=== PATIENT | female | born 1935 | race Caucasian/White ===

== ENCOUNTER → 2017-12-30 | Outpatient (CLI) | payer MEDICARE, MEDICAID ==
--- NOTE | 2017-12-30 13:50 | RADIOLOGY REPORT (SQ) ---
EXAM DESCRIPTION: CHEST PA/LATERAL COMPLETED DATE/TIME: 12/30/2017 1:08 pm REASON FOR STUDY: EMPHYSEMA, UNSPECIFIED COMPARISON: 03/15/2017 EXAM PARAMETERS: NUMBER OF VIEWS: two views TECHNIQUE: Digital Frontal and Lateral radiographic views of the chest acquired. RADIATION DOSE: NA LIMITATIONS: none FINDINGS: LUNGS AND PLEURA: There is a small area of scarring in left upper lobe anteriorly. There are associated calcifications. No pulmonary infiltrates or pleural effusions. The lungs are hyperex panded. MEDIASTINUM AND HILAR STRUCTURES: No masses or contour abnormalities. HEART AND VASCULAR STRUCTURES: Heart size is borderline. There is no pulmonary edema. BONES: No acute findings. HARDWARE: None in the chest. OTHER: No other significant finding. IMPRESSION: Chronic lung changes with no acute cardiopulmonary disease. Borderline cardiomegaly wit hout pulmonary edema. TECHNICAL DOCUMENTATION: JOB ID: [id number] [employer]- All Rights Reserved Reading location - IP/workstation name: [email or web address]
== END ==
LOC: OD 12:36
PROVIDERS: ATTEND Nurse Practitioner Family
DX: J43.9 Emphysema, unspecified (principal)
CPT/HCPCS: 71046

== ENCOUNTER 2018-02-01 20:08 | Emergency (ER) | payer MEDICARE, MEDICAID ==
--- NOTE | 2018-02-01 20:19 | ER Document Report ---
ED Medical Screen (RME) - General Chief Complaint: Shortness Of Breath Stated Complaint: SHORTNESS OF BREATH Time Seen by Provider: 02/01/18 20:16 Notes: 82-year-old female with past medical history of congestive heart failure with chief complaint of 5 days of worsening lower extremity swelling and increasing difficulty breathing and dyspnea on exertion for the past day. No fever. No chest pain. Reports compliance with her diuretic and on digoxin. Also on warfarin. TRAVEL OUTSIDE OF THE [place] IN LAST 30 DAYS: No - Related Data Allergies/Adverse Reactions: Iodine and Iodide Containing Produc Adverse Reaction (Verified 03/15/17 20:30) Past Medical History - Past Medical History Cardiac Medical History: Reports: Hx DVT, Hx Heart Attack, Hx Hypercholesterolemia, Hx Hypertension, Hx Pulmonary Embolism Pulmonary Medical History: Reports: Hx COPD, Hx Pneumonia Endocrine Medical History: Reports: Hx Diabetes Mellitus Type 2 Renal/ Medical History: Denies: Hx Peritoneal Dialysis Malignancy Medical History: Reports: Hx Lung Cancer - Unknown stage or prognosis Psychiatric Medical History: Denies: Hx Depression Past Surgical History: Reports: Hx Cardiac Surgery - Stents, Hx Cholecystectomy , Hx Hysterectomy, Hx Orthopedic Surgery - L foot - Immunizations Hx Diphtheria, Pertussis, Tetanus Vaccination: Yes History of Influenza Vaccine for 02/2017 - 07/2017 Season: Unknown Physical Exam - Respiratory Respiratory status: No respiratory distress Breath sounds: No: Decreased air movement, Wheezing - Cardiovascular Rhythm: Regular. No: Tachycardia Heart sounds: Normal auscultation, S1 appreciated, S2 appreciated - Extremities General lower extremity: Edema - Bilateral lower extremity edema, 2+ pitting Doctor's Discharge - Discharge Referrals: DYLAN BROWER SENIOR EDUCATION SPECIALIST [Primary Care Provider] - Follow up as needed
[2018-02-01 21:14] LABS: ABSOLUTE BASOPHILS # (AUTO) 0.1 10^3/uL (0.0-0.2); ABSOLUTE EOSINOPHILS # (AUTO) 0.1 10^3/uL (0.0-0.6); ABSOLUTE LYMPHOCYTES (AUTO) 2.1 10^3/uL (0.5-4.7); ABSOLUTE MONOCYTES (AUTO) 0.6 10^3/uL (0.1-1.4); ABSOLUTE NEUT (AUTO) 4.6 10^3/uL (1.7-8.2); BASOPHILS % (AUTO) 1.1 % (0-2); EOSINOPHILS % (AUTO) 1.2 % (0-6); HEMATOCRIT 39.5 % (36.0-47.0); HEMOGLOBIN 13.1 g/dL (12.0-15.5); LYMPHOCYTES % (AUTO) 27.8 % (13-45); MEAN CORPUSCULAR HEMOGLOBIN 33.3 pg (27.0-33.4); MEAN CORPUSCULAR HGB CONC 33.2 g/dL (32.0-36.0); MEAN CORPUSCULAR VOLUME 100 fl (80-97); MONOCYTES % (AUTO) 8.2 % (3-13); PLATELET COUNT 186 10^3/uL (150-450); RED BLOOD COUNT 3.93 10^6/uL (3.72-5.28); RED CELL DISTRIBUTION WIDTH 13.7 % (11.5-14.0); SEGMENTED NEUTROPHILS % (AUTO) 61.7 % (42-78); TOTAL CELLS COUNTED % (AUTO) 100 %; WHITE BLOOD COUNT 7.5 10^3/uL (4.0-10.5)
[2018-02-01 21:19] LABS: INTERNATIONAL RATION (INR) 1.07; PROTHROMBIN TIME 14.4 SEC (11.4-15.4)
[2018-02-01 22:01] LABS: ALANINE AMINOTRANSFERASE 20 U/L (9-52); ALBUMIN 3.7 g/dL (3.5-5.0); ALKALINE PHOSPHATASE 78 U/L (38-126); ANION GAP 7 (5-19); ASPARTATE AMINO TRANSFERASE 17 U/L (14-36); BILIRUBIN,DIRECT 0.3 mg/dL (0.0-0.4); BILIRUBIN,TOTAL 0.3 mg/dL (0.2-1.3); BLOOD UREA NITROGEN 19 mg/dL (7-20); CALCIUM 9.5 mg/dL (8.4-10.2); CARBON DIOXIDE 32 mmol/L (22-30); CHLORIDE 104 mmol/L (98-107); DIGOXIN < 0.40 ng/mL (0.8-2.0); GLUCOSE 181 mg/dL (75-110); POTASSIUM 4.4 mmol/L (3.6-5.0); SODIUM 143.3 mmol/L (137-145); TOTAL PROTEIN 6.6 g/dL (6.3-8.2)
[2018-02-01 22:06] LABS: NT PRO BNP 1110 pg/mL (<450)
[2018-02-01 22:13] LABS: TROPONIN I < 0.012 ng/mL
--- NOTE | 2018-02-01 23:50 | RADIOLOGY REPORT (SQ) ---
EXAM DESCRIPTION: XR CHEST 1 VIEW COMPLETED DATE/TME: 02/01/2018 20:16 CLINICAL HISTORY: 82 years, Female, shortness of breath COMPARISON: 12/30/2017 NUMBER OF VIEWS: TECHNIQUE: LIMITATIONS: None. FINDINGS: Heart remains mildly enlarged. There is scattered atelectasis bilaterally. There is consolidation at the right lung base, new since the prior exam. No other interval change. IMPRESSION: Right lung base consolidation. 2010 [employer]- All Rights Reserved
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
[2018-02-02] MEDS ORDERED: CEFTRIAXONE INJ 1000 MG VIAL IV ONE (01:46)
[2018-02-02] MEDS ORDERED: DOXYCYCLINE HYCLATE INJ 100 MG VIAL IV ONE ×2 (01:46→04:30)
[2018-02-02] MEDS ORDERED: FUROSEMIDE INJ/PF 40 MG/4 ML SDV IV ONE (01:47)
[2018-02-02] MEDS: MAGNESIUM SULFATE/D5W 1 GM/100 ML RTUPB IV SCH ×2 (01:54→02:44)
[2018-02-02] MEDS ORDERED: OXYCODONE-ACETAMINOPHEN 5-325 MG TABLET PO ONE (03:56)
[2018-02-02 11:09] VITALS: BP 118/98
--- NOTE | 2018-02-02 15:29 | EKG REPORT ---
SEVERITY:- OTHERWISE NORMAL ECG - SINUS RHYTHM ATRIAL PREMATURE COMPLEX : Confirmed by: May Collins MD 02-Feb-2018 15:29:04
--- NOTE | 2018-02-02 15:29 | EKG REPORT ---
SEVERITY:- NORMAL ECG - SINUS RHYTHM : Confirmed by: May Collins MD 02-Feb-2018 15:29:00
== END 2018-02-02 11:13 | disposition short-term general hospital (02) ==
LOC: ER 20:08
DX: I47.2 Ventricular tachycardia (principal); I11.0 Hypertensive heart disease with heart failure; I50.9 Heart failure, unspecified; J18.1 Lobar pneumonia, unspecified organism; E11.9 Type 2 diabetes mellitus without complications; F17.200 Nicotine dependence, unspecified, uncomplicated
CPT/HCPCS: 93005 ×2; 99285; 96375; 96365; 96366; 96367; 96368; 36415; 80162; 85025; 85610; 80053; 84484; 83880; 71045; 93010 ×2; J3490; J1940; A9270; J3475; J0696

== ENCOUNTER → 2018-02-18 | Outpatient (CLI) | payer MEDICARE, MEDICAID ==
--- NOTE | 2018-02-18 17:49 | RADIOLOGY REPORT (SQ) ---
EXAM DESCRIPTION: HAND RIGHT 3 VIEWS COMPLETED DATE/TIME: 02/18/2018 5:40 pm REASON FOR STUDY: M79.641 PAIN IN RIGHT HAND M79.641 PAIN IN RIGHT HAND COMPARISON: None. EXAM PARAMETERS: NUMBER OF VIEWS: Three views. TECHNIQUE: AP, lateral and oblique radiographic images acquired of the right hand. LIMITATIONS: None. FINDINGS: MINERALIZATION: Normal. BONES: No acute fracture or dislocation. No worrisome bone lesions. JOINTS: No effusions. SOFT TISSUES: No soft tissue swelling. No foreign body. OTHER: No other significant finding. IMPRESSION: NEGATIVE STUDY OF THE RIGHT HAND. NO RADIOGRAPHIC EVIDENCE OF ACUTE INJURY. TECHNICAL DOCUMENTATION: JOB ID: [id number] [employer]- All Rights Reserved Reading location - IP/workstation name: [email or web address]
== END ==
LOC: RAD 17:30
PROVIDERS: ATTEND Physician Assistant
DX: M79.641 Pain in right hand (principal)

== ENCOUNTER → 2018-02-24 | Outpatient (CLI) | payer MEDICARE, MEDICAID ==
[2018-02-24 12:41] LABS: INTERNATIONAL RATION (INR) 1.09
[2018-02-24 12:54] LABS: PROTHROMBIN TIME 14.7 SEC (11.4-15.4)
== END ==
LOC: GHH 12:08
PROVIDERS: ATTEND Family Medicine
DX: Z51.81 Encounter for therapeutic drug level monitoring (principal); Z79.01 Long term (current) use of anticoagulants; Z79.899 Other long term (current) drug therapy
CPT/HCPCS: 85610

== ENCOUNTER 2018-02-26 18:41 | Emergency (ER) | payer MEDICARE, MEDICAID ==
--- NOTE | 2018-02-26 19:14 | ER Document Report ---
ED General - General Chief Complaint: Shortness Of Breath Stated Complaint: SHORTNESS OF BREATH Time Seen by Provider: 02/26/18 19:01 Notes: Is an 82-year-old female to the emergency department chief complaint of shortness of breath. Patient has multiple medical problems. States that she was recently transferred to [facility] for a pacemaker. States that she has been short of breath all day. Presents by EMS. Denies any chest pain at this time. TRAVEL OUTSIDE OF THE [place] IN LAST 30 DAYS: No - Related Data Allergies/Adverse Reactions: Iodine and Iodide Containing Produc Adverse Reaction (Verified 02/01/18 20:19) Past Medical History - General Information source: Patient - Social History Smoking Status: Current Every Day Smoker Cigarette use (# per day): Yes Frequency of alcohol use: None Drug Abuse: None Lives with: Family Family History: CAD, COPD - Past Medical History Cardiac Medical History: Reports: Hx DVT, Hx Heart Attack, Hx Hypercholesterolemia, Hx Hypertension, Hx Pulmonary Embolism Pulmonary Medical History: Reports: Hx COPD, Hx Pneumonia Endocrine Medical History: Reports: Hx Diabetes Mellitus Type 2 Renal/ Medical History: Denies: Hx Peritoneal Dialysis Malignancy Medical History: Reports: Hx Lung Cancer - Unknown stage or prognosis Psychiatric Medical History: Denies: Hx Depression Past Surgical History: Reports: Hx Cardiac Surgery - Stents, Hx Cholecystectomy , Hx Hysterectomy, Hx Orthopedic Surgery - L foot - Immunizations Hx Diphtheria, Pertussis, Tetanus Vaccination: Yes Review of Systems - Review of Systems Notes: Constitutional: denies: Chills, Diaphoresis, Fever, Malaise, Weakness EENT: denies: Eye discharge, Blurred vision, Tearing, Double vision, Nose congestion, Nose discharge, Throat swelling, Mouth pain Cardiovascular: denies: Palpitations, Heart racing, Orthopnea, Dyspnea, Chest pain Respiratory: denies: Cough, Hurts to breathe, Wheezing, Shortness of breath Gastrointestinal: denies: Abdominal pain, Diarrhea, Nausea, Vomiting, Black stools, bright red blood in stool Genitourinary: denies: Burning, Dysuria, Discharge, Frequency, Flank pain, Hematuria Musculoskeletal: denies: Joint pain, Joint swelling, Muscle pain, Muscle stiffness, back pain Hematologic/Lymphatic: denies: Anemia, Easy bleeding, Easy bruising, Blood clots Neurological/Psychological: denies: Confusion, Dementia, Depression, Loss of consciousness Skin: No lesions, no masses, no skin breakdown, no abscesses Physical Exam - Vital signs Vitals: Temp Pulse Resp BP Pulse Ox 98.5 F 50 L 12 92/57 L 99 02/26/18 18:45 02/26/18 18:45 02/26/18 18:45 02/26/18 18:45 02/26/18 18:45 Interpretation: Normal - General General appearance: Appears well, Alert - HEENT Head: Normocephalic, Atraumatic Eyes: Normal Pupils: PERRL - Respiratory Respiratory status: No respiratory distress Chest status: Nontender Breath sounds: Wheezing Chest palpation: Normal - Cardiovascular Rhythm: Regular Heart sounds: Normal auscultation Murmur: No - Abdominal Inspection: Normal Distension: No distension Bowel sounds: Normal Tenderness: Nontender Organomegaly: No organomegaly - Back Back: Normal, Nontender - Extremities General upper extremity: Normal inspection, Nontender, Normal color, Normal ROM , Normal temperature General lower extremity: Normal inspection, Nontender, Normal color, Normal ROM , Normal temperature, Normal weight bearing. No: Ashwini's sign - Neurological Neuro grossly intact: Yes Cognition: Normal Orientation: AAOx4 [place] Coma Scale Eye Opening: Spontaneous [place] Coma Scale Verbal: Oriented [place] Coma Scale Motor: Obeys Commands [place] Coma Scale Total: 15 Speech: Normal Motor strength normal: LUE, RUE, LLE, RLE Sensory: Normal - Psychological Associated symptoms: Normal affect, Normal mood - Skin Skin Temperature: Warm Skin Moisture: Dry Skin Color: Normal Course - Re-evaluation Re-evalutation: 02/26/18 21:19 Patient was a little hypotensive on arrival. Faint wheeze. Breathing treatment ordered. Fluids given. Slightly elevated creatinine at 1.77 as compared to prior. Had recent hospitalization for consultation for possible pacemaker. 02/26/18 21:20 Laboratory 02/26/18 02/26/18 02/26/18 19:00 19:00 19:40 WBC 10.3 RBC 4.05 Hgb 13.4 Hct 39.8 MCV 98 H MCH 33.1 MCHC 33.6 RDW 13.1 Plt Count 168 Seg Neutrophils % 64.0 Lymphocytes % 27.4 Monocytes % 7.4 Eosinophils % 0.7 Basophils % 0.5 Absolute Neutrophils 6.6 Absolute Lymphocytes 2.8 Absolute Monocytes 0.8 Absolute Eosinophils 0.1 Absolute Basophils 0.1 Sodium 141.6 Potassium 4.3 Chloride 99 Carbon Dioxide 35 H Anion Gap 8 BUN 36 H Creatinine 1.77 H Est GFR ( Amer) 33 L Est GFR (Non-Af Amer) 28 L Glucose 110 Calcium 8.6 Total Bilirubin 0.3 Direct Bilirubin 0.2 Neonat Total Bilirubin Not Reportable Neonat Direct Bilirubin Not Reportable Neonat Indirect Bili Not Reportable AST 23 ALT 16 Alkaline Phosphatase 75 Creatine Kinase 21 L CK-MB (CK-2) Troponin I NT-Pro-B Natriuret Pep Total Protein 7.1 Albumin 3.8 02/26/18 19:40 WBC RBC Hgb Hct MCV MCH MCHC RDW Plt Count Seg Neutrophils % Lymphocytes % Monocytes % Eosinophils % Basophils % Absolute Neutrophils Absolute Lymphocytes Absolute Monocytes Absolute Eosinophils Absolute Basophils Sodium Potassium Chloride Carbon Dioxide Anion Gap BUN Creatinine Est GFR ( Amer) Est GFR (Non-Af Amer) Glucose Calcium Total Bilirubin Direct Bilirubin Neonat Total Bilirubin Neonat Direct Bilirubin Neonat Indirect Bili AST ALT Alkaline Phosphatase Creatine Kinase CK-MB (CK-2) 0.65 Troponin I < 0.012 NT-Pro-B Natriuret Pep 910 H Total Protein Albumin 02/26/18 23:35 Patient has been observed here in the ER for 4 hours now. Has had 2 sets of cardiac troponins which were negative. Has some chronic congestive heart failure. Has never had any hypoxia. Patient's blood pressure was slightly low and she received some fluid and her blood pressures come back up. More likely patient has been accidentally overdosing herself on her blood pressure medications for which she has recently been prescribed. Patient continues to smoke and did have some wheezing. Patient more likely has some COPD exacerbation going on. I am going to treat her with albuterol, prednisone and some antibiotics. We will discharge her at this time in stable condition with close outpatient follow-up. - Vital Signs Vital signs: Temp Pulse Resp BP Pulse Ox 98.5 F 50 L 13 112/50 L 100 02/26/18 18:45 02/26/18 18:45 02/26/18 23:01 02/26/18 23:01 02/26/18 23:01 - Laboratory Result Diagrams: 02/26/18 19:00 02/26/18 19:00 Laboratory results interpreted by me: 02/26/18 02/26/18 02/26/18 19:00 19:00 19:40 MCV 98 H PT Carbon Dioxide 35 H BUN 36 H Creatinine 1.77 H Est GFR ( Amer) 33 L Est GFR (Non-Af Amer) 28 L Creatine Kinase 21 L NT-Pro-B Natriuret Pep 02/26/18 02/26/18 19:40 22:10 MCV PT 21.8 H Carbon Dioxide BUN Creatinine Est GFR ( Amer) Est GFR (Non-Af Amer) Creatine Kinase NT-Pro-B Natriuret Pep 910 H - EKG Interpretation by Me EKG shows normal: Sinus rhythm, [place], Intervals, QRS Complexes, ST-T Waves Discharge - Discharge Clinical Impression: COPD exacerbation Condition: Good Disposition: HOME, SELF-CARE Instructions: Chronic Obstructive Lung Disease ([facility]) Additional Instructions: In the event that your breathing gets worse, worsening symptoms or concerns please return immediately for repeat evaluation or follow-up with her regular doctor. We are starting you on some antibiotics and steroids and breathing treatment. We will be very important that you start this medication as soon as possible. Prescriptions: Albuterol Sulfate [Ventolin Hfa] 1 - 2 puff IH Q4 PRN #1 [id number] PRN Reason: Doxycycline Hyclate 100 mg PO BID #14 capsule Prednisone [Deltasone] 60 mg PO DAILY 5 Days #15 tablet Referrals: MISSY ARISA MD [Primary Care Provider] - Follow up as needed SHERRIE CADET PA-C [NO LOCAL MD] - Follow up in 3-5 days
[2018-02-26 19:51] LABS: ABSOLUTE BASOPHILS # (AUTO) 0.1 10^3/uL (0.0-0.2); ABSOLUTE EOSINOPHILS # (AUTO) 0.1 10^3/uL (0.0-0.6); ABSOLUTE LYMPHOCYTES (AUTO) 2.8 10^3/uL (0.5-4.7); ABSOLUTE MONOCYTES (AUTO) 0.8 10^3/uL (0.1-1.4); ABSOLUTE NEUT (AUTO) 6.6 10^3/uL (1.7-8.2); BASOPHILS % (AUTO) 0.5 % (0-2); EOSINOPHILS % (AUTO) 0.7 % (0-6); HEMATOCRIT 39.8 % (36.0-47.0); HEMOGLOBIN 13.4 g/dL (12.0-15.5); LYMPHOCYTES % (AUTO) 27.4 % (13-45); MEAN CORPUSCULAR HEMOGLOBIN 33.1 pg (27.0-33.4); MEAN CORPUSCULAR HGB CONC 33.6 g/dL (32.0-36.0); MEAN CORPUSCULAR VOLUME 98 fl (80-97); MONOCYTES % (AUTO) 7.4 % (3-13); PLATELET COUNT 168 10^3/uL (150-450); RED BLOOD COUNT 4.05 10^6/uL (3.72-5.28); RED CELL DISTRIBUTION WIDTH 13.1 % (11.5-14.0); TOTAL CELLS COUNTED % (AUTO) 100 %; WHITE BLOOD COUNT 10.3 10^3/uL (4.0-10.5)
[2018-02-26 19:56] LABS: ALANINE AMINOTRANSFERASE 16 U/L (9-52); ALBUMIN 3.8 g/dL (3.5-5.0); ALKALINE PHOSPHATASE 75 U/L (38-126); ANION GAP 8 (5-19); ASPARTATE AMINO TRANSFERASE 23 U/L (14-36); BILIRUBIN,DIRECT 0.2 mg/dL (0.0-0.4); BILIRUBIN,TOTAL 0.3 mg/dL (0.2-1.3); BLOOD UREA NITROGEN 36 mg/dL (7-20); CALCIUM 8.6 mg/dL (8.4-10.2); CARBON DIOXIDE 35 mmol/L (22-30); CHLORIDE 99 mmol/L (98-107); GLUCOSE 110 mg/dL (75-110); POTASSIUM 4.3 mmol/L (3.6-5.0); SODIUM 141.6 mmol/L (137-145); TOTAL PROTEIN 7.1 g/dL (6.3-8.2)
[2018-02-26 20:18] LABS: CREATINE KINASE MB 0.65 ng/mL (<4.55); NT PRO BNP 910 pg/mL (<450)
--- NOTE | 2018-02-26 20:20 | RADIOLOGY REPORT (SQ) ---
EXAM DESCRIPTION: CHEST SINGLE VIEW COMPLETED DATE/TIME: 02/26/2018 7:54 pm REASON FOR STUDY: Shortness of Breath COMPARISON: 02/01/2018 TECHNIQUE: Single frontal radiographic view of the chest acquired. NUMBER OF VIEWS: One view. LIMITATIONS: None. FINDINGS: LUNGS AND PLEURA: No pneumothorax. Minimal residual markings at the right costophrenic an gle. No consolidation or pleural effusion. Similar nodularity in the right upper parahilar region. MEDIASTINUM AND HILAR STRUCTURES: Stable. HEART AND VASCULAR STRUCTURES: Stable. BONES: No acute findings. HARDWARE: None in the chest. OTHER: No other significant finding. IMPRESSION: Minimal residual markings at the right costophrenic angle. No consolidation or pleural effusion. Similar nodularity in the right upper parahilar region. TECHNICAL DOCUMENTATION: JOB ID: [id number] 2010 [employer]- All Rights Reserved Reading location - IP/workstation name: [email or web address]
[2018-02-26] MEDS ORDERED: NORMAL SALINE 500 ML IV ONE ×2 (20:31→22:02)
[2018-02-26 20:32] LABS: TROPONIN I < 0.012 ng/mL
[2018-02-26] MEDS ORDERED: ALBUTEROL SULFATE 0.083% NEB 2.5 MG/3 ML AMPUL NEB ONE ×2 (20:32→21:21)
[2018-02-26] MEDS ORDERED: METHYLPREDNISOLONE INJ 125 MG/2 ML SDV IV ONE (21:21)
[2018-02-26 22:33] LABS: PROTHROMBIN TIME 21.8 SEC (11.4-15.4)
--- NOTE | 2018-02-26 22:39 | EKG REPORT ---
SEVERITY:- NORMAL ECG - SINUS RHYTHM : Confirmed by: May Collins MD 26-Feb-2018 22:39:12
[2018-02-26 23:36] LABS: APPEARANCE,URINE SLIGHTLY-CLOUDY; BILIRUBIN,URINE NEGATIVE (NEGATIVE); COLOR,URINE YELLOW; GLUCOSE, URINE NEGATIVE (NEGATIVE); KETONES,URINE NEGATIVE (NEGATIVE); LEUKOCYTE ESTERASE,URINE NEGATIVE (NEGATIVE); NITRITE,URINE NEGATIVE (NEGATIVE); PROTEIN,URINE NEGATIVE (NEGATIVE)
[2018-02-26 23:43] VITALS: BP 101/61
== END 2018-02-27 00:13 | disposition home or self-care (01) ==
LOC: ER 18:41
DX: J44.1 Chronic obstructive pulmonary disease with (acute) exacerbation (principal); I11.0 Hypertensive heart disease with heart failure; I50.9 Heart failure, unspecified; R06.02 Shortness of breath; I95.9 Hypotension, unspecified; F17.210 Nicotine dependence, cigarettes, uncomplicated; E11.9 Type 2 diabetes mellitus without complications; I25.2 Old myocardial infarction; Z87.01 Personal history of pneumonia (recurrent); Z86.711 Personal history of pulmonary embolism; Z86.718 Personal history of other venous thrombosis and embolism; Z85.118 Personal history of other malignant neoplasm of bronchus and lung; Z95.5 Presence of coronary angioplasty implant and graft
CPT/HCPCS: 93005; 94640 ×2; 99285; 96361; 96374; 36415; 82553; 82550; 85025; 85610; 80053; 81001; 84484; 83880; 71045; 93010; J2930; J7040; A9270

== ENCOUNTER 2018-03-14 18:57 | Emergency (ER) | payer MEDICARE, MEDICAID ==
[2018-03-14 20:12] LABS: ABSOLUTE BASOPHILS # (AUTO) 0.1 10^3/uL (0.0-0.2); ABSOLUTE EOSINOPHILS # (AUTO) 0.1 10^3/uL (0.0-0.6); ABSOLUTE LYMPHOCYTES (AUTO) 2.7 10^3/uL (0.5-4.7); ABSOLUTE MONOCYTES (AUTO) 0.8 10^3/uL (0.1-1.4); ABSOLUTE NEUT (AUTO) 7.9 10^3/uL (1.7-8.2); EOSINOPHILS % (AUTO) 0.7 % (0-6); HEMATOCRIT 43.5 % (36.0-47.0); HEMOGLOBIN 14.6 g/dL (12.0-15.5); LYMPHOCYTES % (AUTO) 23.1 % (13-45); MEAN CORPUSCULAR HEMOGLOBIN 32.8 pg (27.0-33.4); MEAN CORPUSCULAR HGB CONC 33.6 g/dL (32.0-36.0); MEAN CORPUSCULAR VOLUME 98 fl (80-97); MONOCYTES % (AUTO) 6.8 % (3-13); PLATELET COUNT 167 10^3/uL (150-450); RED BLOOD COUNT 4.46 10^6/uL (3.72-5.28); RED CELL DISTRIBUTION WIDTH 13.8 % (11.5-14.0); SEGMENTED NEUTROPHILS % (AUTO) 68.4 % (42-78); TOTAL CELLS COUNTED % (AUTO) 100 %; WHITE BLOOD COUNT 11.6 10^3/uL (4.0-10.5)
[2018-03-14 20:16] LABS: INTERNATIONAL RATION (INR) 0.97; PROTHROMBIN TIME 13.4 SEC (11.4-15.4)
[2018-03-14] MEDS ORDERED: ACETAMINOPHEN 325 MG TABLET PO ONE (20:21)
--- NOTE | 2018-03-14 20:22 | ER Document Report ---
ED General - General Chief Complaint: Chest Pain Stated Complaint: CHEST PAIN Time Seen by Provider: 03/14/18 20:12 Notes: Patient is an 82-year-old female with a past medical history of chronic pain on chronic opiates, hypertension, hyperlipidemia, COPD, who presents with complaints of chest pain and diffuse body pain. It is initially somewhat difficult to ascertain exactly what is the patient's main concern is she is complaining of total body pain. She does state that she is most concerned about the increasing swelling in her bilateral lower extremities as well as chest pain. She states the chest pain has been going on all day. Is described as an aching, stabbing pain. She has tried Percocet at home with no improvement of the pain. Nothing worsens the pain. She denies associated nausea, vomiting, diaphoresis or shortness of breath. Notes a history of similar pains in the past with negative workups. She has not seen her primary doctor regarding today's concerns. TRAVEL OUTSIDE OF THE [place] IN LAST 30 DAYS: No - Related Data Allergies/Adverse Reactions: Iodine and Iodide Containing Produc Adverse Reaction (Verified 02/01/18 20:19) Past Medical History - General Information source: Patient - Social History Smoking Status: Current Every Day Smoker Frequency of alcohol use: None Drug Abuse: None Lives with: Family Family History: CAD, COPD - Past Medical History Cardiac Medical History: Reports: Hx Congestive Heart Failure, Hx DVT, Hx Heart Attack, Hx Hypercholesterolemia, Hx Hypertension, Hx Pulmonary Embolism Pulmonary Medical History: Reports: Hx Asthma, Hx COPD, Hx Pneumonia Endocrine Medical History: Reports: Hx Diabetes Mellitus Type 2 Renal/ Medical History: Denies: Hx Peritoneal Dialysis Malignancy Medical History: Reports: Hx Lung Cancer - Unknown stage or prognosis Psychiatric Medical History: Denies: Hx Depression Past Surgical History: Reports: Hx Cardiac Surgery - Stents, Hx Cholecystectomy , Hx Hysterectomy, Hx Orthopedic Surgery - L foot - Immunizations Hx Diphtheria, Pertussis, Tetanus Vaccination: Yes Review of Systems - Review of Systems Notes: Constitutional: Negative for fever. HENT: Negative for sore throat. Eyes: Negative for visual changes. Cardiovascular: Positive for chest pain. Respiratory: Negative for shortness of breath. Gastrointestinal: Negative for abdominal pain, vomiting or diarrhea. Genitourinary: Negative for dysuria. Musculoskeletal: Positive for diffuse body pain Skin: Negative for rash. Neurological: Negative for headaches, weakness or numbness. 10 point ROS negative except as marked above and in HPI. Physical Exam - Vital signs Vitals: Temp Pulse Resp BP Pulse Ox 97.7 F 73 18 85/72 L 93 03/14/18 19:07 03/14/18 19:07 03/14/18 19:07 03/14/18 19:07 03/14/18 19:07 Interpretation: Normal - Initial recorded hypotension is inaccurate Notes: PHYSICAL EXAMINATION: GENERAL: Somewhat restless but in no acute distress HEAD: Atraumatic, normocephalic. EYES: Pupils equal round and reactive to light, extraocular movements intact, sclera anicteric, conjunctiva are normal. ENT: nares patent, oropharynx clear without exudates. Moderately dry mucous membranes. NECK: Normal range of motion, supple without lymphadenopathy LUNGS: Breath sounds clear to auscultation bilaterally and equal. No wheezes rales or rhonchi. HEART: Regular rate and rhythm without murmurs ABDOMEN: Soft, nontender, normoactive bowel sounds. No guarding, no rebound. No masses appreciated. EXTREMITIES: Normal range of motion, 1+ edema in the bilateral lower extremities that is equal and symmetric, no cyanosis. NEUROLOGICAL: No focal neurological deficits. Moves all extremities spontaneously and on command. PSYCH: Anxious, somewhat agitated SKIN: Warm, Dry, normal turgor, no rashes or lesions noted. Course - Re-evaluation Re-evalutation: 03/14/18 20:20 Patient presents with multiple complaints, initially there was concern that she was hypotensive although I have rechecked the blood pressure on 2 separate occasions in both arms on my assessment at the bedside and the blood pressures are within normal limits currently 131 on 84. She is complaining of diffuse body pain, most focal to the chest. She is also complaining of bilateral lower extremity edema that has worsened over the last several days. History is otherwise quite limited as the patient and her family member at the bedside are both very poor historians. They do report that she was recently taken off digoxin. Chest x-ray without any overt volume overload. Will obtain labs, provide analgesia and reassess the patient 03/14/18 21:27 Initial troponin is normal. Labs are broadly unremarkable. Will obtain a delta troponin and plan for discharge home thereafter. 03/14/18 21:49 The patient is complaining of diffuse body pain, demanding narcotic pain medications that she takes at home. This has been administered. The patient is now effectively stating that her chest pain is no different than the rest of her entire body pain and that she wants to go home. She is agreeable to obtaining a repeat delta troponin at this time but will not remain any longer. Will obtain a delta troponin at this time and if this remains unremarkable at discharge per patient's request. She does understand that based on her risk factors and age she is higher risk and would not typically be discharged. 2300 Repeat troponin remains normal. Patient states she no longer has chest pain. Requesting discharge home. At this time will discharge with return precautions and follow-up recommendations. Verbal discharge instructions given a the bedside and opportunity for questions given. Medication warnings reviewed. Patient is in agreement with this plan and has verbalized understanding of return precautions and the need for primary care follow-up in the next 24-72 hours. - Vital Signs Vital signs: Temp Pulse Resp BP Pulse Ox 97.8 F 73 20 110/79 95 03/14/18 23:19 03/14/18 19:07 03/14/18 23:19 03/14/18 23:19 03/14/18 23:19 - Laboratory Result Diagrams: 03/14/18 20:00 03/14/18 20:00 Laboratory results interpreted by me: 03/14/18 03/14/18 20:00 20:00 WBC 11.6 H MCV 98 H Chloride 97 L Carbon Dioxide 36 H Glucose 185 H Creatine Kinase < 20 L - Diagnostic Test Radiology reviewed: Image reviewed, Reports reviewed Radiology results interpreted by me: 03/14/18 20:21 Chest x-ray: No acute infiltrate or pneumothorax - EKG Interpretation by Me Additional EKG results interpreted by me: 03/14/18 20:22 Sinus rhythm. Rate 72. No ST elevations or depressions. QTC is 473. Discharge - Discharge Clinical Impression: Total body pain Chest pain Qualifiers: Chest pain type: unspecified Qualified Code(s): R07.9 - Chest pain, unspecified Condition: Stable Disposition: HOME, SELF-CARE Additional Instructions: You were seen today for chest pain. The exact cause of your pain is unclear. However, based on your cardiac enzyme testing, chest x-ray, and EKG it does not appear that it is from an immediately life-threatening cause at this time. Although your testing here is normal is critical that you follow-up with your primary care physician for continued evaluation of this chest pain and possible stress testing. I recommended you see your physician within the next 24-48 hours to be evaluated for consideration of a stress test. Please return to emergency department immediately if you have worsening of your chest pain, shortness of breath, vomiting, become unable to exert yourself due to pain or difficulty breathing, you pass out, or have any pain that radiates into your arms, jaw, or back. Please also return if you have any additional symptoms that are concerning to you. Referrals: SHERRIE CADET PA-C [Primary Care Provider] - Follow up as needed
[2018-03-14 20:27] LABS: ALANINE AMINOTRANSFERASE 19 U/L (9-52); ALBUMIN 3.8 g/dL (3.5-5.0); ALKALINE PHOSPHATASE 79 U/L (38-126); ANION GAP 10 (5-19); ASPARTATE AMINO TRANSFERASE 16 U/L (14-36); BILIRUBIN,DIRECT 0.2 mg/dL (0.0-0.4); BILIRUBIN,TOTAL 0.8 mg/dL (0.2-1.3); BLOOD UREA NITROGEN 18 mg/dL (7-20); CALCIUM 9.7 mg/dL (8.4-10.2); CARBON DIOXIDE 36 mmol/L (22-30); CHLORIDE 97 mmol/L (98-107); GLUCOSE 185 mg/dL (75-110); POTASSIUM 4.2 mmol/L (3.6-5.0); SODIUM 142.6 mmol/L (137-145); TOTAL PROTEIN 6.8 g/dL (6.3-8.2)
[2018-03-14 20:28] LABS: CREATINE KINASE < 20 U/L (30-135)
[2018-03-14 20:39] LABS: CREATINE KINASE MB 0.43 ng/mL (<4.55); TROPONIN I < 0.012 ng/mL
--- NOTE | 2018-03-14 20:53 | RADIOLOGY REPORT (SQ) ---
EXAM DESCRIPTION: CHEST SINGLE VIEW COMPLETED DATE/TIME: 03/14/2018 8:09 pm REASON FOR STUDY: cp COMPARISON: Chest x-ray 02/01/2018, 02/26/2018. EXAM PARAMETERS: NUMBER OF VIEWS: One view. TECHNIQUE: Single frontal radiographic view of the chest acquired. RADIATION DOSE: NA LIMITATIONS: None. FINDINGS: LUNGS AND PLEURA: No consolidation, pneumothorax or pleural effusion. MEDIASTINUM AND HILAR STRUCTURES: Stable appearance. Surgical clips are noted at the left perihilar region. HEART AND VASCULAR STRUCTURES: The heart is enlarged. No overt vascular congestion. BONES: No acute findings. HARDWARE: None in the chest. IMPRESSION: Cardiomegaly. Otherwise, no acute radiographic finding in the chest. TECHNICAL DOCUMENTATION: JOB ID: [id number] [employer]- All Rights Reserved Reading location - IP/workstation name: [email or web address]
[2018-03-14] MEDS ORDERED: OXYCODONE-ACETAMINOPHEN 5-325 MG TABLET PO ONE (21:27)
--- NOTE | 2018-03-14 22:04 | EKG REPORT ---
SEVERITY:- NORMAL ECG - SINUS RHYTHM : Confirmed by: Gabe Bingham 14-Mar-2018 22:03:54
[2018-03-14 23:46] VITALS: BP 110/79
== END 2018-03-14 23:19 | disposition home or self-care (01) ==
LOC: ER 18:57
DX: G89.29 Other chronic pain (principal); Z79.891 Long term (current) use of opiate analgesic; R07.9 Chest pain, unspecified; R60.0 Localized edema; F41.9 Anxiety disorder, unspecified; I10 Essential (primary) hypertension; I25.2 Old myocardial infarction; E11.9 Type 2 diabetes mellitus without complications; J44.9 Chronic obstructive pulmonary disease, unspecified; F17.200 Nicotine dependence, unspecified, uncomplicated; Z82.49 Family history of ischemic heart disease and other diseases of the circulatory system; Z86.718 Personal history of other venous thrombosis and embolism; Z86.711 Personal history of pulmonary embolism; Z85.118 Personal history of other malignant neoplasm of bronchus and lung; Z95.5 Presence of coronary angioplasty implant and graft
CPT/HCPCS: 93005; 99285; 36415; 82553; 82550; 85025; 85610; 80053; 84484; 83880; 71045; 93010; A9270 ×2

== ENCOUNTER 2018-05-28 13:21 | Inpatient (IN) | payer MEDICARE, MEDICAID ==
[2018-05-28] MEDS ORDERED: IPRATROPIUM/ALBUTEROL 0.5-2.5 MG/3 ML AMPUL NEB ONE ×2 (13:36→13:47)
[2018-05-28] MEDS ORDERED: DILTIAZEM HCL INJ 25 MG/5 ML VIAL ONE (13:42)
[2018-05-28] MEDS ORDERED: DILTIAZEM HCL INJ 25 MG/5 ML VIAL IV ONE ×5 (13:44→19:53)
[2018-05-28 13:59] LABS: ABSOLUTE LYMPHOCYTES (AUTO) 1.5 10^3/uL (0.5-4.7); ABSOLUTE MONOCYTES (AUTO) 0.8 10^3/uL (0.1-1.4); ABSOLUTE NEUT (AUTO) 2.9 10^3/uL (1.7-8.2); BASOPHILS % (AUTO) 0.9 % (0-2); EOSINOPHILS % (AUTO) 0.3 % (0-6); HEMATOCRIT 42.1 % (36.0-47.0); HEMOGLOBIN 13.8 g/dL (12.0-15.5); LYMPHOCYTES % (AUTO) 27.7 % (13-45); MEAN CORPUSCULAR HEMOGLOBIN 32.4 pg (27.0-33.4); MEAN CORPUSCULAR HGB CONC 32.7 g/dL (32.0-36.0); MEAN CORPUSCULAR VOLUME 99 fl (80-97); MONOCYTES % (AUTO) 15.9 % (3-13); PLATELET COUNT 185 10^3/uL (150-450); RED BLOOD COUNT 4.24 10^6/uL (3.72-5.28); RED CELL DISTRIBUTION WIDTH 14.1 % (11.5-14.0); SEGMENTED NEUTROPHILS % (AUTO) 55.2 % (42-78); TOTAL CELLS COUNTED % (AUTO) 100 %; WHITE BLOOD COUNT 5.3 10^3/uL (4.0-10.5)
[2018-05-28 14:02] LABS: VENOUS BLOOD BASE EXCESS 2.9 mmol/L; VENOUS BLOOD PH 7.28 (7.30-7.42)
[2018-05-28 14:07] LABS: VENOUS BLOOD PCO2 70.5 mmHg (35-63)
--- NOTE | 2018-05-28 14:41 | RADIOLOGY REPORT (SQ) ---
EXAM DESCRIPTION: CHEST SINGLE VIEW COMPLETED DATE/TIME: 05/28/2018 2:33 pm REASON FOR STUDY: sob COMPARISON: 03/14/2018 EXAM PARAMETERS: NUMBER OF VIEWS: One view. TECHNIQUE: Single frontal radiographic view of the chest acquired. RADIATION DOSE: NA LIMITATIONS: None. FINDINGS: LUNGS AND PLEURA: No opacities, masses or pneumothorax. No pleural effusion. MEDIASTINUM AND HILAR STRUCTURES: No masses. Contour normal. HEART AND VASCULAR STRUCTURES: Cardiomegaly. No pulmonary edema. BONES: No acute findings. HARDWARE: None in the chest. OTHER: No other significant finding. IMPRESSION: Cardiomegaly without pulmonary edema. TECHNICAL DOCUMENTATION: JOB ID: [id number] [employer]- All Rights Reserved Reading location - IP/workstation name: [email or web address]
[2018-05-28 15:03] LABS: ALANINE AMINOTRANSFERASE 29 U/L (9-52); ALBUMIN 3.8 g/dL (3.5-5.0); ALKALINE PHOSPHATASE 78 U/L (38-126); ASPARTATE AMINO TRANSFERASE 15 U/L (14-36); BILIRUBIN,DIRECT 0.1 mg/dL (0.0-0.4); BILIRUBIN,TOTAL 0.4 mg/dL (0.2-1.3); BLOOD UREA NITROGEN 14 mg/dL (7-20); CALCIUM 8.6 mg/dL (8.4-10.2); CREATINE KINASE 29 U/L (30-135); GLUCOSE 196 mg/dL (75-110); POTASSIUM 4.4 mmol/L (3.6-5.0); TOTAL PROTEIN 6.2 g/dL (6.3-8.2)
[2018-05-28 15:14] LABS: CREATINE KINASE MB 0.76 ng/mL (<4.55)
[2018-05-28 15:15] LABS: TROPONIN I < 0.012 ng/mL
[2018-05-28 15:29] LABS: CARBON DIOXIDE 34 mmol/L (22-30); CHLORIDE 98 mmol/L (98-107); SODIUM 136.8 mmol/L (137-145)
[2018-05-28 15:32] LABS: ANION GAP 5 (5-19)
--- NOTE | 2018-05-28 16:36 | ER Document Report ---
ED Respiratory Problem - General Chief Complaint: Cough Stated Complaint: COUGH,CONGESTION,CHEST TIGHT Time Seen by Provider: 05/28/18 13:44 Mode of Arrival: Ambulatory Information source: Patient Notes: Chief complaint: Shortness of breath History of complain: 82 years old female with a history of COPD CHF was seen at the doctor's office today. Because she was having cough and difficulty in breathing for the last 2-3 days. There are it was found that her pulse oximeter reading was low therefore sent over to the ED ED., On arrival she was in acute moderate respiratory discomfort. She was brought in by the EMS with oxygen. And she was having diffuse wheezing and shortness of breath. Due to this her history was limited. Onset: Last few days Duration: Gradual moderate to severe Severity: Moderate to severe COPD Quality: Shortness of breath Context: COPD Exacerbating factor and relieving factors: Exertion REVIEW OF SYSTEMS: CONSTITUTIONAL : Denies fever, chills, or sweats. Denies recent illness. EENT: Denies eye, ear, throat, or mouth pain or symptoms. Denies nasal or sinus congestion or discharge. Denies throat, tongue, or mouth swelling or difficulty swallowing. CARDIOVASCULAR: Denies chest pain. Denies palpitations or racing or irregular heart beat. Denies ankle edema. RESPIRATORY: As per history of complain GASTROINTESTINAL: Denies abdominal pain or distention. Denies nausea, vomiting, or diarrhea. Denies blood in vomitus, stools, or per rectum. Denies black, tarry stools. Denies constipation. GENITOURINARY: Denies difficulty urinating, painful urination, burning, frequency, blood in urine, or discharge. MUSCULOSKELETAL: Denies back or neck pain or stiffness. Denies joint pain or swelling. SKIN: Denies rash, lesions or sores. HEMATOLOGIC : Denies easy bruising or bleeding. LYMPHATIC: Denies swollen, enlarged glands. NEUROLOGICAL: Denies confusion or altered mental status. Denies passing out or loss of consciousness. Denies dizziness or lightheadedness. Denies headache. Denies weakness or paralysis or loss of use of either side. Denies problems with gait or speech. Denies sensory loss, numbness, or tingling. Denies seizures. PSYCHIATRIC: Denies anxiety or stress. Denies depression, suicidal ideation, or homicidal ideation. ALL OTHER SYSTEMS REVIEWED AND NEGATIVE. Dictation was performed using Dragon voice recognition software PHYSICAL EXAMINATION: GENERAL: Morbid obesity, moderate respiratory discomfort. Acute HEAD: Atraumatic, normocephalic. EYES: Pupils equal round and reactive to light, extraocular movements intact, sclera anicteric, conjunctiva are normal. ENT: Nares patent, oropharynx clear without exudates. Moist mucous membranes. NECK: Normal range of motion, supple without lymphadenopathy LUNGS: Breath sounds .. Bilaterally decreased breath sounds HEART: Regular rate and rhythm without murmurs ABDOMEN: Soft, nontender, nondistended abdomen. No guarding, no rebound. No m asses appreciated. Musculoskeletal: Normal range of motion, no pitting or edema. No cyanosis. NEUROLOGICAL: Cranial nerves grossly intact. Normal speech, normal gait. Normal sensory, motor exams PSYCH: Normal mood, normal affect. SKIN: Warm, Dry, normal turgor, no rashes or lesions noted. TRAVEL OUTSIDE OF THE [place] IN LAST 30 DAYS: No - HPI Notes: Dictated - Related Data Allergies/Adverse Reactions: Iodine and Iodide Containing Produc Adverse Reaction (Verified 02/01/18 20:19) Past Medical History - Social History Smoking Status: Former Smoker Smoking Education Provided: No Frequency of alcohol use: Rare Drug Abuse: None Lives with: Family Family History: Reviewed & Not Pertinent, CAD, COPD - Past Medical History Cardiac Medical History: Reports: Hx Congestive Heart Failure, Hx DVT, Hx Heart Attack, Hx Hypercholesterolemia, Hx Hypertension, Hx Pulmonary Embolism Pulmonary Medical History: Reports: Hx Asthma, Hx COPD, Hx Pneumonia Endocrine Medical History: Reports: Hx Diabetes Mellitus Type 2 Renal/ Medical History: Denies: Hx Peritoneal Dialysis Malignancy Medical History: Reports: Hx Lung Cancer - Unknown stage or prognosis Psychiatric Medical History: Denies: Hx Depression Past Surgical History: Reports: Hx Cardiac Surgery - Stents, Hx Cholecystectomy, Hx Hysterectomy, Hx Orthopedic Surgery - L foot - Immunizations Hx Diphtheria, Pertussis, Tetanus Vaccination: Yes Review of Systems - Review of Systems Notes: 05/28/18 15:11 Dictated Physical Exam - Vital signs Vitals: Temp Pulse Resp BP Pulse Ox 99.0 F 75 16 132/112 H 97 05/28/18 13:27 05/28/18 13:27 05/28/18 13:27 05/28/18 13:27 05/28/18 13:27 - Notes Notes: Dictated Course - Re-evaluation Re-evalutation: 05/28/18 16:59 Treated with BiPAP machine, Cardizem IV - Vital Signs Vital signs: Temp Pulse Resp BP Pulse Ox 99.0 F 75 22 H 147/90 H 100 05/28/18 13:27 05/28/18 13:27 05/28/18 16:42 05/28/18 16:42 05/28/18 16:42 - Laboratory Result Diagrams: 05/28/18 13:24 05/28/18 14:34 Laboratory results interpreted by me: 05/28/18 05/28/18 05/28/18 13:24 13:24 14:34 MCV 99 H RDW 14.1 H Monocytes % 15.9 H PT VBG pH 7.28 L VBG pCO2 70.5 H* Sodium 136.8 L Carbon Dioxide 34 H Glucose 196 H Creatine Kinase 29 L Total Protein 6.2 L 05/28/18 14:34 MCV RDW Monocytes % PT 15.8 H VBG pH VBG pCO2 Sodium Carbon Dioxide Glucose Creatine Kinase Total Protein - Diagnostic Test Radiology reviewed: Reports reviewed - Chest x-ray reported by radiologist as unremarkable - EKG Interpretation by Me Rate: Tachycardia - Atrial fibrillation at the rate of 148 bpm normal axis, no acute ST elevation ST depression T wave inversion noted. Critical Care Note - Critical Care Note Total time excluding time spent on procedures (mins): 60 Comments: Acute respiratory acidosis, acute COPD exacerbation management. Discharge - Discharge Clinical Impression: Acute exacerbation of COPD with asthma, Respiratory acidosis, Hypercarbia Condition: Critical Disposition: ADMITTED INPATIENT Admitting Provider: Hospitalist Unit Admitted: IMCU Referrals: SHERRIE CADET PA-C [Primary Care Provider] - Follow up as needed
[2018-05-28 16:50] LABS: PROTHROMBIN TIME 15.8 SEC (11.4-15.4)
[2018-05-28 17:06] LABS: APPEARANCE,URINE CLOUDY; BILIRUBIN,URINE NEGATIVE (NEGATIVE); COLOR,URINE YELLOW; GLUCOSE, URINE 50 mg/dL (NEGATIVE); KETONES,URINE TRACE mg/dL (NEGATIVE); LEUKOCYTE ESTERASE,URINE NEGATIVE (NEGATIVE); NITRITE,URINE NEGATIVE (NEGATIVE); PROTEIN,URINE 30 mg/dL (NEGATIVE); URINE SPECIFIC GRAVITY 1.015; UROBILINOGEN,URINE NEGATIVE mg/dL (<2.0)
[2018-05-28] MEDS ORDERED: METHYLPREDNISOLONE INJ 125 MG/2 ML SDV IV ONE (17:13)
--- NOTE | 2018-05-28 17:41 | EKG REPORT ---
SEVERITY:- ABNORMAL ECG - ATRIAL FIBRILLATION WITH RAPID V-RATE VENTRICULAR PREMATURE COMPLEX CONSIDER POSTERIOR INFARCT : Confirmed by: Reji Cho MD 28-May-2018 17:40:43
[2018-05-28] MEDS: ALPRAZOLAM 0.5 MG TABLET PO SCH (17:49)
[2018-05-28] MEDS ORDERED: MORPHINE SULFATE 10 MG/ML INJ IV ONE (17:59)
[2018-05-28] MEDS ORDERED: ONDANSETRON HCL INJ/PF 4 MG/2 ML SDV IV ONE (17:59)
[2018-05-28] MEDS: HUM INSULIN NPH/REG INSULIN HM 100 UNIT/1 ML 3 ML SUBCUT SCH (18:42)
--- NOTE | 2018-05-28 18:48 | PDOC H&P ---
History of Present Illness Admission Date/PCP: SHERRIE CADET PA-C History of Present Illness: KIRSTIE GARCIA is a 82 year old female with a history of COPD who still smokes about a pack a day who came down with what her family describes as a cold a couple of days ago and has been having progressive shortness of breath since. No fevers. Cough is been nonproductive. Her family took her to her primary care provider's office and they told her to come to the ER. Apparently she was in atrial fibrillation when she first came in, but has since converted to a sinus rhythm, before bouncing back in atrial fibrillation. Patient does not know if she has atrial fibrillation, but she does take digoxin and Coumadin at home. Apparently she was hypoxic when she first came in and so they put her on BiPAP and now her SPO2 is 100%. Past Medical History Cardiac Medical History: Reports: Congestive Heart Failure, DVT, Myocardial Infarction, Hyperlipidema, Hypertension, Pulmonary Embolism Pulmonary Medical History: Reports: Asthma, Chronic Obstructive Pulmonary Disease (COPD), Pneumonia Endocrine Medical History: Reports: Diabetes Mellitus Type 2 Malignancy Medical History: Reports: Lung Cancer - Unknown stage or prognosis Psychiatric Medical History: Denies: Depression Past Surgical History Past Surgical History: Reports: Cholecystectomy, Hysterectomy, Orthopedic Surgery - L foot Social History Lives with: Family Smoking Status: Former Smoker Frequency of Alcohol Use: None Hx Recreational Drug Use: No Drugs: None Hx Prescription Drug Abuse: No Family History Family History: Reviewed & Not Pertinent, CAD, COPD Parental Family History Reviewed: No - Unknown Children Family History Reviewed: Unknown Sibling(s) Family History Reviewed.: Unknown Medication/Allergy Allergies/Adverse Reactions: Iodine and Iodide Containing Produc Adverse Reaction (Verified 02/01/18 20:19) Review of Systems All systems: reviewed and no additional remarkable complaints except as stated - 10 point review of systems was conducted with the patient and was negative except as noted above Physical Exam Vital Signs: Temp Pulse Resp BP Pulse Ox 99.0 F 75 22 H 109/53 L 99 05/28/18 13:27 05/28/18 13:27 05/28/18 17:01 05/28/18 17:01 05/28/18 17:01 Intake & Output 05/27/18 05/28/18 05/29/18 06:59 06:59 06:59 Weight 94.7 kg General appearance: PRESENT: cooperative, disheveled, hard of hearing, mild distress, morbidly obese Head exam: PRESENT: atraumatic, normocephalic Eye exam: PRESENT: EOMI, PERRLA. ABSENT: conjunctival injection, nystagmus, scleral icterus Ear exam: PRESENT: normal external ear exam Mouth exam: PRESENT: neck supple, other - Had BiPAP mask on Neck exam: PRESENT: full ROM, lymphadenopathy, tenderness. ABSENT: carotid bruit, JVD, meningismus, thyromegaly Respiratory exam: PRESENT: prolonged expiratory phas, rhonchi, symmetrical, wheezes. ABSENT: accessory muscle use, crackles, tachypnea, unlabored Cardiovascular exam: PRESENT: RRR - When I first went to see her she was in a regular rate and rhythm, but he subsequently flipped back into atrial fibrillation, which she seems to have chronically, +S1, +S2 Vascular exam: PRESENT: normal capillary refill GI/Abdominal exam: PRESENT: normal bowel sounds, soft. ABSENT: distended, guarding, rebound, tenderness Extremities exam: PRESENT: other - She has some trace leg edema bilaterally. ABSENT: clubbing, pedal edema Musculoskeletal exam: PRESENT: normal inspection. ABSENT: deformity Neurological exam: PRESENT: alert, awake, oriented to person, oriented to place, oriented to situation, CN II-XII grossly intact. ABSENT: motor sensory deficit Psychiatric exam: PRESENT: anxious - Mostly she was anxious because I would not give her any morphine because of her breathing Skin exam: PRESENT: dry, warm, other - The skin of her face and neck was heavily wrinkled and her thumb and index and middle fingers on her right hand were stained with nicotine Results Laboratory Results: 05/28/18 13:24 05/28/18 14:34 05/28/18 05/28/18 05/28/18 13:24 13:24 13:24 WBC 5.3 RBC 4.24 Hgb 13.8 Hct 42.1 MCV 99 H MCH 32.4 MCHC 32.7 RDW 14.1 H Plt Count 185 Seg Neutrophils % 55.2 Lymphocytes % 27.7 Monocytes % 15.9 H Eosinophils % 0.3 Basophils % 0.9 Absolute Neutrophils 2.9 Absolute Lymphocytes 1.5 Absolute Monocytes 0.8 Absolute Eosinophils 0.0 Absolute Basophils 0.0 VBG pH VBG pCO2 VBG HCO3 VBG Base Excess Sodium Cancelled Potassium Cancelled Chloride Cancelled Carbon Dioxide Cancelled Anion Gap Cancelled BUN Cancelled Creatinine Cancelled Est GFR ( Amer) Cancelled Est GFR (Non-Af Amer) Cancelled Glucose Cancelled Lactic Acid 1.8 Calcium Cancelled Total Bilirubin Cancelled AST Cancelled ALT Cancelled Alkaline Phosphatase Cancelled Total Protein Cancelled Albumin Cancelled Urine Color Urine Appearance Urine pH Ur Specific [place] Urine Protein Urine Glucose (UA) Urine Ketones Urine Blood Urine Nitrite Ur Leukocyte Esterase Urine WBC (Auto) Urine RBC (Auto) 05/28/18 05/28/18 05/28/18 13:24 14:34 16:42 WBC RBC Hgb Hct MCV MCH MCHC RDW Plt Count Seg Neutrophils % Lymphocytes % Monocytes % Eosinophils % Basophils % Absolute Neutrophils Absolute Lymphocytes Absolute Monocytes Absolute Eosinophils Absolute Basophils VBG pH 7.28 L VBG pCO2 70.5 H* VBG HCO3 32.0 VBG Base Excess 2.9 Sodium 136.8 L Potassium 4.4 Chloride 98 Carbon Dioxide 34 H Anion Gap 5 BUN 14 Creatinine 0.71 Est GFR ( Amer) > 60 Est GFR (Non-Af Amer) > 60 Glucose 196 H Lactic Acid Calcium 8.6 Total Bilirubin 0.4 AST 15 ALT 29 Alkaline Phosphatase 78 Total Protein 6.2 L Albumin 3.8 Urine Color YELLOW Urine Appearance CLOUDY Urine pH 6.0 Ur Specific [place] 1.015 Urine Protein 30 H Urine Glucose (UA) 50 H Urine Ketones TRACE H Urine Blood NEGATIVE Urine Nitrite NEGATIVE Ur Leukocyte Esterase NEGATIVE Urine WBC (Auto) 7 Urine RBC (Auto) 2 05/28/18 05/28/18 05/28/18 13:24 13:24 14:34 Creatine Kinase Cancelled 29 L CK-MB (CK-2) Cancelled Troponin I Cancelled NT-Pro-B Natriuret Pep 05/28/18 05/28/18 14:34 14:34 Creatine Kinase CK-MB (CK-2) 0.76 Troponin I < 0.012 NT-Pro-B Natriuret Pep 2440 H Impressions: Chest X-Ray 05/28/18 13:32 IMPRESSION: Cardiomegaly without pulmonary edema. Assessment & Plan - Diagnosis (1) COPD exacerbation Is this a current diagnosis for this admission?: Yes Plan: I am going to treat her with steroids, bronchodilators, and supplemental O2. We will also start her on some doxycycline in the hopes that it will reduce the number of days of her symptoms. They put her on BiPAP initially because her CO2 was elevated, but it was a venous gas, and she is a chronic CO2 retainer. As long as she is able to breathe comfortably without the extra pressure from the BiPAP, I am going to leave her on a nasal cannula and try to keep her oxygen saturations between 88 and 92%. (2) Atrial fibrillation Qualifiers: Atrial fibrillation type: chronic Qualified Code(s): I48.2 - Chronic atrial fibrillation Is this a current diagnosis for this admission?: Yes Plan: Her heart rate went up once while she was down there and it responded to a dose of IV Cardizem. Apparently she takes digoxin and Coumadin at home, but I do not know how compliant she is, because her INR was only 1.2. We're also checking a digoxin level. (3) Diabetes mellitus Qualifiers: Diabetes mellitus type: type 2 Diabetes mellitus supervisor intermediates insulin use: with residential use Diabetes mellitus complication status: without complication Qualified Code(s): E11.9 - Type 2 diabetes mellitus without complications; Z79.4 - longterm (current) use of insulin Is this a current diagnosis for this admission?: Yes Plan: She is on Novolin 70/30 at home. We will start her on this, but I expect she is going to need a sliding scale once the steroids kick in. - Time Time Spent: 50 to 70 Minutes - Inpatient Certification Medical Necessity: Need Close Monitoring Due to Risk of Patient Decompensation, Need For Continuous Telemetry Monitoring, Need for Nebulizer Therapy and Monitoring of Response
[2018-05-28] MEDS ORDERED: DILTIAZEM HCL/D5W 125 MG/125 ML RTUINJ IV PRN ×2 (19:52→19:55)
[2018-05-28] MEDS ORDERED: (PENDING PHARMACY ID) (Warfarin Sodium 5 MG) PO SCH (22:00)
[2018-05-28] MEDS ORDERED: WARFARIN SODIUM 5 MG TABLET PO SCH (22:00)
[2018-05-28] MEDS: DOXYCYCLINE HYCLATE 100 MG TABLET PO SCH (22:55)
[2018-05-28] MEDS: HEPARIN SOD (PORCINE) 5,000 UNIT/ML 1 ML SYRINGE SUBCUT SCH (22:56)
[2018-05-28] MEDS: METHYLPREDNISOLONE INJ 40 MG/1 ML SDV IV SCH (22:56)
[2018-05-29] MEDS: IPRATROPIUM/ALBUTEROL 0.5-2.5 MG/3 ML AMPUL NEB PRN ×3 (05:23→16:46)
[2018-05-29] MEDS: METHYLPREDNISOLONE INJ 40 MG/1 ML SDV IV SCH ×3 (05:23→21:31)
[2018-05-29] MEDS: HEPARIN SOD (PORCINE) 5,000 UNIT/ML 1 ML SYRINGE SUBCUT SCH (05:23)
[2018-05-29 05:24] LABS: HEMATOCRIT 43.4 % (36.0-47.0); HEMOGLOBIN 14.2 g/dL (12.0-15.5); MEAN CORPUSCULAR HGB CONC 32.6 g/dL (32.0-36.0); MEAN CORPUSCULAR VOLUME 101 fl (80-97); PLATELET COUNT 178 10^3/uL (150-450); RED CELL DISTRIBUTION WIDTH 14.2 % (11.5-14.0); WHITE BLOOD COUNT 3.6 10^3/uL (4.0-10.5)
[2018-05-29 05:45] LABS: ANION GAP 8 (5-19); BLOOD UREA NITROGEN 21 mg/dL (7-20); CALCIUM 9.2 mg/dL (8.4-10.2); CARBON DIOXIDE 31 mmol/L (22-30); CHLORIDE 101 mmol/L (98-107); GLUCOSE 245 mg/dL (75-110); POTASSIUM 4.7 mmol/L (3.6-5.0); SODIUM 140.3 mmol/L (137-145)
[2018-05-29] MEDS: ACETAMINOPHEN 325 MG TABLET PO PRN (06:09)
[2018-05-29] MEDS: FUROSEMIDE 20 MG TABLET PO SCH (09:35)
[2018-05-29] MEDS: APIXABAN 5 MG TABLET PO SCH ×2 (09:35→17:59)
[2018-05-29] MEDS: ALPRAZOLAM 0.5 MG TABLET PO SCH ×2 (09:35→17:58)
[2018-05-29] MEDS: LISINOPRIL 10 MG TABLET PO SCH (09:35)
[2018-05-29] MEDS: DOXYCYCLINE HYCLATE 100 MG TABLET PO SCH ×2 (09:35→21:31)
[2018-05-29] MEDS: HUM INSULIN NPH/REG INSULIN HM 100 UNIT/1 ML 3 ML SUBCUT SCH ×2 (09:36→18:00)
[2018-05-29] MEDS ORDERED: DIGOXIN 0.125 MG PO SCH (10:00)
[2018-05-29] MEDS ORDERED: DIGOXIN 0.125 MG TABLET PO SCH (10:00)
[2018-05-29] MEDS: DILTIAZEM HCL 30 MG TABLET PO SCH ×4 (10:26→23:08)
--- NOTE | 2018-05-29 17:02 | PDOC PROGRESS REPORT ---
Subjective Progress Note for:: 05/29/18 Subjective:: No adverse events overnight. She converted to a sinus rhythm. She is been off BiPAP and is been stable on 3-4 L per nasal cannula. She has had a nonproductive cough. Reason For Visit: COPD EXACERBATION, RESPIRATORY ACIDOSIS, Physical Exam Vital Signs: Temp Pulse Resp BP Pulse Ox 98.0 F 86 17 102/53 L 97 05/29/18 14:18 05/29/18 16:46 05/29/18 16:46 05/29/18 14:18 05/29/18 16:46 Intake & Output 05/28/18 05/29/18 05/30/18 06:59 06:59 06:59 Intake Total 63 Output Total 700 700 Balance -700 -637 Weight 94.7 kg General appearance: PRESENT: no acute distress, cooperative, disheveled Respiratory exam: PRESENT: decreased breath sounds, rhonchi, symmetrical, unlabored. ABSENT: accessory muscle use, rales, tachypnea, wheezes Cardiovascular exam: PRESENT: RRR, +S1, +S2 Vascular exam: PRESENT: normal capillary refill GI/Abdominal exam: PRESENT: normal bowel sounds, soft. ABSENT: distended, guard ing, rebound, tenderness Extremities exam: ABSENT: clubbing, pedal edema Musculoskeletal exam: PRESENT: normal inspection. ABSENT: deformity Neurological exam: PRESENT: alert, awake, oriented to person, oriented to place Psychiatric exam: PRESENT: anxious Skin exam: PRESENT: dry, warm Results Laboratory Results: 05/29/18 05:15 05/29/18 05:15 05/28/18 05/29/18 05/29/18 16:42 05:15 05:15 WBC 3.6 L RBC 4.30 Hgb 14.2 Hct 43.4 MCV 101 H MCH 33.0 MCHC 32.6 RDW 14.2 H Plt Count 178 Sodium 140.3 Potassium 4.7 Chloride 101 Carbon Dioxide 31 H Anion Gap 8 BUN 21 H Creatinine 0.64 Est GFR ( Amer) > 60 Est GFR (Non-Af Amer) > 60 Glucose 245 H Calcium 9.2 Urine Color YELLOW Urine Appearance CLOUDY Urine pH 6.0 Ur Specific [place] 1.015 Urine Protein 30 H Urine Glucose (UA) 50 H Urine Ketones TRACE H Urine Blood NEGATIVE Urine Nitrite NEGATIVE Ur Leukocyte Esterase NEGATIVE Urine WBC (Auto) 7 Urine RBC (Auto) 2 05/28/18 05/28/18 05/28/18 13:24 13:24 14:34 Creatine Kinase Cancelled 29 L CK-MB (CK-2) Cancelled Troponin I Cancelled NT-Pro-B Natriuret Pep 05/28/18 05/28/18 14:34 14:34 Creatine Kinase CK-MB (CK-2) 0.76 Troponin I < 0.012 NT-Pro-B Natriuret Pep 2440 H Impressions: Chest X-Ray 05/28/18 13:32 IMPRESSION: Cardiomegaly without pulmonary edema. Assessment & Plan - Diagnosis (1) COPD exacerbation Is this a current diagnosis for this admission?: Yes Plan: Continue steroids and bronchodilators. She is responding well. We will continue the current level of treatment. (2) Atrial fibrillation Qualifiers: Atrial fibrillation type: chronic Qualified Code(s): I48.2 - Chronic atrial fibrillation Is this a current diagnosis for this admission?: Yes Plan: Resolved. She converted to a sinus rhythm. I have switched her Cardizem over to p.o. I have switched her anticoagulation Eliquis. I do not think she was taking her digoxin or her warfarin at home. 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 We will monitor her closely to see if she needs a sliding scale coverage. - Time Time Spent with patient: 25-34 minutes
[2018-05-29] MEDS ORDERED: DEXTROSE 50%-WATER 25 GM/50 ML DISP.SYRIN IV PRN ×2 (17:03)
[2018-05-29] MEDS ORDERED: GLUCAGON,HUMAN RECOMB 1 MG INJ IM PRN (17:03)
[2018-05-29] MEDS ORDERED: DEXTROSE 40% GEL 15 GM TUBE PO PRN ×2 (17:03)
[2018-05-29] MEDS: INSULIN LISPRO 100 UNIT/ML 3 ML VIAL SUBCUT PRN ×2 (17:59→22:23)
[2018-05-29] MEDS: GABAPENTIN 300 MG CAPSULE PO SCH (21:31)
[2018-05-29] MEDS: BENZONATATE 100 MG CAPSULE PO PRN (22:23)
[2018-05-30] MEDS: DILTIAZEM HCL 30 MG TABLET PO SCH ×2 (05:05→12:27)
[2018-05-30] MEDS: METHYLPREDNISOLONE INJ 40 MG/1 ML SDV IV SCH ×3 (05:05→21:30)
[2018-05-30 08:37] LABS: HEMATOCRIT 42.7 % (36.0-47.0); HEMOGLOBIN 13.7 g/dL (12.0-15.5); MEAN CORPUSCULAR HEMOGLOBIN 32.5 pg (27.0-33.4); MEAN CORPUSCULAR HGB CONC 32.2 g/dL (32.0-36.0); MEAN CORPUSCULAR VOLUME 101 fl (80-97); PLATELET COUNT 163 10^3/uL (150-450); RED BLOOD COUNT 4.23 10^6/uL (3.72-5.28); RED CELL DISTRIBUTION WIDTH 14.1 % (11.5-14.0)
[2018-05-30 08:39] LABS: WHITE BLOOD COUNT 9.3 10^3/uL (4.0-10.5)
[2018-05-30 08:49] LABS: ANION GAP 6 (5-19); BLOOD UREA NITROGEN 32 mg/dL (7-20); CALCIUM 9.8 mg/dL (8.4-10.2); CARBON DIOXIDE 33 mmol/L (22-30); CHLORIDE 99 mmol/L (98-107); GLUCOSE 270 mg/dL (75-110); POTASSIUM 5.4 mmol/L (3.6-5.0); SODIUM 137.7 mmol/L (137-145)
[2018-05-30] MEDS: INSULIN LISPRO 100 UNIT/ML 3 ML VIAL SUBCUT PRN ×4 (09:44→22:39)
[2018-05-30] MEDS: APIXABAN 5 MG TABLET PO SCH ×2 (09:44→18:07)
[2018-05-30] MEDS: FUROSEMIDE 20 MG TABLET PO SCH (09:44)
[2018-05-30] MEDS: GABAPENTIN 300 MG CAPSULE PO SCH ×2 (09:44→21:30)
[2018-05-30] MEDS: ALPRAZOLAM 0.5 MG TABLET PO SCH ×2 (09:44→18:07)
[2018-05-30] MEDS: LISINOPRIL 10 MG TABLET PO SCH (09:44)
[2018-05-30] MEDS: DOXYCYCLINE HYCLATE 100 MG TABLET PO SCH ×2 (09:44→21:30)
[2018-05-30] MEDS: HUM INSULIN NPH/REG INSULIN HM 100 UNIT/1 ML 3 ML SUBCUT SCH ×2 (09:45→18:07)
[2018-05-30] MEDS: BENZONATATE 100 MG CAPSULE PO PRN (12:28)
[2018-05-30] MEDS ORDERED: DILTIAZEM HCL INJ 25 MG/5 ML VIAL ONE (12:41)
[2018-05-30] MEDS ORDERED: DILTIAZEM HCL INJ 25 MG/5 ML VIAL IV ONE (13:00)
[2018-05-30] MEDS ORDERED: DIGOXIN INJ 0.5 MG/2 ML AMPULE IV ONE (13:45)
--- NOTE | 2018-05-30 15:29 | PDOC PROGRESS REPORT ---
Subjective Progress Note for:: 05/30/18 Subjective:: Today the patient was upset because we told her that she could not smoke and she could not drink Pepsi because of her diabetes and her lungs. Her blood sugars have been high, partially because of the steroids, but also partly because her family is bringing her Pepsi and other foods that she is not supposed to have. She went back into atrial fibrillation today and we gave her a dose of IV Cardizem and it brought her rate back under control. She is been on 3-4 L nasal cannula, and says she is on that at home, but she denies smoking or while it is on. Reason For Visit: COPD EXACERBATION, RESPIRATORY ACIDOSIS, Physical Exam Vital Signs: Temp Pulse Resp BP Pulse Ox 97.4 F 80 16 121/54 L 100 05/30/18 11:46 05/30/18 11:46 05/30/18 11:46 05/30/18 11:46 05/30/18 11:46 Intake & Output 05/29/18 05/30/18 05/31/18 06:59 06:59 06:59 Intake Total 417 472 Output Total 700 700 Balance -700 -283 472 Weight 94.7 kg 95.6 kg General appearance: PRESENT: no acute distress, cooperative, disheveled Respiratory exam: PRESENT: decreased breath sounds, rhonchi, symmetrical, unlabored. ABSENT: accessory muscle use, rales, tachypnea, wheezes Cardiovascular exam: PRESENT: RRR, +S1, +S2 Vascular exam: PRESENT: normal capillary refill GI/Abdominal exam: PRESENT: normal bowel sounds, soft. ABSENT: distended, gu arding, rebound, tenderness Extremities exam: ABSENT: clubbing, pedal edema Musculoskeletal exam: PRESENT: normal inspection. ABSENT: deformity Neurological exam: PRESENT: alert, awake, oriented to person, oriented to place Psychiatric exam: PRESENT: anxious Skin exam: PRESENT: dry, warm Results Laboratory Results: 05/30/18 07:58 05/30/18 07:58 05/30/18 05/30/18 07:58 07:58 WBC 9.3 D RBC 4.23 Hgb 13.7 Hct 42.7 MCV 101 H MCH 32.5 MCHC 32.2 RDW 14.1 H Plt Count 163 Sodium 137.7 Potassium 5.4 H Chloride 99 Carbon Dioxide 33 H Anion Gap 6 BUN 32 H Creatinine 0.53 Est GFR ( Amer) > 60 Est GFR (Non-Af Amer) > 60 Glucose 270 H Calcium 9.8 05/28/18 05/28/18 05/28/18 13:24 13:24 14:34 Creatine Kinase Cancelled 29 L CK-MB (CK-2) Cancelled Troponin I Cancelled NT-Pro-B Natriuret Pep 05/28/18 05/28/18 14:34 14:34 Creatine Kinase CK-MB (CK-2) 0.76 Troponin I < 0.012 NT-Pro-B Natriuret Pep 2440 H Impressions: Chest X-Ray 05/28/18 13:32 IMPRESSION: Cardiomegaly without pulmonary edema. Assessment & Plan - Diagnosis (1) COPD exacerbation Is this a current diagnosis for this admission?: Yes Plan: Continue steroids and bronchodilators. She is responding well. We will continue the current level of treatment. She still sounded pretty coarse today so I am going to keep on IV steroids for right now (2) Atrial fibrillation Qualifiers: Atrial fibrillation type: chronic Qualified Code(s): I48.2 - Chronic atrial fibrillation Is this a current diagnosis for this admission?: Yes Plan: She is anticoagulated, and I have increased her Cardizem. 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 We will monitor her closely to see if she needs a sliding scale coverage. We have told her that if she keeps drinking Pepsi and eating the food her family brings her that her blood sugars will continue to remain very elevated. She said "smoking my cigarettes and drinking my Pepsi is the only 2 things I got, you young people do not understand what it is like." - Time Time Spent with patient: 15-24 minutes
[2018-05-30] MEDS: IPRATROPIUM/ALBUTEROL 0.5-2.5 MG/3 ML AMPUL NEB PRN (16:11)
[2018-05-30] MEDS: DOCUSATE SODIUM 100 MG CAPSULE PO SCH (18:07)
[2018-05-30] MEDS: DILTIAZEM HCL 60 MG TABLET PO SCH ×2 (18:07→23:21)
[2018-05-30] MEDS: ACETAMINOPHEN 325 MG TABLET PO PRN (18:12)
[2018-05-31 04:53] LABS: HEMATOCRIT 38.7 % (36.0-47.0); HEMOGLOBIN 12.7 g/dL (12.0-15.5); MEAN CORPUSCULAR HEMOGLOBIN 32.7 pg (27.0-33.4); MEAN CORPUSCULAR HGB CONC 32.9 g/dL (32.0-36.0); MEAN CORPUSCULAR VOLUME 99 fl (80-97); PLATELET COUNT 149 10^3/uL (150-450); RED CELL DISTRIBUTION WIDTH 14.2 % (11.5-14.0); WHITE BLOOD COUNT 8.1 10^3/uL (4.0-10.5)
[2018-05-31 05:26] LABS: BLOOD UREA NITROGEN 37 mg/dL (7-20); CALCIUM 9.4 mg/dL (8.4-10.2); GLUCOSE 131 mg/dL (75-110); POTASSIUM 4.9 mmol/L (3.6-5.0)
[2018-05-31] MEDS: DILTIAZEM HCL 60 MG TABLET PO SCH ×3 (05:27→17:13)
[2018-05-31] MEDS: ACETAMINOPHEN 325 MG TABLET PO PRN ×3 (05:27→20:07)
[2018-05-31] MEDS: METHYLPREDNISOLONE INJ 40 MG/1 ML SDV IV SCH ×3 (05:27→21:17)
[2018-05-31 05:32] LABS: CARBON DIOXIDE 36 mmol/L (22-30); CHLORIDE 100 mmol/L (98-107); SODIUM 139.7 mmol/L (137-145)
[2018-05-31 05:42] LABS: ANION GAP 4 (5-19)
[2018-05-31] MEDS: DOCUSATE SODIUM 100 MG CAPSULE PO SCH ×2 (09:32→17:13)
[2018-05-31] MEDS: GABAPENTIN 300 MG CAPSULE PO SCH ×2 (09:32→21:17)
[2018-05-31] MEDS: LISINOPRIL 10 MG TABLET PO SCH (09:32)
[2018-05-31] MEDS: FUROSEMIDE 20 MG TABLET PO SCH (09:32)
[2018-05-31] MEDS: DOXYCYCLINE HYCLATE 100 MG TABLET PO SCH ×2 (09:32→21:17)
[2018-05-31] MEDS: ALPRAZOLAM 0.5 MG TABLET PO SCH ×2 (09:32→17:13)
[2018-05-31] MEDS: APIXABAN 5 MG TABLET PO SCH ×2 (09:32→17:13)
[2018-05-31] MEDS: HUM INSULIN NPH/REG INSULIN HM 100 UNIT/1 ML 3 ML SUBCUT SCH ×2 (09:33→17:13)
[2018-05-31] MEDS ORDERED: METOPROLOL TARTRATE PF/INJ 5 MG/5 ML SDV IV ONE ×2 (09:35→09:45)
[2018-05-31] MEDS: INSULIN LISPRO 100 UNIT/ML 3 ML VIAL SUBCUT PRN ×2 (13:53→17:13)
[2018-05-31] MEDS: HYDROCODONE/ACETAMINOPHEN 5-325 MG TABLET PO PRN (13:54)
--- NOTE | 2018-05-31 17:30 | PDOC PROGRESS REPORT ---
Subjective Progress Note for:: 05/31/18 Subjective:: No adverse events overnight. Once again her chief concern is pain medicine. She is also very upset over the prospect of not being able to smoke and not being able to drink or Pepsi. She is not complaining about her breathing but is not visibly comfortable. She has to stop several times while she is talking to catch her breath. She has been afebrile. Apparently her family is bringing her in Pepsi's and food that she wants to eat instead of what we want her to be on. Reason For Visit: COPD EXACERBATION, RESPIRATORY ACIDOSIS, Physical Exam Vital Signs: Temp Pulse Resp BP Pulse Ox 98.1 F 106 H 20 128/64 H 92 05/31/18 16:00 05/31/18 16:00 05/31/18 16:00 05/31/18 16:00 05/31/18 16:00 Intake & Output 05/30/18 05/31/18 06/01/18 06:59 06:59 06:59 Intake Total 417 1535 918 Output Total 700 Balance -283 1535 918 Weight 95.6 kg 94.4 kg General appearance: PRESENT: no acute distress, cooperative, disheveled Respiratory exam: PRESENT: decreased breath sounds, rhonchi, symmetrical, unlabored at rest, but when she talks she becomes more labored. ABSENT: accessory muscle use, rales, tachypnea, wheezes Cardiovascular exam: PRESENT: RRR, +S1, +S2 Vascular exam: PRESENT: normal capillary refill GI/Abdominal exam: PRESENT: normal bowel sounds, soft. ABSENT: distended, guarding, rebound, tenderness Extremities exam: ABSENT: clubbing, pedal edema Musculoskeletal exam: PRESENT: normal inspection. ABSENT: deformity Neurological exam: PRESENT: alert, awake, oriented to person, oriented to place Psychiatric exam: PRESENT: anxious Skin exam: PRESENT: dry, warm Results Laboratory Results: 05/31/18 04:18 05/31/18 04:18 05/31/18 05/31/18 04:18 04:18 WBC 8.1 RBC 3.90 Hgb 12.7 Hct 38.7 MCV 99 H MCH 32.7 MCHC 32.9 RDW 14.2 H Plt Count 149 L Sodium 139.7 Potassium 4.9 Chloride 100 Carbon Dioxide 36 H Anion Gap 4 L BUN 37 H Creatinine 0.49 L Est GFR ( Amer) > 60 Est GFR (Non-Af Amer) > 60 Glucose 131 H Calcium 9.4 05/28/18 05/28/18 05/28/18 13:24 13:24 14:34 Creatine Kinase Cancelled 29 L CK-MB (CK-2) Cancelled Troponin I Cancelled NT-Pro-B Natriuret Pep 05/28/18 05/28/18 14:34 14:34 Creatine Kinase CK-MB (CK-2) 0.76 Troponin I < 0.012 NT-Pro-B Natriuret Pep 2440 H Impressions: Chest X-Ray 05/28/18 13:32 IMPRESSION: Cardiomegaly without pulmonary edema. Assessment & Plan - Diagnosis (1) COPD exacerbation Is this a current diagnosis for this admission?: Yes Plan: Continue steroids and bronchodilators. She is responding well, but her improvement has plateaued, and she looks more labored whenever she tries to talk even though she does not look too bad at rest. We will continue the current level of treatment. She still sounded pretty coarse again today so I am going to keep on IV steroids for right now (2) Atrial fibrillation Qualifiers: Atrial fibrillation type: chronic Qualified Code(s): I48.2 - Chronic atrial fibrillation Is this a current diagnosis for this admission?: Yes Plan: She is anticoagulated, and I have increased her Cardizem. Her heart rate has remained in a fairly stable range today. She was on digoxin, or I should say she was supposed to be on digoxin at home but was not taking it. She was also supposed to be on Coumadin at home but was not taking that either, so I have switched her over to Eliquis. 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 Because of her dietary indiscretion, I have had to add sliding scale coverage, also to offset some of the effect from the steroids. - Time Time Spent with patient: 25-34 minutes
[2018-05-31] MEDS: BENZONATATE 100 MG CAPSULE PO PRN (20:07)
[2018-05-31] MEDS: IPRATROPIUM/ALBUTEROL 0.5-2.5 MG/3 ML AMPUL NEB PRN (20:28)
[2018-06-01] MEDS: HYDROCODONE/ACETAMINOPHEN 5-325 MG TABLET PO PRN ×2 (00:23→09:55)
[2018-06-01] MEDS: DILTIAZEM HCL 60 MG TABLET PO SCH ×3 (00:23→12:52)
[2018-06-01] MEDS: METHYLPREDNISOLONE INJ 40 MG/1 ML SDV IV SCH (06:21)
[2018-06-01] MEDS: ACETAMINOPHEN 325 MG TABLET PO PRN (06:23)
[2018-06-01] MEDS: BENZONATATE 100 MG CAPSULE PO PRN (06:23)
[2018-06-01] MEDS: ALPRAZOLAM 0.5 MG TABLET PO SCH (09:49)
[2018-06-01] MEDS: FUROSEMIDE 20 MG TABLET PO SCH (09:49)
[2018-06-01] MEDS: LISINOPRIL 10 MG TABLET PO SCH (09:49)
[2018-06-01] MEDS: DOCUSATE SODIUM 100 MG CAPSULE PO SCH (09:49)
[2018-06-01] MEDS: GABAPENTIN 300 MG CAPSULE PO SCH (09:49)
[2018-06-01] MEDS: DOXYCYCLINE HYCLATE 100 MG TABLET PO SCH (09:49)
[2018-06-01] MEDS: APIXABAN 5 MG TABLET PO SCH (09:49)
[2018-06-01] MEDS: HUM INSULIN NPH/REG INSULIN HM 100 UNIT/1 ML 3 ML SUBCUT SCH (09:50)
[2018-06-01 12:50] VITALS: BP 131/51
[2018-06-01] MEDS: INSULIN LISPRO 100 UNIT/ML 3 ML VIAL SUBCUT PRN (12:52)
--- NOTE | 2018-06-02 17:21 | PDOC DISCHARGE SUMMARY ---
General - Admit/Disc Date/PCP Admission Date/Primary Care Provider: 05/28/18 17:45 SHERRIE CADET PA-C Discharge Date: 06/01/18 - Discharge Diagnosis (1) Acute on chronic respiratory failure with hypoxia and hypercapnia Is this a current diagnosis for this admission?: Yes Summary: Secondary to COPD. She is returned to her baseline oxygen requirement of 2 L/min via nasal cannula. Respirations are now even and unlabored while lying supine, she speaks full sentences without pauses, and reports that she has returned to her normal function. (2) Atrial fibrillation Is this a current diagnosis for this admission?: Yes Summary: The patient was prescribed digoxin and Coumadin. She was found to be subtherapeutic on both and so they were discontinued. She was placed on Eliquis with adjustments to her home dose diltiazem. She remains in atrial fibrillation, but now is rate controlled mid 60s-80s. We had a long discussion today about the importance of continuing her medications as prescribed; the patient was able to teach back to me that she is discontinuing her Coumadin and will remain on Eliquis for her "blood thinner." Recommend continuing a cardiac diet, however, the patient is admittedly intending to remain noncompliant in this regard. (3) COPD exacerbation Is this a current diagnosis for this admission?: Yes (4) Diabetes mellitus Is this a current diagnosis for this admission?: Yes Summary: The importance of dietary and medication compliance was stressed. She is instructed to resume her home regiment of insulin 70/30. (5) Tobacco dependence Is this a current diagnosis for this admission?: Yes Summary: Smoking cessation is encouraged; nicotine replacement therapies were offered and declined. - Additional Information Resuscitation Status: Full Code Discharge Diet: Cardiac, Diabetic Discharge Activity: Activity As Tolerated, Balance Activity w/Rest Prescriptions: Apixaban [Eliquis 5 mg Tablet] 5 mg PO BID #60 tablet Benzonatate [Tessalon Perles 100 mg Capsule] 100 mg PO Q8HP PRN #18 capsule PRN Reason: Diltiazem HCl [Diltiazem 24Hr Cd] 240 mg PO DAILY #30 cap.er.24h Doxycycline Hyclate [Vibramycin 100 mg Tablet] 100 mg PO Q12 #20 tablet Ipratropium/Albuterol Sulfate [Duoneb 3 ml Ampul] 3 ml NEB RTQ4HP PRN #120 vial.neb PRN Reason: Nebulizer [Nebulizer Machine] 1 each ASDIR PRN #1 kit PRN Reason: Prednisone [Deltasone 20 mg Tablet] 60 mg PO DAILY #15 tablet Home Medications: Gabapentin [Neurontin 300 mg Capsule] 300 mg PO Q12 05/28/18 Insulin Aspart Protam & Aspart [Novolog Mix 70-30 Vial] 45 unit SQ BID 05/28/18 Metformin HCl [Metformin HCl ER] 500 mg PO DAILY 05/28/18 Oxycodone HCl/Acetaminophen [Percocet 10-325 mg Tablet] 1 each PO Q8HP PRN 05/28/18 Atorvastatin Calcium [Lipitor 40 mg Tablet] 40 mg PO QHS 05/29/18 Docusate Sodium [Colace] 100 mg PO BID 05/29/18 Furosemide [Lasix 20 mg Tablet] 20 mg PO DAILY 05/29/18 Acetaminophen [Tylenol 325 mg Tablet] 650 mg PO Q4HP PRN tablet 06/01/18 Apixaban [Eliquis 5 mg Tablet] 5 mg PO BID #60 tablet 06/01/18 Benzonatate [Tessalon Perles 100 mg Capsule] 100 mg PO Q8HP PRN #18 capsule 06/01/18 Diltiazem HCl [Diltiazem 24Hr Cd] 240 mg PO DAILY #30 cap.er.24h 06/01/18 Doxycycline Hyclate [Vibramycin 100 mg Tablet] 100 mg PO Q12 #20 tablet 06/01/18 Furosemide [Lasix 20 mg Tablet] 20 mg PO DAILY tablet 06/01/18 Hum Insulin NPH/Reg Insulin Hm [Insulin 70-30 (NPH/Reg) 100 unit/mL] 43 unit SUBCUT BID unit 06/01/18 Ipratropium/Albuterol Sulfate [Duoneb 3 ml Ampul] 3 ml NEB RTQ4HP PRN #120 vial.neb 06/01/18 Lisinopril [Prinivil 10 mg Tablet] 10 mg PO DAILY tablet 06/01/18 Nebulizer [Nebulizer Machine] 1 each ASDIR PRN #1 kit 06/01/18 Prednisone [Deltasone 20 mg Tablet] 60 mg PO DAILY #15 tablet 06/01/18 History of Present Illness History of Present Illness: Per H&P by Dr. Maher: KIRSTIE AGRCIA is a 82 year old female with a history of COPD who still smokes about a pack a day who came down with what her family describes as a cold a couple of days ago and has been having progressive shortness of breath since. No fevers. Cough is been nonproductive. Her family took her to her primary care provider's office and they told her to come to the ER. Apparently she was in atrial fibrillation when she first came in, but has since converted to a sinus rhythm, before bouncing back in atrial fibrillation. Patient does not know if she has atrial fibrillation, but she does take digoxin and Coumadin at home. Apparently she was hypoxic when she first came in and so they put her on BiPAP and now her SPO2 is 100%. Hospital Course Hospital Course: The patient was admitted with acute on chronic respiratory failure with hypoxia and hypercapnia secondary to a COPD exacerbation. She was provided standard COPD care set; BiPAP, supplemental oxygen, scheduled and as needed nebulizer treatments, IV Solu-Medrol which was weaned to p.o. prednisone, Mucinex, incentive spirometer and flutter valve. The patient's respiratory status gradually improved and she is returned to her baseline function and oxygen requirement. She is requesting to be discharged home today. While admitted she was noted to have PAF with subtherapeutic INR and digoxin levels. Previous provider discontinued both her digoxin and Coumadin therapy. She was started on Eliquis with dose adjustments made to diltiazem; achieving appropriate rate control in the 60s-70s. The patient was able to teach back to me the changes in her heart medications. The patient is advised on the importance of continuing her medications as prescribed and following up with her primary care provider within 1 week. She is provided prescriptions for Eliquis, Tessalon Perles, diltiazem, doxycycline, duo nebs, and prednisone. She is also provided a prescription for replacement nebulizer machine as she is unable to recall whether or not hers works at present. She is further advised to return to emergency department as needed for any concerning symptoms. She is discharged to home in stable condition into the care of her family members with resumption of her home health nursing and physical therapy services. Physical Exam Vital Signs: Temp Pulse Resp BP Pulse Ox 97.7 F 76 16 128/64 H 95 06/01/18 12:40 06/01/18 13:04 06/01/18 13:04 06/01/18 12:40 06/01/18 13:04 Intake & Output 06/01/18 06/02/18 06/03/18 06:59 06:59 06:59 Intake Total 1391 458 Balance 1391 458 Weight 93.8 kg General appearance: PRESENT: no acute distress, disheveled, hard of hearing - extremely, obese, well-developed, well-nourished Head exam: PRESENT: atraumatic, normocephalic Eye exam: PRESENT: conjunctiva pink, EOMI, PERRLA. ABSENT: scleral icterus Ear exam: PRESENT: normal external ear exam Mouth exam: PRESENT: moist, tongue midline Teeth exam: PRESENT: poor dentation Neck exam: ABSENT: carotid bruit, JVD, lymphadenopathy, thyromegaly Respiratory exam: PRESENT: prolonged expiratory phas, rhonchi, symmetrical, unlabored, other - Supplemental oxygen via nasal cannula. ABSENT: rales, wheezes Cardiovascular exam: PRESENT: irregular rhythm, +S1, +S2. ABSENT: diastolic murmur, rubs, systolic murmur Pulses: PRESENT: normal dorsalis pedis pul Vascular exam: PRESENT: normal capillary refill GI/Abdominal exam: PRESENT: normal bowel sounds, soft. ABSENT: distended, guarding, mass, organolmegaly, rebound, tenderness Rectal exam: PRESENT: deferred Extremities exam: PRESENT: full ROM, pedal edema - Trace. ABSENT: calf tenderness, clubbing Neurological exam: PRESENT: alert, awake, oriented to person, oriented to place, oriented to time, oriented to situation, CN II-XII grossly intact. ABSENT: motor sensory deficit Psychiatric exam: PRESENT: appropriate affect, normal mood. ABSENT: homicidal ideation, suicidal ideation Skin exam: PRESENT: dry, intact, warm, other - Nicotine staining to fingers and teeth. ABSENT: cyanosis, rash Results Laboratory Results: 05/31/18 04:18 05/31/18 04:18 05/28/18 05/28/18 05/28/18 13:24 13:24 14:34 Creatine Kinase Cancelled 29 L CK-MB (CK-2) Cancelled Troponin I Cancelled NT-Pro-B Natriuret Pep 05/28/18 05/28/18 14:34 14:34 Creatine Kinase CK-MB (CK-2) 0.76 Troponin I < 0.012 NT-Pro-B Natriuret Pep 2440 H Impressions: Chest X-Ray 05/28/18 13:32 IMPRESSION: Cardiomegaly without pulmonary edema. Qualifiers - * PATIENT BEING DISCHARGED WITH ANY OF THE FOLLOWING DIAGNOSIS: No Plan Discharge Plan: The patient is discharged to home; resume home health nursing and physical therapy. Follow-up with primary care provider within 1 week. Complete course of antibiotic therapy and steroid taper. STOP smoking. Return to the emergency department as needed for concerning symptoms. Time Spent: Less than 30 Minutes
== END 2018-06-01 14:03 | disposition home health service (06) | DRG 190 ==
LOC: ER 13:21 → EH 17:45 → 3W 05-29 15:05
PROVIDERS: ADMIT Hospitalist; ATTEND Hospitalist
PROC: 5A09457 Assistance with Respiratory Ventilation, 24-96 Consecutive Hours, Continuous Positive Airway Pressure (ICD-10-PCS; principal; 2018-05-28)
PROC: 3E0F73Z Introduction of Anti-inflammatory into Respiratory Tract, Via Natural or Artificial Opening (ICD-10-PCS; 2018-05-29)
DX: J44.1 Chronic obstructive pulmonary disease with (acute) exacerbation (principal); J96.21 Acute and chronic respiratory failure with hypoxia; J96.22 Acute and chronic respiratory failure with hypercapnia; C34.90 Malignant neoplasm of unspecified part of unspecified bronchus or lung; I48.2 Chronic atrial fibrillation; E11.9 Type 2 diabetes mellitus without complications; E78.00 Pure hypercholesterolemia, unspecified; I50.9 Heart failure, unspecified; I11.0 Hypertensive heart disease with heart failure; F17.210 Nicotine dependence, cigarettes, uncomplicated; I25.2 Old myocardial infarction; Z79.899 Other long term (current) drug therapy; Z86.718 Personal history of other venous thrombosis and embolism; Z86.711 Personal history of pulmonary embolism; Z90.49 Acquired absence of other specified parts of digestive tract; Z90.710 Acquired absence of both cervix and uterus; Z88.8 Allergy status to other drugs, medicaments and biological substances; Z79.4 Long term (current) use of insulin; Z95.5 Presence of coronary angioplasty implant and graft
CPT/HCPCS: 36415; 71045; 80048; 80053; 80162; 81001; 82550; 82553; 82803; 82962; 83605; 83880; 84484; 85025; 85027; 85610; 93005; 93010; 94640; 94660; 96374; 96375; 99291; J1644; J1815; J2920; J2930; J3490; J7620

== ENCOUNTER 2019-06-13 13:37 | Inpatient (IN) | payer MEDICARE, MEDICAID ==
[2019-06-13] MEDS ORDERED: ONDANSETRON HCL INJ/PF 4 MG/2 ML SDV IV ONE (14:45)
[2019-06-13] MEDS ORDERED: NORMAL SALINE 250 ML IV ONE ×2 (14:45→18:52)
[2019-06-13] MEDS ORDERED: FAMOTIDINE INJ/PF 20 MG/2 ML SDV IV ONE (14:46)
--- NOTE | 2019-06-13 14:46 | ER Document Report ---
ED GI/ - General Chief Complaint: Vomiting Stated Complaint: VOMITING Time Seen by Provider: 06/13/19 14:35 Primary Care Provider: SHERRIE CADET PA-C [Primary Care Provider] - Follow up as needed TRAVEL OUTSIDE OF THE [place] IN LAST 30 DAYS: No - HPI Notes: 06/13/19 15:17 83-year-old female to the emergency department with complaints of nausea, vomiting, diarrhea, epigastric and chest pain that began last Thursday. Family who is with her states that she has been like this since her child on June 02. Patient states she has not been able to keep down any of her medici inga. She states that she feels like her heart is beating very fast. She has a known history of atrial fib and was last admitted on May 28, 2018 for atrial fib and acute on chronic respiratory failure. She has a known history of COPD and she is on oxygen admit intermittently but not continuously throughout the day. Family denies any fevers or chills. History is difficult to elicit from patient because she is very hard of hearing. Family is minimally engaged. Patient takes Coumadin - Related Data Allergies/Adverse Reactions: Iodine and Iodide Containing Produc Adverse Reaction (Verified 05/29/18 10:13) Past Medical History - General Information source: Patient, Relative - Social History Smoking Status: Current Every Day Smoker Frequency of alcohol use: None Drug Abuse: None Lives with: Family Family History: Reviewed & Not Pertinent, CAD, COPD - Past Medical History Cardiac Medical History: Reports: Hx Congestive Heart Failure, Hx DVT, Hx Heart Attack, Hx Hypercholesterolemia, Hx Hypertension, Hx Pulmonary Embolism Pulmonary Medical History: Reports: Hx Asthma, Hx COPD, Hx Pneumonia Endocrine Medical History: Reports: Hx Diabetes Mellitus Type 2 Renal/ Medical History: Denies: Hx Peritoneal Dialysis Malignancy Medical History: Reports: Hx Lung Cancer - Unknown stage or prognosis Psychiatric Medical History: Denies: Hx Depression Past Surgical History: Reports: Hx Cardiac Surgery - Stents, Hx Cholecystectomy, Hx Hysterectomy, Hx Orthopedic Surgery - L foot - Immunizations Hx Diphtheria, Pertussis, Tetanus Vaccination: Yes Review of Systems - Review of Systems Constitutional: Malaise. denies: Chills EENT: No symptoms reported Cardiovascular: Chest pain, Palpitations, Heart racing. denies: Dyspnea, Syncope, Dizziness, Lightheaded Respiratory: denies: Cough, Short of breath Gastrointestinal: Abdominal pain, Diarrhea, Nausea, Vomiting Genitourinary: No symptoms reported Skin: No symptoms reported. denies: Rash Neurological/Psychological: No symptoms reported -: Yes All other systems reviewed and negative Physical Exam - Vital signs Vitals: Temp Pulse BP Pulse Ox 98.1 F 161 H 140/95 H 96 06/13/19 13:49 06/13/19 13:49 06/13/19 13:49 06/13/19 13:49 Interpretation: Hypertensive, Tachycardic - General General appearance: Alert In distress: Moderate Notes: In moderate distress, she states that she is really uncomfortable in her chest and her upper abdomen that she is very nauseated. - HEENT Head: Normocephalic, Atraumatic Eyes: Normal Pupils: PERRL - Respiratory Respiratory status: No respiratory distress Chest status: Nontender Breath sounds: Wheezing. No: Rales, Rhonchi - Diffuse wheezing throughout Chest palpation: Normal - Cardiovascular Rhythm: Regular Heart sounds: Normal auscultation Murmur: No Notes: No pedal edema - Abdominal Inspection: Obese Distension: No distension Bowel sounds: Normal Tenderness: Tender - Positive tenderness to palpation over the epigastrium and and coming into the midsternal chest wall. There is no crepitus or step-off. She does have right upper quadrant tenderness to palpation as well family reports that she does not have a gallbladder.. No: Guarding, Rebound Organomegaly: No organomegaly - Back Back: Normal, Nontender. No: CVA tenderness - Neurological Neuro grossly intact: Yes Cognition: Normal Orientation: AAOx4 Francia Coma Scale Eye Opening: Spontaneous Francia Coma Scale Verbal: Oriented Pelzer Coma Scale Motor: Obeys Commands Pelzer Coma Scale Total: 15 Speech: Normal Cranial nerves: Normal. No: Facial palsy Cerebellar coordination: Normal. 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 No: Pronator drift Sensory: Normal - Psychological Associated symptoms: Normal affect, Anxious - Skin Skin Temperature: Warm Skin Moisture: Dry Skin Color: Normal Course - Re-evaluation Re-evalutation: 06/13/19 15:22 Approached RN and asked for expedited lab work and EKG. Noted that patient has a heart rate of 161 and suspect if she has been vomiting and not able to hold down her medicines that she is likely in atrial fib. Pending EKG. Went ahead and ordered lab work as well as chest x-ray and CT of the abdomen. Ordered antiemetics. She does have a history of congestive heart failure so I did only a small dose of IV fluids. We will continue to monitor the patient closely. 06/13/19 15:35 Noted EKG with confirmation of atrial fibrillation with RVR. Discussed with Dr. Chris. We will give the patient a dose of 10 mg of Cardizem to start and see how she responds and if needed go for a another 10 mg. I have advised RN of the order. 06/13/19 18:24 Discussed patient further with Dr. Chris. Advised that I have given now 30 mg of diltiazem bolus and the patient is on a 10 mg infusion. Patient ranges now from about 104-115 and heart rate which is much improved than the initial 160. Lab work is reassuring. CT of the abdomen with no acute process and chest x-ray with cardiomegaly but without acute CHF. Patient is a little bit more co mfortable than when I first saw her. Although she continues to have a little bit of back pain and epigastric pain. I have dosed very carefully with morphine for pain control. Dr. Chris agrees with the plan for admission to the hospitalist team. Discussed patient with hospitalist nurse practitioner Shaista Shelley. She is aware of patient's atrial fibrillation with rapid ventricular rate and what I have done to help control it. She is aware that the patient is on an infusion of diltiazem. She is also aware that patient usually takes digoxin. She is aware that the digoxin level is low. She is aware that the patient has had a CT of the abdomen which did not show any acute abnormality. She is aware that the patient lost her child about a week ago and was grieving and not eating and then began to vomit. The patient denies any SI or HI or hallucinations. Shaista accepts the patient onto the hospitalist service and would like for me to place the patient under Dr. Oliveira. She would like for the patient to go to [facility]. Also advised that the patient is a COPD patient typically on 2 L of oxygen at night and then intermittently throughout the day. Advised that the patient does have a slight wheeze but is not complaining of shortness of breath so did not give a breathing treatment so as to make her right worse. Shaista agrees with that plan. She will be down to see the patient shortly. Impression: Atrial fibrillation with rapid ventricular rate, vomiting, COPD. Patient will be admitted to the hospitalist service for further management and control of her atrial fibrillation. Patient and family agree with the plan. - Vital Signs Vital signs: Temp Pulse Resp BP Pulse Ox 98.1 F 161 H 21 H 122/35 L 92 06/13/19 13:49 06/13/19 13:49 06/13/19 17:46 06/13/19 17:46 06/13/19 17:46 - Laboratory Result Diagrams: 06/13/19 16:00 06/13/19 16:00 Laboratory results interpreted by me: 06/13/19 06/13/19 06/13/19 16:00 16:00 16:00 Hgb 15.9 H Hct 47.6 H MCV 100 H [place] % (Auto) 13.6 H APTT Carbon Dioxide 32 H Glucose 144 H NT-Pro-B Natriuret Pep 3140 H Digoxin < 0.40 L 06/13/19 16:00 Hgb Hct MCV [place] % (Auto) APTT 23.0 L Carbon Dioxide Glucose NT-Pro-B Natriuret Pep Digoxin - EKG Interpretation by Me Additional EKG results interpreted by me: 06/13/19 15:37 Rate: 141, rhythm: Atrial fibrillation with RVR, interpretation: No STEMI. No ST changes. Similar to prior on May 28, 2018 when patient was admitted for atrial fib with RVR Critical Care Note - Critical Care Note Total time excluding time spent on procedures (mins): 61 Comments: 61 minutes of critical care time was spent in total on this patient between bedside consultation and education for family as well as management of atrial fibrillation with rapid ventricular rate. Also time was spent consulting with attending ER physician and with the hospitalist team about the patient. Discharge - Discharge Clinical Impression: Atrial fibrillation with RVR, Epigastric abdominal pain Vomiting Qualifiers: Vomiting type: unspecified Vomiting Intractability: non-intractable Nausea presence: with nausea Qualified Code(s): R11.2 - Nausea with vomiting, unspeci fied Condition: Stable Disposition: ADMITTED INPATIENT Admitting Provider: Tee (Hospitalist) Unit Admitted: IMCU Referrals: SHERRIE CADET PA-C [Primary Care Provider] - Follow up as needed
[2019-06-13] MEDS ORDERED: DILTIAZEM HCL INJ 25 MG/5 ML VIAL IV ONE ×3 (15:31→17:52)
[2019-06-13] MEDS ORDERED: DILTIAZEM HCL/D5W 125 MG/125 ML RTUINJ IV PRN (15:36)
[2019-06-13] MEDS ORDERED: MORPHINE SULFATE 10 MG/ML INJ IV ONE ×2 (15:39→17:26)
[2019-06-13 16:27] LABS: ABSOLUTE LYMPHOCYTES (AUTO) 1.7 10^3/uL (0.5-4.7); ABSOLUTE MONOCYTES (AUTO) 0.7 10^3/uL (0.1-1.4); ABSOLUTE NEUT (AUTO) 2.6 10^3/uL (1.7-8.2); BASOPHILS % (AUTO) 0.5 % (0-2); EOSINOPHILS % (AUTO) 0.1 % (0-6); HEMATOCRIT 47.6 % (36.0-47.0); HEMOGLOBIN 15.9 g/dL (12.0-15.5); LYMPHOCYTES % (AUTO) 34.5 % (13-45); MEAN CORPUSCULAR HEMOGLOBIN 33.4 pg (27.0-33.4); MEAN CORPUSCULAR HGB CONC 33.5 g/dL (32.0-36.0); MEAN CORPUSCULAR VOLUME 100 fl (80-97); MONOCYTES % (AUTO) 13.6 % (3-13); PLATELET COUNT 174 10^3/uL (150-450); RED BLOOD COUNT 4.77 10^6/uL (3.72-5.28); RED CELL DISTRIBUTION WIDTH 13.8 % (11.5-14.0); SEGMENTED NEUTROPHILS % (AUTO) 51.3 % (42-78); TOTAL CELLS COUNTED % (AUTO) 100 %
[2019-06-13 16:30] LABS: INTERNATIONAL RATION (INR) 0.95; PROTHROMBIN TIME 12.7 SEC (11.4-15.4)
[2019-06-13 16:50] LABS: ALBUMIN 4.4 g/dL (3.5-5.0); ALKALINE PHOSPHATASE 108 U/L (38-126); ANION GAP 12 (5-19); ASPARTATE AMINO TRANSFERASE 27 U/L (14-36); BILIRUBIN,DIRECT 0.4 mg/dL (0.0-0.4); BILIRUBIN,TOTAL 0.6 mg/dL (0.2-1.3); BLOOD UREA NITROGEN 18 mg/dL (7-20); CALCIUM 9.8 mg/dL (8.4-10.2); CARBON DIOXIDE 32 mmol/L (22-30); CHLORIDE 100 mmol/L (98-107); GLUCOSE 144 mg/dL (75-110); POTASSIUM 4.5 mmol/L (3.6-5.0); TOTAL PROTEIN 7.9 g/dL (6.3-8.2)
[2019-06-13 16:58] LABS: NT PRO BNP 3140 pg/mL (<450); TROPONIN I < 0.012 ng/mL
--- NOTE | 2019-06-13 17:38 | RADIOLOGY REPORT (SQ) ---
EXAM DESCRIPTION: CHEST SINGLE VIEW COMPLETED DATE/TIME: 06/13/2019 5:02 pm REASON FOR STUDY: chest pain, abd pain COMPARISON: AP view of the chest from 05/28/2018 EXAM PARAMETERS: NUMBER OF VIEWS: One view. TECHNIQUE: An AP view of the chest was obtained. RADIATION DOSE: NA LIMITATIONS: None. FINDINGS: LUNGS AND PLEURA: No consolidation, pleural effusion or pneumothorax. MEDIASTINUM AND HILAR STRUCTURES: No mediastinal or hilar contour abnormality. HEART AND VASCULAR STRUCTURES: Stable cardiomegaly. BONES: No acute findings. HARDWARE: None in the chest. OTHER: No other finding. IMPRESSION: Cardiomegaly without a superimposed acute cardiopulmonary process. TECHNICAL DOCUMENTATION: JOB ID: [id number] [employer]- All Rights Reserved Reading location - IP/workstation name: [email or web address]
--- NOTE | 2019-06-13 17:46 | RADIOLOGY REPORT (SQ) ---
EXAM DESCRIPTION: CT ABD/PELVIS NO ORAL OR IV COMPLETED DATE/TIME: 06/13/2019 4:57 pm REASON FOR STUDY: abd pain, NVD COMPARISON: None. TECHNIQUE: CT scan of the abdomen and pelvis performed without intravenous or oral contrast. Images reviewed with lung, soft tissue, and bone windows. Reconstructed coronal and sagittal MPR images revi ewed. All images stored on PACS. All CT scanners at this facility use dose modulation, iterative reconstruction, and/or weight based d osing when appropriate to reduce radiation dose to as low as reasonably achievable (ALARA). [facility]: Dose Right [facility]: CareDose [facility]: Dose Right [facility]: Teradose 4D [facility]: Smart [employer] RADIATION DOSE: CT Rad equipment meets quality standard of care and radiation dose reduction techniq ues were employed. CTDIvol: 12.2 mGy. DLP: 672 mGy-cm. LIMITATIONS: None. FINDINGS: LOWER CHEST: Cardiomegaly and atherosclerotic calcification of the coronary arteries. The re is no pericardial or pleural effusion NON-CONTRASTED LIVER, SPLEEN, ADRENALS: Evaluation is limited due to the absence of intravenous contr ast. There is a focal calcification in the hepatic dome. The morphology of the liver is non cirrhot ic. There is no CT evidence of hepatic steatosis. The spleen is normal in size. The diffuse nodula r enlargement of the adrenal glands is nonspecific and could represent adenomatous hyperplasia. PANCREAS: No acute abnormality. GALLBLADDER: The gallbladder is surgically absent. RIGHT KIDNEY AND URETER: Evaluation is limited due to the absence of intravenous contrast. There is no hydronephrosis, nephrolithiasis, hydroureter or ureterolithiasis. LEFT KIDNEY AND URETER: Evaluation is limited due to the absence of intravenous contrast. There is n o hydronephrosis, nephrolithiasis, hydroureter or ureterolithiasis AORTA AND RETROPERITONEUM: Focal ectasia of the infrarenal abdominal aorta (it measures up to 2.6 cm in transverse diameter). There is no retroperitoneal adenopathy, hemorrhage or mass. BOWEL AND PERITONEAL CAVITY: No bowel obstruction, bowel wall thickening, pericolonic/perienteric inf lammation. No mesenteric adenopathy, free intraperitoneal fluid or mesenteric/ omental inflammation. APPENDIX: Unable to identify the appendix. PELVIS, BLADDER, AND ABDOMINAL WALL:Subcutaneous calcifications in the buttocks. BONES: No acute findings. OTHER: Surgical clips in the left upper quadrant. IMPRESSION: No acute intra-abdominal abnormality. COMMENT: Quality ID # [id number]: Final reports with documentation of one or more dose reduction techniques (e.g., Automated exposure control, adjustment of the mA and/or kV according to patient size, use of iterative reconstruction technique) TECHNICAL DOCUMENTATION: JOB ID: [id number] [employer]- All Rights Reserved Reading location - IP/workstation name: [email or web address]
[2019-06-13 18:01] LABS: DIGOXIN < 0.40 ng/mL (0.8-2.0)
[2019-06-13] MEDS ORDERED: NORMAL SALINE 1000 ML 1,000 ML IV PRN (18:55)
[2019-06-13] MEDS ORDERED: LORAZEPAM INJ 2 MG/1 ML VIAL IV ONE ×2 (18:55→22:30)
[2019-06-13] MEDS ORDERED: LEVALBUTEROL HCL NEB 1.25 MG/3 ML AMPUL NEB PRN (18:55)
[2019-06-13] MEDS ORDERED: MAG HYDROX/AL HYDROX/SIMETH SUSP 30 ML UDCUP PO PRN (19:01)
[2019-06-13] MEDS ORDERED: ONDANSETRON HCL INJ/PF 4 MG/2 ML SDV IV PRN (19:01)
[2019-06-13] MEDS ORDERED: DEXTROSE 40% GEL 15 GM TUBE PO PRN ×2 (19:03)
[2019-06-13] MEDS ORDERED: GLUCAGON,HUMAN RECOMB 1 MG INJ IM PRN (19:03)
[2019-06-13] MEDS ORDERED: DEXTROSE 50%-WATER 25 GM/50 ML DISP.SYRIN IV PRN ×2 (19:03)
--- NOTE | 2019-06-13 19:34 | PDOC H&P ---
History of Present Illness Admission Date/PCP: 06/13/19 18:40 SHERRIE CADET PA-C Patient complains of: nausea and vomiting History of Present Illness: KIRSTIE GARCIA is a 83 year old female with a past medical history of chronic atrial fibrillation, anticoagulated on Eliquis, COPD, DM 2, hypertension, hyperlipidemia, and tobacco dependence who presented to the emergency department today with a complaint of 1 week of nausea and vomiting, inability to tolerate oral medications, and increased confusion from baseline. Of note, the patient's son unexpectedly this week (family member suggested it may have been drug related). Patient does admit to sleeping less than 1 hour nightly over the last week with poor concentration, and poor p.o. intake. She reports that she previously was on p.o. Xanax but this was discontinued when she was admitted into a pain management clinic; she understands that benzodiazepines will be limited this admission but does ask assistance with sleeping and anxiety. Evaluation in the emergency department revealed initial heart rate in the 140s, hypertension, Tachypnea, SPO2 mid 90s on her baseline oxygen requirement of 2 L/min, unremarkable CBC, coags, chemistry, other than a mildly elevated proBNP to 3000 and a subtherapeutic digoxin level. EKG showed atrial fibrillation RVR. Chest x-ray and abdominal CT are benign. She has been provided IV fluid bolus, diltiazem bolus, and started on diltiazem drip. She is referred to the hospitalist service for admission and management of the above-stated complaints and findings. Past Medical History Cardiac Medical History: Reports: Congestive Heart Failure, DVT, Myocardial Infarction, Hyperlipidema, Hypertension, Pulmonary Embolism Pulmonary Medical History: Reports: Asthma, Chronic Obstructive Pulmonary Disease (COPD), Pneumonia EENT Medical History: Reports: None Neurological Medical History: Reports: None Endocrine Medical History: Reports: Diabetes Mellitus Type 2 Malignancy Medical History: Reports: Lung Cancer - Unknown stage or prognosis GI Medical History: Reports: None Musculoskeltal Medical History: Reports: None Skin Medical History: Reports: None Psychiatric Medical History: Denies: Depression Traumatic Medical History: Reports: None Hematology: Reports: None Infectious Medical History: Reports: None Past Surgical History Past Surgical History: Reports: Cholecystectomy, Hysterectomy, Orthopedic Surgery - L foot Social History Information Source: Patient Lives with: Family Smoking Status: Current Every Day Smoker Cigarettes Packs Per Day: 1 Electronic Cigarette use?: No Frequency of Alcohol Use: None Hx Recreational Drug Use: No Drugs: None Hx Prescription Drug Abuse: No - Advance Directive Resuscitation Status: Do Not Resuscitate Family History Family History: Reviewed & Not Pertinent, CAD, COPD Parental Family History Reviewed: Yes Children Family History Reviewed: Yes Sibling(s) Family History Reviewed.: Yes Medication/Allergy Home Medications: Metformin HCl [Metformin HCl ER] 500 mg PO [id number] 05/28/18 Oxycodone HCl/Acetaminophen [Percocet 10-325 mg Tablet] 1 each PO Q6HP PRN 05/28/18 Atorvastatin Calcium [Lipitor 40 mg Tablet] 40 mg PO QHS 05/29/18 Docusate Sodium [Colace] 100 mg PO BIDP PRN 05/29/18 Furosemide [Lasix 20 mg Tablet] 20 mg PO DAILY MDD 40 MG 05/29/18 Apixaban [Eliquis 5 mg Tablet] 5 mg PO BID #60 tablet 06/01/18 Diltiazem HCl [Diltiazem 24Hr Cd] 240 mg PO DAILY #30 cap.er.24h 06/01/18 Gabapentin [Neurontin 400 mg Capsule] 400 mg PO Q8 06/13/19 Insulin Glargine,Hum.rec.anlog [Lantus (Pyxis) Insulin 100 Unit/1 ml 10 ml] unit SUBCUT 06/13/19 Sertraline HCl 25 mg PO DAILY 06/13/19 Allergies/Adverse Reactions: Iodine and Iodide Containing Produc Adverse Reaction (Verified 05/29/18 10:13) Review of Systems Constitutional: PRESENT: fatigue, headache(s). ABSENT: chills, fever(s), weight gain, weight loss Eyes: ABSENT: visual disturbances Ears: ABSENT: hearing changes Cardiovascular: PRESENT: palpitations. ABSENT: chest pain, dyspnea on exertion, edema, orthropnea Respiratory: ABSENT: cough, hemoptysis Gastrointestinal: PRESENT: abdominal pain, nausea, vomiting. ABSENT: constipation, diarrhea, hematemesis, hematochezia Genitourinary: ABSENT: dysuria, hematuria Musculoskeletal: ABSENT: joint swelling Integumentary: ABSENT: rash, wounds Neurological: PRESENT: confusion. ABSENT: abnormal gait, abnormal speech, dizziness, focal weakness, syncope Psychiatric: PRESENT: anxiety, depression. ABSENT: homidical ideation, suicidal ideation Endocrine: ABSENT: cold intolerance, heat intolerance, polydipsia, polyuria Hematologic/Lymphatic: ABSENT: easy bleeding, easy bruising Physical Exam Vital Signs: Temp Pulse Resp BP Pulse Ox 98.1 F 161 H 21 H 122/35 L 92 06/13/19 13:49 06/13/19 13:49 06/13/19 17:46 06/13/19 17:46 06/13/19 17:46 Intake & Output 06/12/19 06/13/19 06/14/19 06:59 06:59 06:59 Intake Total 250 Balance 250 Weight 85.8 kg General appearance: PRESENT: no acute distress, cooperative, disheveled, obese, well-developed, well-nourished, other - Emotionally distraught Head exam: PRESENT: atraumatic, normocephalic Eye exam: PRESENT: conjunctiva pink, EOMI, PERRLA. ABSENT: scleral icterus Ear exam: PRESENT: normal external ear exam Mouth exam: PRESENT: dry mucosa, tongue midline Teeth exam: PRESENT: poor dentation Respiratory exam: PRESENT: prolonged expiratory phas, symmetrical, unlabored, other - Baseline oxygen requirement. ABSENT: rales, rhonchi, wheezes Cardiovascular exam: PRESENT: irregular rhythm, +S1, +S2, tachycardia. ABSENT: diastolic murmur, rubs, systolic murmur Pulses: PRESENT: normal dorsalis pedis pul Vascular exam: PRESENT: normal capillary refill GI/Abdominal exam: PRESENT: normal bowel sounds, soft, tenderness - Epigastric. ABSENT: distended, guarding, mass, organolmegaly, rebound Rectal exam: PRESENT: deferred Extremities exam: PRESENT: full ROM. ABSENT: calf tenderness, clubbing, pedal edema Neurological exam: PRESENT: alert, awake, oriented to person, oriented to place, oriented to time, oriented to situation, CN II-XII grossly intact. ABSENT: motor sensory deficit Psychiatric exam: PRESENT: anxious, appropriate affect, depressed, normal mood - Appropriate given recent of close family member. ABSENT: homicidal ideation, suicidal ideation Skin exam: PRESENT: dry, intact, warm. ABSENT: cyanosis, rash Results Laboratory Results: 06/13/19 16:00 06/13/19 16:00 06/13/19 06/13/19 06/13/19 16:00 16:00 16:00 WBC 5.0 RBC 4.77 Hgb 15.9 H Hct 47.6 H MCV 100 H MCH 33.4 MCHC 33.5 RDW 13.8 Plt Count 174 Seg Neutrophils % 51.3 Sodium 143.6 Potassium 4.5 Chloride 100 Carbon Dioxide 32 H Anion Gap 12 BUN 18 Creatinine 0.66 Est GFR ( Amer) > 60 Glucose 144 H Calcium 9.8 Magnesium 2.0 Total Bilirubin 0.6 AST 27 Alkaline Phosphatase 108 Total Protein 7.9 Albumin 4.4 Lipase 30.0 06/13/19 16:00 Troponin I < 0.012 NT-Pro-B Natriuret Pep 3140 H Impressions: Abdomen/Pelvis CT 06/13/19 14:44 IMPRESSION: No acute intra-abdominal abnormality. Chest X-Ray 06/13/19 14:44 IMPRESSION: Cardiomegaly without a superimposed acute cardiopulmonary process. Assessment and Plan - Diagnosis (1) Atrial fibrillation with RVR Is this a current diagnosis for this admission?: Yes Plan: Patient is admitted to [facility] on continuous cardiac telemetry. Continue IV diltiazem drip. Full dose Lovenox until tolerating p.o. then transition to home dose Eliquis. Will resume home medication regiment once reconciled. Correction of dehydration with IV fluids. Check TSH with a.m. lab work. (2) Grief at loss of child Is this a current diagnosis for this admission?: Yes Plan: Patient's son this week; reports sudden onset of abdominal pain, nausea, vomiting, loss of appetite, difficulty sleeping since then. We will provide IV Ativan 2 mg x 1. Start BuSpar twice daily. Consult mental health services. (3) Epigastric abdominal pain Is this a current diagnosis for this admission?: Yes Plan: Unclear etiology; perhaps related to grief reaction and N/V. Lipase nml CT ABD negative. Continue home dose oxycodone. Antiemetics as needed. (4) Vomiting Qualifiers: Vomiting type: unspecified Vomiting Intractability: non-intractable Nausea presence: with nausea Qualified Code(s): R11.2 - Nausea with vomiting, unspecified Is this a current diagnosis for this admission?: Yes Plan: Unclear etiology; perhaps related to grief reaction. Continue IVF Diet as tolerated Antiemetics as needed. (5) Diabetes mellitus Qualifiers: Diabetes mellitus type: type 2 Diabetes mellitus custodial insulin use: with custodial use Diabetes mellitus complication status: without complication Qualified Code(s): E11.9 - Type 2 diabetes mellitus without complications; Z79.4 - long term care phlebotomist (current) use of insulin Is this a current diagnosis for this admission?: Yes Plan: Consistent carb/Cardiac diet Hold home dose metformin while admitted. Accu-Cheks before meals and at bedtime with Humalog for sliding scale coverage. Hypoglycemia protocol in place. (6) COPD (chronic obstructive pulmonary disease) Qualifiers: Chronic bronchitis type: unspecified Is this a current diagnosis for this admission?: Yes Plan: Stable and without exacerbation at this time. Continue supplemental oxygen as needed to maintain saturations >89% As needed Xopenex. Continue home medications once reconciled. - Time Time Spent with patient: 35 or more minutes Medications reviewed and adjusted accordingly: Yes Anticipated discharge: Home with Homehealth Within: within 72 hours - Inpatient Certification Based on my medical assessment, after consideration of the patient's comorbidities, presenting symptoms, or acuity I expect that the services needed warrant INPATIENT care.: Yes I certify that my determination is in accordance with my understanding of Medicare's requirements for reasonable and necessary INPATIENT services [42 CFR 412.3e].: Yes Medical Necessity: Failure to Improve With Outpatient Therapy, Need Close Monitoring Due to Risk of Patient Decompensation, Need For IV Fluids, Need For Continuous Telemetry Monitoring, Risk of Complication if Not Cared For in H ospital
--- NOTE | 2019-06-13 20:44 | EKG REPORT ---
SEVERITY:- ABNORMAL ECG - ATRIAL FIBRILLATION, V-RATE 109-170 VENTRICULAR PREMATURE COMPLEX : Confirmed by: Gabe Bingham 13-Jun-2019 20:44:03
[2019-06-13] MEDS: INSULIN LISPRO 100 UNIT/ML 3 ML VIAL SUBCUT SCH (22:37)
[2019-06-13] MEDS: FAMOTIDINE INJ/PF 20 MG/2 ML SDV IV SCH (22:48)
[2019-06-13] MEDS: DILTIAZEM HCL/D5W 125 MG/125 ML RTUINJ IV PRN (22:51)
[2019-06-13] MEDS: ENOXAPARIN SODIUM INJ 100 MG/1 ML DISP.SYRIN SUBCUT SCH (22:53)
[2019-06-14] MEDS: BUSPIRONE HCL 10 MG TABLET PO SCH ×2 (02:16→09:54)
[2019-06-14 06:39] LABS: HEMATOCRIT 41.2 % (36.0-47.0); MEAN CORPUSCULAR HEMOGLOBIN 33.2 pg (27.0-33.4); MEAN CORPUSCULAR VOLUME 101 fl (80-97); PLATELET COUNT 144 10^3/uL (150-450); RED CELL DISTRIBUTION WIDTH 13.7 % (11.5-14.0); WHITE BLOOD COUNT 6.6 10^3/uL (4.0-10.5)
[2019-06-14 06:41] LABS: HEMOGLOBIN 13.6 g/dL (12.0-15.5)
[2019-06-14 06:57] LABS: ANION GAP 9 (5-19); BLOOD UREA NITROGEN 19 mg/dL (7-20); CARBON DIOXIDE 31 mmol/L (22-30); CHLORIDE 103 mmol/L (98-107); GLUCOSE 131 mg/dL (75-110); POTASSIUM 4.4 mmol/L (3.6-5.0)
[2019-06-14 09:12] LABS: FREE T3 3.13 pg/mL (2.77-5.27); FREE T4 (FREE THYROXINE) 1.21 ng/dL (0.78-2.19)
[2019-06-14] MEDS: INSULIN LISPRO 100 UNIT/ML 3 ML VIAL SUBCUT SCH ×3 (09:46→16:04)
[2019-06-14] MEDS: ENOXAPARIN SODIUM INJ 100 MG/1 ML DISP.SYRIN SUBCUT SCH (09:53)
[2019-06-14] MEDS: DOCUSATE SODIUM 100 MG CAPSULE PO SCH (09:54)
[2019-06-14] MEDS: FAMOTIDINE INJ/PF 20 MG/2 ML SDV IV SCH (09:54)
[2019-06-14] MEDS: SERTRALINE HCL 50 MG TABLET PO SCH (12:47)
[2019-06-14] MEDS: APIXABAN 5 MG TABLET PO SCH ×2 (12:48→18:33)
[2019-06-14] MEDS: DILTIAZEM HCL 30 MG TABLET PO SCH ×2 (12:48→18:33)
[2019-06-14] MEDS: GABAPENTIN 400 MG CAPSULE PO SCH (14:31)
[2019-06-14] MEDS: OXYCODONE HCL IR 5 MG TABLET PO PRN (14:31)
--- NOTE | 2019-06-14 15:22 | PDOC PROGRESS REPORT ---
Subjective Progress Note for:: 06/14/19 Subjective:: KIRSTIE GARCIA is a 83 year old female with a past medical history of chronic atrial fibrillation, anticoagulated on Eliquis, COPD, DM 2, hypertension, hyperlipidemia, and tobacco dependence who was admitted 06/13/2023 atrial fibrillation with RVR. Patient was seen on morning rounds. She was found resting in bed, comfortably, on supplemental oxygen via nasal cannula. She is home O2 dependent. She was found to be sleeping but woke easily when I set her name. She did answer a couple of questions but then very quickly fell back to sleep. Patient denies chest pain or difficulty breathing; ROS is otherwise. No questions or concerns expressed at this time. Nursing reports decreased urinary output; planning to bladder scan shortly. Otherwise, no questions or concerns. Patient has been drowsy but otherwise stable and without acute distress per their assessment. Reason For Visit: AFIB WITH RVR Physical Exam Vital Signs: Temp Pulse Resp BP Pulse Ox 98.2 F 70 20 130/89 H 97 06/14/19 11:32 06/14/19 12:59 06/14/19 11:32 06/14/19 12:59 06/14/19 11:32 Intake & Output 06/13/19 06/14/19 06/15/19 06:59 06:59 06:59 Intake Total 575 Output Total 0 Balance 575 Weight 85.8 kg 85 kg General appearance: PRESENT: no acute distress, disheveled, obese, well- developed, well-nourished Head exam: PRESENT: atraumatic, normocephalic Eye exam: PRESENT: conjunctiva pink, EOMI, PERRLA. ABSENT: scleral icterus Ear exam: PRESENT: normal external ear exam Mouth exam: PRESENT: moist, tongue midline Neck exam: ABSENT: carotid bruit, JVD, lymphadenopathy, thyromegaly Respiratory exam: PRESENT: clear to auscultation delon, prolonged expiratory phas, symmetrical, unlabored, other - Supplemental oxygen via nasal cannula. ABSENT: rales, rhonchi, wheezes Cardiovascular exam: PRESENT: RRR - NSR, +S1, +S2. ABSENT: diastolic murmur, rubs, systolic murmur Pulses: PRESENT: normal dorsalis pedis pul Vascular exam: PRESENT: normal capillary refill GI/Abdominal exam: PRESENT: normal bowel sounds, soft. ABSENT: distended, guarding, mass, organolmegaly, rebound, tenderness Rectal exam: PRESENT: deferred Extremities exam: PRESENT: full ROM. ABSENT: calf tenderness, clubbing, pedal edema Neurological exam: PRESENT: alert, awake, oriented to person, oriented to place, oriented to time, oriented to situation, CN II-XII grossly intact, other - Sleeping soundly. ABSENT: motor sensory deficit Psychiatric exam: PRESENT: anxious, normal mood - Given recent of family member. ABSENT: homicidal ideation, suicidal ideation Skin exam: PRESENT: dry, intact, warm. ABSENT: cyanosis, rash Results Laboratory Results: 06/14/19 05:52 06/14/19 05:52 06/13/19 06/13/19 06/13/19 16:00 16:00 16:00 WBC 5.0 RBC 4.77 Hgb 15.9 H Hct 47.6 H MCV 100 H MCH 33.4 MCHC 33.5 RDW 13.8 Plt Count 174 Seg Neutrophils % 51.3 Sodium 143.6 Potassium 4.5 Chloride 100 Carbon Dioxide 32 H Anion Gap 12 BUN 18 Creatinine 0.66 Est GFR ( Amer) > 60 Glucose 144 H Calcium 9.8 Magnesium 2.0 Total Bilirubin 0.6 AST 27 Alkaline Phosphatase 108 Total Protein 7.9 Albumin 4.4 Lipase 30.0 TSH Free T4 Free T3 pg/mL 06/14/19 06/14/19 06/14/19 05:52 05:52 05:52 WBC 6.6 RBC 4.10 Hgb 13.6 D Hct 41.2 MCV 101 H MCH 33.2 MCHC 33.0 RDW 13.7 Plt Count 144 L Seg Neutrophils % Sodium 142.7 Potassium 4.4 Chloride 103 Carbon Dioxide 31 H Anion Gap 9 BUN 19 Creatinine 0.58 Est GFR ( Amer) > 60 Glucose 131 H Calcium 9.0 Magnesium Total Bilirubin AST Alkaline Phosphatase Total Protein Albumin Lipase TSH 0.13 L Free T4 Free T3 pg/mL 06/14/19 05:52 WBC RBC Hgb Hct MCV MCH MCHC RDW Plt Count Seg Neutrophils % Sodium Potassium Chloride Carbon Dioxide Anion Gap BUN Creatinine Est GFR ( Amer) Glucose Calcium Magnesium Total Bilirubin AST Alkaline Phosphatase Total Protein Albumin Lipase TSH Free T4 1.21 Free T3 pg/mL 3.13 06/13/19 16:00 Troponin I < 0.012 NT-Pro-B Natriuret Pep 3140 H Impressions: Abdomen/Pelvis CT 06/13/19 14:44 IMPRESSION: No acute intra-abdominal abnormality. Chest X-Ray 06/13/19 14:44 IMPRESSION: Cardiomegaly without a superimposed acute cardiopulmonary process. Assessment and Plan - Diagnosis (1) Atrial fibrillation with RVR Is this a current diagnosis for this admission?: Yes Plan: Patient converted to normal sinus rhythm overnight. Patient is admitted to [facility] on continuous cardiac telemetry. Will transition to p.o. diltiazem today. Resume home dose Eliquis. Correction of dehydration with IV fluids. (2) Grief at loss of child Is this a current diagnosis for this admission?: Yes Plan: Patient's son this week; reports sudden onset of abdominal pain, nausea, vomiting, loss of appetite, difficulty sleeping since then. Received IV Ativan 2 mg x 1 yesterday evening. (Perhaps because of patient's continued drowsiness today) Continue BuSpar twice daily. Consult mental health services. (3) Epigastric abdominal pain Is this a current diagnosis for this admission?: Yes Plan: Improved; now tolerating sips of fluids and oral medications. Unclear etiology; perhaps related to grief reaction and N/V. Lipase nml CT ABD negative. Continue home dose oxycodone. Antiemetics as needed. (4) Vomiting Qualifiers: Vomiting type: unspecified Vomiting Intractability: non-intractable Nausea presence: with nausea Qualified Code(s): R11.2 - Nausea with vomiting, unspecified Is this a current diagnosis for this admission?: Yes Plan: Improved; no further episodes of emesis. Tolerating sips of water and p.o. medications. Unclear etiology; perhaps related to grief reaction. Continue IVF Diet as tolerated Antiemetics as needed. (5) Diabetes mellitus Qualifiers: Diabetes mellitus type: type 2 Diabetes mellitus skilled nursing insulin use: with skilled nursing use Diabetes mellitus complication status: without complication Qualified Code(s): E11.9 - Type 2 diabetes mellitus without complications; Z79.4 - roasterman (current) use of insulin Is this a current diagnosis for this admission?: Yes Plan: A1c 6.9%. Consistent carb/Cardiac diet Hold home dose metformin while admitted. Accu-Cheks before meals and at bedtime with Humalog for sliding scale coverage. Hypoglycemia protocol in place. (6) COPD (chronic obstructive pulmonary disease) Qualifiers: Chronic bronchitis type: unspecified Is this a current diagnosis for this admission?: Yes Plan: Stable and without exacerbation at this time. Continue supplemental oxygen as needed to maintain saturations >89% As needed Xopenex. Continue home medications once reconciled. - Time Time Spent with patient: 25-34 minutes Medications reviewed and adjusted accordingly: Yes Anticipated discharge: Home with Homehealth Within: within 24 hours
--- NOTE | 2019-06-14 20:17 | PSYCHOLOGICAL NOTE ---
Psych Note - Psych Note Date seen by psych provider: 06/14/19 Time seen by psych provider: 15:30 Psych Note: Clinician attempted evaluation. Patient had just received pain medication and was groggy. Patient asked clinician to come back. Patient asked clinician to inform her nurse that she had soiled herself and needed changing. Behavioral health team will went to reevaluate tomorrow.
[2019-06-14] MEDS: DILTIAZEM HCL/D5W 125 MG/125 ML RTUINJ IV PRN (20:25)
[2019-06-15] MEDS: INSULIN LISPRO 100 UNIT/ML 3 ML VIAL SUBCUT SCH ×4 (01:58→17:25)
[2019-06-15] MEDS: BUSPIRONE HCL 10 MG TABLET PO SCH ×3 (01:59→21:18)
[2019-06-15] MEDS: GABAPENTIN 400 MG CAPSULE PO SCH ×4 (01:59→21:18)
[2019-06-15] MEDS: DILTIAZEM HCL 30 MG TABLET PO SCH ×4 (02:00→17:25)
[2019-06-15] MEDS: ATORVASTATIN CALCIUM 40 MG TABLET PO SCH ×2 (03:04→21:18)
[2019-06-15] MEDS: FAMOTIDINE INJ/PF 20 MG/2 ML SDV IV SCH ×3 (03:37→21:19)
[2019-06-15] MEDS: OXYCODONE HCL IR 5 MG TABLET PO PRN ×3 (05:48→20:04)
[2019-06-15] MEDS: DILTIAZEM HCL/D5W 125 MG/125 ML RTUINJ IV PRN ×2 (07:25→21:18)
[2019-06-15] MEDS: SERTRALINE HCL 50 MG TABLET PO SCH (09:56)
[2019-06-15] MEDS: APIXABAN 5 MG TABLET PO SCH ×2 (09:56→17:28)
[2019-06-15] MEDS: DOCUSATE SODIUM 100 MG CAPSULE PO SCH (09:56)
[2019-06-15] MEDS ORDERED: (PENDING PHARMACY ID) (Sertraline Hcl [Sertraline Hcl] 25 MG) PO SCH (10:00)
--- NOTE | 2019-06-15 14:27 | EKG REPORT ---
SEVERITY:- ABNORMAL ECG - ATRIAL FIBRILLATION, V-RATE 100-165 PROBABLE POSTERIOR INFARCT NONSPECIFIC T ABNORMALITIES, LATERAL LEADS : Confirmed by: Gabe Bingham 15-Jun-2019 14:26:14
--- NOTE | 2019-06-15 16:37 | PDOC PROGRESS REPORT ---
Subjective Progress Note for:: 06/15/19 Subjective:: KIRSTIE GARCIA is a 83 year old female with a past medical history of chronic atrial fibrillation, anticoagulated on Eliquis, COPD, DM 2, hypertension, hyperlipidemia, and tobacco dependence who was admitted 06/13/2023 atrial fibrillation with RVR. Patient was seen on morning rounds. She was found resting in bed, comfortably, on supplemental oxygen via nasal cannula. She is home O2 dependent. She was found to be sleeping but woke easily when I said her name. She reports worsening of her chronic back pain and bilateral lower extremity pain. She is concerned about missing her pain management appointment tomorrow; she is encouraged to have her family members call to reschedule that for the end of this weel or early next week. Patient denies fever, headache, chest pain, palpitations, dyspnea, abdominal pain, nausea vomiting or diarrhea. No questions or concerns expressed at this time. Unfortunately, the patient returned to atrial fibrillation with RVR early this morning and is back on a diltiazem drip. Reason For Visit: AFIB WITH RVR Physical Exam Vital Signs: Temp Pulse Resp BP Pulse Ox 98.1 F 109 H 20 115/72 96 06/15/19 15:16 06/15/19 15:16 06/15/19 15:16 06/15/19 15:16 06/15/19 15:16 Intake & Output 06/14/19 06/15/19 06/16/19 06:59 06:59 06:59 Intake Total 575 309 671 Output Total 0 750 125 Balance 575 -441 546 Weight 85.8 kg 86.3 kg General appearance: PRESENT: no acute distress, disheveled, obese, well- developed, well-nourished Head exam: PRESENT: atraumatic, normocephalic Eye exam: PRESENT: conjunctiva pink, EOMI, PERRLA. ABSENT: scleral icterus Ear exam: PRESENT: normal external ear exam Mouth exam: PRESENT: moist, tongue midline Teeth exam: PRESENT: poor dentation Respiratory exam: PRESENT: clear to auscultation delon, symmetrical, unlabored, other - Supplemental oxygen via nasal cannula. ABSENT: rales, rhonchi, wheezes Cardiovascular exam: PRESENT: irregular rhythm, +S1, +S2, tachycardia. ABSENT: diastolic murmur, rubs, systolic murmur Pulses: PRESENT: normal dorsalis pedis pul Vascular exam: PRESENT: normal capillary refill GI/Abdominal exam: PRESENT: normal bowel sounds, soft. ABSENT: distended, gua rding, mass, organolmegaly, rebound, tenderness Rectal exam: PRESENT: deferred Gentrourinary exam: PRESENT: indwelling catheter Extremities exam: PRESENT: full ROM. ABSENT: calf tenderness, clubbing, pedal edema Neurological exam: PRESENT: alert, awake, oriented to person, oriented to place, oriented to time, oriented to situation, CN II-XII grossly intact. ABSENT: motor sensory deficit Psychiatric exam: PRESENT: anxious, appropriate affect, depressed, normal mood. ABSENT: homicidal ideation, suicidal ideation Skin exam: PRESENT: dry, intact, warm. ABSENT: cyanosis, rash Results Laboratory Results: 06/14/19 05:52 06/14/19 05:52 06/13/19 16:00 Troponin I < 0.012 NT-Pro-B Natriuret Pep 3140 H Impressions: Abdomen/Pelvis CT 06/13/19 14:44 IMPRESSION: No acute intra-abdominal abnormality. Chest X-Ray 06/13/19 14:44 IMPRESSION: Cardiomegaly without a superimposed acute cardiopulmonary process. Assessment and Plan - Diagnosis (1) Atrial fibrillation with RVR Is this a current diagnosis for this admission?: Yes Plan: Patient converted to normal sinus rhythm overnight. Patient is admitted to [facility] on continuous cardiac telemetry. Have resumed diltiazem drip; remains intermittently tachycardic with heart rate 110-120 on average. Titrate per protocol. Resume home dose Eliquis. Correction of dehydration with IV fluids. (2) Grief at loss of child Is this a current diagnosis for this admission?: Yes Plan: Patient's son this week; reports sudden onset of abdominal pain, nausea, vomiting, loss of appetite, difficulty sleeping since then. Received IV Ativan 2 mg x 1 yesterday evening. (Perhaps because of patient's continued drowsiness today) Continue BuSpar twice daily. Consult mental health services. (3) Epigastric abdominal pain Is this a current diagnosis for this admission?: Yes Plan: Resolved; now tolerating sips of fluids and oral medications. Unclear etiology; perhaps related to grief reaction and N/V. Lipase nml CT ABD negative. Continue home dose oxycodone. Antiemetics as needed. (4) Vomiting Qualifiers: Vomiting type: unspecified Vomiting Intractability: non-intractable Nausea presence: with nausea Qualified Code(s): R11.2 - Nausea with vomiting, unspecified Is this a current diagnosis for this admission?: Yes Plan: Resolved; no further episodes of emesis. Tolerating regular diet. Unclear etiology; perhaps related to grief reaction. Continue IVF Diet as tolerated Antiemetics as needed. (5) Diabetes mellitus Qualifiers: Diabetes mellitus type: type 2 Diabetes mellitus terminal press operator insulin use: with terminal press operator use Diabetes mellitus complication status: without complication Qualified Code(s): E11.9 - Type 2 diabetes mellitus without complications; Z79.4 - custodial (current) use of insulin Is this a current diagnosis for this admission?: Yes Plan: A1c 6.9%. Consistent carb/Cardiac diet Hold home dose metformin while admitted. Accu-Cheks before meals and at bedtime with Humalog for sliding scale coverage. Hypoglycemia protocol in place. (6) COPD (chronic obstructive pulmonary disease) Qualifiers: Chronic bronchitis type: unspecified Is this a current diagnosis for this admission?: Yes Plan: Stable and without exacerbation at this time. Continue supplemental oxygen as needed to maintain saturations >89% As needed Xopenex. Continue home medications. No indications for antibiotic or steroid therapy at this time. - Time Time Spent with patient: 25-34 minutes Medications reviewed and adjusted accordingly: Yes Anticipated discharge: Home with Homehealth
[2019-06-15] MEDS: ACETAMINOPHEN 325 MG TABLET PO PRN (20:04)
[2019-06-16] MEDS: INSULIN LISPRO 100 UNIT/ML 3 ML VIAL SUBCUT SCH ×4 (01:16→17:11)
[2019-06-16] MEDS: DILTIAZEM HCL 30 MG TABLET PO SCH ×4 (01:17→17:11)
[2019-06-16] MEDS: OXYCODONE HCL IR 5 MG TABLET PO PRN ×3 (04:12→17:10)
[2019-06-16] MEDS: ACETAMINOPHEN 325 MG TABLET PO PRN ×3 (04:12→17:11)
[2019-06-16] MEDS: GABAPENTIN 400 MG CAPSULE PO SCH ×3 (05:02→21:05)
[2019-06-16 06:05] LABS: ANION GAP 5 (5-19); BLOOD UREA NITROGEN 16 mg/dL (7-20); CALCIUM 8.9 mg/dL (8.4-10.2); CARBON DIOXIDE 39 mmol/L (22-30); CHLORIDE 95 mmol/L (98-107); GLUCOSE 173 mg/dL (75-110); POTASSIUM 4.4 mmol/L (3.6-5.0)
[2019-06-16 06:17] LABS: HEMATOCRIT 40.9 % (36.0-47.0); HEMOGLOBIN 13.7 g/dL (12.0-15.5); MEAN CORPUSCULAR HEMOGLOBIN 33.3 pg (27.0-33.4); MEAN CORPUSCULAR HGB CONC 33.4 g/dL (32.0-36.0); MEAN CORPUSCULAR VOLUME 100 fl (80-97); PLATELET COUNT 124 10^3/uL (150-450); RED BLOOD COUNT 4.11 10^6/uL (3.72-5.28); RED CELL DISTRIBUTION WIDTH 13.3 % (11.5-14.0); WHITE BLOOD COUNT 5.6 10^3/uL (4.0-10.5)
[2019-06-16] MEDS: BUSPIRONE HCL 10 MG TABLET PO SCH ×2 (09:00→21:05)
[2019-06-16] MEDS: DOCUSATE SODIUM 100 MG CAPSULE PO SCH (09:00)
[2019-06-16] MEDS: FAMOTIDINE INJ/PF 20 MG/2 ML SDV IV SCH ×2 (09:00→21:05)
[2019-06-16] MEDS: SERTRALINE HCL 50 MG TABLET PO SCH (09:00)
[2019-06-16] MEDS: APIXABAN 5 MG TABLET PO SCH ×2 (09:00→17:11)
--- NOTE | 2019-06-16 09:17 | EKG REPORT ---
SEVERITY:- ABNORMAL ECG - ATRIAL FIBRILLATION, V-RATE 85-115 BORDERLINE T ABNORMALITIES, ANT-LAT LEADS : Confirmed by: Gabe Bingham 16-Jun-2019 09:17:23
[2019-06-16] MEDS ORDERED: OXYCODONE HCL IR 5 MG TABLET PO ONE (10:34)
[2019-06-16] MEDS ORDERED: ALPRAZOLAM 0.25 MG TABLET PO PRN (12:44)
[2019-06-16] MEDS ORDERED: ALPRAZOLAM 0.25 MG TABLET PO ONE (13:30)
[2019-06-16] MEDS ORDERED: FUROSEMIDE 20 MG TABLET PO ONE (13:30)
--- NOTE | 2019-06-16 16:27 | PDOC PROGRESS REPORT ---
Subjective Progress Note for:: 06/16/19 Subjective:: KIRSTIE GARCIA is a 83 year old female with a past medical history of chronic atrial fibrillation, anticoagulated on Eliquis, COPD, DM 2, hypertension, hyperlipidemia, and tobacco dependence who was admitted 06/13/2023 atrial fibrillation with RVR. Patient was seen on morning rounds with her son and [id number] present. She was found resting in bed, comfortably, on supplemental oxygen via nasal cannula. She is home O2 dependent. She reports generalized body aches, chest discomfort, difficulty sleeping, nausea, etc... she then begins hyperventilating and rocking side to side (i.e acute grief/panic). Patient denies fever, headache, palpitations, abdominal pain, vomiting or diarrhea. Plan of care explained to patient's family members who report understanding and are in agreement. Nursing requests to d/c IVF as patient has adequate fluid intake. Reason For Visit: AFIB WITH RVR Physical Exam Vital Signs: Temp Pulse Resp BP Pulse Ox 98.2 F 87 20 119/66 94 06/16/19 14:39 06/16/19 14:39 06/16/19 14:39 06/16/19 14:39 06/16/19 14:39 Intake & Output 06/15/19 06/16/19 06/17/19 06:59 06:59 06:59 Intake Total 309 1255 530 Output Total 750 675 Balance -441 580 530 Weight 86.3 kg 92.2 kg General appearance: PRESENT: no acute distress, disheveled, hard of hearing, mild distress, obese, well-developed, well-nourished Head exam: PRESENT: atraumatic, normocephalic Eye exam: PRESENT: conjunctiva pink, EOMI, PERRLA. ABSENT: scleral icterus Ear exam: PRESENT: normal external ear exam Mouth exam: PRESENT: moist, tongue midline Teeth exam: PRESENT: poor dentation Neck exam: ABSENT: carotid bruit, JVD, lymphadenopathy, thyromegaly Respiratory exam: PRESENT: clear to auscultation delon, prolonged expiratory phas, symmetrical, unlabored, other - supplemental oxygen via NC. ABSENT: rales, rhonchi, wheezes Cardiovascular exam: PRESENT: irregular rhythm, +S1, +S2. ABSENT: diastolic murmur, rubs, systolic murmur Pulses: PRESENT: normal dorsalis pedis pul Vascular exam: PRESENT: normal capillary refill GI/Abdominal exam: PRESENT: normal bowel sounds, soft. ABSENT: distended, guarding, mass, organolmegaly, rebound, tenderness Rectal exam: PRESENT: deferred Gentrourinary exam: PRESENT: indwelling catheter Extremities exam: PRESENT: full ROM. ABSENT: calf tenderness, clubbing, pedal edema Neurological exam: PRESENT: alert, awake, oriented to person, oriented to place, oriented to time, oriented to situation, CN II-XII grossly intact. ABSENT: motor sensory deficit Psychiatric exam: PRESENT: anxious, appropriate affect, depressed, normal mood. ABSENT: homicidal ideation, suicidal ideation Skin exam: PRESENT: dry, intact, warm. ABSENT: cyanosis, rash Results Laboratory Results: 06/16/19 05:27 06/16/19 05:27 06/16/19 06/16/19 05:27 05:27 WBC 5.6 RBC 4.11 Hgb 13.7 Hct 40.9 MCV 100 H MCH 33.3 MCHC 33.4 RDW 13.3 Plt Count 124 L Sodium 139.1 Potassium 4.4 Chloride 95 L Carbon Dioxide 39 H Anion Gap 5 BUN 16 Creatinine 0.56 Est GFR ( Amer) > 60 Glucose 173 H Calcium 8.9 06/13/19 06/16/19 16:00 13:50 Troponin I < 0.012 < 0.012 NT-Pro-B Natriuret Pep 3140 H Impressions: Abdomen/Pelvis CT 06/13/19 14:44 IMPRESSION: No acute intra-abdominal abnormality. Chest X-Ray 06/13/19 14:44 IMPRESSION: Cardiomegaly without a superimposed acute cardiopulmonary process. Assessment and Plan - Diagnosis (1) Atrial fibrillation with RVR Is this a current diagnosis for this admission?: Yes Plan: Now rate controlled on diltiazem gtt. Patient is admitted to [facility] on continuous cardiac telemetry. Will transition to p.o. diltiazem today. Consider p.o. digoxin if afib rvr reoccurs. Resume home dose Eliquis. (2) Grief at loss of child Is this a current diagnosis for this admission?: Yes Plan: Patient's son this week; reports sudden onset of abdominal pain, nausea, vomiting, loss of appetite, difficulty sleeping since then. Received IV Ativan 2 mg x 1 yesterday evening. (Perhaps because of patient's continued drowsiness today) Continue BuSpar twice daily. Xanax 0.25 mg p.o. q8hp Consult mental health services. (3) Epigastric abdominal pain Is this a current diagnosis for this admission?: Yes Plan: Resolved; now tolerating sips of fluids and oral medications. Unclear etiology; perhaps related to grief reaction and N/V. Lipase nml CT ABD negative. Antiemetics as needed. (4) Vomiting Qualifiers: Vomiting type: unspecified Vomiting Intractability: non-intractable Nausea presence: with nausea Qualified Code(s): R11.2 - Nausea with vomiting, unspecified Is this a current diagnosis for this admission?: Yes Plan: Resolved; no further episodes of emesis. Tolerating regular diet. Unclear etiology; perhaps related to grief reaction. Diet as tolerated Antiemetics as needed. (5) Diabetes mellitus Qualifiers: Diabetes mellitus type: type 2 Diabetes mellitus regional transportation manager insulin use: with [facility] use Diabetes mellitus complication status: without complication Qualified Code(s): E11.9 - Type 2 diabetes mellitus without complications; Z79.4 - crusher screen repairer (current) use of insulin Is this a current diagnosis for this admission?: Yes Plan: A1c 6.9%. Consistent carb/Cardiac diet Hold home dose metformin while admitted. Accu-Cheks before meals and at bedtime with Humalog for sliding scale coverage. Hypoglycemia protocol in place. (6) COPD (chronic obstructive pulmonary disease) Qualifiers: Chronic bronchitis type: unspecified Is this a current diagnosis for this admission?: Yes Plan: Stable and without exacerbation at this time. Continue supplemental oxygen as needed to maintain saturations >89% As needed Xopenex. Continue home medications. No indications for antibiotic or steroid therapy at this time. - Time Time Spent with patient: 25-34 minutes Medications reviewed and adjusted accordingly: Yes Anticipated discharge: Home with Homehealth Within: within 24 hours - if remains rate controlled
[2019-06-16] MEDS: ATORVASTATIN CALCIUM 40 MG TABLET PO SCH (21:06)
[2019-06-17] MEDS: INSULIN LISPRO 100 UNIT/ML 3 ML VIAL SUBCUT SCH ×3 (00:03→12:10)
[2019-06-17] MEDS: DILTIAZEM HCL 30 MG TABLET PO SCH ×3 (00:17→12:11)
[2019-06-17] MEDS: GABAPENTIN 400 MG CAPSULE PO SCH (05:31)
[2019-06-17] MEDS ORDERED: FUROSEMIDE 20 MG TABLET PO SCH (10:00)
[2019-06-17] MEDS ORDERED: METOPROLOL TARTRATE 25 MG TABLET PO SCH (10:00)
[2019-06-17] MEDS: SERTRALINE HCL 50 MG TABLET PO SCH (11:06)
[2019-06-17] MEDS: APIXABAN 5 MG TABLET PO SCH (11:06)
[2019-06-17] MEDS: BUSPIRONE HCL 10 MG TABLET PO SCH (11:07)
[2019-06-17] MEDS: ACETAMINOPHEN 325 MG TABLET PO PRN (11:07)
[2019-06-17] MEDS: DOCUSATE SODIUM 100 MG CAPSULE PO SCH (11:07)
[2019-06-17] MEDS: OXYCODONE HCL IR 5 MG TABLET PO PRN (11:09)
[2019-06-17] MEDS: FAMOTIDINE INJ/PF 20 MG/2 ML SDV IV SCH (12:11)
[2019-06-17 13:06] VITALS: BP 106/72
--- NOTE | 2019-06-17 15:46 | PDOC DISCHARGE SUMMARY ---
Impression - Admit/DC Date/PCP Admission Date/Primary Care Provider: 06/13/19 18:40 SHERRIE CADET PA-C Discharge Date: 06/17/19 - Discharge Diagnosis (1) Atrial fibrillation with RVR Is this a current diagnosis for this admission?: Yes (2) Grief at loss of child Is this a current diagnosis for this admission?: Yes (3) Epigastric abdominal pain Is this a current diagnosis for this admission?: Yes (4) Vomiting Is this a current diagnosis for this admission?: Yes (5) Diabetes mellitus Is this a current diagnosis for this admission?: Yes (6) COPD (chronic obstructive pulmonary disease) Is this a current diagnosis for this admission?: Yes - Additional Information Resuscitation Status: Do Not Resuscitate Discharge Diet: Cardiac, Diabetic Discharge Activity: Activity As Tolerated, Balance Activity w/Rest, Slowly Increase Activity Referrals: SHERRIE CADET PA-C [Primary Care Provider] - 06/28/19 10:30 am Prescriptions: Buspirone HCl [Buspar 10 mg Tablet] 10 mg PO Q12 #60 tablet Metoprolol Tartrate [Lopressor 25 mg Tablet] 12.5 mg PO Q12 #60 tablet Home Medications: Metformin HCl [Metformin HCl ER] 500 mg PO [id number] 05/28/18 Oxycodone HCl/Acetaminophen [Percocet 10-325 mg Tablet] 1 each PO Q6HP PRN 05/28/18 Atorvastatin Calcium [Lipitor 40 mg Tablet] 40 mg PO QHS 05/29/18 Docusate Sodium [Colace] 100 mg PO BIDP PRN 05/29/18 Furosemide [Lasix 20 mg Tablet] 20 mg PO DAILY MDD 40 MG 05/29/18 Apixaban [Eliquis 5 mg Tablet] 5 mg PO BID #60 tablet 06/01/18 Diltiazem HCl [Diltiazem 24Hr ER (Cd)] 240 mg PO DAILY #30 cap.er.24h 06/01/18 Gabapentin [Neurontin 400 mg Capsule] 400 mg PO Q8 06/13/19 Insulin Glargine,Hum.rec.anlog [Lantus (Pyxis) Insulin 100 Unit/1 ml 10 ml] 40 unit SUBCUT BID 06/13/19 Sertraline HCl 25 mg PO DAILY 06/13/19 Acetaminophen [Tylenol 325 mg Tablet] 650 mg PO Q4HP PRN tablet 06/17/19 Buspirone HCl [Buspar 10 mg Tablet] 10 mg PO Q12 #60 tablet 06/17/19 Metoprolol Tartrate [Lopressor 25 mg Tablet] 12.5 mg PO Q12 #60 tablet 06/17/19 History of Present Illiness History of Present Illness: KIRSTIE GARCIA is a 83 year old female with a past medical history of chronic atrial fibrillation, anticoagulated on Eliquis, COPD, DM 2, hypert ension, hyperlipidemia, and tobacco dependence who presented to the emergency department today with a complaint of 1 week of nausea and vomiting, inability to tolerate oral medications, and increased confusion from baseline. Of note, the patient's son unexpectedly this week (family member suggested it may have been drug related). Patient does admit to sleeping less than 1 hour nightly over the last week with poor concentration, and poor p.o. intake. She reports that she previously was on p.o. Xanax but this was discontinued when she was admitted into a pain management clinic; she understands that benzodiazepines will be limited this admission but does ask assistance with sleeping and anxiety. Evaluation in the emergency department revealed initial heart rate in the 140s, hypertension, Tachypnea, SPO2 mid 90s on her baseline oxygen requirement of 2 L/min, unremarkable CBC, coags, chemistry, other than a mildly elevated proBNP to 3000 and a subtherapeutic digoxin level. EKG showed atrial fibrillation RVR. Chest x-ray and abdominal CT are benign. She has been provided IV fluid bolus, diltiazem bolus, and started on diltiazem drip. She is referred to the hospitalist service for admission and management of the above-stated complaints and findings. Hospital Course Hospital Course: The patient was admitted to [facility] on continuous cardiac telemetry. She was initially placed on a diltiazem drip and full dose Lovenox for anticoagulation while she was still having active nausea and vomiting. She was supported with IV fluids and antiemetics as needed. Patient did convert to normal sinus rhythm and as her nausea and vomiting abated she was transitioned to p.o. diltiazem. Her home dose Eliquis was resumed. Unfortunately, the evening, the patient converted back into atrial fibrillation with RVR and the diltiazem drip was resumed. She was left on a diltiazem drip for 24-hour. 30-gauge her total 24- hour need and then was transitioned back to oral diltiazem. She did have improved rate control but with frequent episodes of tachycardia to the 120s and therefore low dose of metoprolol was initiated. Her blood pressure remained stable and heart rate became controlled between 70 and 105 depending on level of activity. Patient did have significant grief reaction related to the recent of her youngest son. She was started on BuSpar twice daily and was provided low-dose oral Xanax while admitted. She did meet with mental health services who have cleared her from any IVC concerns. The patient's chronic medical conditions otherwise remained stable. At time of discharge, patient is in stable condition. She remains in atrial fibrillation but rate controlled on oral medications. She is agreeable to home health services. She is discharged into the care of family members with recommendations to see her primary care provider within 1 week and to return to the emergency department as needed for concerning symptoms. Physical Exam Vital Signs: Temp Pulse Resp BP Pulse Ox 97.7 F 106 H 21 H 106/72 98 06/17/19 13:02 06/17/19 13:02 06/17/19 13:02 06/17/19 13:02 06/17/19 13:02 Intake & Output 06/16/19 06/17/19 06/18/19 06:59 06:59 06:59 Intake Total 1255 1119 Output Total 675 750 Balance 580 369 Weight 92.2 kg 92 kg General appearance: PRESENT: no acute distress, cooperative, disheveled, hard of hearing, obese, well-developed, well-nourished Head exam: PRESENT: atraumatic, normocephalic Eye exam: PRESENT: conjunctiva pink, EOMI, PERRLA. ABSENT: scleral icterus Ear exam: PRESENT: normal external ear exam Mouth exam: PRESENT: moist, tongue midline Teeth exam: PRESENT: poor dentation Respiratory exam: PRESENT: clear to auscultation delon, symmetrical, unlabored. ABSENT: rales, rhonchi, wheezes Cardiovascular exam: PRESENT: irregular rhythm, +S1, +S2. ABSENT: diastolic murmur, rubs, systolic murmur Pulses: PRESENT: normal dorsalis pedis pul Vascular exam: PRESENT: normal capillary refill GI/Abdominal exam: PRESENT: normal bowel sounds, soft. ABSENT: distended, guarding, mass, organolmegaly, rebound, tenderness Rectal exam: PRESENT: deferred Extremities exam: PRESENT: full ROM. ABSENT: calf tenderness, clubbing, pedal edema Musculoskeletal exam: PRESENT: ambulatory Neurological exam: PRESENT: alert, awake, oriented to person, oriented to place, oriented to time, oriented to situation, CN II-XII grossly intact. ABSENT: motor sensory deficit Psychiatric exam: PRESENT: appropriate affect, depressed. ABSENT: homicidal ideation, suicidal ideation Skin exam: PRESENT: dry, intact, warm. ABSENT: cyanosis, rash Results Laboratory Results: WBC 5.6 10^3/uL (4.0-10.5) 06/16/19 05:27 RBC 4.11 10^6/uL (3.72-5.28) 06/16/19 05:27 Hgb 13.7 g/dL (12.0-15.5) 06/16/19 05:27 Hct 40.9 % (36.0-47.0) 06/16/19 05:27 MCV 100 fl (80-97) H 06/16/19 05:27 MCH 33.3 pg (27.0-33.4) 06/16/19 05:27 MCHC 33.4 g/dL (32.0-36.0) 06/16/19 05:27 RDW 13.3 % (11.5-14.0) 06/16/19 05:27 Plt Count 124 10^3/uL (150-450) L 06/16/19 05:27 Lymph % (Auto) 34.5 % (13-45) 06/13/19 16:00 Lamb % (Auto) 13.6 % (3-13) H 06/13/19 16:00 Eos % (Auto) 0.1 % (0-6) 06/13/19 16:00 Baso % (Auto) 0.5 % (0-2) 06/13/19 16:00 Absolute Neuts (auto) 2.6 10^3/uL (1.7-8.2) 06/13/19 16:00 Absolute Lymphs (auto) 1.7 10^3/uL (0.5-4.7) 06/13/19 16:00 Absolute Monos (auto) 0.7 10^3/uL (0.1-1.4) 06/13/19 16:00 Absolute Eos (auto) 0.0 10^3/uL (0.0-0.6) 06/13/19 16:00 Absolute Basos (auto) 0.0 10^3/uL (0.0-0.2) 06/13/19 16:00 Seg Neutrophils % 51.3 % (42-78) 06/13/19 16:00 PT 12.7 SEC (11.4-15.4) 06/13/19 16:00 INR 0.95 06/13/19 16:00 APTT 23.0 SEC (23.5-35.8) L 06/13/19 16:00 Sodium 139.1 mmol/L (137-145) 06/16/19 05:27 Potassium 4.4 mmol/L (3.6-5.0) 06/16/19 05:27 Chloride 95 mmol/L (98-107) L 06/16/19 05:27 Carbon Dioxide 39 mmol/L (22-30) H 06/16/19 05:27 Anion Gap 5 (5-19) 06/16/19 05:27 BUN 16 mg/dL (7-20) 06/16/19 05:27 Creatinine 0.56 mg/dL (0.52-1.25) 06/16/19 05:27 Est GFR ( Amer) > 60 (>60) 06/16/19 05:27 Est GFR (MDRD) Non-Af > 60 (>60) 06/16/19 05:27 Glucose 173 mg/dL (75-110) H 06/16/19 05:27 POC Glucose 203 mg/dL (70-110) H 06/17/19 11:21 Hemoglobin A1c % 6.9 % (4.7-6.0) H 06/14/19 05:52 Calcium 8.9 mg/dL (8.4-10.2) 06/16/19 05:27 Magnesium 2.0 mg/dL (1.6-2.3) 06/13/19 16:00 Total Bilirubin 0.6 mg/dL (0.2-1.3) 06/13/19 16:00 Direct Bilirubin 0.4 mg/dL (0.0-0.4) 06/13/19 16:00 Neonat Total Bilirubin Not Reportable 06/13/19 16:00 Neonat Direct Bilirubin Not Reportable 06/13/19 16:00 Neonat Indirect Bili Not Reportable 06/13/19 16:00 AST 27 U/L (14-36) 06/13/19 16:00 ALT 21 U/L (<35) 06/13/19 16:00 Alkaline Phosphatase 108 U/L (38-126) 06/13/19 16:00 Troponin I < 0.012 ng/mL 06/16/19 13:50 NT-Pro-B Natriuret Pep 3140 pg/mL (<450) H 06/13/19 16:00 Total Protein 7.9 g/dL (6.3-8.2) 06/13/19 16:00 Albumin 4.4 g/dL (3.5-5.0) 06/13/19 16:00 Lipase 30.0 U/L (23-300) 06/13/19 16:00 TSH 0.13 uIU/mL (0.47-4.68) L 06/14/19 05:52 Free T4 1.21 ng/dL (0.78-2.19) 06/14/19 05:52 Free T3 pg/mL 3.13 pg/mL (2.77-5.27) 06/14/19 05:52 Digoxin < 0.40 ng/mL (0.8-2.0) L 06/13/19 16:00 06/13/19 06/16/19 16:00 13:50 Troponin I < 0.012 < 0.012 NT-Pro-B Natriuret Pep 3140 H Impressions: Abdomen/Pelvis CT 06/13/19 14:44 IMPRESSION: No acute intra-abdominal abnormality. Chest X-Ray 06/13/19 14:44 IMPRESSION: Cardiomegaly without a superimposed acute cardiopulmonary process. Plan Plan of Treatment: The patient is discharged home in the care of family members with home health services. She is advised to follow-up with her primary care provider within 1 week. She is instructed to take her medications as prescribed. She is encouraged to discontinue smoking. She is advised to return to the emergency department as needed for concerning symptoms. Time Spent: Greater than 30 Minutes Stroke Is this a Stroke Patient?: No Acute Heart Failure - Is this a Heart Failure Patient?: No
== END 2019-06-17 13:55 | disposition home or self-care (01) | DRG 310 ==
LOC: ER 13:37 → EH 18:40 → 3S 06-14 00:32
PROVIDERS: ADMIT Internal Medicine; ATTEND Internal Medicine
DX: I48.20 Chronic atrial fibrillation, unspecified (principal); F43.20 Adjustment disorder, unspecified; E11.9 Type 2 diabetes mellitus without complications; J44.9 Chronic obstructive pulmonary disease, unspecified; E78.5 Hyperlipidemia, unspecified; E66.9 Obesity, unspecified; I11.0 Hypertensive heart disease with heart failure; F17.210 Nicotine dependence, cigarettes, uncomplicated; Z66 Do not resuscitate; E78.00 Pure hypercholesterolemia, unspecified; I25.2 Old myocardial infarction; Z63.4 Disappearance and death of family member; Z79.899 Other long term (current) drug therapy; Z79.01 Long term (current) use of anticoagulants; Z79.4 Long term (current) use of insulin; Z79.1 Long term (current) use of non-steroidal anti-inflammatories (NSAID); Z86.718 Personal history of other venous thrombosis and embolism; Z86.711 Personal history of pulmonary embolism; Z85.118 Personal history of other malignant neoplasm of bronchus and lung; Z88.8 Allergy status to other drugs, medicaments and biological substances; Z95.5 Presence of coronary angioplasty implant and graft
CPT/HCPCS: 36415; 71045; 74176; 80048; 80053; 80162; 82962; 83036; 83690; 83735; 83880; 84439; 84443; 84481; 84484; 85025; 85027; 85610; 85730; 93005; 93010; 96361; 96365; 96366; 96375; 96376; 99291; J1650; J1815; J2060; J2270; J2405; J3490; J7030; J7050; S0028

== ENCOUNTER 2019-07-20 21:18 | Inpatient (IN) | payer MEDICARE, MEDICAID ==
--- NOTE | 2019-07-20 23:20 | RADIOLOGY REPORT (SQ) ---
EXAM DESCRIPTION: XR CHEST 1 VIEW COMPLETED DATE/TME: 07/20/2019 00:00 CLINICAL HISTORY: 83 years, Female, shortness of breath: Hx COPD COMPARISON: 06/13/2019 chest NUMBER OF VIEWS: 1 TECHNIQUE: Portable chest LIMITATIONS: None FINDINGS: Stable cardiomegaly. Surgical clips in the left perihilar region as before. No pneumothorax. Atheromatous change thoracic aorta IMPRESSION: No acute cardiopulmonary process copyright 2010 [employer]- All Rights Reserved
[2019-07-21] MEDS ORDERED: MORPHINE SULFATE 10 MG/ML INJ IV ONE ×2 (00:28→06:34)
[2019-07-21] MEDS ORDERED: ONDANSETRON HCL INJ/PF 4 MG/2 ML SDV IV ONE ×2 (00:28→05:43)
--- NOTE | 2019-07-21 00:30 | ER Document Report ---
ED General - General Chief Complaint: Shortness Of Breath Stated Complaint: SHORTNESS OF BREATH Time Seen by Provider: 07/21/19 00:16 Primary Care Provider: SHERRIE CADET PA-C [Primary Care Provider] - Follow up as needed Notes: Patient is an 83-year-old female that comes to the emergency department for complaints of shortness of breath, sharp pains in her mid lower back, and nausea with multiple episodes of dry heaving throughout the day. She reports some generalized vague abdominal pain. She denies fever, cough, leg swelling. Patient comes from home by EMS. She states that she wears 2 L nasal cannula at all t imes, has a history of CHF, COPD, A. fib on Eliquis, Cardizem, metoprolol. She also has a history of type 2 diabetes, hyperlipidemia, hypertension, hysterectomy. She is unsure about her abdominal surgeries. Patient was also very hard of hearing and getting a clear history is difficult. TRAVEL OUTSIDE OF THE [place] IN LAST 30 DAYS: No - Related Data Allergies/Adverse Reactions: Iodine and Iodide Containing Produc Adverse Reaction (Verified 07/20/19 21:33) Past Medical History - General Information source: Patient - Social History Smoking Status: Former Smoker Chew tobacco use (# tins/day): No Frequency of alcohol use: Occasional Drug Abuse: None Lives with: Family Family History: Reviewed & Not Pertinent, CAD, COPD Patient has suicidal ideation: No Patient has homicidal ideation: No - Past Medical History Cardiac Medical History: Reports: Hx Congestive Heart Failure, Hx DVT, Hx Heart Attack, Hx Hypercholesterolemia, Hx Hypertension, Hx Pulmonary Embolism Pulmonary Medical History: Reports: Hx Asthma, Hx COPD, Hx Pneumonia Endocrine Medical History: Reports: Hx Diabetes Mellitus Type 2 Renal/ Medical History: Denies: Hx Peritoneal Dialysis Malignancy Medical History: Reports: Hx Lung Cancer - Unknown stage or prognosis Psychiatric Medical History: Denies: Hx Depression Past Surgical History: Reports: Hx Cardiac Surgery - Stents, Hx Cholecystectomy, Hx Hysterectomy, Hx Orthopedic Surgery - L foot - Immunizations Hx Diphtheria, Pertussis, Tetanus Vaccination: Yes Review of Systems - Review of Systems Constitutional: No symptoms reported EENT: No symptoms reported Cardiovascular: See HPI Respiratory: See HPI Gastrointestinal: See HPI Genitourinary: No symptoms reported Female Genitourinary: No symptoms reported Musculoskeletal: No symptoms reported Skin: No symptoms reported Hematologic/Lymphatic: No symptoms reported Neurological/Psychological: No symptoms reported Physical Exam - Vital signs Vitals: Pulse Ox 94 07/20/19 21:25 - Notes Notes: GENERAL: Alert, interacts well. No acute distress. HEAD: Normocephalic, atraumatic. EYES: Pupils equal, round, and reactive to light. Extraocular movements intact. ENT: Oral mucosa moist, tongue midline. Oropharynx unremarkable. Airway patent. LUNGS: Clear to auscultation bilaterally, no wheezes, rales, or rhonchi. No respiratory distress. HEART: Regular rate and rhythm. No murmur ABDOMEN: Generalized lower abdominal tenderness, patient complains with general lower abdominal palpation. No guarding or rigidity. Upper abdomen is benign. EXTREMITIES: Moves all 4 extremities spontaneously. No edema, normal radial and dorsalis pedis pulses bilaterally. No cyanosis. BACK: no cervical, thoracic, lumbar midline tenderness. No saddle anesthesia, normal distal neurovascular exam. Moves all extremities in full range of motion. NEUROLOGICAL: Alert and oriented x3. Normal speech. Cranial nerves II through XII grossly intact except very hard of hearing PSYCH: Normal affect, normal mood. Occasionally irritable SKIN: Warm, dry, normal turgor. No rashes or lesions noted. Course - Re-evaluation Re-evalutation: Patient does not appear to be in distress. No noted back pain on exam but she complains of flank pain. She also had lower abdominal tenderness. She denies current shortness of breath, has no rales on exam, she is not tachypneic or hypoxic. She is on her regular 2 L nasal cannula. Chest x-ray is unremarkable. CBC unremarkable, BNP is elevated but significantly lower compared to prior, troponin is not elevated. Patient with improvement of symptoms, went to sleep after medications. CT of the abdomen pelvis unremarkable. Urine is still pending. Patient reportedly had a dry heaving episode. On reevaluation patient is also now tachycardic with atrial fibrillation and rapid ventricular response, however I noticed that patient had not taken her 12.5 mg of metoprolol titrate at night, she was provided with a dose of this and 500 cc bolus. Patient did keep the pill down. Her heart rate has improved but she is still mildly tachycardic. UTI is being treated with Rocephin, culture has been placed. Patient is extremely hard of hearing and is difficult to tell if she is altered, she responds to most questions appropriately and appears confused on others but I suspect this is because of her hearing. She did not have a headache. I did call and speak with son who states that she is basically at her baseline mentally. However because of her dry heaving, urinary tract infection, weakness, son is hoping we can admit to the hospital. I did discuss with Dr. Corcoran. 07/21/19 05:[address] Otoole, hospitalist, he requests patient be given additional nausea medication, she can be p.o. challenged, given additional fluids, and then her vital signs recheck. If she has good vital signs, tolerates p.o., he recommends discharge with IV antibiotics, otherwise she can be admitted to the hospital. 07/21/19 Patient was remedicated, given additional IV fluids, after this her heart rate did normalize to atrial fibrillation without rapid ventricular response. However we attempted to p.o. challenge her again and she vomited again. As result (intractable vomiting, urinary tract infection) will discuss with hospitalist. Discussed with Dr. Corcoran. Discussed with Julito Frye PA-C, patient accepted to the medical floor. - Vital Signs Vital signs: Temp Pulse Resp BP Pulse Ox 98.6 F 68 14 139/63 H 97 07/21/19 06:47 07/21/19 06:47 07/21/19 07:01 07/21/19 07:01 07/21/19 07:01 - Laboratory Result Diagrams: 07/20/19 21:29 07/20/19 21:29 Laboratory results interpreted by me: 07/20/19 07/20/19 07/20/19 21:29 21:29 21:29 MCV 99 H MCH 33.8 H Sodium 135.7 L Chloride 97 L Carbon Dioxide 36 H Anion Gap 3 L BUN 27 H Glucose 197 H NT-Pro-B Natriuret Pep 1780 H Urine Protein Urine Blood Urine Nitrite Ur Leukocyte Esterase 07/21/19 05:00 MCV MCH Sodium Chloride Carbon Dioxide Anion Gap BUN Glucose NT-Pro-B Natriuret Pep Urine Protein 30 H Urine Blood SMALL H Urine Nitrite POSITIVE H Ur Leukocyte Esterase LARGE H Discharge - Discharge Clinical Impression: Vomiting Qualifiers: Vomiting type: unspecified Vomiting Intractability: unspecified Nausea presence: with nausea Qualified Code(s): R11.2 - Nausea with vomiting, unspecified Abdominal pain Qualifiers: Abdominal location: generalized Qualified Code(s): R10.84 - Generalized abdominal pain Urinary tract infection Qualifiers: Urinary tract infection type: site unspecified Hematuria presence: without hematuria Qualified Code(s): N39.0 - Urinary tract infection, site not specified Condition: Stable Disposition: ADMITTED INPATIENT Admitting Provider: Alexi (Hospitalist) - Julito Frye PA-C Unit Admitted: Medical Floor Referrals: SHERRIE CADET PA-C [Primary Care Provider] - Follow up as needed
[2019-07-21 00:51] LABS: ALKALINE PHOSPHATASE 94 U/L (38-126); ASPARTATE AMINO TRANSFERASE 19 U/L (14-36); BILIRUBIN,DIRECT 0.1 mg/dL (0.0-0.4); BILIRUBIN,TOTAL 0.4 mg/dL (0.2-1.3); BLOOD UREA NITROGEN 27 mg/dL (7-20); CALCIUM 9.2 mg/dL (8.4-10.2); CHLORIDE 97 mmol/L (98-107); GLUCOSE 197 mg/dL (75-110); POTASSIUM 4.5 mmol/L (3.6-5.0); TOTAL PROTEIN 7.2 g/dL (6.3-8.2)
[2019-07-21 00:56] LABS: CARBON DIOXIDE 36 mmol/L (22-30)
[2019-07-21 00:58] LABS: ABSOLUTE BASOPHILS # (AUTO) 0.1 10^3/uL (0.0-0.2); ABSOLUTE LYMPHOCYTES (AUTO) 1.9 10^3/uL (0.5-4.7); ABSOLUTE MONOCYTES (AUTO) 0.7 10^3/uL (0.1-1.4); ABSOLUTE NEUT (AUTO) 6.3 10^3/uL (1.7-8.2); ANION GAP 3 (5-19); BASOPHILS % (AUTO) 0.9 % (0-2); EOSINOPHILS % (AUTO) 0.5 % (0-6); HEMATOCRIT 40.7 % (36.0-47.0); HEMOGLOBIN 13.8 g/dL (12.0-15.5); LYMPHOCYTES % (AUTO) 21.2 % (13-45); MEAN CORPUSCULAR HEMOGLOBIN 33.8 pg (27.0-33.4); MEAN CORPUSCULAR VOLUME 99 fl (80-97); MONOCYTES % (AUTO) 7.4 % (3-13); PLATELET COUNT 172 10^3/uL (150-450); RED CELL DISTRIBUTION WIDTH 13.5 % (11.5-14.0); TOTAL CELLS COUNTED % (AUTO) 100 %; WHITE BLOOD COUNT 8.9 10^3/uL (4.0-10.5)
[2019-07-21 01:03] LABS: NT PRO BNP 1780 pg/mL (<450)
[2019-07-21 01:06] LABS: TROPONIN I < 0.012 ng/mL
[2019-07-21] MEDS ORDERED: METOPROLOL TARTRATE 25 MG TABLET PO ONE (03:33)
--- NOTE | 2019-07-21 04:17 | RADIOLOGY REPORT (SQ) ---
CT ABDOMEN AND PELVIS WITHOUT INTRAVENOUS CONTRAST: 07/21/2019 3:12 AM DRAIN LAYER HISTORY: 83-year old with acute mid back and flank pain. COMPARISON: CT of abdomen and pelvis from 08/12/2019 TECHNIQUE: Axial contiguous images were obtained from the lung bases to the proximal femurs without oral or intravenous contrast administered. Sagittal and coronal reconstructions were also obtained and reviewed. This exam was performed according to our departmental dose-optimization program, which includes automated exposure control, adjustment of the mA and/or KV according to the patient's size and/or use of iterative reconstruction technique. FINDINGS: The lung bases appear clear without evidence of a focal consolidative airspace opacity or effusions. There is some linear scarring or atelectasis seen at the right lung base. The cardiac silhouette is enlarged. Coronary artery calcifications are seen. There is a surgical clips seen near the distal esophagus. Evaluation of the solid organs is limited by the lack of intravenous contrast. The liver has a slightly nodular contour, which may represent evidence of hepatic cirrhosis. The gallbladder surgically absent. The spleen, pancreas, and adrenals are normal in size and contour. There are punctate calcifications noted at the spleen. The kidneys demonstrate no evidence of hydronephrosis. No renal or ureteral calculi are seen. There is a prominent right extrarenal pelvis. Bladder is minimally distended, but grossly appears unremarkable. The uterus appears to be surgically absent. The patient The stomach is not well distended. The small bowel loops appear unremarkable. No pericolonic inflammatory stranding is seen. There are multiple diverticula seen within the sigmoid and descending colon, without evidence to suggest diverticulitis. There is no evidence of pneumoperitoneum or free fluid. The aorta and IVC appear normal in size. Moderate atherosclerotic calcification is seen at the aorta and into the iliac arteries. There is some minimal focal ectasia of the infrarenal abdominal aorta which is not significantly enlarged. No significantly enlarged lymph nodes are seen in the abdomen or pelvis. Review of the bone show no evidence of any suspicious lytic or blastic lesions. Multilevel degenerative changes are seen within the lumbar spine. IMPRESSION: No acute process is seen within the abdomen or pelvis.
[2019-07-21] MEDS ORDERED: NORMAL SALINE 500 ML IV ONE ×2 (04:51→05:43)
[2019-07-21 05:14] LABS: APPEARANCE,URINE CLOUDY; BILIRUBIN,URINE NEGATIVE (NEGATIVE); COLOR,URINE YELLOW; GLUCOSE, URINE NEGATIVE (NEGATIVE); KETONES,URINE NEGATIVE (NEGATIVE); LEUKOCYTE ESTERASE,URINE LARGE (NEGATIVE); NITRITE,URINE POSITIVE (NEGATIVE); PROTEIN,URINE 30 mg/dL (NEGATIVE); URINE SPECIFIC GRAVITY 1.017; UROBILINOGEN,URINE NEGATIVE mg/dL (<2.0)
[2019-07-21] MEDS ORDERED: CEFTRIAXONE 1 GM/D5W RTU 1 GM/50 ML RTUPB IV ONE (05:21)
--- NOTE | 2019-07-21 07:22 | EKG REPORT ---
SEVERITY:- BORDERLINE ECG - SINUS RHYTHM ATRIAL PREMATURE COMPLEX EAARLY TRAANSITION, CONSIDER OLD TRUE POST GA : Confirmed by: Reji Cho MD 21-Jul-2019 07:22:25
[2019-07-21] MEDS ORDERED: ACETAMINOPHEN 325 MG TABLET PO PRN (10:26)
[2019-07-21] MEDS ORDERED: IPRATROPIUM/ALBUTEROL 0.5-2.5 MG/3 ML AMPUL NEB PRN (10:26)
--- NOTE | 2019-07-21 10:50 | PDOC H&P ---
History of Present Illness Admission Date/PCP: 07/21/19 07:52 SHERRIE CADET PA-C History of Present Illness: KIRSTIE GARCIA is a 83 year old female comes in through the emergency room with reportedly shortness of breath lower abdominal pain nausea and vomiting. She was in the emergency room for many hours and last night in the manufacturing sales representative hours continue to vomit and after receiving IV fluids and antiemetics. They were unable to discharge her home due to the vomiting so she is being admitted now for further IV fluids and treatment of an apparent UTI. Patient's UA showed market sites and culture is pending. She is currently on gentle IV hydration, IV Rocephin, IV Solu-Medrol. Since Zofran appeared to be not effective I have ordered Phenergan very low-dose IV. Patient is a poor historian Past Medical History Cardiac Medical History: Reports: Congestive Heart Failure, DVT, Myocardial Infarction, Hyperlipidema, Hypertension, Pulmonary Embolism Pulmonary Medical History: Reports: Asthma, Chronic Obstructive Pulmonary Disease (COPD), Pneumonia Endocrine Medical History: Reports: Diabetes Mellitus Type 2 Malignancy Medical History: Reports: Lung Cancer - Unknown stage or prognosis Psychiatric Medical History: Denies: Depression Past Surgical History Past Surgical History: Reports: Cholecystectomy, Hysterectomy, Orthopedic Surgery - L foot Social History Lives with: Family Smoking Status: Former Smoker Electronic Cigarette use?: No Frequency of Alcohol Use: None Hx Recreational Drug Use: No Drugs: None Hx Prescription Drug Abuse: No - Advance Directive Resuscitation Status: Full Code Family History Family History: Reviewed & Not Pertinent, CAD, COPD Parental Family History Reviewed: No Children Family History Reviewed: No Sibling(s) Family History Reviewed.: No Medication/Allergy Home Medications: Metformin HCl [Metformin HCl ER] 500 mg PO WBRKFST 05/28/18 Oxycodone HCl/Acetaminophen [Percocet 10-325 mg Tablet] 1 each PO Q6HP PRN 05/28/18 Atorvastatin Calcium [Lipitor 40 mg Tablet] 40 mg PO DAILY 05/29/18 Furosemide [Lasix 20 mg Tablet] 20 mg PO DAILY MDD 40 MG 05/29/18 Apixaban [Eliquis 5 mg Tablet] 5 mg PO BID #60 tablet 06/01/18 Diltiazem HCl [Diltiazem 24Hr ER (Cd)] 240 mg PO DAILY #30 cap.er.24h 06/01/18 Gabapentin [Neurontin 400 mg Capsule] 400 mg PO Q8 06/13/19 Sertraline HCl 50 mg PO DAILY 06/13/19 Acetaminophen [Tylenol 325 mg Tablet] 650 mg PO Q4HP PRN tablet 06/17/19 Buspirone HCl [Buspar 10 mg Tablet] 10 mg PO Q12 #60 tablet 06/17/19 Famotidine [Pepcid] 20 mg PO BID 07/21/19 Metoprolol Tartrate [Lopressor 25 mg Tablet] 25 mg PO Q12 07/21/19 Allergies/Adverse Reactions: Iodine and Iodide Containing Produc Adverse Reaction (Verified 07/20/19 21:33) Review of Systems ROS unobtainable: Due to mental status Constitutional: ABSENT: chills, fever(s), headache(s), weight gain, weight loss Physical Exam Vital Signs: Temp Pulse Resp BP Pulse Ox 97.9 F 70 16 138/52 H 99 07/21/19 08:59 07/21/19 08:59 07/21/19 08:59 07/21/19 08:59 07/21/19 08:59 Intake & Output 07/20/19 07/21/19 07/22/19 06:59 06:59 06:59 Intake Total 1050 Balance 1050 Weight 82.554 kg 75.1 kg General appearance: PRESENT: mild distress, other - Patient is a poor historian and states that she hurts all over. Home medications include Percocet Patient is also hard of hearing Respiratory exam: PRESENT: decreased breath sounds Cardiovascular exam: PRESENT: RRR. ABSENT: diastolic murmur, rubs, systolic murmur Neurological exam: PRESENT: altered Psychiatric exam: PRESENT: flat affect - Patient is difficult to understand stand her speech Results Laboratory Results: 07/20/19 21:29 07/20/19 21:29 07/20/19 07/20/19 07/21/19 21:29 21:29 05:00 WBC 8.9 RBC 4.10 Hgb 13.8 Hct 40.7 MCV 99 H MCH 33.8 H MCHC 34.0 RDW 13.5 Plt Count 172 Seg Neutrophils % 70.0 Sodium 135.7 L Potassium 4.5 Chloride 97 L Carbon Dioxide 36 H Anion Gap 3 L BUN 27 H Creatinine 0.55 Est GFR ( Amer) > 60 Glucose 197 H Calcium 9.2 Total Bilirubin 0.4 AST 19 Alkaline Phosphatase 94 Total Protein 7.2 Albumin 4.0 Lipase 44.4 Urine Color YELLOW Urine Appearance CLOUDY Urine pH 5.0 Ur Specific [place] 1.017 Urine Protein 30 H Urine Glucose (UA) NEGATIVE Urine Ketones NEGATIVE Urine Blood SMALL H Urine Nitrite POSITIVE H Ur Leukocyte Esterase LARGE H Urine WBC (Auto) >182 Urine RBC (Auto) 6 07/20/19 21:29 Troponin I < 0.012 NT-Pro-B Natriuret Pep 1780 H Impressions: Chest X-Ray 07/20/19 00:00 IMPRESSION: No acute cardiopulmonary process copyright 2011 [employer] [facility] [employer] [facility]- All Rights Reserved Abdomen/Pelvis CT 07/21/19 03:34 IMPRESSION: No acute process is seen within the abdomen or pelvis. Assessment and Plan - Diagnosis (1) Abdominal pain Qualifiers: Abdominal location: generalized Qualified Code(s): R10.84 - Generalized abdominal pain Is this a current diagnosis for this admission?: Yes (2) Urinary tract infection Qualifiers: Urinary tract infection type: site unspecified Hematuria presence: without hematuria Qualified Code(s): N39.0 - Urinary tract infection, site not specified Is this a current diagnosis for this admission?: Yes (3) Vomiting Qualifiers: Vomiting type: unspecified Vomiting Intractability: unspecified Nausea presence: with nausea Qualified Code(s): R11.2 - Nausea with vomiting, unspecified Is this a current diagnosis for this admission?: Yes (4) Acute exacerbation of COPD with asthma Is this a current diagnosis for this admission?: Yes (5) Atrial fibrillation with RVR Is this a current diagnosis for this admission?: Yes (6) Diabetes mellitus Qualifiers: Is this a current diagnosis for this admission?: Yes - Plan Summary Summary: 07/21/2019 According to the ER physician's note he spoke with the son who stated that the patient was at her baseline mentally. I will try to ascertain through the patient and family what her CODE STATUS is? Patient will be treated with IV fluids, IV Rocephin, I will resume her medications. We will include her Eliquis as well as her beta-blockers. Patient appears to be also on metformin I will hold this until the vomiting has ceased and cover her with a sliding scale of insulin. Also will introduce her Lasix as she becomes less nauseated Evidently patient had an episode of A. fib with RVR in the emergency room Primary complaint that appears to have brought her into the hospital is a UTI, vomiting. - Time Time Spent with patient: 35 or more minutes
[2019-07-21] MEDS ORDERED: DEXTROSE 50%-WATER 25 GM/50 ML DISP.SYRIN IV PRN ×2 (10:51)
[2019-07-21] MEDS ORDERED: DEXTROSE 40% GEL 15 GM TUBE PO PRN ×2 (10:51)
[2019-07-21] MEDS ORDERED: GLUCAGON,HUMAN RECOMB 1 MG INJ IM PRN (10:51)
[2019-07-21] MEDS: DILTIAZEM HCL 240 MG CAPSULE.CR PO SCH (12:05)
[2019-07-21] MEDS: INSULIN LISPRO 100 UNIT/ML 3 ML VIAL SUBCUT SCH ×3 (12:05→22:14)
[2019-07-21] MEDS: SERTRALINE HCL 50 MG TABLET PO SCH (12:06)
[2019-07-21] MEDS: OXYCODONE-ACETAMINOPHEN 5-325 MG TABLET PO PRN (12:06)
[2019-07-21] MEDS: METOPROLOL TARTRATE 25 MG TABLET PO SCH ×2 (12:06→22:21)
[2019-07-21] MEDS: PROMETHAZINE HCL INJ 25 MG/1 ML VIAL IV PRN (12:07)
[2019-07-21] MEDS: NORMAL SALINE 1000 ML 1,000 ML IV PRN (15:07)
[2019-07-21] MEDS: GABAPENTIN 400 MG CAPSULE PO SCH ×2 (15:08→22:21)
[2019-07-21] MEDS: APIXABAN 5 MG TABLET PO SCH (17:19)
[2019-07-21] MEDS: CEFTRIAXONE 1 GM/D5W RTU 1 GM/50 ML RTUPB IV SCH (22:20)
[2019-07-21] MEDS: BUSPIRONE HCL 10 MG TABLET PO SCH (22:21)
[2019-07-21] MEDS: METHYLPREDNISOLONE INJ 40 MG/1 ML SDV IV SCH (22:21)
[2019-07-21] MEDS: ATORVASTATIN CALCIUM 40 MG TABLET PO SCH (22:22)
[2019-07-22] MEDS: OXYCODONE-ACETAMINOPHEN 5-325 MG TABLET PO PRN ×4 (03:11→22:09)
[2019-07-22 05:50] LABS: ABSOLUTE LYMPHOCYTES (AUTO) 0.6 10^3/uL (0.5-4.7); ABSOLUTE MONOCYTES (AUTO) 0.1 10^3/uL (0.1-1.4); ABSOLUTE NEUT (AUTO) 4.4 10^3/uL (1.7-8.2); BASOPHILS % (AUTO) 0.2 % (0-2); HEMATOCRIT 40.7 % (36.0-47.0); HEMOGLOBIN 13.8 g/dL (12.0-15.5); LYMPHOCYTES % (AUTO) 10.9 % (13-45); MEAN CORPUSCULAR HEMOGLOBIN 33.6 pg (27.0-33.4); MEAN CORPUSCULAR VOLUME 99 fl (80-97); MONOCYTES % (AUTO) 1.4 % (3-13); PLATELET COUNT 149 10^3/uL (150-450); RED BLOOD COUNT 4.11 10^6/uL (3.72-5.28); RED CELL DISTRIBUTION WIDTH 13.3 % (11.5-14.0); SEGMENTED NEUTROPHILS % (AUTO) 87.5 % (42-78); TOTAL CELLS COUNTED % (AUTO) 100 %; WHITE BLOOD COUNT 5.1 10^3/uL (4.0-10.5)
[2019-07-22] MEDS ORDERED: PANTOPRAZOLE SODIUM 20 MG TABLET.DR PO SCH (06:00)
[2019-07-22] MEDS: GABAPENTIN 400 MG CAPSULE PO SCH ×3 (06:04→22:09)
[2019-07-22 06:12] LABS: ANION GAP 9 (5-19); BLOOD UREA NITROGEN 27 mg/dL (7-20); CALCIUM 9.1 mg/dL (8.4-10.2); CARBON DIOXIDE 32 mmol/L (22-30); CHLORIDE 99 mmol/L (98-107); GLUCOSE 200 mg/dL (75-110); POTASSIUM 4.8 mmol/L (3.6-5.0)
[2019-07-22] MEDS ORDERED: FUROSEMIDE 20 MG TABLET PO ONE (08:04)
[2019-07-22] MEDS: INSULIN LISPRO 100 UNIT/ML 3 ML VIAL SUBCUT SCH ×4 (09:25→22:10)
[2019-07-22] MEDS: DILTIAZEM HCL 240 MG CAPSULE.CR PO SCH (09:26)
[2019-07-22] MEDS: METOPROLOL TARTRATE 25 MG TABLET PO SCH ×2 (09:26→22:09)
[2019-07-22] MEDS: APIXABAN 5 MG TABLET PO SCH ×2 (09:26→17:02)
[2019-07-22] MEDS: SERTRALINE HCL 50 MG TABLET PO SCH (09:26)
[2019-07-22] MEDS: DOCUSATE SODIUM 100 MG CAPSULE PO SCH (09:27)
[2019-07-22] MEDS: FUROSEMIDE 20 MG TABLET PO SCH (09:27)
[2019-07-22] MEDS: METHYLPREDNISOLONE INJ 40 MG/1 ML SDV IV SCH ×2 (09:27→22:10)
[2019-07-22] MEDS: CEFTRIAXONE 1 GM/D5W RTU 1 GM/50 ML RTUPB IV SCH ×2 (09:27→22:10)
[2019-07-22] MEDS: BUSPIRONE HCL 10 MG TABLET PO SCH ×2 (09:27→22:10)
[2019-07-22] MEDS ORDERED: SERTRALINE HCL 50 MG PO SCH (10:00)
[2019-07-22] MEDS ORDERED: DILTIAZEM HCL 240 MG PO SCH (10:00)
[2019-07-22] MEDS: NORMAL SALINE 1000 ML 1,000 ML IV PRN (10:35)
--- NOTE | 2019-07-22 11:50 | PDOC PROGRESS REPORT ---
Subjective Progress Note for:: 07/22/19 Reason For Visit: UTI,SHORTNES OF BREATH,VOMITING,OXYGEN DEPENDENCY 07/22/2019 Urinary tract infection, shortness of breath, vomiting Physical Exam Vital Signs: Temp Pulse Resp BP Pulse Ox 97.8 F 88 16 165/73 H 99 07/22/19 07:19 07/22/19 08:00 07/22/19 08:00 07/22/19 07:19 07/22/19 08:00 Intake & Output 07/21/19 07/22/19 07/23/19 06:59 06:59 06:59 Intake Total 1819 100 6487 Output Total 600 Balance 1050 -490 1050 Weight 82.554 kg 76.2 kg General appearance: PRESENT: no acute distress, other - Patient is very hard of hearing and her hearing aid is not working Complaining of generalized pain, and shortness of breath Respiratory exam: PRESENT: decreased breath sounds Cardiovascular exam: PRESENT: RRR. ABSENT: diastolic murmur, rubs, systolic murmur Neurological exam: PRESENT: alert, awake, oriented to person, oriented to place, oriented to time, oriented to situation, CN II-XII grossly intact. ABSENT: motor sensory deficit Psychiatric exam: PRESENT: appropriate affect, normal mood. ABSENT: homicidal ideation, suicidal ideation Results Laboratory Results: 07/22/19 05:30 07/22/19 05:30 07/22/19 07/22/19 05:30 05:30 WBC 5.1 RBC 4.11 Hgb 13.8 Hct 40.7 MCV 99 H MCH 33.6 H MCHC 34.0 RDW 13.3 Plt Count 149 L Seg Neutrophils % 87.5 H Sodium 140.3 Potassium 4.8 Chloride 99 Carbon Dioxide 32 H Anion Gap 9 BUN 27 H Creatinine 0.43 L Est GFR ( Amer) > 60 Glucose 200 H Calcium 9.1 Magnesium 1.9 07/20/19 07/22/19 21:29 05:30 Troponin I < 0.012 NT-Pro-B Natriuret Pep 1780 H 1210 H Impressions: Chest X-Ray 07/20/19 00:00 IMPRESSION: No acute cardiopulmonary process copyright 2011 [employer]- All Rights Reserved Abdomen/Pelvis CT 07/21/19 03:34 IMPRESSION: No acute process is seen within the abdomen or pelvis. Assessment and Plan - Diagnosis (1) Abdominal pain Qualifiers: Abdominal location: generalized Qualified Code(s): R10.84 - Generalized abdominal pain Is this a current diagnosis for this admission?: Yes (2) Urinary tract infection Qualifiers: Urinary tract infection type: site unspecified Hematuria presence: without hematuria Qualified Code(s): N39.0 - Urinary tract infection, site not specified Is this a current diagnosis for this admission?: Yes (3) Vomiting Qualifiers: Vomiting type: unspecified Vomiting Intractability: unspecified Nausea presence: with nausea Qualified Code(s): R11.2 - Nausea with vomiting, unspecified Is this a current diagnosis for this admission?: Yes (4) Acute exacerbation of COPD with asthma Is this a current diagnosis for this admission?: Yes (5) Atrial fibrillation with RVR Is this a current diagnosis for this admission?: Yes (6) Diabetes mellitus Qualifiers: Is this a current diagnosis for this admission?: Yes - Plan Summary Summary: 07/21/2019 According to the ER physician's note he spoke with the son who stated that the patient was at her baseline mentally. I will try to ascertain through the patient and family what her CODE STATUS is? Patient will be treated with IV fluids, IV Rocephin, I will resume her medica tions. We will include her Eliquis as well as her beta-blockers. Patient appears to be also on metformin I will hold this until the vomiting has ceased and cover her with a sliding scale of insulin. Also will introduce her Lasix as she becomes less nauseated Evidently patient had an episode of A. fib with RVR in the emergency room Primary complaint that appears to have brought her into the hospital is a UTI, vomiting. 07/22/2019 Patient is extremely hard of hearing, I do not think her hearing aid is working Temperature 97.8 Pulse is anywhere from 51-88. Pressure 165/73. Baseline appears to be about 150/60 Oxygen saturation is approximately 99% on 2 L nasal cannula. Does use home oxygen White blood cell count this morning is still normal 5.1, hemoglobin is stable 13.8 BUN and creatinine have improved and are stable Urine cultures growing out gram-negative rods Patient had a CT of the abdomen and pelvis in the emergency room, showed no acute process in the abdomen or pelvis. I asked the nurse to call me today if family comes into the room so that we can discuss a plan for discharge. Lives at home with her son and [id number]. Patient may in fact be at her baseline.. Will be able to be discharged home on p.o. antibiotics Prior to admission patient was taking Percocet at home as needed every 6 hours, patient has the same ordered here in the hospital Will have nursing observe her diet today. Significant medications include Rocephin every 12 hours and Solu-Medrol 40 mg every 12 hours Patient currently on Protonix 20 mg daily will increase this to twice daily - Time Time Spent with patient: 25-34 minutes
[2019-07-22] MEDS: PANTOPRAZOLE SODIUM 20 MG TABLET.DR PO SCH (17:02)
[2019-07-22] MEDS: ATORVASTATIN CALCIUM 40 MG TABLET PO SCH (22:10)
[2019-07-22] MEDS: PROMETHAZINE HCL INJ 25 MG/1 ML VIAL IV PRN (23:27)
[2019-07-23] MEDS: GABAPENTIN 400 MG CAPSULE PO SCH ×2 (05:14→13:36)
[2019-07-23] MEDS: PANTOPRAZOLE SODIUM 20 MG TABLET.DR PO SCH (05:14)
[2019-07-23] MEDS: NORMAL SALINE 1000 ML 1,000 ML IV PRN (05:15)
[2019-07-23] MEDS: OXYCODONE-ACETAMINOPHEN 5-325 MG TABLET PO PRN ×2 (05:31→13:36)
[2019-07-23] MEDS: INSULIN LISPRO 100 UNIT/ML 3 ML VIAL SUBCUT SCH ×2 (08:31→12:28)
[2019-07-23] MEDS: PROMETHAZINE HCL INJ 25 MG/1 ML VIAL IV PRN (08:44)
[2019-07-23] MEDS: FUROSEMIDE 20 MG TABLET PO SCH (09:03)
[2019-07-23] MEDS: APIXABAN 5 MG TABLET PO SCH (09:03)
[2019-07-23] MEDS: SERTRALINE HCL 50 MG TABLET PO SCH (09:04)
[2019-07-23] MEDS: BUSPIRONE HCL 10 MG TABLET PO SCH (09:04)
[2019-07-23] MEDS: METOPROLOL TARTRATE 25 MG TABLET PO SCH (09:04)
[2019-07-23] MEDS: DILTIAZEM HCL 240 MG CAPSULE.CR PO SCH (09:04)
[2019-07-23] MEDS: DOCUSATE SODIUM 100 MG CAPSULE PO SCH (09:04)
[2019-07-23] MEDS: CEFTRIAXONE 1 GM/D5W RTU 1 GM/50 ML RTUPB IV SCH (09:05)
[2019-07-23] MEDS: METHYLPREDNISOLONE INJ 40 MG/1 ML SDV IV SCH (09:05)
--- NOTE | 2019-07-23 13:55 | PDOC DISCHARGE SUMMARY ---
Impression - Admit/DC Date/PCP Admission Date/Primary Care Provider: 07/21/19 07:52 SHERRIE CADET PA-C Discharge Date: 07/23/19 - Discharge Diagnosis (1) Abdominal pain Is this a current diagnosis for this admission?: Yes (2) Urinary tract infection Is this a current diagnosis for this admission?: Yes (3) Vomiting Is this a current diagnosis for this admission?: Yes (4) Acute exacerbation of COPD with asthma Is this a current diagnosis for this admission?: Yes (5) Atrial fibrillation with RVR Is this a current diagnosis for this admission?: Yes (6) Diabetes mellitus Is this a current diagnosis for this admission?: Yes - Assessment Summary: 07/21/2019 According to the ER physician's note he spoke with the son who stated that the patient was at her baseline mentally. I will try to ascertain through the patient and family what her CODE STATUS is? Patient will be treated with IV fluids, IV Rocephin, I will resume her medications. We will include her Eliquis as well as her beta-blockers. Patient appears to be also on metformin I will hold this until the vomiting has ceased and cover her with a sliding scale of insulin. Also will introduce her Lasix as she becomes less nauseated Evidently patient had an episode of A. fib with RVR in the emergency room Primary complaint that appears to have brought her into the hospital is a UTI, vomiting. 07/22/2019 Patient is extremely hard of hearing, I do not think her hearing aid is working Temperature 97.8 Pulse is anywhere from 51-88. Pressure 165/73. Baseline appears to be about 150/60 Oxygen saturation is approximately 99% on 2 L nasal cannula. Does use home oxygen White blood cell count this morning is still normal 5.1, hemoglobin is stable 13.8 BUN and creatinine have improved and are stable Urine cultures growing out gram-negative rods Patient had a CT of the abdomen and pelvis in the emergency room, showed no acute process in the abdomen or pelvis. I asked the nurse to call me today if family comes into the room so that we can discuss a plan for discharge. Lives at home with her son and [id number]. Patient may in fact be at her baseline.. Will be able to be discharged home on p.o. antibiotics Prior to admission patient was taking Percocet at home as needed every 6 hours, patient has the same ordered here in the hospital Will have nursing observe her diet today. 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 Because of the continued vomiting she w as admitted to the floor Patient had IV fluids as well as IV Rocephin and did quite well within 24 to 36 hours of admission Patient's urine culture came back E. coli sensitive to pretty much all drugs Patient's vomiting and decreased mental status on admission was probably due to her UTI At the time of discharge she is now awake alert and back to her baseline. Family is comfortable taking her home - Additional Information Resuscitation Status: Full Code Discharge Diet: Diabetic Discharge Activity: Balance Activity w/Rest Referrals: HOME,HEALTH [Other] SHERRIE CADET PA-C [Primary Care Provider] - 08/02/19 1:00 pm Prescriptions: Cephalexin Monohydrate [Keflex 250 mg Capsule] 250 mg PO Q8 7 Days #21 capsule Home Medications: Metformin HCl [Metformin HCl ER] 500 mg PO WBRKFST 05/28/18 Oxycodone HCl/Acetaminophen [Percocet 10-325 mg Tablet] 1 each PO Q6HP PRN 05/28/18 Atorvastatin Calcium [Lipitor 40 mg Tablet] 40 mg PO DAILY 05/29/18 Furosemide [Lasix 20 mg Tablet] 20 mg PO DAILY MDD 40 MG 05/29/18 Apixaban [Eliquis 5 mg Tablet] 5 mg PO BID #60 tablet 06/01/18 Diltiazem HCl [Diltiazem 24Hr ER (Cd)] 240 mg PO DAILY #30 cap.er.24h 06/01/18 Gabapentin [Neurontin 400 mg Capsule] 400 mg PO Q8 06/13/19 Sertraline HCl 50 mg PO DAILY 06/13/19 Acetaminophen [Tylenol 325 mg Tablet] 650 mg PO Q4HP PRN tablet 06/17/19 Buspirone HCl [Buspar 10 mg Tablet] 10 mg PO Q12 #60 tablet 06/17/19 Famotidine [Pepcid] 20 mg PO BID 07/21/19 Metoprolol Tartrate [Lopressor 25 mg Tablet] 25 mg PO Q12 07/21/19 Acetaminophen [Tylenol 325 mg Tablet] 650 mg PO Q4HP PRN tablet 07/23/19 Cephalexin Monohydrate [Keflex 250 mg Capsule] 250 mg PO Q8 7 Days #21 capsule 07/23/19 Docusate Sodium [Colace 100 mg Capsule] 100 mg PO DAILY capsule 07/23/19 Furosemide [Lasix 20 mg Tablet] 20 mg PO DAILY tablet 07/23/19 Methylprednisolone [Medrol Dosepack (4 mg/Tab) 21 Tab/Dosepak] 4 mg PO ASDIR PRN #21 tab.ds.pk 07/23/19 Oxycodone HCl/Acetaminophen [Percocet 5-325 mg Tablet] 1 tab PO Q6HP PRN tablet 07/23/19 History of Present Illiness History of Present Illness: KIRSTIE GARCIA is a 83 year old female comes in through the emergency room with reportedly shortness of breath lower abdominal pain nausea and vomiting. She was in the emergency room for many hours and last night in the physical therapy aide hours continue to vomit and after receiving IV fluids and antiemetics. They were unable to discharge her home due to the vomiting so she is being admitted now for further IV fluids and treatment of an apparent UTI. Patient's UA showed market sites and culture is pending. She is currently on gentle IV hydration, IV Rocephin, IV Solu-Medrol. Since Zofran appeared to be not effective I have ordered Phenergan very low-dose IV. Patient is a poor historian Physical Exam Vital Signs: Temp Pulse Resp BP Pulse Ox 97.6 F 49 L 18 139/55 H 100 07/23/19 07:31 07/23/19 07:31 07/23/19 07:31 07/23/19 07:31 07/23/19 07:31 Intake & Output 07/22/19 07/23/19 07/24/19 06:59 06:59 07:59 Intake Total 110 2932 Output Total 600 Balance -490 2932 Weight 76.2 kg 77 kg Results Laboratory Results: WBC 5.1 10^3/uL (4.0-10.5) 07/22/19 05:30 RBC 4.11 10^6/uL (3.72-5.28) 07/22/19 05:30 Hgb 13.8 g/dL (12.0-15.5) 07/22/19 05:30 Hct 40.7 % (36.0-47.0) 07/22/19 05:30 MCV 99 fl (80-97) H 07/22/19 05:30 MCH 33.6 pg (27.0-33.4) H 07/22/19 05:30 MCHC 34.0 g/dL (32.0-36.0) 07/22/19 05:30 RDW 13.3 % (11.5-14.0) 07/22/19 05:30 Plt Count 149 10^3/uL (150-450) L 07/22/19 05:30 Lymph % (Auto) 10.9 % (13-45) L 07/22/19 05:30 [place] % (Auto) 1.4 % (3-13) L 07/22/19 05:30 Eos % (Auto) 0.0 % (0-6) 07/22/19 05:30 Baso % (Auto) 0.2 % (0-2) 07/22/19 05:30 Absolute Neuts (auto) 4.4 10^3/uL (1.7-8.2) 07/22/19 05:30 Absolute Lymphs (auto) 0.6 10^3/uL (0.5-4.7) 07/22/19 05:30 Absolute Monos (auto) 0.1 10^3/uL (0.1-1.4) 07/22/19 05:30 Absolute Eos (auto) 0.0 10^3/uL (0.0-0.6) 07/22/19 05:30 Absolute Basos (auto) 0.0 10^3/uL (0.0-0.2) 07/22/19 05:30 Seg Neutrophils % 87.5 % (42-78) H 07/22/19 05:30 Sodium 140.3 mmol/L (137-145) 07/22/19 05:30 Potassium 4.8 mmol/L (3.6-5.0) 07/22/19 05:30 Chloride 99 mmol/L (98-107) 07/22/19 05:30 Carbon Dioxide 32 mmol/L (22-30) H 07/22/19 05:30 Anion Gap 9 (5-19) 07/22/19 05:30 BUN 27 mg/dL (7-20) H 07/22/19 05:30 Creatinine 0.43 mg/dL (0.52-1.25) L 07/22/19 05:30 Est GFR ( Amer) > 60 (>60) 07/22/19 05:30 Est GFR (MDRD) Non-Af > 60 (>60) 07/22/19 05:30 Glucose 200 mg/dL (75-110) H 07/22/19 05:30 POC Glucose 294 mg/dL (70-110) H 07/23/19 11:59 Calcium 9.1 mg/dL (8.4-10.2) 07/22/19 05:30 Magnesium 1.9 mg/dL (1.6-2.3) 07/22/19 05:30 Total Bilirubin 0.4 mg/dL (0.2-1.3) 07/20/19 21:29 Direct Bilirubin 0.1 mg/dL (0.0-0.4) 07/20/19 21:29 Neonat Total Bilirubin Not Reportable 07/20/19 21:29 Neonat Direct Bilirubin Not Reportable 07/20/19 21:29 Neonat Indirect Bili Not Reportable 07/20/19 21:29 AST 19 U/L (14-36) 07/20/19 21:29 ALT 13 U/L (<35) 07/20/19 21:29 Alkaline Phosphatase 94 U/L (38-126) 07/20/19 21:29 Troponin I < 0.012 ng/mL 07/20/19 21:29 NT-Pro-B Natriuret Pep 1210 pg/mL (<450) H 07/22/19 05:30 Total Protein 7.2 g/dL (6.3-8.2) 07/20/19 21:29 Albumin 4.0 g/dL (3.5-5.0) 07/20/19 21:29 Lipase 44.4 U/L (23-300) 07/20/19 21:29 Urine Color YELLOW 07/21/19 05:00 Urine Appearance CLOUDY 07/21/19 05:00 Urine pH 5.0 (5.0-9.0) 07/21/19 05:00 Ur Specific [place] 1.017 07/21/19 05:00 Urine Protein 30 mg/dL (NEGATIVE) H 07/21/19 05:00 Urine Glucose (UA) NEGATIVE mg/dL (NEGATIVE) 07/21/19 05:00 Urine Ketones NEGATIVE mg/dL (NEGATIVE) 07/21/19 05:00 Urine Blood SMALL (NEGATIVE) H 07/21/19 05:00 Urine Nitrite POSITIVE (NEGATIVE) H 07/21/19 05:00 Urine Bilirubin NEGATIVE (NEGATIVE) 07/21/19 05:00 Urine Urobilinogen NEGATIVE mg/dL (<2.0) 07/21/19 05:00 Ur Leukocyte Esterase LARGE (NEGATIVE) H 07/21/19 05:00 Urine WBC (Auto) >182 /HPF 07/21/19 05:00 Urine RBC (Auto) 6 /HPF 07/21/19 05:00 Urine Bacteria (Auto) 2+ /HPF 07/21/19 05:00 Urine WBC Clumps MANY /HPF 07/21/19 05:00 Squamous Epi Cells Auto <1 /HPF 07/21/19 05:00 Urine Mucus (Auto) RARE /LPF 07/21/19 05:00 Urine Ascorbic Acid NEGATIVE (NEGATIVE) 07/21/19 05:00 07/20/19 07/22/19 21:29 05:30 Troponin I < 0.012 NT-Pro-B Natriuret Pep 1780 H 1210 H Impressions: Chest X-Ray 07/20/19 00:00 IMPRESSION: No acute cardiopulmonary process copyright 2011 [employer]- All Rights Reserved Abdomen/Pelvis CT 07/21/19 03:34 IMPRESSION: No acute process is seen within the abdomen or pelvis. Stroke Is this a Stroke Patient?: No Acute Heart Failure - Is this a Heart Failure Patient?: No
[2019-07-23 14:16] VITALS: BP 138/52
== END 2019-07-23 15:24 | disposition home health service (06) | DRG 690 ==
LOC: ER 21:18 → EH 07-21 07:52 → 4S 07-21 08:59
PROVIDERS: ADMIT Hospitalist; ATTEND Hospitalist
DX: N39.0 Urinary tract infection, site not specified (principal); J44.1 Chronic obstructive pulmonary disease with (acute) exacerbation; I50.9 Heart failure, unspecified; B96.20 Unspecified Escherichia coli [E. coli] as the cause of diseases classified elsewhere; I11.0 Hypertensive heart disease with heart failure; E11.9 Type 2 diabetes mellitus without complications; E78.5 Hyperlipidemia, unspecified; H91.90 Unspecified hearing loss, unspecified ear; R11.2 Nausea with vomiting, unspecified; I48.91 Unspecified atrial fibrillation; Z86.718 Personal history of other venous thrombosis and embolism; Z90.49 Acquired absence of other specified parts of digestive tract; Z90.710 Acquired absence of both cervix and uterus; Z79.84 Long term (current) use of oral hypoglycemic drugs; Z87.891 Personal history of nicotine dependence; I25.2 Old myocardial infarction; Z88.8 Allergy status to other drugs, medicaments and biological substances; Z79.01 Long term (current) use of anticoagulants; Z99.81 Dependence on supplemental oxygen; Z79.899 Other long term (current) drug therapy; Z85.118 Personal history of other malignant neoplasm of bronchus and lung
CPT/HCPCS: 36415; 71045; 74176; 80048; 80053; 81001; 82962; 83690; 83735; 83880; 84484; 85025; 87086; 87088; 87186; 93005; 93010; 96365; 96375; 96376; 99285; J0696; J1815; J2270; J2405; J2550; J2920; J3490; J7030; J7040

== ENCOUNTER 2019-08-19 09:35 | Emergency (ER) | payer MEDICARE, MEDICAID ==
[2019-08-19] MEDS ORDERED: ONDANSETRON HCL INJ/PF 4 MG/2 ML SDV IV ONE (09:46)
--- NOTE | 2019-08-19 09:49 | ER Document Report ---
ED Medical Screen (RME) - General Chief Complaint: Abdominal Pain Stated Complaint: NAUSEA,VOMITING Time Seen by Provider: 08/19/19 09:38 Primary Care Provider: SHERRIE CADET PA-C [Primary Care Provider] - Follow up as needed Mode of Arrival: Wheelchair Information source: Patient, Relative - daughter in law ABERNATHY Notes: 83-year-old female presents with history of hard of hearing, COPD CAD, CHF, Stents, stroke and some dementia with complaints of abdominal pain nausea vomiting diarrhea for the past 3 days. [id number]-[id number] reports patient has gained 20 pounds in the past 3 weeks. Qsqojgya-hs-rrn reports that she has been having bloody stools. No known COVID exposure no recent trips. Denies fever. Jstklbtl-[id number] reports patient is very hard of hearing with some dementia. Patient looks extremely uncomfortable. Complains of generalized abdominal pain with palpation. Patient is usually on 2 L home O2. Svcbddvp-lt-lla reports her oxygen level went low and she placed her up to 3 L at home. Sshenjnu-nj-afo also reports her heart rate was in the 140s. I have greeted and performed a rapid initial assessment of this patient. A comprehensive ED assessment and evaluation of the patient, analysis of test results and completion of the medical decision making process will be conducted by additional ED providers. TRAVEL OUTSIDE OF THE [place] IN LAST 30 DAYS: No - Related Data Allergies/Adverse Reactions: Iodine and Iodide Containing Produc Adverse Reaction (Verified 08/19/19 09:37) Past Medical History - Past Medical History Cardiac Medical History: Reports: Hx Congestive Heart Failure, Hx DVT, Hx Heart Attack, Hx Hypercholesterolemia, Hx Hypertension, Hx Pulmonary Embolism Pulmonary Medical History: Reports: Hx Asthma, Hx COPD, Hx Pneumonia Endocrine Medical History: Reports: Hx Diabetes Mellitus Type 2 Renal/ Medical History: Denies: Hx Peritoneal Dialysis Malignancy Medical History: Reports: Hx Lung Cancer - Unknown stage or prognosis Psychiatric Medical History: Denies: Hx Depression Past Surgical History: Reports: Hx Cardiac Surgery - Stents, Hx Cholecystectomy, Hx Hysterectomy, Hx Orthopedic Surgery - L foot - Immunizations Hx Diphtheria, Pertussis, Tetanus Vaccination: Yes Physical Exam - Vital signs Vitals: Temp Pulse Resp BP Pulse Ox 97.9 F 127 H 20 118/89 H 93 08/19/19 09:42 08/19/19 09:42 08/19/19 09:42 08/19/19 09:42 08/19/19 09:42 Course - Vital Signs Vital signs: Temp Pulse Resp BP Pulse Ox 97.9 F 127 H 20 118/89 H 93 08/19/19 09:42 08/19/19 09:42 08/19/19 09:42 08/19/19 09:42 08/19/19 09:42 Doctor's Discharge - Discharge Referrals: SHERRIE CADET PA-C [Primary Care Provider] - Follow up as needed
[2019-08-19 10:32] LABS: INTERNATIONAL RATION (INR) 1.02; PROTHROMBIN TIME 13.4 SEC (11.4-15.4)
[2019-08-19 10:33] LABS: ABSOLUTE BASOPHILS # (AUTO) 0.1 10^3/uL (0.0-0.2); ABSOLUTE LYMPHOCYTES (AUTO) 1.9 10^3/uL (0.5-4.7); ABSOLUTE MONOCYTES (AUTO) 0.7 10^3/uL (0.1-1.4); ABSOLUTE NEUT (AUTO) 3.8 10^3/uL (1.7-8.2); BASOPHILS % (AUTO) 0.8 % (0-2); EOSINOPHILS % (AUTO) 0.7 % (0-6); HEMATOCRIT 44.6 % (36.0-47.0); LYMPHOCYTES % (AUTO) 29.4 % (13-45); MEAN CORPUSCULAR HEMOGLOBIN 33.3 pg (27.0-33.4); MEAN CORPUSCULAR HGB CONC 33.7 g/dL (32.0-36.0); MEAN CORPUSCULAR VOLUME 99 fl (80-97); MONOCYTES % (AUTO) 10.2 % (3-13); PLATELET COUNT 223 10^3/uL (150-450); RED BLOOD COUNT 4.51 10^6/uL (3.72-5.28); SEGMENTED NEUTROPHILS % (AUTO) 58.9 % (42-78); TOTAL CELLS COUNTED % (AUTO) 100 %; WHITE BLOOD COUNT 6.5 10^3/uL (4.0-10.5)
[2019-08-19 10:46] LABS: ALKALINE PHOSPHATASE 83 U/L (38-126); ANION GAP 5 (5-19); ASPARTATE AMINO TRANSFERASE 21 U/L (14-36); BILIRUBIN,TOTAL 0.6 mg/dL (0.2-1.3); BLOOD UREA NITROGEN 19 mg/dL (7-20); CALCIUM 9.9 mg/dL (8.4-10.2); CARBON DIOXIDE 36 mmol/L (22-30); CHLORIDE 97 mmol/L (98-107); CREATINE KINASE 21 U/L (30-135); GLUCOSE 171 mg/dL (75-110); POTASSIUM 5.8 mmol/L (3.6-5.0)
--- NOTE | 2019-08-19 10:55 | RADIOLOGY REPORT (SQ) ---
EXAM DESCRIPTION: CHEST SINGLE VIEW IMAGES COMPLETED DATE/TIME: 08/19/2019 10:38 am REASON FOR STUDY: sob COMPARISON: 07/20/2019 EXAM PARAMETERS: NUMBER OF VIEWS: One view. TECHNIQUE: Single frontal radiographic view of the chest acquired. RADIATION DOSE: NA LIMITATIONS: Patient rotation FINDINGS: LUNGS AND PLEURA: Mild ill-defined right basilar opacities with small right effusion. Adriana luation limited secondary to patient rotation. Unremarkable left hemithorax. No pneumothorax. MEDIASTINUM AND HILAR STRUCTURES: No discrete masses. Limited evaluation. HEART AND VASCULAR STRUCTURES: Enlarged cardiac silhouette, stable. Vascular calcifications. BONES: No acute findings. HARDWARE: Surgical clips overlie upper abdomen. OTHER: No other significant finding. IMPRESSION: Ill-defined right basilar opacities with small right effusion. Evaluation limited secon nadya to patient rotation. Stable enlarged cardiac silhouette. TECHNICAL DOCUMENTATION: JOB ID: [id number] 2010 [employer]- All Rights Reserved Reading location - IP/workstation name: [email or web address]
[2019-08-19 10:56] LABS: APPEARANCE,URINE SLIGHTLY-CLOUDY; BILIRUBIN,URINE NEGATIVE (NEGATIVE); COLOR,URINE DARK YELLOW; GLUCOSE, URINE NEGATIVE (NEGATIVE); KETONES,URINE NEGATIVE (NEGATIVE); LEUKOCYTE ESTERASE,URINE NEGATIVE (NEGATIVE); NITRITE,URINE NEGATIVE (NEGATIVE); PROTEIN,URINE 30 mg/dL (NEGATIVE); URINE SPECIFIC GRAVITY 1.026
[2019-08-19 10:58] LABS: CREATINE KINASE MB 1.11 ng/mL (<4.55); NT PRO BNP 4530 pg/mL (<450)
[2019-08-19 10:59] LABS: TROPONIN I < 0.012 ng/mL
[2019-08-19] MEDS ORDERED: FUROSEMIDE INJ/PF 40 MG/4 ML SDV IV ONE (12:21)
[2019-08-19] MEDS ORDERED: NITROGLYCERIN 2% OINTMENT 1 GM PACKET TP ONE (12:21)
[2019-08-19] MEDS ORDERED: ACETAMINOPHEN 325 MG TABLET PO ONE (12:25)
[2019-08-19] MEDS ORDERED: DILTIAZEM HCL INJ 25 MG/5 ML VIAL IV ONE (12:27)
[2019-08-19] MEDS ORDERED: MORPHINE SULFATE 10 MG/ML INJ IV ONE (12:28)
--- NOTE | 2019-08-19 13:02 | RADIOLOGY REPORT (SQ) ---
EXAM DESCRIPTION: CHEST SINGLE VIEW IMAGES COMPLETED DATE/TIME: 08/19/2019 12:45 pm REASON FOR STUDY: copd/nausea/ COMPARISON: Same day radiograph EXAM PARAMETERS: NUMBER OF VIEWS: One view. TECHNIQUE: Single frontal radiographic view of the chest acquired. RADIATION DOSE: NA LIMITATIONS: None. FINDINGS: LUNGS AND PLEURA: Persistent ill-defined right basilar opacities with likely trace effusio n. Unremarkable left hemithorax. No pneumothorax. MEDIASTINUM AND HILAR STRUCTURES: Stable. HEART AND VASCULAR STRUCTURES: Enlarged cardiac silhouette, stable. Vascular calcifications. BONES: No acute findings. HARDWARE: None in the chest. OTHER: No other significant finding. IMPRESSION: Persistent ill-defined right basilar opacities possibly atelectasis/scarring or pneumoni a. TECHNICAL DOCUMENTATION: JOB ID: [id number] 2010 [employer]- All Rights Reserved Reading location - IP/workstation name: [email or web address]
[2019-08-19] MEDS ORDERED: DILTIAZEM HCL 240 MG CAPSULE.CR PO ONE (13:03)
[2019-08-19] MEDS ORDERED: METOPROLOL TARTRATE 25 MG TABLET PO ONE (13:03)
[2019-08-19 14:31] LABS: ACETAMINOPHEN < 10 ug/mL (10-30); POTASSIUM 4.4 mmol/L (3.6-5.0)
--- NOTE | 2019-08-19 16:51 | EKG REPORT ---
SEVERITY:- ABNORMAL ECG - ATRIAL FIBRILLATION ABNRM R PROG, CONSIDER ASMI OR LEAD PLACEMENT BORDERLINE PROLONGED QT INTERVAL : Confirmed by: Gabe Bingham 19-Aug-2019 16:50:40
[2019-08-19 17:17] VITALS: BP 140/84
--- NOTE | 2019-08-19 20:25 | ER Document Report ---
Entered by YANDEL TOLEDO SCRIBE 08/19/19 1107 Acting as scribe for:SABINO GARNER MD ED General - General Chief Complaint: Abdominal Pain Stated Complaint: NAUSEA,VOMITING Time Seen by Provider: 08/19/19 09:38 Primary Care Provider: SHERRIE CADET PA-C [Primary Care Provider] - Follow up as needed Mode of Arrival: Wheelchair Information source: Patient Notes: This 83-year-old female presents to the emergency department complaining of abdominal pain that began 2 days ago. Patient stated that she "just feels sick". Patient reports vomiting, cough, leg pain and back pain. Patient denies fever, headache, chest pain, blood in stool and dysuria. Patient has had no sick contact. Patient is on 3L of oxygen at home and is hard of hearing. TRAVEL OUTSIDE OF THE [place] IN LAST 30 DAYS: No - Related Data Allergies/Adverse Reactions: Iodine and Iodide Containing Produc Adverse Reaction (Verified 08/19/19 09:37) Past Medical History - General Information source: Patient, Relative - daughter in law MICHELA - Social History Smoking Status: Current Every Day Smoker Cigarette use (# per day): Yes Chew tobacco use (# tins/day): No Lives with: Family Family History: Reviewed & Not Pertinent, CAD, COPD Patient has suicidal ideation: No Patient has homicidal ideation: No - Past Medical History Cardiac Medical History: Reports: Hx Congestive Heart Failure, Hx DVT, Hx Heart Attack, Hx Hypercholesterolemia, Hx Hypertension, Hx Pulmonary Embolism Pulmonary Medical History: Reports: Hx Asthma, Hx COPD, Hx Pneumonia Endocrine Medical History: Reports: Hx Diabetes Mellitus Type 2 Malignancy Medical History: Reports: Hx Lung Cancer - Unknown stage or prognosis Past Surgical History: Reports: Hx Cardiac Surgery - Stents, Hx Cholecystectomy, Hx Hysterectomy, Hx Orthopedic Surgery - L foot - Immunizations Hx Diphtheria, Pertussis, Tetanus Vaccination: Yes Review of Systems - Review of Systems Constitutional: See HPI. denies: Fever EENT: No symptoms reported Cardiovascular: See HPI. denies: Chest pain Respiratory: See HPI, Cough Gastrointestinal: See HPI, Abdominal pain, Vomiting. denies: Blood in vomit, Rectal bleeding Genitourinary: No symptoms reported Female Genitourinary: No symptoms reported Musculoskeletal: See HPI, Back pain, Other - Leg Pain Skin: No symptoms reported Hematologic/Lymphatic: No symptoms reported Neurological/Psychological: No symptoms reported -: Yes All other systems reviewed and negative Physical Exam - Vital signs Vitals: Temp Pulse Resp BP Pulse Ox 97.9 F 127 H 20 118/89 H 93 08/19/19 09:42 08/19/19 09:42 08/19/19 09:42 08/19/19 09:42 08/19/19 09:42 - Notes Notes: Physical Exam: General: Alert, appears well. HEENT: Normocephalic. Atraumatic. PERRL. Extraocular movements intact. Oropharynx clear. Neck: Supple. Non-tender. Respiratory: Mild respiratory distress. Diminished breath sounds in the basis w ith trace expiratory wheeze.. Cardiovascular: Tachycardic. Heart rate 110. No murmur. Abdominal: Normal Inspection. Non-tender. No distension. Normal Bowel Sounds. Back: No gross abnormalities. Extremities: Moves all four extremities. Upper extremities: Normal inspection. Normal ROM. Lower extremities: Normal inspection. No edema. Normal ROM. Neurological: Normal cognition. AAOx4. Normal speech. Psychological: Normal affect. Normal Mood. Skin: Warm. Dry. Normal color. Course - Re-evaluation Re-evalutation: 08/19/19 20:20 Patient did not disclose any hypoxia while in the department on her chronic 3 L nasal O2. Patient's nausea resolved with IV Zofran. Patient reportedly had taken her morning medications and however had vomited out of her metoprolol. Diltiazem her Lasix and her Lipitor. Patient has chronic pain which is was her complaint the entire time while in the department. Patient did not report any chest pain or angina. 08/19/19 20:23 Patient's heart rate reached return to a atrial fibrillation state without rapid ventricular response after medications. - Vital Signs Vital signs: Temp Pulse Resp BP Pulse Ox 97.8 F 127 H 13 140/84 H 99 08/19/19 10:00 08/19/19 09:42 08/19/19 17:00 08/19/19 17:00 08/19/19 17:00 - Laboratory Result Diagrams: 08/19/19 10:15 08/19/19 14:04 Laboratory results interpreted by me: 08/19/19 08/19/19 08/19/19 10:15 10:15 10:15 MCV 99 H Potassium 5.8 H Chloride 97 L Carbon Dioxide 36 H Glucose 171 H Creatine Kinase 21 L NT-Pro-B Natriuret Pep 4530 H Urine Protein Urine Urobilinogen Acetaminophen 08/19/19 08/19/19 10:44 14:04 MCV Potassium Chloride Carbon Dioxide Glucose Creatine Kinase NT-Pro-B Natriuret Pep Urine Protein 30 H Urine Urobilinogen 4.0 H Acetaminophen < 10 L 08/19/19 20:21 Laboratory values disclose an elevated BNP consistent with CHF. Patient's potassium was repeated due to perhaps hemolysis on blood draw. Repeat potassium came back with a value of 4.2. Patient's troponin remained flat at 0.71568 separate samples. - Diagnostic Test Radiology reviewed: Image reviewed, Reports reviewed Radiology results interpreted by me: 08/19/19 20:22 Chest x-ray initial shows a view that was rotated and difficult to completely in terpret. However patient was have cardiomegaly that was noted on exam. Second chest x-ray with a better view without rotation shows cardiomegaly some congestive markings and a chronic atelectasis or scarring or pneumonic process in the right base mid lung. This has been noted on prior chest x-rays as well seems to be a chronic condition. - EKG Interpretation by Me Additional EKG results interpreted by me: 08/19/19 20:24 Twelve-lead EKG disclose atrial fibrillation with a heart rate of 119. Time of this EKG was 957. Discharge - Discharge Clinical Impression: CHF (congestive heart failure), Chronic atrial fibrillation with rapid ventricular response, COPD (chronic obstructive pulmonary disease), Chronic pain disorder, Tobacco dependence Condition: Stable Disposition: HOME, SELF-CARE Additional Instructions: Nausea or Vomiting, Nonspecific Vomiting (or nausea without vomiting) can be caused by many different problems. Of course, it can mean that something's wrong with the stomach, such as "stomach flu," ulcers, or inflammation. But it can also be a symptom of a problem that has nothing to do with the stomach or intestines. Vomiting is common with severe headaches, earaches, and tonsillitis. We see it with pneumonia or heart attacks. Drugs can cause nausea. Many abdominal problems cause vomiting; for example, gallstones, kidney stones, pancreatitis, and intestinal obstruction (blocked bowels). In most cases, curing the vomiting depends on fixing the problem that caused it. For temporary relief, we may use an anti-nausea medicine. For home use, we can prescribe suppositories, chewable pills, pills that dissolve in the mouth, or liquid anti-nausea drugs. If the vomiting seems to be caused by a problem in the stomach, acid-suppressing drugs may be prescribed as well. It's important to avoid dehydration. Sip clear liquids. Take increasing amounts of fluid over the first 24 hours. Then start small amounts of bland foods (such as dry toast, applesauce, mashed potato). Avoid aspirin, tobacco, and alcohol. Gradually resume your usual diet. If the vomiting worsens, if the problem that's making you vomit worsens, or if there's evidence of bleeding in the stomach (such as black, tarry stool, bloody or black vomit, or lightheadedness), you should return immediately. Call your doctor if you aren't improved in 24 to 36 hours. Atrial Fibrillation Atrial fibrillation is an abnormal heart rhythm, caused by irregular electrical circuits in the upper heart chamber. It can be caused by heart valve disease, hardening of the arteries, or metabolic problems such as thyroid disease, or may occur without a clear cause. Atrial fibrillation may occur only occasionally, or may be chronic. Atrial fibrillation often results in a very fast heart rate, with palpi tations, lightheadedness, and shortness of breath. Treatment is to slow the abnormally fast rate, and to convert the rhythm back to normal, if possible. Many patients stay in atrial fibrillation for years without symptoms or complications. Your doctor will decide whether you can be converted back to a normal heart rhythm. Contact the doctor or emergency medical system at once if you develop chest pain, shortness of breath, or severe lightheadedness, or if you develop any disturbance of consciousness, problems with speech, or localized weakness.Congestive Heart Failure You have been diagnosed as having congestive heart failure (CHF). CHF occurs when the heart is unable to pump blood efficiently, leading to fluid buildup in the veins and lungs. Typical symptoms are swelling of the legs, shortness of breath on minor exertion, and fatigue. CHF is treated with salt restriction, medicine to eliminate excess water and salt from the body, and medication to help the heart contract more efficiently. Eliminate added salt and salty foods in your diet. Decrease your activity until excess fluid has been eliminated. It will also be helpful to raise the head of your bed so you can sleep more easily. Keep a daily record of your weight. This will help your physician monitor your progress. Once extra water has been eliminated, light aerobic exercise daily -- such as walking -- will be helpful (unless your physician has told you to restrict activity for other reasons). Be sure to follow up with the physician as instructed. Contact the doctor at once if you worsen in any way. Zofran has been written as needed for nausea so patient can maintain p.o. intake as well as take her medications without vomiting. Patient has chronic CHF and sats are 95% better on 3 L nasal O2 patient is not having any any coronary artery disease problems at this moment. No other new prescriptions are written other than Zofran as needed for nausea. Prescriptions: Ondansetron [Zofran Odt 4 mg Tablet] 1 - 2 tab PO Q4H PRN #15 tab.rapdis PRN Reason: For Nausea/Vomiting Referrals: SHERRIE CADET PA-C [Primary Care Provider] - Follow up as needed I personally performed the services described in the documentation, reviewed and edited the documentation which was dictated to the scribe in my presence, and it accurately records my words and actions.
== END 2019-08-19 17:33 | disposition home or self-care (01) ==
LOC: ER 09:35
DX: I11.0 Hypertensive heart disease with heart failure (principal); I50.9 Heart failure, unspecified; R10.9 Unspecified abdominal pain; I48.20 Chronic atrial fibrillation, unspecified; R11.2 Nausea with vomiting, unspecified; F17.210 Nicotine dependence, cigarettes, uncomplicated; J44.9 Chronic obstructive pulmonary disease, unspecified; E78.00 Pure hypercholesterolemia, unspecified; E11.9 Type 2 diabetes mellitus without complications; Z86.718 Personal history of other venous thrombosis and embolism; Z86.711 Personal history of pulmonary embolism; I25.2 Old myocardial infarction
CPT/HCPCS: 93005; 99284; 96374; 96375; 36415; 82553; 82550; 84132; 80307; 85025; 85610; 80053; 81001; 84484; 83880; 71045; 93010; A9270; J1940; J2270; J2405; 82270

== ENCOUNTER 2019-08-28 16:10 | Emergency (ER) | payer MEDICARE, MEDICAID ==
[2019-08-28 16:52] LABS: ABSOLUTE BASOPHILS # (AUTO) 0.1 10^3/uL (0.0-0.2); ABSOLUTE EOSINOPHILS # (AUTO) 0.1 10^3/uL (0.0-0.6); ABSOLUTE LYMPHOCYTES (AUTO) 1.6 10^3/uL (0.5-4.7); ABSOLUTE MONOCYTES (AUTO) 0.9 10^3/uL (0.1-1.4); BASOPHILS % (AUTO) 0.7 % (0-2); EOSINOPHILS % (AUTO) 0.6 % (0-6); HEMATOCRIT 44.1 % (36.0-47.0); HEMOGLOBIN 14.6 g/dL (12.0-15.5); MEAN CORPUSCULAR HEMOGLOBIN 33.4 pg (27.0-33.4); MEAN CORPUSCULAR HGB CONC 33.2 g/dL (32.0-36.0); MEAN CORPUSCULAR VOLUME 101 fl (80-97); MONOCYTES % (AUTO) 10.2 % (3-13); PLATELET COUNT 182 10^3/uL (150-450); RED BLOOD COUNT 4.38 10^6/uL (3.72-5.28); RED CELL DISTRIBUTION WIDTH 14.2 % (11.5-14.0); SEGMENTED NEUTROPHILS % (AUTO) 69.5 % (42-78); TOTAL CELLS COUNTED % (AUTO) 100 %; WHITE BLOOD COUNT 8.6 10^3/uL (4.0-10.5)
[2019-08-28 17:04] LABS: ALBUMIN 4.1 g/dL (3.5-5.0); ALKALINE PHOSPHATASE 78 U/L (38-126); ASPARTATE AMINO TRANSFERASE 25 U/L (14-36); BILIRUBIN,TOTAL 0.4 mg/dL (0.2-1.3); BLOOD UREA NITROGEN 21 mg/dL (7-20); CALCIUM 9.1 mg/dL (8.4-10.2); CARBON DIOXIDE 38 mmol/L (22-30); CHLORIDE 96 mmol/L (98-107); GLUCOSE 189 mg/dL (75-110); POTASSIUM 4.1 mmol/L (3.6-5.0); TOTAL PROTEIN 7.4 g/dL (6.3-8.2)
[2019-08-28 17:11] LABS: ANION GAP 4 (5-19)
[2019-08-28] MEDS ORDERED: FUROSEMIDE INJ/PF 20 MG/2 ML SDV IV ONE (17:35)
[2019-08-28 17:52] LABS: NT PRO BNP 3740 pg/mL (<450)
[2019-08-28 17:53] LABS: TROPONIN I < 0.012 ng/mL
--- NOTE | 2019-08-28 18:08 | RADIOLOGY REPORT (SQ) ---
EXAM DESCRIPTION: CHEST SINGLE VIEW IMAGES COMPLETED DATE/TIME: 08/28/2019 5:58 pm REASON FOR STUDY: dyspnea COMPARISON: 08/19/2019 NUMBER OF VIEWS: One view. TECHNIQUE: Single frontal radiographic view of the chest acquired. LIMITATIONS: None. FINDINGS: LUNGS AND PLEURA: No opacities, masses or pneumothorax. No pleural effusion. MEDIASTINUM AND HILAR STRUCTURES: No masses or contour abnormality. HEART AND VASCULATURE: Cardiac enlargement. Vascular congestion. BONES: No acute findings. HARDWARE: None in the chest. OTHER: No other significant finding. IMPRESSION: CARDIAC ENLARGEMENT. VASCULAR CONGESTION. TECHNICAL DOCUMENTATION: JOB ID: [id number] 2010 [employer]- All Rights Reserved Reading location - IP/workstation name: [email or web address]
[2019-08-28] MEDS ORDERED: OXYCODONE-ACETAMINOPHEN 5-325 MG TABLET PO ONE (18:19)
[2019-08-28 19:43] LABS: APPEARANCE,URINE CLEAR; BILIRUBIN,URINE NEGATIVE (NEGATIVE); COLOR,URINE STRAW; GLUCOSE, URINE NEGATIVE (NEGATIVE); KETONES,URINE NEGATIVE (NEGATIVE); PROTEIN,URINE NEGATIVE (NEGATIVE); URINE SPECIFIC GRAVITY 1.006; UROBILINOGEN,URINE NEGATIVE mg/dL (<2.0)
--- NOTE | 2019-08-28 20:02 | ER Document Report ---
ED General - General Chief Complaint: Swelling of Lower Extremity Stated Complaint: FEET SWELLING Time Seen by Provider: 08/28/19 17:13 Primary Care Provider: SHERRIE CADET PA-C [Primary Care Provider] - Follow up as needed TRAVEL OUTSIDE OF THE [place] IN LAST 30 DAYS: No - HPI Notes: Chief complaint: Swelling of feet Elderly lady with longstanding history of congestive heart failure was seen here in the emergency department about a week ago and had her Lasix dosage increased to 40 mg twice a day. Despite this her feet continue to swell and family had her transported here by EMS tonight. She is not complaining of any chest pain. She says she is dyspneic when she gets up and walks but no other new specific complaints and I am able to ascertain. She is very deaf and it is difficult to elicit much history from her. Family members had also advised staff that they were concerned she might have a urinary tract infection although she is apparently not had any fever chills or vomiting. - Related Data Allergies/Adverse Reactions: Iodine and Iodide Containing Produc Adverse Reaction (Verified 08/19/19 09:37) Past Medical History - General Information source: Patient, Relative, [facility] Records - Social History Smoking Status: Unknown if Ever Smoked Family History: Reviewed & Not Pertinent, CAD, COPD Patient has suicidal ideation: No Patient has homicidal ideation: No - Past Medical History Cardiac Medical History: Reports: Hx Congestive Heart Failure, Hx DVT, Hx Heart Attack, Hx Hypercholesterolemia, Hx Hypertension, Hx Pulmonary Embolism Pulmonary Medical History: Reports: Hx Asthma, Hx COPD, Hx Pneumonia Endocrine Medical History: Reports: Hx Diabetes Mellitus Type 2 Renal/ Medical History: Denies: Hx Peritoneal Dialysis Malignancy Medical History: Reports: Hx Lung Cancer - Unknown stage or prognosis Psychiatric Medical History: Denies: Hx Depression Past Surgical History: Reports: Hx Cardiac Surgery - Stents, Hx Cholecystectomy, Hx Hysterectomy, Hx Orthopedic Surgery - L foot - Immunizations Hx Diphtheria, Pertussis, Tetanus Vaccination: Yes Review of Systems - Review of Systems Notes: Constitutional: Negative for fever. HENT: Negative for sore throat. Eyes: Negative for visual changes. Cardiovascular: As per HPI. Respiratory: As per HPI. Gastrointestinal: Negative for abdominal pain, vomiting or diarrhea. Genitourinary: Negative for dysuria. Musculoskeletal: Negative for back pain. Skin: Negative for rash. Neurological: Negative for headaches, weakness or numbness. 10 point ROS negative except as marked above and in HPI. Physical Exam - Vital signs Vitals: Temp 97.9 F 08/28/19 16:27 - Notes Notes: GENERAL: Frail elderly female with severe hearing impairment appearing in no acute distress. SKIN: Good turgor no rashes. HEAD: Normocephalic atraumatic. EYES: PERRLA. EOMI. Conjunctivae and sclerae clear. EARS: CANALS AND TMS CLEAR. NOSE: CLEAR. MOUTH: Moist mucosa. Good dentition. No stridor or edema. No drooling. NECK: Supple. No masses or thyromegaly. No adenopathy. Carotids 2+ without bruits. No JVD. BACK: Symmetrical without tenderness. CHEST: Respirations unlabored. Few bibasilar rales. HEART: Regular rhythm. No murmur gallop or rub. ABDOMEN: Soft, obese nontender without masses, organomegaly or rebound. Bowel sounds normally active. No bruits. GENITALIA: Deferred. EXTREMITIES: 2+ bilateral pretibial edema. No calf tenderness. Cap refill less than 1.5 seconds. Dorsalis pedis and posterior tibial pulses 3+ and symmetrical. NEUROLOGICAL: GCS 15. Alert and oriented x3. Fluent speech. Severe bilateral hearing impairment cranial nerves otherwise intact. Sensorimotor and cerebellar normal. Normal tone. PSYCHIATRIC: Appropriate affect. Course - Re-evaluation Re-evalutation: 08/28/19 20:17 Urinalysis is unremarkable. Creatinine is normal. Patient's BNP is elevated but has actually come down since her last visit here about 10 days ago. 08/28/19 20:19 chest x-ray shows cardiomegaly and mild vascular congestion. I have given this lady some IV Lasix with good diuresis here. I think we could consider adding some Zaroxolyn on outpatient basis. In view of her age and overall fragile condition we should probably try to avoid hospitalizing her during the COVID-19 outbreak. - Vital Signs Vital signs: Temp Pulse Resp BP Pulse Ox 97.9 F 92 16 119/75 99 08/28/19 16:27 08/28/19 18:00 08/28/19 19:00 08/28/19 18:00 08/28/19 19:00 - Laboratory Result Diagrams: 08/28/19 16:20 08/28/19 16:20 Laboratory results interpreted by me: 08/28/19 08/28/19 08/28/19 16:20 16:20 16:20 MCV 101 H RDW 14.2 H Chloride 96 L Carbon Dioxide 38 H Anion Gap 4 L BUN 21 H Glucose 189 H NT-Pro-B Natriuret Pep 3740 H Discharge - Discharge Clinical Impression: Congestive heart failure Qualifiers: Heart failure type: unspecified Heart failure chronicity: unspecified Qualified Code(s): I50.9 - Heart failure, unspecified COPD (chronic obstructive pulmonary disease) Qualifiers: COPD type: unspecified COPD Qualified Code(s): J44.9 - Chronic obstructive pulmonary disease, unspecified Condition: Stable Disposition: HOME, SELF-CARE Additional Instructions: Continue current medications. 1 new prescription for Zaroxolyn has been written for you today. Follow-up with your primary care doctor this week. Return here as needed for new or worsening symptoms. Prescriptions: Metolazone [Zaroxolyn 2.5 Mg Tablet] 2.5 mg PO QAM 7 Days #7 tablet Referrals: SHERRIE CADET PA-C [Primary Care Provider] - Follow up as needed
--- NOTE | 2019-08-28 22:30 | EKG REPORT ---
SEVERITY:- ABNORMAL ECG - ATRIAL FIBRILLATION, V-RATE 90-138 VENTRICULAR PREMATURE COMPLEX BORDERLINE PROLONGED QT INTERVAL : Confirmed by: May Collins MD 28-Aug-2019 22:29:39
[2019-08-29] MEDS ORDERED: OXYCODONE-ACETAMINOPHEN 5-325 MG TABLET PO ONE (00:31)
[2019-08-29] MEDS ORDERED: IPRATROPIUM/ALBUTEROL 0.5-2.5 MG/3 ML AMPUL NEB ONE ×2 (09:17→13:07)
[2019-08-29] MEDS ORDERED: DILTIAZEM HCL INJ 25 MG/5 ML VIAL IV ONE (09:17)
--- NOTE | 2019-08-29 09:20 | ER Document Report ---
Doctor's Note Notes: 08/29/19 09:18 This 84-year-old female patient with chronic A. fib and COPD was reported off to me that she is waiting for social and political studies professor to come in this morning and arrange for her to have oxygen at home. The nurse does notify me the patient appears to be having trouble breathing. I went into see the patient and she is laying on her left side with her head hanging over the rail grunting, moaning, pulse ox is 100% on nasal cannula, but she does have diffuse wheezes. Her heart rate is in the 1 35-1 45 range and appears to be atrial fibrillation. When the nurse told me about this, I was going through the patient's medicine list to see what she was supposed to take this morning that she had not received yet since it appears she will be in this department for some time. I ordered 10 mg Cardizem IV, and a DuoNeb treatment for right now. 08/29/19 13:04 After the breathing treatment and the Cardizem was given, the patient's heart rate reduced to the upper 90s. She was given her regular morning medications, metoprolol tartrate 12.5 mg, BuSpar 10 mg, metformin 250 mg (we do not have the 500 mg extended release tab lets), diltiazem CD 240 mg, atorvastatin 40 mg, gabapentin 400 mg, Pepcid 20 mg, and Eliquis 5 mg. 08/29/19 13:07 At this time the patient is still waiting for the social and political studies professor to come see her and make arrangements for her home oxygen concentrator.
[2019-08-29] MEDS ORDERED: METOPROLOL TARTRATE 25 MG TABLET PO ONE (09:43)
[2019-08-29] MEDS ORDERED: METFORMIN HCL 500 MG TABLET PO ONE (09:43)
[2019-08-29] MEDS ORDERED: BUSPIRONE HCL 10 MG TABLET PO ONE (09:44)
[2019-08-29] MEDS ORDERED: ATORVASTATIN CALCIUM 40 MG TABLET PO ONE (09:45)
[2019-08-29] MEDS ORDERED: DILTIAZEM HCL 240 MG CAPSULE.CR PO ONE (09:45)
[2019-08-29] MEDS ORDERED: APIXABAN 5 MG TABLET PO ONE (09:48)
[2019-08-29] MEDS ORDERED: GABAPENTIN 400 MG CAPSULE PO ONE (09:49)
[2019-08-29 16:39] VITALS: BP 102/61
== END 2019-08-29 16:40 | disposition home or self-care (01) ==
LOC: ER 16:10
DX: I11.0 Hypertensive heart disease with heart failure (principal); I50.9 Heart failure, unspecified; E11.9 Type 2 diabetes mellitus without complications; J44.9 Chronic obstructive pulmonary disease, unspecified; H91.93 Unspecified hearing loss, bilateral; Z79.899 Other long term (current) drug therapy; Z95.5 Presence of coronary angioplasty implant and graft
CPT/HCPCS: 93005; 94640; 99285; 96374; 96375; 36415; 85025; 80053; 81001; 84484; 83880; 71045; 93010; A9270 ×10; J1940; J3490; J7620

== ENCOUNTER 2019-10-14 21:06 | Inpatient (IN) | payer MEDICARE, MEDICAID ==
[2019-10-14] MEDS ORDERED: EPINEPHRINE INJ/PF 1 MG/1 ML AMPULE ONE (21:09)
[2019-10-14 22:15] LABS: ABSOLUTE MONOCYTES (AUTO) 0.6 10^3/uL (0.1-1.4); ABSOLUTE NEUT (AUTO) 4.8 10^3/uL (1.7-8.2); BASOPHILS % (AUTO) 0.6 % (0-2); EOSINOPHILS % (AUTO) 0.5 % (0-6); HEMATOCRIT 42.4 % (36.0-47.0); LYMPHOCYTES % (AUTO) 26.9 % (13-45); MEAN CORPUSCULAR HEMOGLOBIN 32.8 pg (27.0-33.4); MEAN CORPUSCULAR VOLUME 100 fl (80-97); MONOCYTES % (AUTO) 8.6 % (3-13); PLATELET COUNT 157 10^3/uL (150-450); RED BLOOD COUNT 4.26 10^6/uL (3.72-5.28); RED CELL DISTRIBUTION WIDTH 14.1 % (11.5-14.0); SEGMENTED NEUTROPHILS % (AUTO) 63.4 % (42-78); TOTAL CELLS COUNTED % (AUTO) 100 %; WHITE BLOOD COUNT 7.5 10^3/uL (4.0-10.5)
[2019-10-14 22:21] LABS: ALKALINE PHOSPHATASE 85 U/L (38-126); ANION GAP 7 (5-19); ASPARTATE AMINO TRANSFERASE 34 U/L (14-36); BILIRUBIN,DIRECT 0.1 mg/dL (0.0-0.4); BILIRUBIN,TOTAL 0.4 mg/dL (0.2-1.3); BLOOD UREA NITROGEN 41 mg/dL (7-20); CARBON DIOXIDE 37 mmol/L (22-30); CHLORIDE 93 mmol/L (98-107); GLUCOSE 194 mg/dL (75-110); POTASSIUM 4.6 mmol/L (3.6-5.0); TOTAL PROTEIN 6.9 g/dL (6.3-8.2)
[2019-10-14] MEDS ORDERED: DILTIAZEM HCL INJ 25 MG/5 ML VIAL IV ONE (22:31)
[2019-10-14 22:38] LABS: ALCOHOL < 10 mg/dL (NONE DETECTED)
--- NOTE | 2019-10-14 22:38 | ER Document Report ---
Entered by ANITHA MENDOSA SCRIBE 10/14/19 1752 Acting as scribe for:KAYLEEN GONSALES IV, MD ED General - General Chief Complaint: Unresponsive Stated Complaint: UNRESPONSIVE Time Seen by Provider: 10/14/19 22:04 Mode of Arrival: Medic Information source: Emergency Med Personnel Notes: This 84 year old female patient with a history of A fib and COPD brought in by EMS presents to the ED today with complaints of unresponsiveness that occurred just prior to arrival. ED nurse reports that the patient was found unresponsive by her son, it is unknown how long the patient was down. According to ED nurse, the patient's son reports that the patient takes Percocet for chronic back pain. EMS reports that they administered x3 mg Narcan during transport. ED nurse states that the patient was alert, but disoriented upon ED arrival. TRAVEL OUTSIDE OF THE [place] IN LAST 30 DAYS: No - Related Data Allergies/Adverse Reactions: Iodine and Iodide Containing Produc Adverse Reaction (Verified 08/19/19 09:37) Past Medical History - General Information source: [facility] Records - Social History Smoking Status: Unknown if Ever Smoked Cigarette use (# per day): No Chew tobacco use (# tins/day): No Smoking Education Provided: No Family History: Reviewed & Not Pertinent, CAD, COPD Patient has suicidal ideation: No Patient has homicidal ideation: No - Past Medical History Cardiac Medical History: Reports: Hx Congestive Heart Failure, Hx DVT, Hx Heart Attack, Hx Hypercholesterolemia, Hx Hypertension, Hx Pulmonary Embolism Pulmonary Medical History: Reports: Hx Asthma, Hx COPD, Hx Pneumonia Endocrine Medical History: Reports: Hx Diabetes Mellitus Type 2 Malignancy Medical History: Reports: Hx Lung Cancer - Unknown stage or prognosis Past Surgical History: Reports: Hx Cardiac Surgery - Stents, Hx Cholecystectomy, Hx Hysterectomy, Hx Orthopedic Surgery - L foot - Immunizations Hx Diphtheria, Pertussis, Tetanus Vaccination: Yes Review of Systems - Review of Systems -: Yes ROS unobtainable due to patient's medical condition Physical Exam - Vital signs Vitals: Temp Resp BP Pulse Ox 98.2 F 26 H 165/102 H 100 10/14/19 21:09 10/14/19 21:09 10/14/19 21:09 10/14/19 21:09 - General General appearance: Alert, Other - Unable to speak with more than 1-2 words. Responsive to light touch - HEENT Head: Normocephalic, Atraumatic Eyes: Normal Pupils: PERRL - Respiratory Respiratory status: No respiratory distress Chest status: Nontender Breath sounds: Normal Chest palpation: Normal - Cardiovascular Rhythm: Irregularly irregular, Tachycardia Heart sounds: Normal auscultation Murmur: No Friction rub: No Gallop: None auscultated - Abdominal Inspection: Normal Distension: No distension Bowel sounds: Normal Tenderness: Nontender - Abdomen soft Organomegaly: No organomegaly - Back Back: Normal, Nontender - Extremities General upper extremity: Normal inspection General lower extremity: Edema - +1 pitting edema to lower extremities bilaterally - Neurological Neuro grossly intact: Yes - Psychological Associated symptoms: Confused - Skin Skin Temperature: Warm Skin Moisture: Dry Skin Color: Normal Course - Vital Signs Vital signs: Temp Pulse Resp BP Pulse Ox 98.2 F 23 H 95/75 L 69 L 10/14/19 21:40 10/15/19 04:31 10/15/19 04:31 10/15/19 03:45 - Laboratory Result Diagrams: 10/14/19 21:15 10/14/19 21:15 Laboratory results interpreted by me: 10/14/19 10/14/19 21:15 21:15 MCV 100 H RDW 14.1 H Sodium 136.7 L Chloride 93 L Carbon Dioxide 37 H BUN 41 H Glucose 194 H - Diagnostic Test Radiology reviewed: Reports reviewed - EKG Interpretation by Me Additional EKG results interpreted by me: 10/15/19 03:40 EKG obtained on 10/14/2019 at 2206 hrs. was interpreted by this MD. Findings: Atrial fibrillation with RVR, right 147 no P waves are visualized in conjunction with QRS complexes, QRS complexes appear narrow, ST segments are nonspecific. Impression: A. fib with RVR and nonspecific ST segments. - Consults DR. ANTOINE GERARDO Time consulted: 03:41 - DR. GERARDO ACCEPTED PT FOR ADMISSION Reason for consultation: 10/15/19 03:41 A FIB WITH RVR, OPIATE OVERDOSE Consulted provider: will see as inpatient Critical Care Note - Critical Care Note Total time excluding time spent on procedures (mins): 120 Comments: IV DILTIAZEM FOR CONTROL OF A FIB WITH RVR Discharge - Discharge Clinical Impression: Atrial fibrillation with RVR Opioid overdose Qualifiers: Encounter type: initial encounter Injury intent: undetermined intent Qualified Code(s): T40.2X4A - Poisoning by other opioids, undetermined, initial encounter Condition: Good Disposition: ADMITTED INPATIENT Admitting Provider: Marylu (Hospitalist) Unit Admitted: IMCU I personally performed the services described in the documentation, reviewed and edited the documentation which was dictated to the scribe in my presence, and it accurately records my words and actions.
--- NOTE | 2019-10-14 23:23 | RADIOLOGY REPORT (SQ) ---
EXAM DESCRIPTION: CT HEAD WITHOUT IV CONTRAST COMPLETED DATE/TME: 10/14/2019 22:28 CLINICAL HISTORY: 84 years, Female, ams COMPARISON: 03/15/2017 CT TECHNIQUE: 189 Images stored on PACS. All CT scanners at this facility use dose modulation, iterative reconstruction, and/or weight based dosing when appropriate to reduce radiation dose to as low as reasonably achievable (ALARA). [facility]: Dose Right [facility]: CareDose [facility]: Dose Right [facility]: Teradose 4D [facility]: [employer] LIMITATIONS: None. FINDINGS: The globes are intact. The paranasal sinuses and mastoid air cells are well aerated. No displaced or depressed skull fracture. No intra or extra-axial hemorrhage. CT is limited for evaluation of acute infarct. No CT evidence for large or territorial acute infarct. Age-appropriate atrophy with minor small vessel ischemic change. No mass or midline shift IMPRESSION: No acute intracranial abnormality TECHNICAL DOCUMENTATION: Quality ID # 436: Final reports with documentation of one or more dose reduction techniques (e.g., Automated exposure control, adjustment of the mA and/or kV according to patient size, use of iterative reconstruction technique) copyright 2011 [employer]- All Rights Reserved
--- NOTE | 2019-10-14 23:25 | RADIOLOGY REPORT (SQ) ---
CLINICAL HISTORY: ams COMPARISON: August 19, 2019. TECHNIQUE: XR CHEST 1 VIEW 10/14/2019 10:32 PM CDT FINDINGS: The heart is moderately enlarged. Lungs are clear without consolidation, atelectasis, mass or edema. There is no pleural effusion. There is no pneumothorax. There are no acute osseous findings. IMPRESSION: Clear lungs.
[2019-10-14 23:40] LABS: APPEARANCE,URINE CLEAR; BILIRUBIN,URINE NEGATIVE (NEGATIVE); COLOR,URINE YELLOW; GLUCOSE, URINE NEGATIVE (NEGATIVE); KETONES,URINE NEGATIVE (NEGATIVE); LEUKOCYTE ESTERASE,URINE NEGATIVE (NEGATIVE); NITRITE,URINE NEGATIVE (NEGATIVE); PROTEIN,URINE NEGATIVE (NEGATIVE); URINE SPECIFIC GRAVITY 1.008; UROBILINOGEN,URINE NEGATIVE mg/dL (<2.0)
[2019-10-14 23:53] LABS: URINE AMPHETAMINES SCREEN NEGATIVE; URINE BARBITURATES SCREEN NEGATIVE; URINE BENZODIAZEPINES SCREEN NEGATIVE; URINE COCAINE SCREEN NEGATIVE; URINE MARIJUANA (THC) SCREEN NEGATIVE; URINE METHADONE SCREEN NEGATIVE; URINE PHENCYCLIDINE SCREEN NEGATIVE
[2019-10-15] MEDS ORDERED: DILTIAZEM HCL/D5W 125 MG/125 ML RTUINJ IV PRN ×2 (00:51→04:38)
[2019-10-15] MEDS ORDERED: NORMAL SALINE 500 ML IV ONE (00:52)
[2019-10-15] MEDS ORDERED: METOPROLOL TARTRATE PF/INJ 5 MG/5 ML SDV IV ONE (03:30)
[2019-10-15] MEDS ORDERED: NORMAL SALINE 1000 ML 1,000 ML IV ONE (03:30)
[2019-10-15] MEDS ORDERED: MAG HYDROX/AL HYDROX/SIMETH SUSP 30 ML UDCUP PO PRN (04:29)
[2019-10-15] MEDS ORDERED: MAGNESIUM HYDROXIDE SUSP 30 ML UDCUP PO PRN (04:29)
[2019-10-15] MEDS ORDERED: ONDANSETRON HCL INJ/PF 4 MG/2 ML SDV IV PRN (04:29)
[2019-10-15] MEDS ORDERED: ACETAMINOPHEN 325 MG TABLET PO PRN (04:35)
[2019-10-15] MEDS ORDERED: NICOTINE 21 MG/24 HR PATCH.TD24 TD PRN (04:35)
[2019-10-15] MEDS ORDERED: GUAIFENESIN SYRP 200 MG/10 ML UDC PO PRN (04:35)
[2019-10-15] MEDS ORDERED: DEXTROSE 50%-WATER 25 GM/50 ML DISP.SYRIN IV PRN ×2 (04:38)
[2019-10-15] MEDS ORDERED: GLUCAGON,HUMAN RECOMB 1 MG INJ IM PRN (04:38)
[2019-10-15] MEDS ORDERED: DEXTROSE 40% GEL 15 GM TUBE PO PRN ×2 (04:38)
--- NOTE | 2019-10-15 05:18 | PDOC H&P ---
History of Present Illness Admission Date/PCP: 10/15/19 03:52 SHERRIE CADET PA-C Patient complains of: Altered mental status History of Present Illness: KIRSTIE GARCIA is a 84 year old female who presented to the emergency room via EMS from her home with acute altered mental status. Patient's son reports that he found his mother somnolent at home and he would not respond to verbal or physical stimuli. He called EMS and upon their arrival they found the patient unresponsive and administered 3 mg of Narcan intranasally resulting in immediate alertness which gradually faded back to somnolence over the course of the next 30 to 60 minutes. The patient was arousable in the emergency room but continued to be very confused and unable to answer questions appropriately or contribute h istorical data to her care. Patient is noted to be treated by pain management with Percocet for chronic back pain. In the emergency room the patient's evaluation was essentially unremarkable with the exception of the finding of atrial fibrillation with rapid ventricular response. This was treated with IV diltiazem followed by diltiazem infusion and her rate was fairly well controlled at the time she was admitted to [facility] for further evaluation and treatment. Past Medical History Past Medical History: Due to patient's acute delirium information presented is the best available information from the most reliable available source. Cardiac Medical History: Reports: Atrial Fibrillation, Congestive Heart Failure, Coronary Artery Disease, DVT, Myocardial Infarction, Hyperlipidema, Hypertension, Pulmonary Embolism Pulmonary Medical History: Reports: Asthma, Chronic Obstructive Pulmonary Disease (COPD), Pneumonia EENT Medical History: Denies: Cataracts, Ears - Hearing aids Neurological Medical History: Denies: Hemorrhagic CVA, Ischemic CVA, Seizures Endocrine Medical History: Reports: Diabetes Mellitus Type 2 Denies: Diabetes Mellitus Type 1, Hyperthyroidism, Hypothyroidism Renal/ Medical History: Denies: Chronic Kidney Disease, Nephrolithiasis Malignancy Medical History: Reports: Lung Cancer - Unknown stage or prognosis GI Medical History: Denies: Cirrhosis, Hepatitis Musculoskeltal Medical History: Denies: Arthritis, Fibromyalgia Skin Medical History: Denies: Eczema, Psoriasis Psychiatric Medical History: Reports: Substance Abuse, Tobacco Dependency Denies: Alcohol Dependency, Depression Traumatic Medical History: Reports: None Hematology: Denies: Anemia, Bleeding Tendencies Infectious Medical History: Reports: None Past Surgical History Past Surgical History: Due to patient's acute delirium information presented is the best available information from the most reliable available source. Past Surgical History: Reports: Cholecystectomy, Hysterectomy, Orthopedic Surgery - L foot Social History Information Source: [facility] Records Lives with: Family Smoking Status: Current Every Day Smoker Electronic Cigarette use?: No Frequency of Alcohol Use: None Hx Recreational Drug Use: No Drugs: None Hx Prescription Drug Abuse: Yes - Suspected as etiology of somnolent/obtunded state for this and previously Past Social History Note: Due to patient's acute delirium information presented is the best available information from the most reliable available source. - Advance Directive Resuscitation Status: Full Code Surrogate healthcare decision maker:: Omid Kelly Family History Family History: CAD, COPD Family History: Due to patient's acute delirium information presented is the best available information from the most reliable available source. Parental Family History Reviewed: Yes Children Family History Reviewed: No Sibling(s) Family History Reviewed.: Yes Medication/Allergy Home Medications: Metformin HCl [Metformin HCl ER] 500 mg PO [id number] 05/28/18 Oxycodone HCl/Acetaminophen [Percocet 10-325 mg Tablet] 1 each PO Q6HP PRN 05/28/18 Atorvastatin Calcium [Lipitor 40 mg Tablet] 40 mg PO DAILY 05/29/18 Furosemide [Lasix 20 mg Tablet] 20 mg PO DAILY MDD 40 MG 05/29/18 Apixaban [Eliquis 5 mg Tablet] 5 mg PO BID #60 tablet 06/01/18 Diltiazem HCl [Diltiazem 24Hr ER (Cd)] 240 mg PO DAILY #30 cap.er.24h 06/01/18 Gabapentin [Neurontin 400 mg Capsule] 400 mg PO Q8 06/13/19 Sertraline HCl 50 mg PO DAILY 06/13/19 Acetaminophen [Tylenol 325 mg Tablet] 650 mg PO Q4HP PRN tablet 06/17/19 Buspirone HCl [Buspar 10 mg Tablet] 10 mg PO Q12 #60 tablet 06/17/19 Famotidine [Pepcid] 20 mg PO BID 07/21/19 Metoprolol Tartrate [Lopressor 25 mg Tablet] 25 mg PO Q12 07/21/19 Acetaminophen [Tylenol 325 mg Tablet] 650 mg PO Q4HP PRN tablet 07/23/19 Cephalexin Monohydrate [Keflex 250 mg Capsule] 250 mg PO Q8 7 Days #21 capsule 07/23/19 Docusate Sodium [Colace 100 mg Capsule] 100 mg PO DAILY capsule 07/23/19 Furosemide [Lasix 20 mg Tablet] 20 mg PO DAILY tablet 07/23/19 Methylprednisolone [Medrol Dosepack (4 mg/Tab) 21 Tab/Dosepak] 4 mg PO ASDIR PRN #21 tab.ds.pk 07/23/19 Oxycodone HCl/Acetaminophen [Percocet 5-325 mg Tablet] 1 tab PO Q6HP PRN tablet 07/23/19 Ondansetron [Zofran Odt 4 mg Tablet] 1 - 2 tab PO Q4H PRN #15 tab.rapdis 08/19/19 Metolazone [Zaroxolyn 2.5 Mg Tablet] 2.5 mg PO QAM 7 Days #7 tablet 08/28/19 Allergies/Adverse Reactions: Iodine and Iodide Containing Produc Adverse Reaction (Verified 08/19/19 09:37) Review of Systems ROS unobtainable: Due to mental status - Acutely obtunded/somnolent Physical Exam Vital Signs: Temp Pulse Resp BP Pulse Ox 98.2 F 18 154/110 H 75 L 10/14/19 21:40 10/15/19 01:01 10/15/19 01:01 10/14/19 23:02 Intake & Output 10/13/19 10/14/19 10/15/19 23:59 23:59 23:59 Intake Total 18 Balance 18 Weight 93.6 kg General appearance: PRESENT: no acute distress, other - Obtunded/somnolent Head exam: PRESENT: atraumatic, normocephalic Eye exam: PRESENT: conjunctiva pink. ABSENT: scleral icterus Ear exam: PRESENT: normal external ear exam. ABSENT: bleeding, drainage Mouth exam: PRESENT: dry mucosa, neck supple Neck exam: ABSENT: thyromegaly, tracheal deviation Respiratory exam: PRESENT: clear to auscultation delon, symmetrical, unlabored Cardiovascular exam: PRESENT: irregular rhythm - Irregularly irregular rate and rhythm, tachycardia. ABSENT: clicks, gallop, rubs Pulses: PRESENT: normal radial pulses, normal dorsalis pedis pul Vascular exam: PRESENT: normal capillary refill. ABSENT: pallor GI/Abdominal exam: PRESENT: normal bowel sounds, soft Rectal exam: PRESENT: deferred Extremities exam: ABSENT: joint swelling, pedal edema Musculoskeletal exam: ABSENT: deformity, dislocation Neurological exam: PRESENT: altered - Obtunded/somnolent Psychiatric exam: PRESENT: other - Obtunded/somnolent Skin exam: PRESENT: dry, intact, warm. ABSENT: jaundice, rash, urticaria Results Laboratory Results: 10/14/19 21:15 10/14/19 21:15 10/14/19 10/14/19 10/14/19 21:15 21:15 23:22 WBC 7.5 RBC 4.26 Hgb 14.0 Hct 42.4 MCV 100 H MCH 32.8 MCHC 33.0 RDW 14.1 H Plt Count 157 Seg Neutrophils % 63.4 Sodium 136.7 L Potassium 4.6 Chloride 93 L Carbon Dioxide 37 H Anion Gap 7 BUN 41 H Creatinine 0.69 Est GFR ( Amer) > 60 Glucose 194 H Calcium 9.0 Magnesium 1.9 Total Bilirubin 0.4 AST 34 Alkaline Phosphatase 85 Total Protein 6.9 Albumin 4.0 Urine Color YELLOW Urine Appearance CLEAR Urine pH 5.0 Ur Specific [place] 1.008 Urine Protein NEGATIVE Urine Glucose (UA) NEGATIVE Urine Ketones NEGATIVE Urine Blood NEGATIVE Urine Nitrite NEGATIVE Ur Leukocyte Esterase NEGATIVE Urine WBC (Auto) 0 10/14/19 22:45 Troponin I < 0.012 Impressions: Head CT 10/14/19 22:28 IMPRESSION: No acute intracranial abnormality TECHNICAL DOCUMENTATION: Quality ID # 436: Final reports with documentation of one or more dose reduction techniques (e.g., Automated exposure control, adjustment of the mA and/or kV according to patient size, use of iterative reconstruction technique) copyright 2011 [employer]- All Rights Reserved Chest X-Ray 10/14/19 22:32 IMPRESSION: Clear lungs. Assessment and Plan - Diagnosis (1) Opioid intoxication delirium, acute, hypoactive Is this a current diagnosis for this admission?: Yes (2) Atrial fibrillation with RVR Is this a current diagnosis for this admission?: Yes (3) Diabetes mellitus type 2 in nonobese Is this a current diagnosis for this admission?: Yes (4) Hypertension Qualifiers: Hypertension type: essential hypertension Qualified Code(s): I10 - Essential (primary) hypertension Is this a current diagnosis for this admission?: Yes (5) Hyperlipidemia Qualifiers: Hyperlipidemia type: unspecified Qualified Code(s): E78.5 - Hyperlipidemia, unspecified Is this a current diagnosis for this admission?: Yes (6) COPD (chronic obstructive pulmonary disease) Qualifiers: COPD type: unspecified COPD Qualified Code(s): J44.9 - Chronic obstructive pulmonary disease, unspecified Is this a current diagnosis for this admission?: Yes (7) Tobacco dependence Is this a current diagnosis for this admission?: Yes - Plan Summary Summary: Patient will be admitted to [facility] where she received routine supportive and symptomatic cares. She has been treated with a diltiazem infusion for control of her rapid ventricular response. She will receive IV fluids using lactated Ringer's solution continuous infusion at 167 mL/h x 12 hours. Neurochecks have been performed every 4 hours. The patient will be on telemetry monitoring in [facility]. CBCs, metabolic profiles, magnesium levels and additional laboratory and/ or radiographic evaluations will be obtained as appropriate. Serial cardiac enzymes will be performed. Serial lactic acid levels will be performed. Before meals and at bedtime Accu-Cheks will be performed with sliding scale insulin for hyperglycemia and a hypoglycemic protocol in place. - Time Time Spent with patient: Less than 15 minutes Medications reviewed and adjusted accordingly: Yes Anticipated discharge: SNF - Inpatient Certification Based on my medical assessment, after consideration of the patient's comorbidities, presenting symptoms, or acuity I expect that the services needed warrant INPATIENT care.: Yes I certify that my determination is in accordance with my understanding of Medicare's requirements for reasonable and necessary INPATIENT services [42 CFR 412.3e].: Yes Medical Necessity: Need Close Monitoring Due to Risk of Patient Decompensation, Need For Continuous Telemetry Monitoring, Need for Neurological Checks, Risk of Complication if Not Cared For in Hospital
[2019-10-15] MEDS: RINGERS SOLUTION,LACTATED 1,000 ML IV PRN ×2 (06:30→12:01)
[2019-10-15] MEDS: BUDESONIDE NEB 0.5 MG/2 ML AMPUL NEB SCH ×2 (08:14→20:16)
[2019-10-15] MEDS: IPRATROPIUM BROMIDE 0.02% NEB 0.5 MG/2.5 ML AMPUL NEB SCH ×3 (08:15→23:48)
[2019-10-15] MEDS: LEVALBUTEROL HCL NEB 1.25 MG/3 ML AMPUL NEB SCH ×3 (08:15→23:48)
--- NOTE | 2019-10-15 08:59 | PDOC PROGRESS REPORT ---
Subjective Progress Note for:: 10/15/19 Subjective:: The patient is somewhat anxious. She is still tachycardic. She is getting a nebulizer treatment at this time. She is very hard of hearing but she is asking for pain medication. She did require Narcan last night. Reason For Visit: AFIB WITH RVR,OPIOID INTOXICATION WITH DELIRIUM Physical Exam Vital Signs: Temp Pulse Resp BP Pulse Ox 98.0 F 118 H 21 H 95/57 L 100 10/15/19 07:21 10/15/19 08:00 10/15/19 05:23 10/15/19 08:00 10/15/19 07:21 Intake & Output 10/14/19 10/15/19 10/16/19 06:59 06:59 06:59 Intake Total 1018 500 Balance 1018 500 Weight 91.3 kg General appearance: PRESENT: mild distress Head exam: PRESENT: atraumatic, normocephalic Ear exam: PRESENT: normal external ear exam. ABSENT: bleeding, drainage Mouth exam: PRESENT: other - Nebulizer mask in place Respiratory exam: PRESENT: prolonged expiratory phas, rales. ABSENT: rhonchi, tachypnea, wheezes Cardiovascular exam: PRESENT: irregular rhythm, tachycardia GI/Abdominal exam: PRESENT: normal bowel sounds, soft. ABSENT: distended, guarding, tenderness Rectal exam: PRESENT: deferred Gentrourinary exam: ABSENT: indwelling catheter Extremities exam: ABSENT: pedal edema Musculoskeletal exam: PRESENT: normal inspection Neurological exam: PRESENT: alert, awake, oriented to person, oriented to place, oriented to time, oriented to situation Psychiatric exam: PRESENT: anxious, flat affect. ABSENT: agitated Results Laboratory Results: 10/14/19 21:15 10/14/19 21:15 10/14/19 10/14/19 10/14/19 21:15 21:15 23:22 WBC 7.5 RBC 4.26 Hgb 14.0 Hct 42.4 MCV 100 H MCH 32.8 MCHC 33.0 RDW 14.1 H Plt Count 157 Seg Neutrophils % 63.4 Sodium 136.7 L Potassium 4.6 Chloride 93 L Carbon Dioxide 37 H Anion Gap 7 BUN 41 H Creatinine 0.69 Est GFR ( Amer) > 60 Glucose 194 H Lactic Acid Calcium 9.0 Magnesium 1.9 Total Bilirubin 0.4 AST 34 Alkaline Phosphatase 85 Total Protein 6.9 Albumin 4.0 Urine Color YELLOW Urine Appearance CLEAR Urine pH 5.0 Ur Specific [place] 1.008 Urine Protein NEGATIVE Urine Glucose (UA) NEGATIVE Urine Ketones NEGATIVE Urine Blood NEGATIVE Urine Nitrite NEGATIVE Ur Leukocyte Esterase NEGATIVE Urine WBC (Auto) 0 10/15/19 07:17 WBC RBC Hgb Hct MCV MCH MCHC RDW Plt Count Seg Neutrophils % Sodium Potassium Chloride Carbon Dioxide Anion Gap BUN Creatinine Est GFR ( Amer) Glucose Lactic Acid 1.8 Calcium Magnesium Total Bilirubin AST Alkaline Phosphatase Total Protein Albumin Urine Color Urine Appearance Urine pH Ur Specific [place] Urine Protein Urine Glucose (UA) Urine Ketones Urine Blood Urine Nitrite Ur Leukocyte Esterase Urine WBC (Auto) 10/14/19 22:45 Troponin I < 0.012 Impressions: Head CT 10/14/19 22:28 IMPRESSION: No acute intracranial abnormality TECHNICAL DOCUMENTATION: Quality ID # 436: Final reports with documentation of one or more dose reduction techniques (e.g., Automated exposure control, adjustment of the mA and/or kV according to patient size, use of iterative reconstruction technique) copyright 2011 [employer]- All Rights Reserved Chest X-Ray 10/14/19 22:32 IMPRESSION: Clear lungs. Assessment and Plan - Diagnosis (1) Opioid intoxication delirium, acute, hypoactive Is this a current diagnosis for this admission?: Yes Plan: 10/04/1929 The patient required Narcan last night. She is requesting pain medication today. As discussed with the nurse we will utilize less medication but still provide some to avoid withdrawal. It is likely that when she is more comfortable her heart rate will also improve. (2) Atrial fibrillation with RVR Is this a current diagnosis for this admission?: Yes Plan: 10/15/2019 Convert to oral diltiazem once her pulse is stable (3) Acute on chronic respiratory failure with hypoxia and hypercapnia Is this a current diagnosis for this admission?: Yes Plan: 10/15/2019 Likely induced from the narcotics. Continue to monitor. (4) COPD (chronic obstructive pulmonary disease) Qualifiers: COPD type: unspecified COPD Qualified Code(s): J44.9 - Chronic obstructive pulmonary disease, unspecified Is this a current diagnosis for this admission?: Yes Plan: 10/15/2019 Supplement oxygen to keep oxygen saturation between 90 and 94%. Nebulizer treatments. (5) Diabetes mellitus type 2 in nonobese Is this a current diagnosis for this admission?: Yes Plan: 10/15/2019 Metformin the same. Continue Accu-Cheks and sliding scale. Will eventually need to resume Lantus. (6) Hypertension Qualifiers: Hypertension type: essential hypertension Qualified Code(s): I10 - Essential (primary) hypertension Is this a current diagnosis for this admission?: Yes Plan: 10/15/2019 Blood pressure has been on the low side. As the heart rate stabilizes this will improve that we will be able to resume his other medications. (7) Hyperlipidemia Qualifiers: Hyperlipidemia type: unspecified Qualified Code(s): E78.5 - Hyperlipidemia, unspecified Is this a current diagnosis for this admission?: Yes Plan: 10/15/2019 Continue statin therapy (8) Tobacco dependence Is this a current diagnosis for this admission?: Yes Plan: 10/15/2019 Nicotine patch - Plan Summary Summary: Patient will be admitted to [facility] where she received routine supportive and symptomatic cares. She has been treated with a diltiazem infusion for control of her rapid ventricular response. She will receive IV fluids using lactated Ringer's solution continuous infusion at 167 mL/h x 12 hours. Neurochecks have been performed every 4 hours. The patient will be on telemetry monitoring in [facility]. CBCs, metabolic profiles, magnesium levels and additional laboratory and/or radiographic evaluations will be obtained as appropriate. Serial cardiac enzymes will be performed. Serial lactic acid levels will be performed. Before meals and at bedtime Accu-Cheks will be performed with sliding scale insulin for hyperglycemia and a hypoglycemic protocol in place. - Time Time Spent with patient: 15-24 minutes Medications reviewed and adjusted accordingly: Yes Anticipated discharge: Home with Homehealth
--- NOTE | 2019-10-15 10:44 | EKG REPORT ---
SEVERITY:- ABNORMAL ECG - ATRIAL FIBRILLATION WITH RAPID V-RATE (147) VENTRICULAR PREMATURE COMPLEX : Confirmed by: Reji Cho MD 15-Oct-2019 10:42:28
[2019-10-15] MEDS: DOCUSATE SODIUM 100 MG CAPSULE PO SCH ×2 (11:37→17:54)
[2019-10-15] MEDS: BUSPIRONE HCL 10 MG TABLET PO SCH ×2 (11:37→22:04)
[2019-10-15] MEDS: APIXABAN 2.5 MG TABLET PO SCH ×2 (11:37→17:54)
[2019-10-15] MEDS: OXYCODONE-ACETAMINOPHEN 5-325 MG TABLET PO PRN ×2 (11:46→17:54)
[2019-10-15] MEDS: FAMOTIDINE INJ/PF 20 MG/2 ML SDV IV SCH ×2 (11:46→22:04)
[2019-10-15] MEDS: GABAPENTIN 400 MG CAPSULE PO SCH ×2 (15:01→22:04)
[2019-10-15] MEDS: DILTIAZEM HCL 60 MG TABLET PO SCH ×2 (16:30→18:32)
[2019-10-15] MEDS: LEVALBUTEROL HCL NEB 0.63 MG/3 ML AMPUL NEB PRN (20:19)
[2019-10-15] MEDS ORDERED: METOPROLOL TARTRATE 25 MG TABLET PO SCH (22:00)
[2019-10-15] MEDS: ATORVASTATIN CALCIUM 40 MG TABLET PO SCH (22:03)
[2019-10-15] MEDS: INSULIN REG, HUMAN 100 UNIT/ML 3 ML VIAL (PYX) SUBCUT PRN (22:10)
[2019-10-16] MEDS: DILTIAZEM HCL 60 MG TABLET PO SCH ×2 (00:28→06:37)
[2019-10-16] MEDS: OXYCODONE-ACETAMINOPHEN 5-325 MG TABLET PO PRN ×4 (03:08→22:35)
[2019-10-16 06:13] LABS: HEMATOCRIT 41.2 % (36.0-47.0); HEMOGLOBIN 13.4 g/dL (12.0-15.5); MEAN CORPUSCULAR HEMOGLOBIN 32.3 pg (27.0-33.4); MEAN CORPUSCULAR HGB CONC 32.4 g/dL (32.0-36.0); MEAN CORPUSCULAR VOLUME 100 fl (80-97); PLATELET COUNT 152 10^3/uL (150-450); RED BLOOD COUNT 4.13 10^6/uL (3.72-5.28); RED CELL DISTRIBUTION WIDTH 14.2 % (11.5-14.0); WHITE BLOOD COUNT 8.3 10^3/uL (4.0-10.5)
[2019-10-16 06:32] LABS: ANION GAP 6 (5-19); BLOOD UREA NITROGEN 29 mg/dL (7-20); CALCIUM 8.4 mg/dL (8.4-10.2); CARBON DIOXIDE 31 mmol/L (22-30); CHLORIDE 100 mmol/L (98-107); GLUCOSE 107 mg/dL (75-110); POTASSIUM 4.8 mmol/L (3.6-5.0)
[2019-10-16] MEDS: GABAPENTIN 400 MG CAPSULE PO SCH ×3 (06:37→21:40)
[2019-10-16] MEDS: BUDESONIDE NEB 0.5 MG/2 ML AMPUL NEB SCH ×2 (07:58→20:12)
[2019-10-16] MEDS: LEVALBUTEROL HCL NEB 1.25 MG/3 ML AMPUL NEB SCH ×2 (07:59→16:07)
[2019-10-16] MEDS: IPRATROPIUM BROMIDE 0.02% NEB 0.5 MG/2.5 ML AMPUL NEB SCH ×2 (07:59→16:07)
[2019-10-16] MEDS: METFORMIN HCL 500 MG TABLET PO SCH ×2 (08:40→17:22)
--- NOTE | 2019-10-16 09:41 | PDOC PROGRESS REPORT ---
Subjective Progress Note for:: 10/16/19 Subjective:: The patient's main complaints today are that she wants more pain medicine and she wants regular Pepsi cola soda. This is despite the need for Narcan at admission and the fact that she has diabetes. Reason For Visit: AFIB WITH RVR,OPIOID INTOXICATION WITH DELIRIUM Physical Exam Vital Signs: Temp Pulse Resp BP Pulse Ox 97.6 F 107 H 19 98/58 L 95 10/16/19 07:00 10/16/19 07:59 10/16/19 07:59 10/16/19 07:00 10/16/19 07:59 Intake & Output 10/15/19 10/16/19 10/17/19 06:59 06:59 06:59 Intake Total 1018 3956 Output Total 800 Balance 1018 3156 Weight 91.3 kg 95.8 kg General appearance: PRESENT: cooperative, mild distress - Mild to moderate discomfort, obese, well-developed, other - Extremely hard of hearing Head exam: PRESENT: atraumatic, normocephalic Eye exam: PRESENT: conjunctiva pink. ABSENT: scleral icterus Ear exam: PRESENT: normal external ear exam. ABSENT: bleeding, drainage Respiratory exam: PRESENT: clear to auscultation delon, prolonged expiratory phas, symmetrical, unlabored. ABSENT: rales, rhonchi, tachypnea, wheezes Cardiovascular exam: PRESENT: irregular rhythm, tachycardia GI/Abdominal exam: PRESENT: normal bowel sounds, soft. ABSENT: distended, guarding, tenderness Extremities exam: PRESENT: pedal edema Neurological exam: PRESENT: alert, awake, oriented to person, oriented to place, oriented to situation. ABSENT: CN II-XII grossly intact - Marked hearing loss Psychiatric exam: PRESENT: anxious - Regarding pain medicine and Pepsi. ABSENT: agitated Results Laboratory Results: 10/16/19 05:46 10/16/19 05:46 10/15/19 10/15/19 10/16/19 11:22 16:16 05:46 WBC 8.3 RBC 4.13 Hgb 13.4 Hct 41.2 MCV 100 H MCH 32.3 MCHC 32.4 RDW 14.2 H Plt Count 152 Sodium Potassium Chloride Carbon Dioxide Anion Gap BUN Creatinine Est GFR ( Amer) Glucose Lactic Acid 1.4 1.1 Calcium Magnesium TSH 10/16/19 10/16/19 05:46 05:46 WBC RBC Hgb Hct MCV MCH MCHC RDW Plt Count Sodium 136.7 L Potassium 4.8 Chloride 100 Carbon Dioxide 31 H Anion Gap 6 BUN 29 H Creatinine 0.57 Est GFR ( Amer) > 60 Glucose 107 Lactic Acid Calcium 8.4 Magnesium 1.9 TSH 0.65 10/14/19 22:45 Troponin I < 0.012 Impressions: Head CT 10/14/19 22:28 IMPRESSION: No acute intracranial abnormality TECHNICAL DOCUMENTATION: Quality ID # 436: Final reports with documentation of one or more dose reduction techniques (e.g., Automated exposure control, adjustment of the mA and/or kV according to patient size, use of iterative reconstruction technique) copyright 2011 [employer]- All Rights Reserved Chest X-Ray 10/14/19 22:32 IMPRESSION: Clear lungs. Assessment and Plan - Diagnosis (1) Opioid intoxication delirium, acute, hypoactive Is this a current diagnosis for this admission?: Yes Plan: 10/15/2019 The patient required Narcan last night. She is requesting pain medication today. As discussed with the nurse we will utilize less medication but still provide some to avoid withdrawal. It is likely that when she is more comfortable her heart rate will also improve. 10/16/2019 The patient is having significant pain. 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 On 2 separate occasions in the room she expressed that she still wants her pain medications increased. I did have a long discussion with her son then and in fact he appreciates the fact that this could create increased breathing problems but he does not want to see his mother suffer either and so we will make a small increase in her pain medication while monitoring her respiratory status. (2) Atrial fibrillation with RVR Is this a current diagnosis for this admission?: Yes Plan: 10/15/2019 Convert to oral diltiazem once her pulse is stable 10/16/2019 Currently on oral diltiazem and metoprolol. Still with some tachycardia. I will add digoxin. (3) Acute on chronic respiratory failure with hypoxia and hypercapnia Is this a current diagnosis for this admission?: Yes Plan: 10/15/2019 Likely induced from the narcotics. Continue to monitor. 10/16/2019 Patient appears back at her baseline. We will continue her current regimen and oxygen supplementation. She is at her baseline 3 L/min oxygen supplement. In addition, she is kyphotic and this certainly could add a restrictive component to her respiratory failure. (4) COPD (chronic obstructive pulmonary disease) Qualifiers: COPD type: unspecified COPD Qualified Code(s): J44.9 - Chronic obstructive pulmonary disease, unspecified Is this a current diagnosis for this admission?: Yes Plan: 10/15/2019 Supplement oxygen to keep oxygen saturation between 90 and 94%. Nebulizer treatments. 10/16/2019 The patient's medication list does not show any inhaler or nebulizer treatments at home. I will reach out to her son again to double check. 1 to make sure that when she discharges it is on the appropriate therapy. (5) Diabetes mellitus type 2 in nonobese Is this a current diagnosis for this admission?: Yes Plan: 10/15/2019 Metformin the same. Continue Accu-Cheks and sliding scale. Will eventually need to resume Lantus. 10/16/2019 I spoke to the patient's son Omid. Normally she gets Lantus 45 units twice a day and they let her drink all of the regular soda that she wants. I doubt she follows a type of diabetic diet. We again went over the risks versus benefits just like we did with her breathing. I will let her have one soda with meals. The nurse is aware. We will likely add back some Lantus. Without unnecessary sugars she would not require those high doses of Lantus. (6) Hypertension Qualifiers: Hypertension type: essential hypertension Qualified Code(s): I10 - Essential (primary) hypertension Is this a current diagnosis for this admission?: Yes Plan: 10/15/2019 Blood pressure has been on the low side. As the heart rate stabilizes this will improve that we will be able to resume his other medications. 10/16/2019 Because the blood pressures have been somewhat limiting with regard to her antiarrhythmic medications. I have added low-dose midodrine. As the blood pressure increases I will be able to utilize more calcium channel roxie. Vivi use of her COPD I would like to try to minimize or eliminate all beta-blockers. (7) Hyperlipidemia Qualifiers: Hyperlipidemia type: unspecified Qualified Code(s): E78.5 - Hyperlipidemia, unspecified Is this a current diagnosis for this admission?: Yes Plan: 10/15/2019 Continue statin therapy (8) Tobacco dependence Is this a current diagnosis for this admission?: Yes Plan: 10/15/2019 Nicotine patch - Plan Summary Summary: Patient will be admitted to [facility] where she received routine supportive and symptomatic cares. She has been treated with a diltiazem infusion for control of her rapid ventricular response. She will receive IV fluids using lactated Ringer's solution continuous infusion at 167 mL/h x 12 hours. Neurochecks have been performed every 4 hours. The patient will be on telemetry monitoring in [facility]. CBCs, metabolic profiles, magnesium levels and additional laboratory and/or radiographic evaluations will be obtained as appropriate. Serial cardiac enzymes will be performed. Serial lactic acid levels will be performed. Before meals and at bedtime Accu-Cheks will be performed with sliding scale insulin for hyperglycemia and a hypoglycemic protocol in place. 10/16/2019 I was able to reach out and telephone the patient's son then. He was very helpful in providing information. The patient is under the impression that her hearing aid was lost in the emergency department but her son assured me that it is at home. He states that she put superglue on it and it is no longer working and they will need to get a new hearing aid. In addition he did inform me that they do allow her regular soda all day long. It is likely she is not on a diabetic diet. She gets Lantus 45 units twice a day and his tends to give her the short acting insulin but he is afraid of it and so he does not. We spent quite a bit of time reviewing the risks versus benefit of increasing her pain medications. I also brought up the fact that if we make her comfortable we risk respiratory failure. I reviewed the fact that if she were ever intubated it would be highly unlikely that she would get off the ventilator. He is in agreement with increasing her pain medications slowly and despite the increased risk I told him I would order regular soda with meals. - Time Time Spent with patient: 35 or more minutes - Approximately 50 minutes was spent during this encounter. More than half of it was reviewing care with the patient's son. This is on the telephone because of COVID visiting restrictions. In addition because of the patient's significant hearing loss all communication must be written on a white board. This added a significant amount of time to the encounter. Medications reviewed and adjusted accordingly: Yes Anticipated discharge: Home with Homehealth
[2019-10-16] MEDS ORDERED: FUROSEMIDE 20 MG TABLET PO SCH (10:00)
[2019-10-16] MEDS: DOCUSATE SODIUM 100 MG CAPSULE PO SCH ×2 (10:38→17:22)
[2019-10-16] MEDS: SERTRALINE HCL 50 MG TABLET PO SCH (10:38)
[2019-10-16] MEDS: METOPROLOL SUCCINATE 25 MG TAB.SR.24H PO SCH ×2 (10:40→21:40)
[2019-10-16] MEDS: DILTIAZEM HCL 120 MG CAP.SR.24H PO SCH ×2 (10:40→21:40)
[2019-10-16] MEDS: FAMOTIDINE INJ/PF 20 MG/2 ML SDV IV SCH ×2 (10:40→21:40)
[2019-10-16] MEDS: MIDODRINE HCL 5 MG TABLET PO SCH ×3 (10:40→17:22)
[2019-10-16] MEDS: APIXABAN 2.5 MG TABLET PO SCH ×2 (10:41→17:22)
[2019-10-16] MEDS: BUSPIRONE HCL 10 MG TABLET PO SCH ×2 (10:41→21:40)
[2019-10-16] MEDS: FUROSEMIDE 20 MG TABLET PO SCH ×2 (14:44→21:40)
[2019-10-16] MEDS ORDERED: DIGOXIN INJ 0.5 MG/2 ML AMPULE IV ONE (16:15)
[2019-10-16] MEDS ORDERED: INSULIN GLARGINE,HUM.REC.ANLOG 1,000 UNIT/10 ML VIAL (PYX) SUBCUT PRN (16:56)
[2019-10-16] MEDS: LEVALBUTEROL HCL NEB 0.63 MG/3 ML AMPUL NEB PRN (20:12)
[2019-10-16] MEDS: ATORVASTATIN CALCIUM 40 MG TABLET PO SCH (21:40)
[2019-10-16] MEDS: INSULIN GLARGINE,HUM.REC.ANLOG 1,000 UNIT/10 ML VIAL SUBCUT SCH (22:33)
[2019-10-16] MEDS: INSULIN REG, HUMAN 100 UNIT/ML 3 ML VIAL (PYX) SUBCUT PRN (22:34)
[2019-10-17] MEDS: LEVALBUTEROL HCL NEB 1.25 MG/3 ML AMPUL NEB SCH ×3 (00:23→16:37)
[2019-10-17] MEDS: IPRATROPIUM BROMIDE 0.02% NEB 0.5 MG/2.5 ML AMPUL NEB SCH ×3 (00:23→16:37)
[2019-10-17] MEDS: OXYCODONE-ACETAMINOPHEN 5-325 MG TABLET PO PRN ×3 (02:50→21:08)
[2019-10-17] MEDS: FUROSEMIDE 20 MG TABLET PO SCH ×3 (06:58→21:08)
[2019-10-17] MEDS: GABAPENTIN 400 MG CAPSULE PO SCH ×3 (06:58→21:08)
[2019-10-17 07:31] LABS: HEMATOCRIT 38.4 % (36.0-47.0); HEMOGLOBIN 12.6 g/dL (12.0-15.5); MEAN CORPUSCULAR HEMOGLOBIN 32.8 pg (27.0-33.4); MEAN CORPUSCULAR HGB CONC 32.8 g/dL (32.0-36.0); MEAN CORPUSCULAR VOLUME 100 fl (80-97); PLATELET COUNT 139 10^3/uL (150-450); RED BLOOD COUNT 3.84 10^6/uL (3.72-5.28); WHITE BLOOD COUNT 7.3 10^3/uL (4.0-10.5)
[2019-10-17] MEDS: BUDESONIDE NEB 0.5 MG/2 ML AMPUL NEB SCH ×2 (07:54→20:08)
[2019-10-17] MEDS: METFORMIN HCL 500 MG TABLET PO SCH ×2 (09:33→16:51)
[2019-10-17] MEDS: BUSPIRONE HCL 10 MG TABLET PO SCH ×2 (09:34→21:08)
[2019-10-17] MEDS: MIDODRINE HCL 5 MG TABLET PO SCH ×3 (09:34→17:00)
[2019-10-17] MEDS: DIGOXIN 0.125 MG TABLET PO SCH (09:34)
[2019-10-17] MEDS: DOCUSATE SODIUM 100 MG CAPSULE PO SCH ×2 (09:34→17:00)
[2019-10-17] MEDS: APIXABAN 2.5 MG TABLET PO SCH ×2 (09:34→17:00)
[2019-10-17] MEDS: METOPROLOL SUCCINATE 25 MG TAB.SR.24H PO SCH ×2 (09:34→21:09)
[2019-10-17] MEDS: FAMOTIDINE INJ/PF 20 MG/2 ML SDV IV SCH (09:34)
[2019-10-17] MEDS: SERTRALINE HCL 50 MG TABLET PO SCH (09:35)
[2019-10-17] MEDS: DILTIAZEM HCL 120 MG CAP.SR.24H PO SCH ×2 (09:35→21:08)
[2019-10-17] MEDS: INSULIN GLARGINE,HUM.REC.ANLOG 1,000 UNIT/10 ML VIAL SUBCUT SCH ×2 (09:54→21:36)
--- NOTE | 2019-10-17 09:56 | PDOC PROGRESS REPORT ---
Subjective Progress Note for:: 10/17/19 Subjective:: He is still having pain but her blood pressure is limiting the amount of medication. I did add digoxin and midodrine. I believe that with better rate control and in combination with midodrine her pressure will go up. She is still requesting more pain medication. Reason For Visit: AFIB WITH RVR,OPIOID INTOXICATION WITH DELIRIUM Physical Exam Vital Signs: Temp Pulse Resp BP Pulse Ox 97.8 F 112 H 16 89/73 L 99 10/17/19 08:21 10/17/19 08:21 10/17/19 08:21 10/17/19 08:21 10/17/19 08:21 Intake & Output 10/16/19 10/17/19 10/18/19 06:59 06:59 06:59 Intake Total 3956 2651 Output Total 800 500 Balance 3156 2151 Weight 95.8 kg 96.3 kg General appearance: PRESENT: cooperative - Through writing messages on the white board since she has severe hearing loss, mild distress, well-developed Head exam: PRESENT: atraumatic, normocephalic Eye exam: PRESENT: conjunctiva pink. ABSENT: scleral icterus Ear exam: PRESENT: normal external ear exam. ABSENT: bleeding, drainage Mouth exam: PRESENT: moist Neck exam: ABSENT: carotid bruit, JVD, lymphadenopathy Respiratory exam: PRESENT: clear to auscultation delon, symmetrical, unlabored. ABSENT: accessory muscle use, tachypnea, wheezes Cardiovascular exam: PRESENT: irregular rhythm. ABSENT: bradycardia, diastolic murmur, systolic murmur GI/Abdominal exam: PRESENT: normal bowel sounds, soft. ABSENT: distended, guarding, tenderness Rectal exam: PRESENT: deferred Gentrourinary exam: ABSENT: indwelling catheter Extremities exam: PRESENT: pedal edema Neurological exam: PRESENT: alert, awake, oriented to person, oriented to place, oriented to situation, CN II-XII grossly intact - Severe hearing loss Psychiatric exam: PRESENT: anxious. ABSENT: agitated Focused psych exam: ABSENT: delusional, paranoid, restlessness Skin exam: PRESENT: dry, normal color, warm, other - Rhinophyma. ABSENT: rash Results Laboratory Results: 10/17/19 06:50 10/16/19 05:46 10/17/19 10/17/19 06:50 06:50 WBC 7.3 RBC 3.84 Hgb 12.6 Hct 38.4 MCV 100 H MCH 32.8 MCHC 32.8 RDW 14.0 Plt Count 139 L Magnesium 1.7 10/14/19 22:45 Troponin I < 0.012 Impressions: Head CT 10/14/19 22:28 IMPRESSION: No acute intracranial abnormality TECHNICAL DOCUMENTATION: Quality ID # 436: Final reports with documentation of one or more dose reduction techniques (e.g., Automated exposure control, adjustment of the mA and/or kV according to patient size, use of iterative reconstruction technique) copyright 2011 [employer]- All Rights Reserved Chest X-Ray 10/14/19 22:32 IMPRESSION: Clear lungs. Assessment and Plan - Diagnosis (1) Opioid intoxication delirium, acute, hypoactive Is this a current diagnosis for this admission?: Yes Plan: 10/15/2019 The patient required Narcan last night. She is requesting pain medication today. As discussed with the nurse we will utilize less medication but still provide some to avoid withdrawal. It is likely that when she is more comfortable her heart rate will also improve. 10/16/2019 The patient is having significant pain. 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 On 2 separate occasions in the room she expressed that she still wants her pain medications increased. I did have a long discussion with her son then and in fact he appreciates the fact that this could create increased breathing problems but he does not want to see his mother suffer either and so we will make a small increase in her pain medication while monitoring her respiratory status. 10/17/2019 Patient is no longer delirious. Gradually increasing pain medications as vital signs will allow. (2) Atrial fibrillation with RVR Is this a current diagnosis for this admission?: Yes Plan: 10/15/2019 Convert to oral diltiazem once her pulse is stable 10/16/2019 Currently on oral diltiazem and metoprolol. Still with some tachycardia. I will add digoxin. 10/17/2019 Heart rate improving with digoxin. Blood pressure seems to be responding as well. (3) Acute on chronic respiratory failure with hypoxia and hypercapnia Is this a current diagnosis for this admission?: Yes Plan: 10/15/2019 Likely induced from the narcotics. Continue to monitor. 10/16/2019 Patient appears back at her baseline. We will continue her current regimen and oxygen supplementation. She is at her baseline 3 L/min oxygen supplement. In addition, she is kyphotic and this certainly could add a restrictive component to her respiratory failure. 10/17/2019 She normally wears 3 L nasal cannula at home. She is actually down to 2.5. We will continue her current regimen. She may need an inhaler or nebulizer at home continue current treatment (4) COPD (chronic obstructive pulmonary disease) Qualifiers: COPD type: unspecified COPD Qualified Code(s): J44.9 - Chronic obstructive pulmonary disease, unspecified Is this a current diagnosis for this admission?: Yes Plan: 10/15/2019 Supplement oxygen to keep oxygen saturation between 90 and 94%. Nebulizer treatments. 10/16/2019 The patient's medication list does not show any inhaler or nebulizer treatments at home. I will reach out to her son again to double check. 1 to make sure that when she discharges it is on the appropriate therapy. 10/17/2019 I believe she will benefit from a metered-dose inhaler with the chamber to administer medications at home. She would likely benefit from having a nebulizer as well. (5) Diabetes mellitus type 2 in nonobese Is this a current diagnosis for this admission?: Yes Plan: 10/15/2019 Metformin the same. Continue Accu-Cheks and sliding scale. Will eventually need to resume Lantus. 10/16/2019 I spoke to the patient's son Omid. Normally she gets Lantus 45 units twice a day and they let her drink all of the regular soda that she wants. I doubt she follows a type of diabetic diet. We again went over the risks versus benefits just like we did with her breathing. I will let her have one soda with meals. The nurse is aware. We will likely add back some Lantus. Without unnecessary sugars she would not require those high doses of Lantus. 10/17/2019 It is no surprise that the patient probably needs any Lantus compared to the 45 units twice daily that she gets at home. Evidently she is able to drink nondiet Pepsi Cola all day long. I doubt she follows any type of diabetic diet either. She will need to return to higher doses of Lantus if she continues with her dietary noncompliance at home. (6) Hypertension Qualifiers: Hypertension type: essential hypertension Qualified Code(s): I10 - Essential (primary) hypertension Is this a current diagnosis for this admission?: Yes Plan: 10/15/2019 Blood pressure has been on the low side. As the heart rate stabilizes this will improve that we will be able to resume his other medications. 10/16/2019 Because the blood pressures have been somewhat limiting with regard to her antiarrhythmic medications. I have added low-dose midodrine. As the blood pressure increases I will be able to utilize more calcium channel roxie. Because of her COPD I would like to try to minimize or eliminate all beta- blockers. 10/17/2019 Blood pressures are still on the low side. I will increase the midodrine. We will continue to monitor closely. Her pulse rate is still above the desired range. I will continue to make medication adjustments. (7) Hyperlipidemia Qualifiers: Hyperlipidemia type: unspecified Qualified Code(s): E78.5 - Hyperlipidemia, unspecified Is this a current diagnosis for this admission?: Yes Plan: 10/15/2019 Continue statin therapy (8) Tobacco dependence Is this a current diagnosis for this admission?: Yes Plan: 10/15/2019 Nicotine patch - Plan Summary Summary: Patient will be admitted to [facility] where she received routine supportive and symptomatic cares. She has been treated with a diltiazem infusion for control of her rapid ventricular response. She will receive IV fluids using lactated Ringer's solution continuous infusion at 167 mL/h x 12 hours. Neurochecks have been performed every 4 hours. The patient will be on telemetry monitoring in [facility]. CBCs, metabolic profiles, magnesium levels and additional laboratory and/or radiographic evaluations will be obtained as appropriate. Serial cardiac enzymes will be performed. Serial lactic acid levels will be performed. Before meals and at bedtime Accu-Cheks will be performed with sliding scale insulin for hyperglycemia and a hypoglycemic protocol in place. 10/16/2019 I was able to reach out and telephone the patient's son then. He was very helpful in providing information. The patient is under the impression that her hearing aid was lost in the emergency department but her son assured me that it is at home. He states that she put superglue on it and it is no longer working and they will need to get a new hearing aid. In addition he did inform me that they do allow her regular soda all day long. It is likely she is not on a alfredo betic diet. She gets Lantus 45 units twice a day and his tends to give her the short acting insulin but he is afraid of it and so he does not. We spent quite a bit of time reviewing the risks versus benefit of increasing her pain medications. I also brought up the fact that if we make her comfortable we risk respiratory failure. I reviewed the fact that if she were ever intubated it would be highly unlikely that she would get off the ventilator. He is in agreement with increasing her pain medications slowly and despite the increased risk I told him I would order regular soda with meals. - Time Time Spent with patient: 15-24 minutes - Since everything must be written on the white board the encounter take much longer. Medications reviewed and adjusted accordingly: Yes Anticipated discharge: Home Within: within 48 hours
[2019-10-17] MEDS ORDERED: ONDANSETRON HCL INJ/PF 4 MG/2 ML SDV IV PRN (15:00)
[2019-10-17] MEDS: INSULIN REG, HUMAN 100 UNIT/ML 3 ML VIAL (PYX) SUBCUT PRN (16:49)
[2019-10-17] MEDS: ATORVASTATIN CALCIUM 40 MG TABLET PO SCH (21:08)
[2019-10-17] MEDS: FAMOTIDINE 20 MG TABLET PO SCH (21:09)
[2019-10-18] MEDS: INSULIN REG, HUMAN 100 UNIT/ML 3 ML VIAL (PYX) SUBCUT PRN ×2 (00:33→12:02)
[2019-10-18] MEDS: LEVALBUTEROL HCL NEB 1.25 MG/3 ML AMPUL NEB SCH ×2 (00:52→08:37)
[2019-10-18] MEDS: IPRATROPIUM BROMIDE 0.02% NEB 0.5 MG/2.5 ML AMPUL NEB SCH ×2 (00:52→08:37)
[2019-10-18] MEDS: OXYCODONE-ACETAMINOPHEN 5-325 MG TABLET PO PRN ×2 (01:09→10:07)
[2019-10-18 05:56] LABS: HEMATOCRIT 38.8 % (36.0-47.0); HEMOGLOBIN 12.6 g/dL (12.0-15.5); MEAN CORPUSCULAR HEMOGLOBIN 32.9 pg (27.0-33.4); MEAN CORPUSCULAR HGB CONC 32.6 g/dL (32.0-36.0); MEAN CORPUSCULAR VOLUME 101 fl (80-97); PLATELET COUNT 143 10^3/uL (150-450); RED BLOOD COUNT 3.84 10^6/uL (3.72-5.28); RED CELL DISTRIBUTION WIDTH 14.1 % (11.5-14.0); WHITE BLOOD COUNT 7.3 10^3/uL (4.0-10.5)
[2019-10-18] MEDS: FUROSEMIDE 20 MG TABLET PO SCH (06:04)
[2019-10-18] MEDS: GABAPENTIN 400 MG CAPSULE PO SCH (06:08)
[2019-10-18] MEDS: METFORMIN HCL 500 MG TABLET PO SCH (08:08)
[2019-10-18] MEDS: BUDESONIDE NEB 0.5 MG/2 ML AMPUL NEB SCH (08:37)
[2019-10-18] MEDS: BUSPIRONE HCL 10 MG TABLET PO SCH (09:51)
[2019-10-18] MEDS: DOCUSATE SODIUM 100 MG CAPSULE PO SCH (09:51)
[2019-10-18] MEDS: APIXABAN 2.5 MG TABLET PO SCH (09:51)
[2019-10-18] MEDS: SERTRALINE HCL 50 MG TABLET PO SCH (09:51)
[2019-10-18] MEDS: MIDODRINE HCL 5 MG TABLET PO SCH (09:51)
[2019-10-18] MEDS: FAMOTIDINE 20 MG TABLET PO SCH (09:51)
[2019-10-18] MEDS: METOPROLOL SUCCINATE 25 MG TAB.SR.24H PO SCH (09:51)
[2019-10-18] MEDS: DILTIAZEM HCL 120 MG CAP.SR.24H PO SCH (09:51)
[2019-10-18] MEDS: DIGOXIN 0.125 MG TABLET PO SCH (09:51)
[2019-10-18] MEDS: INSULIN GLARGINE,HUM.REC.ANLOG 1,000 UNIT/10 ML VIAL SUBCUT SCH (09:52)
--- NOTE | 2019-10-18 09:54 | PDOC DISCHARGE SUMMARY ---
Impression - Admit/DC Date/PCP Admission Date/Primary Care Provider: 10/15/19 03:52 SHERRIE CADET PA-C Discharge Date: 10/18/19 - Discharge Diagnosis (1) Opioid intoxication delirium, acute, hypoactive Is this a current diagnosis for this admission?: Yes (2) Atrial fibrillation with RVR Is this a current diagnosis for this admission?: Yes (3) Acute on chronic respiratory failure with hypoxia and hypercapnia Is this a current diagnosis for this admission?: Yes (4) COPD (chronic obstructive pulmonary disease) Is this a current diagnosis for this admission?: Yes (5) Diabetes mellitus type 2 in nonobese Is this a current diagnosis for this admission?: Yes (6) Hypertension Is this a current diagnosis for this admission?: Yes (7) Hyperlipidemia Is this a current diagnosis for this admission?: Yes (8) Tobacco dependence Is this a current diagnosis for this admission?: Yes - Assessment Summary: Patient will be admitted to [facility] [place] where she received routine supportive and symptomatic cares. She has been treated with a diltiazem infusion for control of her rapid ventricular response. She will receive IV fluids using lactated Ringer's solution continuous infusion at 167 mL/h x 12 hours. Neurochecks have been performed every 4 hours. The patient will be on telemetry monitoring in [facility] [place]. CBCs, metabolic profiles, magnesium levels and additional laboratory and/or radiographic evaluations will be obtained as appropriate. Serial cardiac enzymes will be performed. Serial lactic acid levels will be performed. Before meals and at bedtime Accu-Cheks will be performed with sliding scale insulin for hyperglycemia and a hypoglycemic protocol in place. 10/16/2019 I was able to reach out and telephone the patient's son then. He was very helpful in providing information. The patient is under the impression that her hearing aid was lost in the emergency department but her son assured me that it is at home. He states that she put superglue on it and it is no longer working and they will need to get a new hearing aid. In addition he did inform me that they do allow her regular soda all day long. It is likely she is not on a diabetic diet. She gets Lantus 45 units twice a day and his tends to give her the short acting insulin but he is afraid of it and so he does not. We spent quite a bit of time reviewing the risks versus benefit of increasing her pain medications. I also brought up the fact that if we make her comfortable we risk respiratory failure. I reviewed the fact that if she were ever intubated it would be highly unlikely that she would get off the ventilator. He is in agreement with increasing her pain medications slowly and despite the increased risk I told him I would order regular soda with meals. - Additional Information Resuscitation Status: Full Code Discharge Diet: Cardiac, Diabetic Discharge Activity: Activity As Tolerated, Balance Activity w/Rest Referrals: SHERRIE CADET PA-C [Primary Care Provider] - 10/25/19 1:45 pm Prescriptions: Digoxin [Lanoxin 0.125 mg Tablet] 0.125 mg PO DAILY #14 tablet Midodrine HCl [Proamatine 5 mg Tablet] 5 mg PO TID #42 tablet Budesonide/Formoterol Fumarate [Symbicort Hfa 80-4.5 Mcg Inhaler 6.9 gm] 2 puff IH BID #1 inhaler Home Medications: Metformin HCl [Metformin HCl ER] 500 mg PO QAM 05/28/18 Oxycodone HCl/Acetaminophen [Percocet 10-325 mg Tablet] 1 each PO QIDP PRN 05/28/18 Atorvastatin Calcium [Lipitor 40 mg Tablet] 40 mg PO DAILY 05/29/18 Furosemide [Lasix 20 mg Tablet] 40 mg PO DAILY MDD 40 MG 05/29/18 Apixaban [Eliquis 5 mg Tablet] 5 mg PO BID #60 tablet 06/01/18 Diltiazem HCl [Diltiazem 24Hr ER (Cd)] 240 mg PO DAILY #30 cap.er.24h 06/01/18 Gabapentin [Neurontin 400 mg Capsule] 400 mg PO Q8 06/13/19 Sertraline HCl 50 mg PO DAILY 06/13/19 Buspirone HCl [Buspar 10 mg Tablet] 10 mg PO Q12 #60 tablet 06/17/19 Famotidine [Pepcid] 20 mg PO BID 07/21/19 Metoprolol Tartrate [Lopressor 25 mg Tablet] 25 mg PO Q12 07/21/19 Insulin Aspart [Novolog Flexpen] 5 units SUBCUT TID 10/15/19 Insulin Glargine,Hum.rec.anlog [Lantus (Pyxis) Insulin 100 Unit/1 ml 10 ml] 46 units SUBCUT BID 10/15/19 Apixaban [Eliquis 2.5 mg Tablet] 2.5 mg PO BID tablet 10/18/19 Budesonide/Formoterol Fumarate [Symbicort Hfa 80-4.5 Mcg Inhaler 6.9 gm] 2 puff IH BID #1 inhaler 10/18/19 Buspirone HCl [Buspar 10 mg Tablet] 10 mg PO Q12 tablet 10/18/19 Digoxin [Lanoxin 0.125 mg Tablet] 0.125 mg PO DAILY #14 tablet 10/18/19 Famotidine [Pepcid 20 mg Tablet] 20 mg PO Q12 tablet 10/18/19 Gabapentin [Neurontin 400 mg Capsule] 400 mg PO Q8 capsule 10/18/19 Metoprolol Succinate [Toprol Xl 25 mg Tab.sr] 25 mg PO Q12 tab.sr.24h 10/18/19 Midodrine HCl [Proamatine 5 mg Tablet] 5 mg PO TID #42 tablet 10/18/19 Nicotine [Nicoderm 21 mg/24 Hr Transderm Patch] 1 each TD DAILYP PRN patch.td24 10/18/19 History of Present Illiness History of Present Illness: KIRSTIE GARCIA is a 84 year old female who presented to the emergency room via EMS from her home with acute altered mental status. Patient's son reports that he found his mother somnolent at home and he would not respond to verbal or physical stimuli. He called EMS and upon their arrival they found the patient unresponsive and administered 3 mg of Narcan intranasally resulting in immediate alertness which gradually faded back to somnolence over the course of the next 30 to 60 minutes. The patient was arousable in the emergency room but continued to be very confused and unable to answer questions appropriately or contribute historical data to her care. Patient is noted to be treated by pain management with Percocet for chronic back pain. In the emergency room the patient's evaluation was essentially unremarkable with the exception of the finding of atrial fibrillation with rapid ventricular response. This was treated with IV diltiazem followed by diltiazem infusion and her rate was fairly well controlled at the time she was admitted to [facility] [place] for further evaluation and treatment. Hospital Course Hospital Course: (1) Opioid intoxication delirium, acute, hypoactive Is this a current diagnosis for this admission?: Yes Plan: 10/15/2019 The patient required Narcan last night. She is requesting pain medication today. As discussed with the nurse we will utilize less medication but still provide some to avoid withdrawal. It is likely that when she is more comfortable her heart rate will also improve. 10/16/2019 The patient is having significant pain. 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 On 2 separate occasions in the room she expressed that she still wants her pain medications increased. I did have a long discussion with her son then and in fact he appreciates the fact that this could create increased breathing problems but he does not want to see his mother suffer either and so we will make a small increase in her pain medication while monitoring her respiratory status. 10/17/2019 Patient is no longer delirious. Gradually increasing pain medications as vital signs will allow. (2) Atrial fibrillation with RVR Is this a current diagnosis for this admission?: Yes Plan: 10/15/2019 Convert to oral diltiazem once her pulse is stable 10/16/2019 Currently on oral diltiazem and metoprolol. Still with some tachycardia. I will add digoxin. 10/17/2019 Heart rate improving with digoxin. Blood pressure seems to be responding as well. (3) Acute on chronic respiratory failure with hypoxia and hypercapnia Is this a current diagnosis for this admission?: Yes Plan: 10/15/2019 Likely induced from the narcotics. Continue to monitor. 10/16/2019 Patient appears back at her baseline. We will continue her current regimen and oxygen supplementation. She is at her baseline 3 L/min oxygen supplement. In addition, she is kyphotic and this certainly could add a restrictive component to her respiratory failure. 10/17/2019 She normally wears 3 L nasal cannula at home. She is actually down to 2.5. We will continue her current regimen. She may need an inhaler or nebulizer at home continue current treatment (4) COPD (chronic obstructive pulmonary disease) Qualifiers: COPD type: unspecified COPD Qualified Code(s): J44.9 - Chronic obstructive pulmonary disease, unspecified Is this a current diagnosis for this admission?: Yes Plan: 10/15/2019 Supplement oxygen to keep oxygen saturation between 90 and 94%. Nebulizer treatments. 10/16/2019 The patient's medication list does not show any inhaler or nebulizer treatments at home. I will reach out to her son again to double check. 1 to make sure that when she discharges it is on the appropriate therapy. 10/17/2019 I believe she will benefit from a metered-dose inhaler with the chamber to administer medications at home. She would likely benefit from having a nebulizer as well. (5) Diabetes mellitus type 2 in nonobese Is this a current diagnosis for this admission?: Yes Plan: 10/15/2019 Metformin the same. Continue Accu-Cheks and sliding scale. Will eventually need to resume Lantus. 10/16/2019 I spoke to the patient's son Omid. Normally she gets Lantus 45 units twice a day and they let her drink all of the regular soda that she wants. I doubt she follows a type of diabetic diet. We again went over the risks versus benefits just like we did with her breathing. I will let her have one soda with meals. The nurse is aware. We will likely add back some Lantus. Without unnecessary sugars she would not require those high doses of Lantus. 10/17/2019 It is no surprise that the patient probably needs any Lantus compared to the 45 units twice daily that she gets at home. Evidently she is able to drink nondiet Pepsi Cola all day long. I doubt she follows any type of diabetic diet either. She will need to return to higher doses of Lantus if she continues with her dietary noncompliance at home. (6) Hypertension Qualifiers: Hypertension type: essential hypertension Qualified Code(s): I10 - Essential (primary) hypertension Is this a current diagnosis for this admission?: Yes Plan: 10/15/2019 Blood pressure has been on the low side. As the heart rate stabilizes this will improve that we will be able to resume his other medications. 10/16/2019 Because the blood pressures have been somewhat limiting with regard to her antiarrhythmic medications. I have added low-dose midodrine. As the blood pressure increases I will be able to utilize more calcium channel roxie. Because of her COPD I would like to try to minimize or eliminate all beta- blockers. 10/17/2019 Blood pressures are still on the low side. I will increase the midodrine. We will continue to monitor closely. Her pulse rate is still above the desired range. I will continue to make medication adjustments. (7) Hyperlipidemia Qualifiers: Hyperlipidemia type: unspecified Qualified Code(s): E78.5 - Hyperlipidemia, unspecified Is this a current diagnosis for this admission?: Yes Plan: 10/15/2019 Continue statin therapy (8) Tobacco dependence Is this a current diagnosis for this admission?: Yes Plan: 10/15/2019 Nicotine patch Physical Exam Vital Signs: Temp Pulse Resp BP Pulse Ox 97.5 F 89 18 120/79 94 10/18/19 07:15 10/18/19 08:40 10/18/19 08:40 10/18/19 07:15 10/18/19 08:40 Intake & Output 10/17/19 10/18/19 10/19/19 06:59 06:59 06:59 Intake Total 2651 562 Output Total 500 1000 Balance 2151 -438 Weight 96.3 kg 98.2 kg General appearance: PRESENT: no acute distress, cooperative Head exam: PRESENT: atraumatic, normocephalic Respiratory exam: PRESENT: clear to auscultation delon, symmetrical, unlabored. ABSENT: tachypnea, wheezes Cardiovascular exam: PRESENT: irregular rhythm GI/Abdominal exam: PRESENT: normal bowel sounds, soft. ABSENT: distended, guarding, tenderness Extremities exam: PRESENT: pedal edema Neurological exam: PRESENT: alert, awake, oriented to person, oriented to place, oriented to situation, CN II-XII grossly intact - Severe hearing loss. ABSENT: altered Psychiatric exam: PRESENT: appropriate affect. ABSENT: agitated, anxious Results Laboratory Results: WBC 7.3 10^3/uL (4.0-10.5) 10/18/19 05:29 RBC 3.84 10^6/uL (3.72-5.28) 10/18/19 05:29 Hgb 12.6 g/dL (12.0-15.5) 10/18/19 05:29 Hct 38.8 % (36.0-47.0) 10/18/19 05:29 MCV 101 fl (80-97) H 10/18/19 05:29 MCH 32.9 pg (27.0-33.4) 10/18/19 05:29 MCHC 32.6 g/dL (32.0-36.0) 10/18/19 05:29 RDW 14.1 % (11.5-14.0) H 10/18/19 05:29 Plt Count 143 10^3/uL (150-450) L 10/18/19 05:29 Lymph % (Auto) 26.9 % (13-45) 10/14/19 21:15 Roberts % (Auto) 8.6 % (3-13) 10/14/19 21:15 Eos % (Auto) 0.5 % (0-6) 10/14/19 21:15 Baso % (Auto) 0.6 % (0-2) 10/14/19 21:15 Absolute Neuts (auto) 4.8 10^3/uL (1.7-8.2) 10/14/19 21:15 Absolute Lymphs (auto) 2.0 10^3/uL (0.5-4.7) 10/14/19 21:15 Absolute Monos (auto) 0.6 10^3/uL (0.1-1.4) 10/14/19 21:15 Absolute Eos (auto) 0.0 10^3/uL (0.0-0.6) 10/14/19 21:15 Absolute Basos (auto) 0.0 10^3/uL (0.0-0.2) 10/14/19 21:15 Seg Neutrophils % 63.4 % (42-78) 10/14/19 21:15 Sodium 136.7 mmol/L (137-145) L 10/16/19 05:46 Potassium 4.8 mmol/L (3.6-5.0) 10/16/19 05:46 Chloride 100 mmol/L (98-107) 10/16/19 05:46 Carbon Dioxide 31 mmol/L (22-30) H 10/16/19 05:46 Anion Gap 6 (5-19) 10/16/19 05:46 BUN 29 mg/dL (7-20) H 10/16/19 05:46 Creatinine 0.57 mg/dL (0.52-1.25) 10/16/19 05:46 Est GFR ( Amer) > 60 (>60) 10/16/19 05:46 Est GFR (MDRD) Non-Af > 60 (>60) 10/16/19 05:46 Glucose 107 mg/dL (75-110) 10/16/19 05:46 POC Glucose 146 mg/dL (70-110) H 10/18/19 07:18 Lactic Acid 1.1 mmol/L (0.7-2.1) 10/15/19 16:16 Calcium 8.4 mg/dL (8.4-10.2) 10/16/19 05:46 Magnesium 1.7 mg/dL (1.6-2.3) 10/18/19 05:29 Total Bilirubin 0.4 mg/dL (0.2-1.3) 10/14/19 21:15 Direct Bilirubin 0.1 mg/dL (0.0-0.4) 10/14/19 21:15 Neonat Total Bilirubin Not Reportable 10/14/19 21:15 Neonat Direct Bilirubin Not Reportable 10/14/19 21:15 Neonat Indirect Bili Not Reportable 10/14/19 21:15 AST 34 U/L (14-36) 10/14/19 21:15 ALT 21 U/L (<35) 10/14/19 21:15 Alkaline Phosphatase 85 U/L (38-126) 10/14/19 21:15 Troponin I < 0.012 ng/mL 10/14/19 22:45 Total Protein 6.9 g/dL (6.3-8.2) 10/14/19 21:15 Albumin 4.0 g/dL (3.5-5.0) 10/14/19 21:15 TSH 0.65 uIU/mL (0.47-4.68) 10/16/19 05:46 Urine Color YELLOW 10/14/19 23:22 Urine Appearance CLEAR 10/14/19 23:22 Urine pH 5.0 (5.0-9.0) 10/14/19 23:22 Ur Specific Gilliam 1.008 10/14/19 23:22 Urine Protein NEGATIVE mg/dL (NEGATIVE) 10/14/19 23:22 Urine Glucose (UA) NEGATIVE mg/dL (NEGATIVE) 10/14/19 23:22 Urine Ketones NEGATIVE mg/dL (NEGATIVE) 10/14/19 23:22 Urine Blood NEGATIVE (NEGATIVE) 10/14/19 23:22 Urine Nitrite NEGATIVE (NEGATIVE) 10/14/19 23:22 Urine Bilirubin NEGATIVE (NEGATIVE) 10/14/19 23:22 Urine Urobilinogen NEGATIVE mg/dL (<2.0) 10/14/19 23:22 Ur Leukocyte Esterase NEGATIVE (NEGATIVE) 10/14/19 23:22 Urine WBC (Auto) 0 /HPF 10/14/19 23:22 U Hyaline Cast (Auto) 12 /LPF 10/14/19 23:22 Squamous Epi Cells Auto <1 /HPF 10/14/19 23:22 Urine Mucus (Auto) RARE /LPF 10/14/19 23:22 Urine Ascorbic Acid NEGATIVE (NEGATIVE) 10/14/19 23:22 Urine Opiates Screen UNCONFIRMED POSITIVE 10/14/19 23:22 Urine Methadone Screen NEGATIVE 10/14/19 23:22 Ur Barbiturates Screen NEGATIVE 10/14/19 23:22 Ur Phencyclidine Scrn NEGATIVE 10/14/19 23:22 Ur Amphetamines Screen NEGATIVE 10/14/19 23:22 U Benzodiazepines Scrn NEGATIVE 10/14/19 23:22 Urine Cocaine Screen NEGATIVE 10/14/19 23:22 U Marijuana (THC) Screen NEGATIVE 10/14/19 23:22 Serum Alcohol < 10 mg/dL (NONE DETECTED) 10/14/19 21:15 10/14/19 22:45 Troponin I < 0.012 Impressions: Head CT 10/14/19 22:28 IMPRESSION: No acute intracranial abnormality TECHNICAL DOCUMENTATION: Quality ID # [id number]: Final reports with documentation of one or more dose reduction techniques (e.g., Automated exposure control, adjustment of the mA and/or kV according to patient size, use of iterative reconstruction technique) copyright 2011 [employer] All Rights Reserved Chest X-Ray 10/14/19 22:32 IMPRESSION: Clear lungs. Plan Health Concerns: Smoker with COPD and dependence on opiates for chronic pain. She is also diabetic but drinks regular Pepsi all day long. Plan of Treatment: Continue new cardiac regimen of medications. Unfortunately the patient does not realize the potential negative effects of her pain medication on her breathing. In addition she clearly does not follow any compliance to diabetes at home. St ent of strict diet did give her 45 units of Lantus twice a day. Here in the hospital she was on less than 10 units twice a day with dietary restrictions in place. Goals: The patient's primary goals are pain relief and eating whatever she wants regardless of her diabetes Time Spent: Greater than 30 Minutes Stroke Is this a Stroke Patient?: No Acute Heart Failure - Is this a Heart Failure Patient?: No
[2019-10-18 12:48] VITALS: BP 129/74
== END 2019-10-18 13:10 | disposition home health service (06) | DRG 917 ==
LOC: ER 21:06 → EH 10-15 03:52 → 3W 10-15 05:12
PROVIDERS: ADMIT Emergency Medicine; ATTEND Hospitalist
DX: T40.2X1A Poisoning by other opioids, accidental (unintentional), initial encounter (principal); J96.22 Acute and chronic respiratory failure with hypercapnia; J96.21 Acute and chronic respiratory failure with hypoxia; C34.90 Malignant neoplasm of unspecified part of unspecified bronchus or lung; F11.921 Opioid use, unspecified with intoxication delirium; I48.91 Unspecified atrial fibrillation; J44.9 Chronic obstructive pulmonary disease, unspecified; E11.65 Type 2 diabetes mellitus with hyperglycemia; I50.9 Heart failure, unspecified; I11.0 Hypertensive heart disease with heart failure; E78.00 Pure hypercholesterolemia, unspecified; F17.210 Nicotine dependence, cigarettes, uncomplicated; I25.2 Old myocardial infarction; Y92.018 Other place in single-family (private) house as the place of occurrence of the external cause; Z86.718 Personal history of other venous thrombosis and embolism; Z79.84 Long term (current) use of oral hypoglycemic drugs; Z79.899 Other long term (current) drug therapy
CPT/HCPCS: 36415; 70450; 71045; 80048; 80053; 80307; 81001; 82962; 83605; 83735; 84443; 84484; 85025; 85027; 93005; 93010; 94640; 96365; 96366; 96376; 99291; 99292; J1160; J1815; J3490; J7030; J7040; J7120; J7614; S0028

== ENCOUNTER 2019-10-19 00:39 | Inpatient (IN) | payer MEDICARE, MEDICAID ==
--- NOTE | 2019-10-19 01:33 | ER Document Report ---
ED General - General Chief Complaint: Breathing Difficulty Stated Complaint: OTHER Time Seen by Provider: 10/19/19 01:11 Notes: Patient is an 84-year-old female that comes to the emergency department by EMS from home for chief complaint of difficulty breathing. Reportedly on arrival patient was in the upper 70s on oxygen saturation on her 3 L nasal cannula at home, patient was given DuoNeb, Solu-Medrol 125 mg, and placed on nonrebreather temporarily by EMS reportedly. Patient was then transitioned back to 3 L nasal cannula and has had normal oxygen saturation since that time. Patient has a history of COPD, continues to smoke, and is on 3 L nasal cannula at all times. Reportedly patient frequently takes his off and may not have been wearing it just prior to arrival although this is not certain. No fever reported, no vomiting reported. Reportedly patient did have high blood sugar and family gave insulin at home, on recheck here blood glucose in the 100s. Patient was also recently discharged to home from this hospital on 10/18/2019 (yesterday). Past medical history also includes atrial fibrillation, chronic respiratory failure, type 2 diabetes, hypertension, and chronic pain management with Percocet for chronic back pain. Patient is also very hard of hearing and taking a history is very difficult. EMS did report that patient is at baseline per family. Patient reportedly full code. TRAVEL OUTSIDE OF THE [place] IN LAST 30 DAYS: No - Related Data Allergies/Adverse Reactions: Iodine and Iodide Containing Produc Adverse Reaction (Verified 08/19/19 09:37) Home Medications: oxycodone, Diltiazem, Apixaba, Atorvastatin, Lasix,Metformin, Buspirone, Gabapentin, sertraline, Metoprolol, Digoxin,Insulin, Midodrine, pepcid Past Medical History - General Information source: Patient - Social History Smoking Status: Former Smoker Chew tobacco use (# tins/day): No Frequency of alcohol use: None Drug Abuse: None Lives with: Family Family History: Reviewed & Not Pertinent, CAD, COPD Patient has homicidal ideation: No - Past Medical History Cardiac Medical History: Reports: Hx Atrial Fibrillation, Hx Congestive Heart Failure, Hx Coronary Artery Disease, Hx DVT, Hx Heart Attack, Hx Hypercholesterolemia, Hx Hypertension, Hx Pulmonary Embolism Pulmonary Medical History: Reports: Hx Asthma, Hx COPD, Hx Pneumonia Neurological Medical History: Denies: Hx Seizures Endocrine Medical History: Reports: Hx Diabetes Mellitus Type 2. Denies: Hx Diabetes Mellitus Type 1, Hx Hyperthyroidism, Hx Hypothyroidism Renal/ Medical History: Denies: Hx Peritoneal Dialysis Malignancy Medical History: Reports: Hx Lung Cancer - Unknown stage or prognosis GI Medical History: Denies: Hx Cirrhosis, Hx Hepatitis Musculoskeletal Medical History: Denies Hx Arthritis, Denies Hx Fibromyalgia Skin Medical History: Denies Hx Eczema, Denies Hx Psoriasis Psychiatric Medical History: Denies: Hx Depression Infectious Medical History: Denies: Hx Hepatitis Past Surgical History: Reports: Hx Cardiac Surgery - Stents, Hx Cholecystectomy, Hx Hysterectomy, Hx Orthopedic Surgery - L foot - Immunizations Hx Diphtheria, Pertussis, Tetanus Vaccination: Yes Review of Systems - Review of Systems Constitutional: See HPI EENT: No symptoms reported Cardiovascular: No symptoms reported Respiratory: No symptoms reported Gastrointestinal: No symptoms reported Genitourinary: No symptoms reported Female Genitourinary: No symptoms reported Musculoskeletal: No symptoms reported Skin: No symptoms reported Hematologic/Lymphatic: No symptoms reported Neurological/Psychological: No symptoms reported Physical Exam - Vital signs Vitals: Temp Resp Pulse Ox 97.7 F 14 93 10/19/19 00:40 10/19/19 00:40 10/19/19 00:40 - Notes Notes: GENERAL: Alert, cooperative HEAD: Normocephalic, atraumatic. EYES: Pupils equal, round, and reactive to light. Extraocular movements intact. ENT: Oral mucosa moist, tongue midline. Oropharynx unremarkable. Airway patent. NECK: Full range of motion. Supple. Trachea midline. No lymphadenopathy. LUNGS: Rales heard bilaterally in the lower lung [place]. No wheezing. Patient is in mild respiratory distress with mild tachypnea and occasional grunting. HEART: Regular rate and rhythm. No murmur ABDOMEN: Soft, non-tender. Non-distended. EXTREMITIES: Moves all 4 extremities spontaneously. Mild 1+ pitting edema bilaterally. Distal pulses sensation intact, no cyanosis. BACK: no cervical, thoracic, lumbar midline tenderness. No saddle anesthesia, normal distal neurovascular exam. Moves all extremities in full range of motion. NEUROLOGICAL: Alert to person and place but difficulty getting clear event history. Normal speech. Very hard of hearing. Cranial nerves II through XII grossly intact. Strength 5/5 in all extremities. SKIN: Warm, dry, normal turgor. No rashes or lesions noted. Course - Re-evaluation Re-evalutation: Patient is alert and conversational although extremely hard of hearing and diff iculty getting history from. She does have mild tachypnea and borderline labored breathing. She is denying shortness of breath. She is able speak in full sentences. She has no obvious wheezing but does appear to have rales in both lower lung crawford on auscultation. 10/19/19 Patient has started to drown trend with her oxygen saturation despite being on 3 L nasal cannula. Patient will be placed on BiPAP. CBC does not show leukocytosis, chemistry nonspecific with potassium of 5.2, no noted EKG changes from this. Troponin is nonelevated. BNP is 3000 but this is lower than prior. Blood gas is concerning with pH of 7.2 and hypercarbia with CO2 of 98.2. This is worse than prior. Chest x-ray with new area in the right lower lobe that appears to be pneumonia, no bilateral changes noted suggesting CHF exacerbation. There is also an effusion. On reevaluation after initiating BiPAP patient is much improved, respiratory distress has resolved, patient is comfortable, hypoxia has resolved. Patient has been started on antibiotics for hospital-acquired pneumonia. Patient will require admission. Discussed with Dr. Wilson, hospitalist, patient admitted to [facility] for admission. - Vital Signs Vital signs: Temp Pulse Resp BP Pulse Ox 97.7 F 10 L 144/98 H 94 10/19/19 00:48 10/19/19 02:16 10/19/19 02:16 10/19/19 02:16 - Laboratory Result Diagrams: 10/19/19 01:20 10/19/19 01:20 Laboratory results interpreted by me: 10/19/19 10/19/19 10/19/19 01:20 01:20 01:20 MCV 100 H Lymph % (Auto) 10.5 L Seg Neutrophils % 80.5 H VBG pH VBG pCO2 VBG HCO3 Sodium 134.7 L Potassium 5.2 H Chloride 95 L Carbon Dioxide 35 H BUN 30 H Glucose 194 H NT-Pro-B Natriuret Pep 3000 H 10/19/19 01:20 MCV Lymph % (Auto) Seg Neutrophils % VBG pH 7.20 L VBG pCO2 92.8 H* VBG HCO3 35.1 H Sodium Potassium Chloride Carbon Dioxide BUN Glucose NT-Pro-B Natriuret Pep - EKG Interpretation by Me Additional EKG results interpreted by me: EKG shows atrial fibrillation at a rate of 97, QTc 483, no T wave inversions or ST segment changes in consecutive leads. Critical Care Note - Critical Care Note Total time excluding time spent on procedures (mins): 35 - Acute on chronic respiratory failure, pneumonia, respiratory distress, hypoxia Comments: Please allow 35 minutes of critical care time for evaluation and management of patient with acute on chronic respiratory failure. Patient with hypoxia and hypercarbia requiring BiPAP treatment, hospital-acquired pneumonia requiring antibiotics. Time spent reviewing previous records, time spent performing multiple re-evaluations. Time spent in consulting and admitting to the hospital. Discharge - Discharge Clinical Impression: Respiratory distress Acute on chronic respiratory failure Qualifiers: Respiratory failure complication: hypoxia and hypercapnia Qualified Code(s): J96.21 - Acute and chronic respiratory failure with hypoxia Pneumonia Qualifiers: Pneumonia type: due to unspecified organism Laterality: right Lung location: lower lobe of lung Qualified Code(s): J18.9 - Pneumonia, unspecified organism Condition: Stable Disposition: ADMITTED INPATIENT Admitting Provider: Steve (Hospitalist) Unit Admitted: [facility]
[2019-10-19 01:35] LABS: ABSOLUTE BASOPHILS # (AUTO) 0.1 10^3/uL (0.0-0.2); ABSOLUTE MONOCYTES (AUTO) 0.8 10^3/uL (0.1-1.4); ABSOLUTE NEUT (AUTO) 7.7 10^3/uL (1.7-8.2); BASOPHILS % (AUTO) 0.5 % (0-2); EOSINOPHILS % (AUTO) 0.1 % (0-6); HEMATOCRIT 40.8 % (36.0-47.0); HEMOGLOBIN 13.5 g/dL (12.0-15.5); LYMPHOCYTES % (AUTO) 10.5 % (13-45); MEAN CORPUSCULAR HGB CONC 33.1 g/dL (32.0-36.0); MEAN CORPUSCULAR VOLUME 100 fl (80-97); MONOCYTES % (AUTO) 8.4 % (3-13); PLATELET COUNT 162 10^3/uL (150-450); RED BLOOD COUNT 4.09 10^6/uL (3.72-5.28); RED CELL DISTRIBUTION WIDTH 13.6 % (11.5-14.0); SEGMENTED NEUTROPHILS % (AUTO) 80.5 % (42-78); TOTAL CELLS COUNTED % (AUTO) 100 %; VENOUS BLOOD BASE EXCESS 3.2 mmol/L; VENOUS BLOOD HCO3 35.1 mmol/L (20-32); VENOUS BLOOD PH 7.2 (7.30-7.42); WHITE BLOOD COUNT 9.6 10^3/uL (4.0-10.5)
[2019-10-19 01:37] LABS: VENOUS BLOOD PCO2 92.8 mmHg (35-63)
[2019-10-19 01:51] LABS: ALKALINE PHOSPHATASE 69 U/L (38-126); ASPARTATE AMINO TRANSFERASE 24 U/L (14-36); BILIRUBIN,DIRECT 0.1 mg/dL (0.0-0.4); BILIRUBIN,TOTAL 0.5 mg/dL (0.2-1.3); BLOOD UREA NITROGEN 30 mg/dL (7-20); CARBON DIOXIDE 35 mmol/L (22-30); GLUCOSE 194 mg/dL (75-110); POTASSIUM 5.2 mmol/L (3.6-5.0); TOTAL PROTEIN 7.2 g/dL (6.3-8.2)
[2019-10-19 01:56] LABS: ANION GAP 5 (5-19); CHLORIDE 95 mmol/L (98-107)
[2019-10-19 02:01] LABS: NT PRO BNP 3000 pg/mL (<450)
[2019-10-19 02:04] LABS: TROPONIN I < 0.012 ng/mL
--- NOTE | 2019-10-19 02:49 | RADIOLOGY REPORT (SQ) ---
EXAM DESCRIPTION: XR CHEST 1 VIEW COMPLETED DATE/TME: 10/19/2019 01:23 CLINICAL HISTORY: 84 years, Female, shortness of breath COMPARISON: X-ray chest 10/14/2019 NUMBER OF VIEWS: TECHNIQUE: LIMITATIONS: None. FINDINGS: There is consolidation/atelectasis of the right lower lobe. There is a small right pleural effusion. The above are new findings, as compared with the prior chest x-ray. There is cardiomegaly. Pulmonary vascularity appears normal. IMPRESSION: Right lower lobe consolidation/atelectasis, suspicious for pneumonia. Small right pleural effusion. Cardiomegaly. copyright 2010 [employer]- All Rights Reserved
[2019-10-19] MEDS ORDERED: VANCOMYCIN HCL INJ 1000 MG VIAL IV ONE (02:57)
[2019-10-19] MEDS ORDERED: CEFEPIME 2 GM/D5W RTU 2 GM/50 ML RTUPB IV ONE (02:58)
[2019-10-19] MEDS ORDERED: MAG HYDROX/AL HYDROX/SIMETH SUSP 30 ML UDCUP PO PRN (03:58)
[2019-10-19] MEDS ORDERED: DEXTROSE 50%-WATER 25 GM/50 ML DISP.SYRIN IV PRN ×2 (03:58)
[2019-10-19] MEDS ORDERED: DEXTROSE 40% GEL 15 GM TUBE PO PRN ×2 (03:58)
[2019-10-19] MEDS ORDERED: GLUCAGON,HUMAN RECOMB 1 MG INJ IM PRN (03:58)
[2019-10-19] MEDS: LACTULOSE SYRUP 20 GM/30 ML UDCUP PO ONE ×2 (04:48→06:17)
[2019-10-19] MEDS: FUROSEMIDE INJ/PF 40 MG/4 ML SDV IV SCH ×3 (04:48→21:17)
[2019-10-19 05:46] LABS: APPEARANCE,URINE CLEAR; BILIRUBIN,URINE NEGATIVE (NEGATIVE); COLOR,URINE YELLOW; GLUCOSE, URINE 50 mg/dL (NEGATIVE); KETONES,URINE NEGATIVE (NEGATIVE); LEUKOCYTE ESTERASE,URINE NEGATIVE (NEGATIVE); NITRITE,URINE NEGATIVE (NEGATIVE); PROTEIN,URINE 30 mg/dL (NEGATIVE); URINE SPECIFIC GRAVITY 1.021; UROBILINOGEN,URINE NEGATIVE mg/dL (<2.0)
[2019-10-19] MEDS: DILTIAZEM HCL 60 MG TABLET PO SCH ×2 (05:47→11:43)
[2019-10-19 06:09] LABS: ARTERIAL BLOOD BASE EXCESS 6.2 mmol/L; ARTERIAL BLOOD H2CO3 3.16 mmol/L (1.05-1.35); ARTERIAL BLOOD HCO3 38.6 mmol/L (20-24); ARTERIAL BLOOD PO2 74.7 mmHg (80-100); ARTERIAL BLOOD TOTAL CO2 41.8 mmol/L (21-25)
[2019-10-19 06:11] LABS: ARTERIAL BLOOD FIO2 45%; ARTERIAL BLOOD PH 7.18 (7.35-7.45)
[2019-10-19] MEDS ORDERED: NALOXONE HCL INJ/PF 0.4 MG/1 ML SDV IV ONE (06:17)
[2019-10-19] MEDS ORDERED: IPRATROPIUM/ALBUTEROL 0.5-2.5 MG/3 ML AMPUL NEB ONE (06:32)
[2019-10-19 09:10] LABS: ARTERIAL BLOOD BASE EXCESS 7.8 mmol/L; ARTERIAL BLOOD H2CO3 2.68 mmol/L (1.05-1.35); ARTERIAL BLOOD HCO3 38.4 mmol/L (20-24); ARTERIAL BLOOD O2 SATURATION 28.7 % (94-98); ARTERIAL BLOOD PH 7.25 (7.35-7.45); ARTERIAL BLOOD TOTAL CO2 41.1 mmol/L (21-25)
[2019-10-19 09:11] LABS: ARTERIAL BLOOD FIO2 45%
[2019-10-19 09:13] LABS: ARTERIAL BLOOD PCO2 88.9 mmHg (35-45); ARTERIAL BLOOD PO2 22.4 mmHg (80-100)
[2019-10-19] MEDS: INSULIN LISPRO 100 UNIT/ML 3 ML VIAL SUBCUT SCH ×3 (09:16→17:51)
[2019-10-19] MEDS ORDERED: DIGOXIN 0.125 MG TABLET PO SCH (10:00)
[2019-10-19] MEDS: INSULIN GLARGINE,HUM.REC.ANLOG 1,000 UNIT/10 ML VIAL SUBCUT SCH ×2 (11:42→21:34)
[2019-10-19] MEDS: NITROGLYCERIN 5 MG (0.2 MG/HR) PATCH.TD24 TD SCH (11:42)
[2019-10-19] MEDS ORDERED: MORPHINE SULFATE 10 MG/ML INJ ONE (11:56)
[2019-10-19] MEDS: DOCUSATE SODIUM 100 MG CAPSULE PO SCH (12:11)
[2019-10-19] MEDS: ASPIRIN 81 MG TABLET, ENT COATED PO SCH (12:11)
[2019-10-19] MEDS ORDERED: VANCOMYCIN HCL 0 MG in DEXTROSE 5%-WATER 250 ML IV NR (13:00)
[2019-10-19] MEDS ORDERED: CEFTRIAXONE 1 GM/D5W RTU 50 ML IV SCH (13:00)
[2019-10-19] MEDS ORDERED: MORPHINE SULFATE 10 MG/ML INJ IV ONE (13:00)
--- NOTE | 2019-10-19 13:34 | PDOC H&P ---
History of Present Illness Admission Date/PCP: 10/19/19 04:08 SHERRIE CADET PA-C Patient complains of: Metabolic encephalopathy from hypercapnia chronic narcotic therapy History of Present Illness: KIRSTIE GARCIA is a 84 year old female discharged yesterday in stable condition return to morning. She was having difficulty breathing with low oxygen saturation was poorly responsive. EMS was called. She was found to have a PCO2 of 100. When she went home she took her normal dose of pain medication however she took 1600 mg of Neurontin at once. This was likely the sedating agent that caused the respiratory depression which led to the markedly elevated PCO2. In addition chest x-ray suggested pneumonia. Initially the patient appropriate for the intensive care unit. BiPAP therapy in the emergency department as well as nebulizer treatments the patient improved enough to be admitted to [facility] Past Medical History Cardiac Medical History: Reports: Atrial Fibrillation, Congestive Heart Failure, Coronary Artery Disease, DVT, Myocardial Infarction, Hyperlipidema, Hypertension, Pulmonary Embolism Pulmonary Medical History: Reports: Asthma, Chronic Obstructive Pulmonary Disease (COPD), Pneumonia Neurological Medical History: Denies: Seizures Endocrine Medical History: Reports: Diabetes Mellitus Type 2 Denies: Diabetes Mellitus Type 1, Hyperthyroidism, Hypothyroidism Malignancy Medical History: Reports: Lung Cancer - Unknown stage or prognosis GI Medical History: Denies: Cirrhosis, Hepatitis Musculoskeltal Medical History: Denies: Arthritis, Fibromyalgia Skin Medical History: Denies: Eczema, Psoriasis Psychiatric Medical History: Denies: Depression Hematology: Denies: Anemia, Bleeding Tendencies Past Surgical History Past Surgical History: Reports: Cholecystectomy, Hysterectomy, Orthopedic Surgery - L foot Social History Lives with: Family Smoking Status: Former Smoker Electronic Cigarette use?: No Frequency of Alcohol Use: None Hx Recreational Drug Use: No Drugs: None Hx Prescription Drug Abuse: Yes - Advance Directive Resuscitation Status: Full Code Family History Family History: Reviewed & Not Pertinent, CAD, COPD Parental Family History Reviewed: Yes Children Family History Reviewed: Yes Sibling(s) Family History Reviewed.: Yes Medication/Allergy Home Medications: Metformin HCl [Metformin HCl ER] 500 mg PO QAM 05/28/18 Oxycodone HCl/Acetaminophen [Percocet 10-325 mg Tablet] 1 each PO QIDP PRN 05/28/18 Atorvastatin Calcium [Lipitor 40 mg Tablet] 40 mg PO DAILY 05/29/18 Furosemide [Lasix 20 mg Tablet] 40 mg PO DAILY MDD 40 MG 05/29/18 Apixaban [Eliquis 5 mg Tablet] 5 mg PO BID #60 tablet 06/01/18 Diltiazem HCl [Diltiazem 24Hr ER (Cd)] 240 mg PO DAILY #30 cap.er.24h 06/01/18 Sertraline HCl 50 mg PO DAILY 06/13/19 Insulin Aspart [Novolog Flexpen] 5 units SUBCUT TID 10/15/19 Insulin Glargine,Hum.rec.anlog [Lantus (Pyxis) Insulin 100 Unit/1 ml 10 ml] 46 units SUBCUT BID 10/15/19 Budesonide/Formoterol Fumarate [Symbicort Hfa 80-4.5 Mcg Inhaler 6.9 gm] 2 puff IH BID #1 inhaler 10/18/19 Digoxin [Lanoxin 0.125 mg Tablet] 0.125 mg PO DAILY #14 tablet 10/18/19 Famotidine [Pepcid 20 mg Tablet] 20 mg PO Q12 tablet 10/18/19 Gabapentin [Neurontin 400 mg Capsule] 400 mg PO Q8 capsule 10/18/19 Midodrine HCl [Proamatine 5 mg Tablet] 5 mg PO TID #42 tablet 10/18/19 Allergies/Adverse Reactions: Iodine and Iodide Containing Produc Adverse Reaction (Verified 08/19/19 09:37) Review of Systems ROS unobtainable: Due to mental status - At the time of this encounter the patient's PCO2 was still markedly elevated. She was fighting the nurses when they are trying to put a nonrebreather mask on the patient. They said that the patient absolutely would not wear the BiPAP mask and began to get violent at that point. Physical Exam Vital Signs: Temp Pulse Resp BP Pulse Ox 97.9 F 98 16 117/81 92 10/19/19 10:35 10/19/19 10:35 10/19/19 12:27 10/19/19 10:35 10/19/19 12:27 Intake & Output 10/18/19 10/19/19 10/20/19 06:59 06:59 06:59 Intake Total 50 0 Balance 50 0 Weight 98.2 kg General appearance: PRESENT: severe distress, other - The exam was somewhat limited due to the patient's severe distress and agitation.. ABSENT: cooperative Head exam: PRESENT: atraumatic, normocephalic Respiratory exam: PRESENT: decreased breath sounds - At bases, symmetrical, tachypnea, other - Because the patient was fighting with the nurses it was extremely difficult to examine her. She was quite tachypneic and breath sounds are shallow.. ABSENT: rales, rhonchi, wheezes Cardiovascular exam: PRESENT: irregular rhythm, +S1, +S2, tachycardia GI/Abdominal exam: PRESENT: hypoactive bowel sounds, soft. ABSENT: distended, guarding, tenderness Rectal exam: PRESENT: deferred Gentrourinary exam: ABSENT: indwelling catheter Extremities exam: PRESENT: pedal edema Neurological exam: PRESENT: alert, awake, oriented to person, oriented to place, oriented to situation, motor sensory deficit - Severe hearing loss. ABSENT: CN II-XII grossly intact - Severe hearing loss Psychiatric exam: PRESENT: agitated, unusual affect - Patient was enraged when the nurses tried to apply BiPAP/oxygen Focused psych exam: PRESENT: paranoid - She kept telling everyone "stop trying to kill me " Skin exam: PRESENT: other - The patient had a greyish complexion from hypoxia Results Laboratory Results: 10/19/19 01:20 10/19/19 01:20 10/19/19 10/19/19 10/19/19 01:02 01:20 01:20 WBC 9.6 RBC 4.09 Hgb 13.5 Hct 40.8 MCV 100 H MCH 33.0 MCHC 33.1 RDW 13.6 Plt Count 162 Seg Neutrophils % 80.5 H Carbonic Acid HCO3/H2CO3 Ratio ABG pH ABG pCO2 ABG pO2 ABG HCO3 ABG O2 Saturation ABG Base Excess VBG pH VBG pCO2 VBG HCO3 VBG Base Excess FiO2 Sodium 134.7 L Potassium 5.2 H Chloride 95 L Carbon Dioxide 35 H Anion Gap 5 BUN 30 H Creatinine 0.55 Est GFR ( Amer) > 60 Glucose 194 H Calcium 9.0 Total Bilirubin 0.5 AST 24 Alkaline Phosphatase 69 Total Protein 7.2 Albumin 4.0 TSH 0.62 Urine Color Urine Appearance Urine pH Ur Specific [place] Urine Protein Urine Glucose (UA) Urine Ketones Urine Blood Urine Nitrite Ur Leukocyte Esterase Urine WBC (Auto) Urine RBC (Auto) 10/19/19 10/19/19 10/19/19 01:20 04:57 04:57 WBC RBC Hgb Hct MCV MCH MCHC RDW Plt Count Seg Neutrophils % Carbonic Acid 3.16 H HCO3/H2CO3 Ratio 12:1 ABG pH 7.18 L* ABG pCO2 105.0 H* ABG pO2 74.7 L ABG HCO3 38.6 H ABG O2 Saturation 90.0 L ABG Base Excess 6.2 VBG pH 7.20 L VBG pCO2 92.8 H* VBG HCO3 35.1 H VBG Base Excess 3.2 FiO2 45% Sodium Potassium Chloride Carbon Dioxide Anion Gap BUN Creatinine Est GFR ( Amer) Glucose Calcium Total Bilirubin AST Alkaline Phosphatase Total Protein Albumin TSH Urine Color YELLOW Urine Appearance CLEAR Urine pH 5.0 Ur Specific [place] 1.021 Urine Protein 30 H Urine Glucose (UA) 50 H Urine Ketones NEGATIVE Urine Blood NEGATIVE Urine Nitrite NEGATIVE Ur Leukocyte Esterase NEGATIVE Urine WBC (Auto) 3 Urine RBC (Auto) 1 10/19/19 08:49 WBC RBC Hgb Hct MCV MCH MCHC RDW Plt Count Seg Neutrophils % Carbonic Acid 2.68 H HCO3/H2CO3 Ratio 14:1 ABG pH 7.25 L ABG pCO2 88.9 H* ABG pO2 22.4 L* ABG HCO3 38.4 H ABG O2 Saturation 28.7 L ABG Base Excess 7.8 VBG pH VBG pCO2 VBG HCO3 VBG Base Excess FiO2 45% Sodium Potassium Chloride Carbon Dioxide Anion Gap BUN Creatinine Est GFR ( Amer) Glucose Calcium Total Bilirubin AST Alkaline Phosphatase Total Protein Albumin TSH Urine Color Urine Appearance Urine pH Ur Specific [place] Urine Protein Urine Glucose (UA) Urine Ketones Urine Blood Urine Nitrite Ur Leukocyte Esterase Urine WBC (Auto) Urine RBC (Auto) 10/19/19 10/19/19 10/19/19 01:20 06:37 10:23 Troponin I < 0.012 < 0.012 < 0.012 NT-Pro-B Natriuret Pep 3000 H Impressions: Chest X-Ray 10/19/19 01:23 IMPRESSION: Right lower lobe consolidation/atelectasis, suspicious for pneumonia. Small right pleural effusion. Cardiomegaly. copyright 2010 [employer]- All Rights Reserved Assessment and Plan - Diagnosis (1) Acute on chronic respiratory failure with hypoxia and hypercapnia Is this a current diagnosis for this admission?: Yes Plan: 10/19/2019 I believe the 1600 mg Neurontin dose because the respiratory suppression. That on top of her pain pill allowed her carbon dioxide to build up to a PCO2 of 100. I believe she still has elevated PCO2 based on her behavior of agitation and paranoia. We will need to provide some sedation to allow the use of BiPAP. We will initiate every 4 hour nebulizer treatments as well as intravenous steroids. (2) Pneumonia Qualifiers: Pneumonia type: due to unspecified organism Laterality: right Lung location: lower lobe of lung Qualified Code(s): J18.9 - Pneumonia, unspecified organism Is this a current diagnosis for this admission?: Yes Plan: 10/19/2019 Because the patient was just hospitalized. Will use aggressive antibiotic therapy that would cover any hospital-acquired infection. (3) Metabolic encephalopathy Is this a current diagnosis for this admission?: Yes Plan: 10/19/2019 Acute encephalopathy secondary to her hypercapnia. This should improve as her PCO2 decreases. In addition there will be some medications to help for agitation. (4) Opioid dependence Qualifiers: Substance use status: with other opioid-induced disorder Qualified Code(s): F11.288 - Opioid dependence with other opioid-induced disorder; F11.28 - Opioid dependence with other opioid-induced disorder Is this a current diagnosis for this admission?: Yes Plan: 10/19/2019 Her opioid dependence definitely contributes to her hypercapnia. Because she is so agitated and she needs to be on BiPAP we will use intravenous analgesia at this time. (5) COPD exacerbation Is this a current diagnosis for this admission?: Yes Plan: 10/19/2019 Secondary to medication and. Antibiotics, nebulizers, BiPAP, oxygen and steroids. (6) Atrial fibrillation with RVR Is this a current diagnosis for this admission?: Yes Plan: 10/19/2019 Continue cardiac medications as they proved to be very effective during her recent admission. Continue anticoagulation. (7) Hypoglycemia Is this a current diagnosis for this admission?: Yes Plan: 10/19/2019 Will need to likely adjust her Lantus dosing. She is horribly noncompliant at home drinking Pepsi Cola all day long. The hypoglycemia could have been from her home dose of Lantus (46 units) without her usual hyperglycemia. Hypoglycemic episode was treated and now I expect her glucose checks to be on the high side as they are typically (8) Diabetes mellitus type 2 in nonobese Is this a current diagnosis for this admission?: Yes Plan: 10/19/2019 Sliding scale. Diabetic diet. We will likely need to decrease her Lantus. (9) Tobacco dependence Is this a current diagnosis for this admission?: Yes Plan: 10/19/2019 Lifelong use of handrolled cigarettes. I do not expect her to change at this point. (10) Hyperlipidemia Qualifiers: Hyperlipidemia type: unspecified Qualified Code(s): E78.5 - Hyperlipidemia, unspecified Is this a current diagnosis for this admission?: Yes Plan: 10/19/2019 Continue statin therapy (11) Hypertension Qualifiers: Hypertension type: essential hypertension Qualified Code(s): I10 - Essential (primary) hypertension Is this a current diagnosis for this admission?: Yes Plan: 10/19/2019 Continue current regimen - Time Time Spent with patient: 35 or more minutes Medications reviewed and adjusted accordingly: Yes - Inpatient Certification Based on my medical assessment, after consideration of the patient's comorbidities, presenting symptoms, or acuity I expect that the services needed warrant INPATIENT care.: Yes I certify that my determination is in accordance with my understanding of Medicare's requirements for reasonable and necessary INPATIENT services [42 CFR 412.3e].: Yes Medical Necessity: Need Close Monitoring Due to Risk of Patient Decompensation, Need For Continuous Telemetry Monitoring, Need for Pain Control, Need for IV Antibiotics Post Hospital Care: D/C Local [employer] Truck [employer] Documentation
[2019-10-19] MEDS ORDERED: AZITHROMYCIN 500 MG in DEXTROSE 5%-WATER 250 ML IV SCH (14:00)
[2019-10-19] MEDS ORDERED: HEPARIN SOD (PORCINE) 5,000 UNIT/ML 1 ML VIAL SUBCUT SCH (14:00)
[2019-10-19] MEDS ORDERED: HALOPERIDOL LACTATE INJ 5 MG/1 ML VIAL IV PRN (14:04)
[2019-10-19] MEDS: LEVALBUTEROL HCL NEB 1.25 MG/3 ML AMPUL NEB PRN (14:12)
[2019-10-19] MEDS: GABAPENTIN 400 MG CAPSULE PO SCH ×2 (14:49→21:15)
[2019-10-19] MEDS: MIDODRINE HCL 5 MG TABLET PO SCH ×2 (14:50→18:10)
[2019-10-19] MEDS: IPRATROPIUM/ALBUTEROL 0.5-2.5 MG/3 ML AMPUL NEB SCH ×2 (16:53→20:23)
[2019-10-19] MEDS: CEFEPIME 1 GM/D5W RTU 1 GM/50 ML RTUPB IV SCH (18:10)
[2019-10-19] MEDS: APIXABAN 5 MG TABLET PO SCH (18:10)
[2019-10-19] MEDS: MORPHINE SULFATE 10 MG/ML INJ IV PRN (18:17)
--- NOTE | 2019-10-19 20:03 | ADVANCED CARE ---
- Diagnosis (1) Acute on chronic respiratory failure with hypoxia and hypercapnia Diagnosis Current: Yes (2) Pneumonia Diagnosis Current: Yes (3) Metabolic encephalopathy Diagnosis Current: Yes (4) Opioid dependence Diagnosis Current: Yes (5) COPD exacerbation Diagnosis Current: Yes (6) Atrial fibrillation with RVR Diagnosis Current: Yes (7) Hypoglycemia Diagnosis Current: Yes (8) Diabetes mellitus type 2 in nonobese Diagnosis Current: Yes (9) Tobacco dependence Diagnosis Current: Yes (10) Hyperlipidemia Diagnosis Current: Yes (11) Hypertension Diagnosis Current: Yes Attendance: Multiple discussions were had with the patient by way of whiteboard messages, her son Pedro and over the phone with her daughter Ron Resuscitation Status: Full Code Discussion: The patient's daughter exhibits significant medical insight. She knows that her mother if intubated. It would be fairly unlikely that she would ever come off the ventilator. Unfortunately the patient's on does not appear to be convinced of the same prognosis. As listed and wrote messages on the white board for the patient to appreciate showed them to the patient's son at the bedside. I have talked to her daughter, who is in [place], for some time on the phone at the nurses station. I then went into the room and the patient's daughter was on speaker phone to ensure consistency from what I said to the patient and her brother to let they then took from the conversation. Does not appear that they are ready to move towards DO NOT RESUSCITATE. I will revisit this topic again tomorrow. Stressed many times that with her end-stage COPD and kyphosis as well as heavy cigarette use throughout her life, her lung tissue is not going to heal. For the time being she will remain full code. We will continue antibiotics and the aggressive regimen as outlined in the progress note. I will revisit this topic with family again tomorrow. This will be especially pertinent if the patient is not able to get off of BiPAP. Care Planning Goals: To provide insight and education to understand why DO NOT RESUSCITATE would be a more appropriate CODE STATUS Document(s) Completed: None Time Spent: 60 minutes
[2019-10-19] MEDS: FAMOTIDINE 20 MG TABLET PO SCH (21:15)
[2019-10-19] MEDS: METHYLPREDNISOLONE INJ 125 MG/2 ML SDV IV SCH (21:17)
[2019-10-19] MEDS: VANCOMYCIN HCL 1,000 MG in DEXTROSE 5%-WATER 250 ML IV SCH (21:22)
[2019-10-19] MEDS ORDERED: METHYLPREDNISOLONE INJ 40 MG/1 ML SDV IV SCH (22:00)
--- NOTE | 2019-10-19 23:34 | EKG REPORT ---
SEVERITY:- ABNORMAL ECG - ATRIAL FIBRILLATION : Confirmed by: Gabe Bingham 19-Oct-2019 23:33:55
[2019-10-20] MEDS: IPRATROPIUM/ALBUTEROL 0.5-2.5 MG/3 ML AMPUL NEB SCH ×6 (00:28→20:10)
[2019-10-20 02:16] LABS: APPEARANCE,URINE CLEAR; BILIRUBIN,URINE NEGATIVE (NEGATIVE); COLOR,URINE STRAW; GLUCOSE, URINE NEGATIVE (NEGATIVE); KETONES,URINE NEGATIVE (NEGATIVE); PROTEIN,URINE NEGATIVE (NEGATIVE); URINE SPECIFIC GRAVITY 1.006; UROBILINOGEN,URINE NEGATIVE mg/dL (<2.0)
[2019-10-20] MEDS: GABAPENTIN 400 MG CAPSULE PO SCH ×3 (05:41→22:34)
[2019-10-20] MEDS: CEFEPIME 1 GM/D5W RTU 1 GM/50 ML RTUPB IV SCH ×2 (05:43→17:23)
[2019-10-20 06:04] LABS: ABSOLUTE LYMPHOCYTES (AUTO) 0.4 10^3/uL (0.5-4.7); ABSOLUTE MONOCYTES (AUTO) 0.1 10^3/uL (0.1-1.4); ABSOLUTE NEUT (AUTO) 3.7 10^3/uL (1.7-8.2); BASOPHILS % (AUTO) 0.4 % (0-2); EOSINOPHILS % (AUTO) 0.2 % (0-6); HEMOGLOBIN 13.3 g/dL (12.0-15.5); LYMPHOCYTES % (AUTO) 10.3 % (13-45); MEAN CORPUSCULAR HEMOGLOBIN 32.4 pg (27.0-33.4); MEAN CORPUSCULAR HGB CONC 33.2 g/dL (32.0-36.0); MEAN CORPUSCULAR VOLUME 98 fl (80-97); MONOCYTES % (AUTO) 1.3 % (3-13); PLATELET COUNT 125 10^3/uL (150-450); RED CELL DISTRIBUTION WIDTH 13.8 % (11.5-14.0); SEGMENTED NEUTROPHILS % (AUTO) 87.8 % (42-78); TOTAL CELLS COUNTED % (AUTO) 100 %; WHITE BLOOD COUNT 4.2 10^3/uL (4.0-10.5)
[2019-10-20 06:05] LABS: ANION GAP 8 (5-19); BLOOD UREA NITROGEN 25 mg/dL (7-20); CALCIUM 8.9 mg/dL (8.4-10.2); CARBON DIOXIDE 36 mmol/L (22-30); CHLORIDE 90 mmol/L (98-107); GLUCOSE 318 mg/dL (75-110); PHOSPHORUS 3.1 mg/dL (2.5-4.5); POTASSIUM 4.4 mmol/L (3.6-5.0)
[2019-10-20 06:47] LABS: ARTERIAL BLOOD BASE EXCESS 11.5 mmol/L; ARTERIAL BLOOD H2CO3 1.85 mmol/L (1.05-1.35); ARTERIAL BLOOD HCO3 38.6 mmol/L (20-24); ARTERIAL BLOOD O2 SATURATION 86.2 % (94-98); ARTERIAL BLOOD PCO2 61.3 mmHg (35-45); ARTERIAL BLOOD PH 7.42 (7.35-7.45); ARTERIAL BLOOD PO2 51.8 mmHg (80-100); ARTERIAL BLOOD TOTAL CO2 40.5 mmol/L (21-25)
[2019-10-20 06:49] LABS: ARTERIAL BLOOD FIO2 35%
[2019-10-20] MEDS: INSULIN LISPRO 100 UNIT/ML 3 ML VIAL SUBCUT SCH ×3 (08:39→17:23)
[2019-10-20] MEDS ORDERED: DIGOXIN 0.125 MG TABLET PO SCH (10:00)
[2019-10-20] MEDS ORDERED: DILTIAZEM HCL 240 MG PO SCH (10:00)
[2019-10-20] MEDS ORDERED: DILTIAZEM HCL 240 MG CAPSULE.CR PO SCH ×2 (10:00→11:24)
[2019-10-20] MEDS ORDERED: SERTRALINE HCL 50 MG PO SCH (10:00)
[2019-10-20] MEDS: MORPHINE SULFATE 10 MG/ML INJ IV PRN (10:33)
[2019-10-20] MEDS: FUROSEMIDE INJ/PF 40 MG/4 ML SDV IV SCH (10:33)
[2019-10-20] MEDS: METHYLPREDNISOLONE INJ 125 MG/2 ML SDV IV SCH ×2 (10:33→22:35)
[2019-10-20] MEDS: SERTRALINE HCL 50 MG TABLET PO SCH (10:34)
[2019-10-20] MEDS: INSULIN GLARGINE,HUM.REC.ANLOG 1,000 UNIT/10 ML VIAL SUBCUT SCH ×2 (10:34→22:35)
[2019-10-20] MEDS: ATORVASTATIN CALCIUM 40 MG TABLET PO SCH (10:34)
[2019-10-20] MEDS: NITROGLYCERIN 5 MG (0.2 MG/HR) PATCH.TD24 TD SCH (10:34)
[2019-10-20] MEDS: ASPIRIN 81 MG TABLET, ENT COATED PO SCH (10:35)
[2019-10-20] MEDS: MIDODRINE HCL 5 MG TABLET PO SCH ×3 (10:35→17:22)
[2019-10-20] MEDS: APIXABAN 5 MG TABLET PO SCH ×2 (10:35→17:22)
[2019-10-20] MEDS: DOCUSATE SODIUM 100 MG CAPSULE PO SCH (10:35)
[2019-10-20] MEDS: VANCOMYCIN HCL 1,000 MG in DEXTROSE 5%-WATER 250 ML IV SCH ×2 (10:35→22:38)
[2019-10-20] MEDS: FAMOTIDINE 20 MG TABLET PO SCH ×2 (10:35→22:35)
--- NOTE | 2019-10-20 11:27 | PDOC PROGRESS REPORT ---
Subjective Progress Note for:: 10/20/19 Subjective:: Breathing is better today. She is on nasal cannula at this time. She appears comfortable. She is slightly tremulous and I believe this is the steroid Reason For Visit: PNEUMONIA,ACUTE HYPOXIC,HYPERCAPNIC, RESPIRATORY Physical Exam Vital Signs: Temp Pulse Resp BP Pulse Ox 100.0 F 101 H 20 123/58 L 95 10/20/19 10:43 10/20/19 10:43 10/20/19 10:43 10/20/19 10:43 10/20/19 10:43 Intake & Output 10/19/19 10/20/19 10/21/19 06:59 06:59 06:59 Intake Total 50 540 1020 Output Total 1750 150 Balance 50 -1210 870 Weight 98.2 kg 96.3 kg General appearance: PRESENT: cooperative, mild distress, well-developed Head exam: PRESENT: atraumatic, normocephalic Eye exam: PRESENT: conjunctiva pink. ABSENT: scleral icterus Ear exam: PRESENT: normal external ear exam. ABSENT: bleeding, drainage Respiratory exam: PRESENT: prolonged expiratory phas, symmetrical, wheezes - Faint expiratory wheeze. ABSENT: rales, rhonchi, tachypnea Cardiovascular exam: PRESENT: irregular rhythm GI/Abdominal exam: PRESENT: normal bowel sounds, soft. ABSENT: distended, guarding, tenderness Rectal exam: PRESENT: deferred Gentrourinary exam: PRESENT: indwelling catheter Extremities exam: PRESENT: pedal edema Neurological exam: PRESENT: alert, awake, oriented to person, oriented to place, oriented to situation. ABSENT: CN II-XII grossly intact - Severe hearing loss Psychiatric exam: PRESENT: anxious. ABSENT: agitated Results Laboratory Results: 10/20/19 05:27 10/20/19 05:27 10/20/19 10/20/19 10/20/19 01:50 05:27 05:27 WBC 4.2 RBC 4.10 Hgb 13.3 Hct 40.0 MCV 98 H MCH 32.4 MCHC 33.2 RDW 13.8 Plt Count 125 L Seg Neutrophils % 87.8 H Carbonic Acid HCO3/H2CO3 Ratio ABG pH ABG pCO2 ABG pO2 ABG HCO3 ABG O2 Saturation ABG Base Excess FiO2 Sodium 134.2 L Potassium 4.4 Chloride 90 L Carbon Dioxide 36 H Anion Gap 8 BUN 25 H Creatinine 0.55 Est GFR ( Amer) > 60 Glucose 318 H Calcium 8.9 Phosphorus 3.1 Magnesium 1.4 L Urine Color STRAW Urine Appearance CLEAR Urine pH 5.0 Ur Specific Speed 1.006 Urine Protein NEGATIVE Urine Glucose (UA) NEGATIVE Urine Ketones NEGATIVE Urine Blood NEGATIVE 10/20/19 06:35 WBC RBC Hgb Hct MCV MCH MCHC RDW Plt Count Seg Neutrophils % Carbonic Acid 1.85 H HCO3/H2CO3 Ratio 20:1 ABG pH 7.42 ABG pCO2 61.3 H ABG pO2 51.8 L ABG HCO3 38.6 H ABG O2 Saturation 86.2 L ABG Base Excess 11.5 FiO2 35% Sodium Potassium Chloride Carbon Dioxide Anion Gap BUN Creatinine Est GFR ( Amer) Glucose Calcium Phosphorus Magnesium Urine Color Urine Appearance Urine pH Ur Specific Speed Urine Protein Urine Glucose (UA) Urine Ketones Urine Blood 10/19/19 10/19/19 10/19/19 01:20 06:37 10:23 Troponin I < 0.012 < 0.012 < 0.012 NT-Pro-B Natriuret Pep 3000 H 10/19/19 16:06 Troponin I < 0.012 NT-Pro-B Natriuret Pep Impressions: Chest X-Ray 10/19/19 01:23 IMPRESSION: Right lower lobe consolidation/atelectasis, suspicious for pneumonia. Small right pleural effusion. Cardiomegaly. copyright 2011 [email or web address]- All Rights Reserved Assessment and Plan - Diagnosis (1) Acute on chronic respiratory failure with hypoxia and hypercapnia Is this a current diagnosis for this admission?: Yes Plan: 10/19/2019 I believe the 1600 mg Neurontin dose because the respiratory suppression. That on top of her pain pill allowed her carbon dioxide to build up to a PCO2 of 100. I believe she still has elevated PCO2 based on her behavior of agitation and paranoia. We will need to provide some sedation to allow the use of BiPAP. We will initiate every 4 hour nebulizer treatments as well as intravenous steroids. 10/20/2019 The patient is down to nasal cannula. It is neurology to see the patient and offer any treatment suggestions. (2) Pneumonia Qualifiers: Pneumonia type: due to unspecified organism Laterality: right Lung location: lower lobe of lung Qualified Code(s): J18.9 - Pneumonia, unspecified organism Is this a current diagnosis for this admission?: Yes Plan: 10/19/2019 Because the patient was just hospitalized. Will use aggressive antibiotic ther apy that would cover any hospital-acquired infection. 10/20/2019 Continue vancomycin and cefepime (3) Metabolic encephalopathy Is this a current diagnosis for this admission?: Yes Plan: 10/19/2019 Acute encephalopathy secondary to her hypercapnia. This should improve as her PCO2 decreases. In addition there will be some medications to help for agitation. 10/20/2019 PCO2 is back down to 60. This is probably close to the patient's baseline. She appears to be back at her baseline mentation. (4) Opioid dependence Qualifiers: Substance use status: with other opioid-induced disorder Qualified Code(s): F11.288 - Opioid dependence with other opioid-induced disorder; F11.28 - Opioid dependence with other opioid-induced disorder Is this a current diagnosis for this admission?: Yes Plan: 10/19/2019 Her opioid dependence definitely contributes to her hypercapnia. Because she is so agitated and she needs to be on BiPAP we will use intravenous analgesia at this time. 10/20/2019 The patient probably work-up pain management clinic to make some changes in her medication regimen. She took 1600 mg of gabapentin which she went home the other day. That prompted immediate return to the hospital. I will switch her back to oral dosing but use the 5 mg Percocet tablets. (5) COPD exacerbation Is this a current diagnosis for this admission?: Yes Plan: 10/19/2019 Secondary to medication and. Antibiotics, nebulizers, BiPAP, oxygen and steroid s. 10/20/2019 Continue scheduled nebulizers. I will decrease the IV Solu-Medrol to 40 mg every 8 hours. Possibly by tomorrow we could change the scheduled nebulizers to every 6 hours. (6) Atrial fibrillation with RVR Is this a current diagnosis for this admission?: Yes Plan: 10/19/2019 Continue cardiac medications as they proved to be very effective during her recent admission. Continue anticoagulation. 10/20/2019 Because of blood pressure concerns I split the diltiazem to 60 mg every 6 hours. She will continue with the digoxin. Metoprolol IV is available if needed. The nebulizer treatments and steroids are probably aggravating her heart rate. (7) Hypertension Qualifiers: Hypertension type: essential hypertension Qualified Code(s): I10 - Essential (primary) hypertension Is this a current diagnosis for this admission?: Yes Plan: 10/19/2019 Continue current regimen 10/20/2019 Alterations in medications as noted above. I have made changes in the regimen to try and stagger medications to avoid abrupt drops in blood pressure. (8) Hypoglycemia Is this a current diagnosis for this admission?: Yes Plan: 10/19/2019 Will need to likely adjust her Lantus dosing. She is horribly noncompliant at home drinking Pepsi Cola all day long. The hypoglycemia could have been from her home dose of Lantus (46 units) without her usual hyperglycemia. Hypoglycemic episode was treated and now I expect her glucose checks to be on the high side as they are typically 10/20/2019 The patient's insulin needs in hospital were greatly reduced from home. We may need to change her current regimen. This will be based on her Accu-Cheks. I have allowed one small can of regular Pepsi with meals. This is still a lot less than she consumes at home since she drinks Pepsi all day long. (9) Diabetes mellitus type 2 in nonobese Is this a current diagnosis for this admission?: Yes Plan: 10/19/2019 Sliding scale. Diabetic diet. We will likely need to decrease her Lantus. 10/20/2019 Continue long-acting insulin as well as sliding scale. Adjust based on Accu- Cheks (10) Tobacco dependence Is this a current diagnosis for this admission?: Yes Plan: 10/19/2019 Lifelong use of handrolled cigarettes. I do not expect her to change at this point. (11) Hyperlipidemia Qualifiers: Hyperlipidemia type: unspecified Qualified Code(s): E78.5 - Hyperlipidemia, unspecified Is this a current diagnosis for this admission?: Yes Plan: 10/19/2019 Continue statin therapy - Time Time Spent with patient: 15-24 minutes Medications reviewed and adjusted accordingly: Yes Anticipated discharge: Home with Homehealth
[2019-10-20] MEDS: DILTIAZEM HCL 60 MG TABLET PO SCH ×3 (13:21→23:20)
--- NOTE | 2019-10-20 13:51 | PDOC CONSULTATION ---
Consultation Consult Date: 10/20/19 Attending physician:: LEANDRO ZAMUDIO Provider Consulted: JOE PUGH Consult reason:: resp failure History of Present Illness Admission Date/PCP: 10/19/19 04:08 SHERRIE CADET PA-C History of Present Illness: KIRSTIE GARCIA is a 84 year old female very hard of hearing last admission was 72 hours prior to this admission chronic respiratory failure is O2 dependent and extremely hypercapnic on this admission her PCO2 was greater than 100 as it has been for the last several admissions. The patient also takes chronic me pain medication for several ailments. She smokes in the past but none recently pets no recent travel Past Medical History Cardiac Medical History: Reports: Atrial Fibrillation, Congestive Heart Failure, Coronary Artery Disease, DVT, Myocardial Infarction, Hyperlipidema, Hypertension, Pulmonary Embolism Pulmonary Medical History: Reports: Asthma, Chronic Obstructive Pulmonary Disease (COPD), Pneumonia Neurological Medical History: Denies: Seizures Endocrine Medical History: Reports: Diabetes Mellitus Type 2 Denies: Diabetes Mellitus Type 1, Hyperthyroidism, Hypothyroidism Malignancy Medical History: Reports: Lung Cancer - Unknown stage or prognosis GI Medical History: Denies: Cirrhosis, Hepatitis Musculoskeltal Medical History: Denies: Arthritis, Fibromyalgia Skin Medical History: Denies: Eczema, Psoriasis Psychiatric Medical History: Denies: Depression Hematology: Denies: Anemia, Bleeding Tendencies Past Surgical History Past Surgical History: Reports: Cholecystectomy, Hysterectomy, Orthopedic Surgery - L foot Social History Information Source[facility] Lives with: Family Smoking Status: Former Smoker Passive smoke exposure as: Both Frequency of Alcohol Use: None Hx Recreational Drug Use: No Drugs: None Hx Prescription Drug Abuse: Yes Do you have pets?: No Have you had any respiratory illnesses as a child?: No Have you been exposed to any sick contacts recently?: No Have you had any recent respiratory illnesses?: Yes Have you travelled outside of [place] in the past 12 months?: No - Advance Directive Resuscitation Status: Full Code Family History Parental Family History Reviewed: No Children Family History Reviewed: No Sibling(s) Family History Reviewed.: No Medication/Allergy Home Medications: Metformin HCl [Metformin HCl ER] 500 mg PO QAM 05/28/18 Oxycodone HCl/Acetaminophen [Percocet 10-325 mg Tablet] 1 each PO QIDP PRN 05/28/18 Atorvastatin Calcium [Lipitor 40 mg Tablet] 40 mg PO DAILY 05/29/18 Furosemide [Lasix 20 mg Tablet] 40 mg PO DAILY MDD 40 MG 05/29/18 Apixaban [Eliquis 5 mg Tablet] 5 mg PO BID #60 tablet 06/01/18 Diltiazem HCl [Diltiazem 24Hr ER (Cd)] 240 mg PO DAILY #30 cap.er.24h 06/01/18 Sertraline HCl 50 mg PO DAILY 06/13/19 Insulin Aspart [Novolog Flexpen] 5 units SUBCUT TID 10/15/19 Insulin Glargine,Hum.rec.anlog [Lantus (Pyxis) Insulin 100 Unit/1 ml 10 ml] 46 units SUBCUT BID 10/15/19 Budesonide/Formoterol Fumarate [Symbicort Hfa 80-4.5 Mcg Inhaler 6.9 gm] 2 puff IH BID #1 inhaler 10/18/19 Digoxin [Lanoxin 0.125 mg Tablet] 0.125 mg PO DAILY #14 tablet 10/18/19 Famotidine [Pepcid 20 mg Tablet] 20 mg PO Q12 tablet 10/18/19 Gabapentin [Neurontin 400 mg Capsule] 400 mg PO Q8 capsule 10/18/19 Midodrine HCl [Proamatine 5 mg Tablet] 5 mg PO TID #42 tablet 10/18/19 Allergies/Adverse Reactions: Iodine and Iodide Containing Produc Adverse Reaction (Verified 08/19/19 09:37) Review of Systems All systems: reviewed and no additional remarkable complaints except as stated Physical Exam Vital Signs: Temp Pulse Resp BP Pulse Ox 100.0 F 101 H 20 123/58 L 95 10/20/19 10:43 10/20/19 10:43 10/20/19 10:43 10/20/19 10:43 10/20/19 10:43 Intake & Output 10/19/19 10/20/19 10/21/19 06:59 06:59 06:59 Intake Total 50 540 1020 Output Total 1750 150 Balance 50 -1210 870 Weight 98.2 kg 96.3 kg General appearance: PRESENT: no acute distress, cooperative, disheveled, hard of hearing, morbidly obese, well-developed, well-nourished Head exam: PRESENT: atraumatic, normocephalic Eye exam: PRESENT: conjunctiva pale, EOMI. ABSENT: nystagmus, periorbital sw elling, scleral icterus Mouth exam: PRESENT: dry mucosa, neck supple, tongue midline Teeth exam: PRESENT: edentulous Neck exam: ABSENT: carotid bruit, full ROM, JVD, lymphadenopathy, meningismus, tenderness, thyromegaly, tracheal deviation, tracheostomy, other Respiratory exam: PRESENT: decreased breath sounds, prolonged expiratory phas, rhonchi, symmetrical, unlabored, wheezes. ABSENT: rales, retraction, stridor, tachypnea Cardiovascular exam: PRESENT: irregular rhythm Pulses: PRESENT: normal radial pulses GI/Abdominal exam: PRESENT: soft. ABSENT: guarding, mass, rebound, tenderness Extremities exam: PRESENT: +1 edema. ABSENT: calf tenderness, clubbing, tenderness Musculoskeletal exam: ABSENT: deformity, dislocation Neurological exam: PRESENT: alert Psychiatric exam: PRESENT: flat affect Skin exam: PRESENT: dry, warm Results Laboratory Results: 10/20/19 05:27 10/20/19 05:27 10/20/19 10/20/19 10/20/19 01:50 05:27 05:27 WBC 4.2 RBC 4.10 Hgb 13.3 Hct 40.0 MCV 98 H MCH 32.4 MCHC 33.2 RDW 13.8 Plt Count 125 L Seg Neutrophils % 87.8 H Carbonic Acid HCO3/H2CO3 Ratio ABG pH ABG pCO2 ABG pO2 ABG HCO3 ABG O2 Saturation ABG Base Excess FiO2 Sodium 134.2 L Potassium 4.4 Chloride 90 L Carbon Dioxide 36 H Anion Gap 8 BUN 25 H Creatinine 0.55 Est GFR ( Amer) > 60 Glucose 318 H Calcium 8.9 Phosphorus 3.1 Magnesium 1.4 L Urine Color STRAW Urine Appearance CLEAR Urine pH 5.0 Ur Specific [place] 1.006 Urine Protein NEGATIVE Urine Glucose (UA) NEGATIVE Urine Ketones NEGATIVE Urine Blood NEGATIVE 10/20/19 06:35 WBC RBC Hgb Hct MCV MCH MCHC RDW Plt Count Seg Neutrophils % Carbonic Acid 1.85 H HCO3/H2CO3 Ratio 20:1 ABG pH 7.42 ABG pCO2 61.3 H ABG pO2 51.8 L ABG HCO3 38.6 H ABG O2 Saturation 86.2 L ABG Base Excess 11.5 FiO2 35% Sodium Potassium Chloride Carbon Dioxide Anion Gap BUN Creatinine Est GFR ( Amer) Glucose Calcium Phosphorus Magnesium Urine Color Urine Appearance Urine pH Ur Specific [place] Urine Protein Urine Glucose (UA) Urine Ketones Urine Blood 10/19/19 10/19/19 10/19/19 01:20 06:37 10:23 Troponin I < 0.012 < 0.012 < 0.012 NT-Pro-B Natriuret Pep 3000 H 10/19/19 16:06 Troponin I < 0.012 NT-Pro-B Natriuret Pep Impressions: Chest X-Ray 10/19/19 01:23 IMPRESSION: Right lower lobe consolidation/atelectasis, suspicious for pneumonia. Small right pleural effusion. Cardiomegaly. copyright 2010 [employer]- All Rights Reserved Assessment & Plan - Diagnosis (1) Acute on chronic respiratory failure with hypoxia and hypercapnia Is this a current diagnosis for this admission?: Yes Plan: History of cigarette use as well as obesity hypoventilation and probable LAMONT exacerbated by her narcotic use (2) Atrial fibrillation Qualifiers: Atrial fibrillation type: chronic Is this a current diagnosis for this admission?: Yes Plan: Stable at this time (3) COPD (chronic obstructive pulmonary disease) Qualifiers: COPD type: unspecified COPD Qualified Code(s): J44.9 - Chronic obstructive pulmonary disease, unspecified Is this a current diagnosis for this admission?: Yes Plan: Generic Name Dose Route Start Last Admin Trade Name Freq PRN Reason Stop Dose Admin Albuterol/Ipratropium 3 ml 10/19/19 16:00 10/20/19 12:32 Duoneb 3 Ml Ampul NEB 11/18/19 15:59 3 ml RTQ4 BRADLEY Methylprednisolone Sodium Succinate 40 mg 10/20/19 22:00 Solu-Medrol Inj/Pf 125 Mg/2 Ml Sdv IV 11/19/19 21:59 Q12 BRADLEY Levalbuterol HCl 1.25 mg 10/19/19 12:39 10/19/19 14:12 Xopenex Neb 1.25 Mg/3 Ml Ampul NEB 11/18/19 12:38 1.25 mg RTQ2HP PRN SHORTNESS OF BREATH Continue supplemental oxygen to just use as patient recently retains carbon dioxide The above patient has failed BiPAP with a patent airway. This patient would benefit from noninvasive mechanical ventilation via the trilogy AVAPS/AE and faster responding AVAPS rates. The trilogy is able to provide a target tidal volume and also adjusting the EPAP pressures to maintain a patent airway as well as an oral backup rate this machine will help improve PaCO2 levels. The severity of the patient's condition will lead to future hospitalizations and readmissions as well as life-threatening situations without the use of this device day and night. Trilogy home vent needed for hypercapnic respiratory failure. [facility] or [facility] to follow for trilogy set up. (4) Opioid dependence Qualifiers: Substance use status: with other opioid-induced disorder Qualified Code(s): F11.288 - Opioid dependence with other opioid-induced disorder; F11.28 - Opioid dependence with other opioid-induced disorder Is this a current diagnosis for this admission?: Yes Plan: Fortunately this further compounds her respiratory problems - Time Time Spent with patient: 55 min
[2019-10-20] MEDS: OXYCODONE-ACETAMINOPHEN 5-325 MG TABLET PO PRN (17:22)
[2019-10-20] MEDS: MAGNESIUM OXIDE 400 MG TABLET PO SCH (17:23)
[2019-10-21] MEDS: IPRATROPIUM/ALBUTEROL 0.5-2.5 MG/3 ML AMPUL NEB SCH ×4 (00:37→12:30)
[2019-10-21] MEDS: DILTIAZEM HCL 60 MG TABLET PO SCH ×4 (05:23→23:22)
[2019-10-21] MEDS: GABAPENTIN 400 MG CAPSULE PO SCH ×3 (05:23→21:47)
[2019-10-21] MEDS: CEFEPIME 1 GM/D5W RTU 1 GM/50 ML RTUPB IV SCH ×2 (05:23→17:40)
[2019-10-21 06:02] LABS: BLOOD UREA NITROGEN 33 mg/dL (7-20); CALCIUM 9.3 mg/dL (8.4-10.2); GLUCOSE 327 mg/dL (75-110); POTASSIUM 4.3 mmol/L (3.6-5.0)
[2019-10-21 06:07] LABS: CARBON DIOXIDE 39 mmol/L (22-30); CHLORIDE 91 mmol/L (98-107)
[2019-10-21 06:12] LABS: ANION GAP 5 (5-19)
[2019-10-21] MEDS: OXYCODONE-ACETAMINOPHEN 5-325 MG TABLET PO PRN ×3 (07:16→21:50)
[2019-10-21] MEDS: MAGNESIUM HYDROXIDE SUSP 30 ML UDCUP PO PRN ×2 (08:21→22:07)
[2019-10-21] MEDS: INSULIN LISPRO 100 UNIT/ML 3 ML VIAL SUBCUT SCH ×3 (08:21→17:39)
[2019-10-21] MEDS: MAGNESIUM OXIDE 400 MG TABLET PO SCH ×3 (08:21→17:39)
[2019-10-21] MEDS ORDERED: PHARMACY COMMUNICATION ORDER MC SCH (09:30)
[2019-10-21] MEDS: INSULIN GLARGINE,HUM.REC.ANLOG 1,000 UNIT/10 ML VIAL SUBCUT SCH ×2 (10:08→21:47)
[2019-10-21] MEDS: APIXABAN 5 MG TABLET PO SCH ×2 (10:09→17:40)
[2019-10-21] MEDS: MIDODRINE HCL 5 MG TABLET PO SCH ×3 (10:09→17:40)
[2019-10-21] MEDS: DOCUSATE SODIUM 100 MG CAPSULE PO SCH (10:09)
[2019-10-21] MEDS: FUROSEMIDE 40 MG TABLET PO SCH (10:09)
[2019-10-21] MEDS: FAMOTIDINE 20 MG TABLET PO SCH ×2 (10:09→21:47)
[2019-10-21] MEDS: SERTRALINE HCL 50 MG TABLET PO SCH (10:09)
[2019-10-21] MEDS: ATORVASTATIN CALCIUM 40 MG TABLET PO SCH (10:09)
[2019-10-21] MEDS: METHYLPREDNISOLONE INJ 125 MG/2 ML SDV IV SCH ×2 (10:09→21:47)
[2019-10-21] MEDS: ASPIRIN 81 MG TABLET, ENT COATED PO SCH (10:09)
[2019-10-21] MEDS: DIGOXIN 0.125 MG TABLET PO SCH (10:10)
[2019-10-21] MEDS: VANCOMYCIN HCL 1,000 MG in DEXTROSE 5%-WATER 250 ML IV SCH ×2 (10:10→21:58)
[2019-10-21] MEDS: NITROGLYCERIN 5 MG (0.2 MG/HR) PATCH.TD24 TD SCH (10:22)
[2019-10-21 10:44] LABS: VANCOMYCIN,TROUGH 12.4 ug/mL (5.0-20.0)
[2019-10-21] MEDS: METOPROLOL TARTRATE PF/INJ 5 MG/5 ML SDV IV PRN (12:12)
--- NOTE | 2019-10-21 12:12 | PDOC PROGRESS REPORT ---
Subjective Progress Note for:: 10/21/19 Subjective:: No adverse events overnight. She is had a couple of low blood pressure readings but for the most part her blood pressures have been normal or just a bit elevated. She denies any chest pain or shortness of breath. Heart rate is up some this morning before she had her medications. Blood sugars have been substantially elevated. Reason For Visit: PNEUMONIA,ACUTE HYPOXIC,HYPERCAPNIC, RESPIRATORY Physical Exam Vital Signs: Temp Pulse Resp BP Pulse Ox 98.3 F 73 20 133/82 H 94 10/21/19 10:50 10/21/19 10:50 10/21/19 10:50 10/21/19 10:50 10/21/19 10:50 Intake & Output 10/20/19 10/21/19 10/22/19 06:59 06:59 06:59 Intake Total 540 3317 1192 Output Total 1750 1525 250 Balance -1210 1792 942 Weight 96.3 kg 95.9 kg General appearance: PRESENT: no acute distress, cooperative, disheveled, morbidly obese Respiratory exam: PRESENT: decreased breath sounds, symmetrical, unlabored, wh eezes - Faint end expiratory. ABSENT: accessory muscle use, chest wall tenderness, crackles, prolonged expiratory phas, rhonchi Cardiovascular exam: PRESENT: irregular rhythm, tachycardia Pulses: PRESENT: normal carotid pulses Vascular exam: PRESENT: normal capillary refill GI/Abdominal exam: PRESENT: normal bowel sounds, soft. ABSENT: distended, guarding, rebound, tenderness Extremities exam: ABSENT: clubbing, pedal edema Musculoskeletal exam: PRESENT: normal inspection. ABSENT: deformity Neurological exam: PRESENT: awake, oriented to person, oriented to place, oriented to situation Psychiatric exam: PRESENT: appropriate affect, normal mood Skin exam: PRESENT: dry, warm Results Laboratory Results: 10/20/19 05:27 10/21/19 09:16 10/21/19 10/21/19 05:04 09:16 Sodium 135.2 L Potassium 4.3 Chloride 91 L Carbon Dioxide 39 H Anion Gap 5 BUN 33 H Creatinine 0.59 0.62 Est GFR ( Amer) > 60 > 60 Glucose 327 H Calcium 9.3 Magnesium 1.9 10/19/19 10/19/19 10/19/19 01:20 06:37 10:23 Troponin I < 0.012 < 0.012 < 0.012 NT-Pro-B Natriuret Pep 3000 H 10/19/19 16:06 Troponin I < 0.012 NT-Pro-B Natriuret Pep Impressions: Chest X-Ray 10/19/19 01:23 IMPRESSION: Right lower lobe consolidation/atelectasis, suspicious for pneumonia. Small right pleural effusion. Cardiomegaly. copyright 2010 [employer]- All Rights Reserved Assessment and Plan - Diagnosis (1) Acute on chronic respiratory failure Qualifiers: Respiratory failure complication: hypoxia and hypercapnia Qualified Code(s): J96.21 - Acute and chronic respiratory failure with hypoxia; J96.22 - Acute and chronic respiratory failure with hypercapnia Is this a current diagnosis for this admission?: Yes Plan: Back to baseline. Last PCO2 was in the 60s which we think is probably normal for her. Stable on O2 per nasal cannula. She has been seen by Dr. Maxwell he has recommended a Trilogy device. (2) Metabolic encephalopathy Is this a current diagnosis for this admission?: Yes Plan: Resolved. Mental status back to baseline. (3) Opioid dependence Qualifiers: Substance use status: with other opioid-induced disorder Qualified Code(s): F11.288 - Opioid dependence with other opioid-induced disorder; F11.28 - Opioid dependence with other opioid-induced disorder Is this a current diagnosis for this admission?: Yes Plan: Chronic. We are not going to increase her pain medication anymore. This is a problem for her because she is a chronic CO2 retainer. She was also taking too much Neurontin at home. (4) Pneumonia Qualifiers: Pneumonia type: due to unspecified organism Laterality: right Lung location: lower lobe of lung Qualified Code(s): J18.9 - Pneumonia, unspecified organism Is this a current diagnosis for this admission?: Yes Plan: Continue vancomycin and cefepime (5) Atrial fibrillation with RVR Is this a current diagnosis for this admission?: Yes Plan: Anticoagulated. Currently on Cardizem and digoxin. We will monitor her response. She also has PRN metoprolol available. We will titrate her medications as long as her blood pressure allows. (6) COPD exacerbation Is this a current diagnosis for this admission?: Yes Plan: She is on nebulizer treatments and steroids. Her steroids have been de- escalated to twice a day. I will likely switch her back over to oral prednisone tomorrow. 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 Hopefully de-escalating her steroids will improve this. She is also back on her Lantus twice a day plus a sliding scale. We are restricting her diet. Apparently she drinks a lot of Pepsi at home and were only allowing her to have 1 small can a day. (8) Hyperlipidemia Qualifiers: Hyperlipidemia type: unspecified Qualified Code(s): E78.5 - Hyperlipidemia, unspecified Is this a current diagnosis for this admission?: Yes Plan: Continue statin therapy (9) Hypertension Qualifiers: Hypertension type: essential hypertension Qualified Code(s): I10 - Essential (primary) hypertension Is this a current diagnosis for this admission?: Yes Plan: We will continue the current regimen, blood pressures for the most part have seems stable (10) Tobacco dependence Is this a current diagnosis for this admission?: Yes Plan: She has been counseled regarding the dangers to her health from continued smoking, but she was dismissive
[2019-10-21] MEDS: LEVALBUTEROL HCL NEB 1.25 MG/3 ML AMPUL NEB PRN (14:23)
[2019-10-22] MEDS: OXYCODONE-ACETAMINOPHEN 5-325 MG TABLET PO PRN ×3 (05:31→21:19)
[2019-10-22] MEDS: GABAPENTIN 400 MG CAPSULE PO SCH ×3 (05:31→21:18)
[2019-10-22] MEDS: DILTIAZEM HCL 60 MG TABLET PO SCH (05:33)
[2019-10-22] MEDS: CEFEPIME 1 GM/D5W RTU 1 GM/50 ML RTUPB IV SCH ×2 (05:34→17:03)
[2019-10-22] MEDS: LEVALBUTEROL HCL NEB 1.25 MG/3 ML AMPUL NEB PRN ×3 (05:40→21:40)
[2019-10-22] MEDS: INSULIN LISPRO 100 UNIT/ML 3 ML VIAL SUBCUT SCH ×4 (08:11→17:04)
[2019-10-22] MEDS: MAGNESIUM OXIDE 400 MG TABLET PO SCH ×3 (08:11→17:03)
[2019-10-22] MEDS: VANCOMYCIN HCL 1,000 MG in DEXTROSE 5%-WATER 250 ML IV SCH ×2 (09:33→21:18)
[2019-10-22] MEDS: APIXABAN 5 MG TABLET PO SCH ×2 (09:34→17:03)
[2019-10-22] MEDS: FAMOTIDINE 20 MG TABLET PO SCH ×2 (09:34→21:18)
[2019-10-22] MEDS: ATORVASTATIN CALCIUM 40 MG TABLET PO SCH (09:34)
[2019-10-22] MEDS: FUROSEMIDE 40 MG TABLET PO SCH (09:34)
[2019-10-22] MEDS: ASPIRIN 81 MG TABLET, ENT COATED PO SCH (09:34)
[2019-10-22] MEDS: DIGOXIN 0.125 MG TABLET PO SCH (09:34)
[2019-10-22] MEDS: DOCUSATE SODIUM 100 MG CAPSULE PO SCH (09:34)
[2019-10-22] MEDS: PREDNISONE 20 MG TABLET PO SCH (09:34)
[2019-10-22] MEDS: SERTRALINE HCL 50 MG TABLET PO SCH (09:34)
[2019-10-22] MEDS: MIDODRINE HCL 5 MG TABLET PO SCH ×3 (09:34→17:03)
[2019-10-22] MEDS: NITROGLYCERIN 5 MG (0.2 MG/HR) PATCH.TD24 TD SCH (09:35)
[2019-10-22] MEDS: INSULIN GLARGINE,HUM.REC.ANLOG 1,000 UNIT/10 ML VIAL SUBCUT SCH ×2 (09:35→21:21)
[2019-10-22] MEDS ORDERED: BISACODYL 5 MG TABEC PO ONE (11:00)
[2019-10-22] MEDS: DILTIAZEM HCL 240 MG CAPSULE.CR PO SCH (11:50)
[2019-10-22] MEDS: ACETAMINOPHEN 325 MG TABLET PO PRN (12:46)
--- NOTE | 2019-10-22 13:54 | PDOC PROGRESS REPORT ---
Subjective Progress Note for:: 10/22/19 Subjective:: No adverse events overnight. No new complaints. Pulmonology has recommended a trilogy device. We have de-escalate her steroids but her blood sugars remain elevated. Reason For Visit: PNEUMONIA,ACUTE HYPOXIC,HYPERCAPNIC, RESPIRATORY Physical Exam Vital Signs: Temp Pulse Resp BP Pulse Ox 97.9 F 86 13 116/50 L 97 10/22/19 11:26 10/22/19 11:26 10/22/19 11:26 10/22/19 11:26 10/22/19 11:26 Intake & Output 10/21/19 10/22/19 10/23/19 06:59 06:59 06:59 Intake Total 3317 2344 600 Output Total 1525 2150 600 Balance 1792 194 0 Weight 95.9 kg 97.9 kg General appearance: PRESENT: no acute distress, cooperative, disheveled, morbidly obese Respiratory exam: PRESENT: decreased breath sounds, symmetrical, unlabored, wheezes - Faint end expiratory. ABSENT: accessory muscle use, chest wall tenderness, crackles, prolonged expiratory phas, rhonchi Cardiovascular exam: PRESENT: irregular rhythm, tachycardia Pulses: PRESENT: normal carotid pulses Vascular exam: PRESENT: normal capillary refill GI/Abdominal exam: PRESENT: normal bowel sounds, soft. ABSENT: distended, guarding, rebound, tenderness Extremities exam: ABSENT: clubbing, pedal edema Musculoskeletal exam: PRESENT: normal inspection. ABSENT: deformity Neurological exam: PRESENT: awake, oriented to person, oriented to place, oriented to situation Psychiatric exam: PRESENT: appropriate affect, normal mood Skin exam: PRESENT: dry, warm Results Laboratory Results: 10/20/19 05:27 10/21/19 09:16 10/19/19 10/19/19 10/19/19 01:20 06:37 10:23 Troponin I < 0.012 < 0.012 < 0.012 NT-Pro-B Natriuret Pep 3000 H 10/19/19 16:06 Troponin I < 0.012 NT-Pro-B Natriuret Pep Impressions: Chest X-Ray 10/19/19 01:23 IMPRESSION: Right lower lobe consolidation/atelectasis, suspicious for pneumonia. Small right pleural effusion. Cardiomegaly. copyright 2011 [employer]- All Rights Reserved Assessment and Plan - Diagnosis (1) Acute on chronic respiratory failure Qualifiers: Respiratory failure complication: hypoxia and hypercapnia Qualified Code(s): J96.21 - Acute and chronic respiratory failure with hypoxia; J96.22 - Acute and chronic respiratory failure with hypercapnia Is this a current diagnosis for this admission?: Yes Plan: Back to baseline. Last PCO2 was in the 60s which we think is probably normal for her. Stable on O2 per nasal cannula. She has been seen by Dr. Maxwell he has recommended a Trilogy device. An order has been put in for the device. There appears to be some arrangements that need to be made with educating her family on the device before she can go home. We will work to arrange this education to occur. (2) Metabolic encephalopathy Is this a current diagnosis for this admission?: Yes Plan: Resolved. Mental status back to baseline. (3) Opioid dependence Qualifiers: Substance use status: with other opioid-induced disorder Qualified Code(s): F11.288 - Opioid dependence with other opioid-induced disorder; F11.28 - Opioid dependence with other opioid-induced disorder Is this a current diagnosis for this admission?: Yes Plan: Chronic. We are not going to increase her pain medication anymore. We have decreased the frequency to every 6 hours. This is a problem for her because she is a chronic CO2 retainer. She was also taking too much Neurontin at home. (4) Pneumonia Qualifiers: Pneumonia type: due to unspecified organism Laterality: right Lung location: lower lobe of lung Qualified Code(s): J18.9 - Pneumonia, unspecified organism Is this a current diagnosis for this admission?: Yes Plan: Continue vancomycin and cefepime (5) Atrial fibrillation with RVR Is this a current diagnosis for this admission?: Yes Plan: Anticoagulated. Currently on Cardizem and digoxin. We will monitor her response. She also has PRN metoprolol available. We will titrate her medications as long as her blood pressure allows. (6) COPD exacerbation Is this a current diagnosis for this admission?: Yes Plan: She is on nebulizer treatments and steroids. She has been de-escalated to prednisone. (7) Hyperglycemia due to type 2 diabetes mellitus Qualifiers: Diabetes mellitus vermin exterminator insulin use: with vermin exterminator use Qualified Code(s): E11.65 - Type 2 diabetes mellitus with hyperglycemia; Z79.4 - termite treater (current) use of insulin Is this a current diagnosis for this admission?: Yes Plan: At one point her sugars were low for her, but now she is in the upper 300s. Hopefully de-escalating her steroids will improve this. She is also back on her Lantus twice a day plus a sliding scale. Lantus now at 45 units twice a day, and I have added a fixed dose of Humalog to be added to the sliding scale. We are restricting her diet. Apparently she drinks a lot of Pepsi at home and were only allowing her to have 1 small can a day. (8) Hyperlipidemia Qualifiers: Hyperlipidemia type: unspecified Qualified Code(s): E78.5 - Hyperlipidemia, unspecified Is this a current diagnosis for this admission?: Yes Plan: Continue statin therapy (9) Hypertension Qualifiers: Hypertension type: essential hypertension Qualified Code(s): I10 - Ess ential (primary) hypertension Is this a current diagnosis for this admission?: Yes Plan: We will continue the current regimen, blood pressures for the most part have seems stable (10) Tobacco dependence Is this a current diagnosis for this admission?: Yes Plan: She has been counseled regarding the dangers to her health from continued smoking, but she was dismissive - Time Time Spent with patient: 25-34 minutes
[2019-10-23] MEDS: GABAPENTIN 400 MG CAPSULE PO SCH ×3 (06:08→22:02)
[2019-10-23] MEDS: OXYCODONE-ACETAMINOPHEN 5-325 MG TABLET PO PRN ×3 (06:08→18:02)
[2019-10-23] MEDS: CEFEPIME 1 GM/D5W RTU 1 GM/50 ML RTUPB IV SCH ×2 (06:11→17:09)
[2019-10-23] MEDS: INSULIN LISPRO 100 UNIT/ML 3 ML VIAL SUBCUT SCH ×6 (08:04→17:10)
[2019-10-23] MEDS: MAGNESIUM OXIDE 400 MG TABLET PO SCH ×3 (08:06→17:09)
[2019-10-23] MEDS: INSULIN GLARGINE,HUM.REC.ANLOG 1,000 UNIT/10 ML VIAL SUBCUT SCH ×2 (09:22→22:02)
[2019-10-23] MEDS: ASPIRIN 81 MG TABLET, ENT COATED PO SCH (09:22)
[2019-10-23] MEDS: VANCOMYCIN HCL 1,000 MG in DEXTROSE 5%-WATER 250 ML IV SCH ×2 (09:22→22:03)
[2019-10-23] MEDS: FUROSEMIDE 40 MG TABLET PO SCH (09:23)
[2019-10-23] MEDS: APIXABAN 5 MG TABLET PO SCH ×2 (09:23→17:09)
[2019-10-23] MEDS: SERTRALINE HCL 50 MG TABLET PO SCH (09:23)
[2019-10-23] MEDS: DOCUSATE SODIUM 100 MG CAPSULE PO SCH (09:23)
[2019-10-23] MEDS: PREDNISONE 20 MG TABLET PO SCH (09:23)
[2019-10-23] MEDS: ATORVASTATIN CALCIUM 40 MG TABLET PO SCH (09:23)
[2019-10-23] MEDS: DIGOXIN 0.125 MG TABLET PO SCH (09:23)
[2019-10-23] MEDS: MIDODRINE HCL 5 MG TABLET PO SCH ×3 (09:23→17:09)
[2019-10-23] MEDS: DILTIAZEM HCL 240 MG CAPSULE.CR PO SCH (09:23)
[2019-10-23] MEDS: FAMOTIDINE 20 MG TABLET PO SCH ×2 (09:23→22:02)
[2019-10-23] MEDS: LEVALBUTEROL HCL NEB 1.25 MG/3 ML AMPUL NEB PRN (12:18)
[2019-10-23] MEDS: METOPROLOL TARTRATE PF/INJ 5 MG/5 ML SDV IV PRN (13:05)
--- NOTE | 2019-10-23 14:01 | PDOC PROGRESS REPORT ---
Subjective Progress Note for:: 10/23/19 Subjective:: No adverse events overnight. No new complaints. Blood sugar control has improved a little bit. She is now in the low to mid 200s. She is been eating and drinking without difficulty. Breathing is at its baseline. Her heart rate does remain labile but it is typically in a fairly consistent range. Reason For Visit: PNEUMONIA,ACUTE HYPOXIC,HYPERCAPNIC, RESPIRATORY Physical Exam Vital Signs: Temp Pulse Resp BP Pulse Ox 97.6 F 118 H 28 H 119/69 95 10/23/19 11:43 10/23/19 12:25 10/23/19 12:25 10/23/19 11:43 10/23/19 12:25 Intake & Output 10/22/19 10/23/19 10/24/19 06:59 06:59 06:59 Intake Total 2344 2410 1110 Output Total 2150 2025 300 Balance 194 385 810 Weight 97.9 kg 98.5 kg General appearance: PRESENT: no acute distress, cooperative, disheveled, morbidly obese Respiratory exam: PRESENT: decreased breath sounds, symmetrical, unlabored, wheezes - Faint end expiratory. ABSENT: accessory muscle use, chest wall tenderness, crackles, prolonged expiratory phas, rhonchi Cardiovascular exam: PRESENT: irregular rhythm, tachycardia Pulses: PRESENT: normal carotid pulses Vascular exam: PRESENT: normal capillary refill GI/Abdominal exam: PRESENT: normal bowel sounds, soft. ABSENT: distended, guarding, rebound, tenderness Extremities exam: ABSENT: clubbing, pedal edema Musculoskeletal exam: PRESENT: normal inspection. ABSENT: deformity Neurological exam: PRESENT: awake, oriented to person, oriented to place, oriented to situation Psychiatric exam: PRESENT: appropriate affect, normal mood Skin exam: PRESENT: dry, warm Results Laboratory Results: 10/20/19 05:27 10/21/19 09:16 10/19/19 10/19/19 10/19/19 01:20 06:37 10:23 Troponin I < 0.012 < 0.012 < 0.012 NT-Pro-B Natriuret Pep 3000 H 10/19/19 16:06 Troponin I < 0.012 NT-Pro-B Natriuret Pep Impressions: Chest X-Ray 10/19/19 01:23 IMPRESSION: Right lower lobe consolidation/atelectasis, suspicious for pneumonia. Small right pleural effusion. Cardiomegaly. copyright 2011 [employer]- All Rights Reserved Assessment and Plan - Diagnosis (1) Acute on chronic respiratory failure Qualifiers: Respiratory failure complication: hypoxia and hypercapnia Qualified C ode(s): J96.21 - Acute and chronic respiratory failure with hypoxia; J96.22 - Acute and chronic respiratory failure with hypercapnia Is this a current diagnosis for this admission?: Yes Plan: Back to baseline. Last PCO2 was in the 60s which we think is probably normal for her. Stable on O2 per nasal cannula. She has been seen by Dr. Maxwell he has recommended a Trilogy device. An order has been put in for the device. There appears to be some arrangements that need to be made with educating her family on the device before she can go home. We will work to arrange this education to occur. (2) Metabolic encephalopathy Is this a current diagnosis for this admission?: Yes Plan: Resolved. Mental status back to baseline. (3) Opioid dependence Qualifiers: Substance use status: with other opioid-induced disorder Qualified Code(s): F11.288 - Opioid dependence with other opioid-induced disorder; F11.28 - Opioid dependence with other opioid-induced disorder Is this a current diagnosis for this admission?: Yes Plan: Chronic. We are not going to increase her pain medication anymore. We have decreased the frequency to every 6 hours. This is a problem for her because she is a chronic CO2 retainer. She was also taking too much Neurontin at home. (4) Pneumonia Qualifiers: Pneumonia type: due to unspecified organism Laterality: right Lung location: lower lobe of lung Qualified Code(s): J18.9 - Pneumonia, unspecified organism Is this a current diagnosis for this admission?: Yes Plan: Continue vancomycin and cefepime (5) Atrial fibrillation with RVR Is this a current diagnosis for this admission?: Yes Plan: Anticoagulated. Currently on Cardizem and digoxin. We will monitor her response. She also has PRN metoprolol available. Heart rate has been labile, and she goes anywhere from the 50s to the 120s but seems to consistently stay in that range. (6) COPD exacerbation Is this a current diagnosis for this admission?: Yes Plan: She is on nebulizer treatments and steroids. She has been de-escalated to prednisone. (7) Hyperglycemia due to type 2 diabetes mellitus Qualifiers: Diabetes mellitus crozer insulin use: with retirement use Qualified Code(s): E11.65 - Type 2 diabetes mellitus with hyperglycemia; Z79.4 - intermediate (current) use of insulin Is this a current diagnosis for this admission?: Yes Plan: At one point her sugars were low for her, but now she is in the 200s. Steroids have been de-escalated to prednisone. Lantus now at 45 units twice a day, and I have added a fixed dose of Humalog to be added to the sliding scale. We are restricting her diet. Apparently she drinks a lot of Pepsi at home and were only allowing her to have 1 small can a day. (8) Hyperlipidemia Qualifiers: Hyperlipidemia type: unspecified Qualified Code(s): E78.5 - Hyperlipidemia, unspecified Is this a current diagnosis for this admission?: Yes Plan: Continue statin therapy (9) Hypertension Qualifiers: Hypertension type: essential hypertension Qualified Code(s): I10 - Essential (primary) hypertension Is this a current diagnosis for this admission?: Yes Plan: We will continue the current regimen, blood pressures for the most part have seems stable (10) Tobacco dependence Is this a current diagnosis for this admission?: Yes Plan: She has been counseled regarding the dangers to her health from continued smoking, but she was dismissive - Time Time Spent with patient: 25-34 minutes
[2019-10-24] MEDS: OXYCODONE-ACETAMINOPHEN 5-325 MG TABLET PO PRN ×4 (02:32→22:41)
[2019-10-24] MEDS: GABAPENTIN 400 MG CAPSULE PO SCH ×3 (05:57→22:40)
[2019-10-24] MEDS: CEFEPIME 1 GM/D5W RTU 1 GM/50 ML RTUPB IV SCH ×2 (05:57→17:39)
[2019-10-24] MEDS: INSULIN LISPRO 100 UNIT/ML 3 ML VIAL SUBCUT SCH ×6 (08:05→17:40)
[2019-10-24] MEDS: APIXABAN 5 MG TABLET PO SCH ×2 (09:25→17:38)
[2019-10-24] MEDS: FUROSEMIDE 40 MG TABLET PO SCH (09:25)
[2019-10-24] MEDS: DILTIAZEM HCL 240 MG CAPSULE.CR PO SCH (09:25)
[2019-10-24] MEDS: DOCUSATE SODIUM 100 MG CAPSULE PO SCH (09:26)
[2019-10-24] MEDS: ASPIRIN 81 MG TABLET, ENT COATED PO SCH (09:26)
[2019-10-24] MEDS: MAGNESIUM OXIDE 400 MG TABLET PO SCH ×3 (09:26→17:38)
[2019-10-24] MEDS: PREDNISONE 20 MG TABLET PO SCH (09:26)
[2019-10-24] MEDS: INSULIN GLARGINE,HUM.REC.ANLOG 1,000 UNIT/10 ML VIAL SUBCUT SCH ×2 (09:26→22:39)
[2019-10-24] MEDS: SERTRALINE HCL 50 MG TABLET PO SCH (09:26)
[2019-10-24] MEDS: DIGOXIN 0.125 MG TABLET PO SCH (09:26)
[2019-10-24] MEDS: ATORVASTATIN CALCIUM 40 MG TABLET PO SCH (09:26)
[2019-10-24] MEDS: FAMOTIDINE 20 MG TABLET PO SCH ×2 (09:26→22:40)
[2019-10-24] MEDS: MIDODRINE HCL 5 MG TABLET PO SCH ×3 (09:26→17:39)
[2019-10-24] MEDS: VANCOMYCIN HCL 1,000 MG in DEXTROSE 5%-WATER 250 ML IV SCH ×2 (09:27→22:40)
[2019-10-24] MEDS: LEVALBUTEROL HCL NEB 1.25 MG/3 ML AMPUL NEB PRN ×2 (09:45→21:12)
--- NOTE | 2019-10-24 11:36 | PDOC PROGRESS REPORT ---
Subjective Progress Note for:: 10/24/19 Subjective:: No adverse events overnight. No new complaints. Blood sugar control is greatly improved. She is been eating and drinking without difficulty. Breathing is at its baseline. Her heart rate does remain labile but it is typically in a fairly consistent range. She wants to go home and I have explained to her several times that we are bringing her family and educate her on her new breathing device first. Reason For Visit: PNEUMONIA,ACUTE HYPOXIC,HYPERCAPNIC, RESPIRATORY Physical Exam Vital Signs: Temp Pulse Resp BP Pulse Ox 97.3 F 119 H 14 149/83 H 95 10/24/19 07:52 10/24/19 09:45 10/24/19 11:23 10/24/19 07:52 10/24/19 11:23 Intake & Output 10/23/19 10/24/19 10/25/19 06:59 06:59 06:59 Intake Total 2410 2370 50 Output Total 2025 2750 Balance 385 -380 50 Weight 98.5 kg 97.3 kg General appearance: PRESENT: no acute distress, cooperative, disheveled, morbidly obese Respiratory exam: PRESENT: decreased breath sounds, symmetrical, unlabored, wheezes - Faint end expiratory. ABSENT: accessory muscle use, chest wall tenderness, crackles, prolonged expiratory phas, rhonchi Cardiovascular exam: PRESENT: irregular rhythm, tachycardia Pulses: PRESENT: normal carotid pulses Vascular exam: PRESENT: normal capillary refill GI/Abdominal exam: PRESENT: normal bowel sounds, soft. ABSENT: distended, guarding, rebound, tenderness Extremities exam: ABSENT: clubbing, pedal edema Musculoskeletal exam: PRESENT: normal inspection. ABSENT: deformity Neurological exam: PRESENT: awake, oriented to person, oriented to place, oriented to situation Psychiatric exam: PRESENT: appropriate affect, normal mood Skin exam: PRESENT: dry, warm Results Laboratory Results: 10/20/19 05:27 10/24/19 09:05 10/24/19 09:05 Creatinine 0.61 Est GFR ( Amer) > 60 10/19/19 06:37 Blood Blood Culture - Final NO GROWTH IN 5 DAYS 10/19/19 03:29 Blood Blood Culture - Final NO GROWTH IN 5 DAYS 10/19/19 10/19/19 10/19/19 01:20 06:37 10:23 Troponin I < 0.012 < 0.012 < 0.012 NT-Pro-B Natriuret Pep 3000 H 10/19/19 16:06 Troponin I < 0.012 NT-Pro-B Natriuret Pep Impressions: Chest X-Ray 10/19/19 01:23 IMPRESSION: Right lower lobe consolidation/atelectasis, suspicious for pneumonia. Small right pleural effusion. Cardiomegaly. copyright 2010 [employer]- All Rights Reserved Assessment and Plan - Diagnosis (1) Acute on chronic respiratory failure Qualifiers: Respiratory failure complication: hypoxia and hypercapnia Qualified Code( s): J96.21 - Acute and chronic respiratory failure with hypoxia; J96.22 - Acute and chronic respiratory failure with hypercapnia Is this a current diagnosis for this admission?: Yes Plan: Back to baseline. Last PCO2 was in the 60s which we think is probably normal for her. Stable on O2 per nasal cannula. She has been seen by Dr. Maxwell he has recommended a Trilogy device. An order has been put in for the device. Her family is coming in today for the requisite education needed for the device, because communication with the patient is very difficult and we do not think that she would be able to manage it on her own. Once this is done, she can be discharged home. (2) Metabolic encephalopathy Is this a current diagnosis for this admission?: Yes Plan: Resolved. Mental status back to baseline. (3) Opioid dependence Qualifiers: Substance use status: with other opioid-induced disorder Qualified Code(s): F11.288 - Opioid dependence with other opioid-induced disorder; F11.28 - Opioid dependence with other opioid-induced disorder Is this a current diagnosis for this admission?: Yes Plan: Chronic. We are not going to increase her pain medication anymore. We have decreased the frequency to every 6 hours. This is a problem for her because she is a chronic CO2 retainer. She was also taking too much Neurontin at home. (4) Pneumonia Qualifiers: Pneumonia type: due to unspecified organism Laterality: right Lung location: lower lobe of lung Qualified Code(s): J18.9 - Pneumonia, unspecified organism Is this a current diagnosis for this admission?: Yes Plan: Continue vancomycin and cefepime (5) Atrial fibrillation with RVR Is this a current diagnosis for this admission?: Yes Plan: Anticoagulated. Currently on Cardizem and digoxin. We will monitor her response. She also has PRN metoprolol available. Heart rate has been labile, and she goes anywhere from the 50s to the 120s but seems to consistently stay in that range. I am afraid if we mess with her medications anymore that she will become bradycardic. (6) COPD exacerbation Is this a current diagnosis for this admission?: Yes Plan: She is on nebulizer treatments and steroids. She has been de-escalated to prednisone. (7) Hyperglycemia due to type 2 diabetes mellitus Qualifiers: Diabetes mellitus extermination supervisor insulin use: with extermination supervisor use Qualified Code(s): E11.65 - Type 2 diabetes mellitus with hyperglycemia; Z79.4 - FPC (current) use of insulin Is this a current diagnosis for this admission?: Yes Plan: At one point her sugars were low for her. Steroids have been de-escalated to prednisone. Lantus now at 45 units twice a day, and I have added a fixed dose of Humalog to be added to the sliding scale. We are restricting her diet. Apparently she drinks a lot of Pepsi at home and were only allowing her to have 1 small can a day. (8) Hyperlipidemia Qualifiers: Hyperlipidemia type: unspecified Qualified Code(s): E78.5 - Hyperlipidemia, unspecified Is this a current diagnosis for this admission?: Yes Plan: Continue statin therapy (9) Hypertension Qualifiers: Hypertension type: essential hypertension Qualified Code(s): I10 - Essential (primary) hypertension Is this a current diagnosis for this admission?: Yes Plan: We will continue the current regimen, blood pressures for the most part have seems stable (10) Tobacco dependence Is this a current diagnosis for this admission?: Yes Plan: She has been counseled regarding the dangers to her health from continued smoking, but she was dismissive
[2019-10-24] MEDS: MAGNESIUM HYDROXIDE SUSP 30 ML UDCUP PO PRN (16:29)
[2019-10-24] MEDS: ACETAMINOPHEN 325 MG TABLET PO PRN (20:47)
[2019-10-25] MEDS: ACETAMINOPHEN 325 MG TABLET PO PRN (02:13)
[2019-10-25 05:48] VITALS: BP 121/57
[2019-10-25] MEDS: GABAPENTIN 400 MG CAPSULE PO SCH (06:17)
[2019-10-25] MEDS: OXYCODONE-ACETAMINOPHEN 5-325 MG TABLET PO PRN (06:17)
[2019-10-25] MEDS: CEFEPIME 1 GM/D5W RTU 1 GM/50 ML RTUPB IV SCH (06:17)
[2019-10-25] MEDS: INSULIN LISPRO 100 UNIT/ML 3 ML VIAL SUBCUT SCH ×2 (07:57)
[2019-10-25] MEDS: ASPIRIN 81 MG TABLET, ENT COATED PO SCH (09:00)
[2019-10-25] MEDS: PREDNISONE 20 MG TABLET PO SCH (09:00)
[2019-10-25] MEDS: ATORVASTATIN CALCIUM 40 MG TABLET PO SCH (09:00)
[2019-10-25] MEDS: FAMOTIDINE 20 MG TABLET PO SCH (09:00)
[2019-10-25] MEDS: MIDODRINE HCL 5 MG TABLET PO SCH (09:00)
[2019-10-25] MEDS: SERTRALINE HCL 50 MG TABLET PO SCH (09:00)
[2019-10-25] MEDS: APIXABAN 5 MG TABLET PO SCH (09:00)
[2019-10-25] MEDS: DILTIAZEM HCL 240 MG CAPSULE.CR PO SCH (09:00)
[2019-10-25] MEDS: FUROSEMIDE 40 MG TABLET PO SCH (09:00)
[2019-10-25] MEDS: DIGOXIN 0.125 MG TABLET PO SCH (09:00)
[2019-10-25] MEDS: DOCUSATE SODIUM 100 MG CAPSULE PO SCH (09:00)
[2019-10-25] MEDS: INSULIN GLARGINE,HUM.REC.ANLOG 1,000 UNIT/10 ML VIAL SUBCUT SCH (09:00)
[2019-10-25] MEDS: VANCOMYCIN HCL 1,000 MG in DEXTROSE 5%-WATER 250 ML IV SCH (09:01)
--- NOTE | 2019-10-25 15:04 | PDOC DISCHARGE SUMMARY ---
Impression - Admit/DC Date/PCP Admission Date/Primary Care Provider: 10/19/19 04:08 SHERRIE CADET PA-C Discharge Date: 10/25/19 - Discharge Diagnosis (1) Acute on chronic respiratory failure Is this a current diagnosis for this admission?: Yes (2) Metabolic encephalopathy Is this a current diagnosis for this admission?: Yes (3) Opioid dependence Is this a current diagnosis for this admission?: Yes (4) Pneumonia Is this a current diagnosis for this admission?: Yes (5) Atrial fibrillation with RVR Is this a current diagnosis for this admission?: Yes (6) COPD exacerbation Is this a current diagnosis for this admission?: Yes (7) Hyperglycemia due to type 2 diabetes mellitus Is this a current diagnosis for this admission?: Yes (8) Hyperlipidemia Is this a current diagnosis for this admission?: Yes (9) Hypertension Is this a current diagnosis for this admission?: Yes (10) Tobacco dependence Is this a current diagnosis for this admission?: Yes - Additional Information Resuscitation Status: Full Code Discharge Diet: Cardiac, Diabetic Discharge Activity: Balance Activity w/Rest, Energy Conservation, Supervised Activity Referrals: SHERRIE CADET PA-C [Primary Care Provider] - 11/08/19 9:45 am Prescriptions: Prednisone [Deltasone 20 mg Tablet] 40 mg PO DAILY #10 tablet Home Medications: Metformin HCl [Metformin HCl ER] 500 mg PO QAM 05/28/18 Oxycodone HCl/Acetaminophen [Percocet 10-325 mg Tablet] 1 each PO QIDP PRN 05/28/18 Atorvastatin Calcium [Lipitor 40 mg Tablet] 40 mg PO DAILY 05/29/18 Furosemide [Lasix 20 mg Tablet] 40 mg PO DAILY MDD 40 MG 05/29/18 Apixaban [Eliquis 5 mg Tablet] 5 mg PO BID #60 tablet 06/01/18 Diltiazem HCl [Diltiazem 24Hr ER (Cd)] 240 mg PO DAILY #30 cap.er.24h 06/01/18 Sertraline HCl 50 mg PO DAILY 06/13/19 Insulin Aspart [Novolog Flexpen] 5 units SUBCUT TID 10/15/19 Budesonide/Formoterol Fumarate [Symbicort HFA 80-4.5 mcg Inhaler 6.9 gm] 2 puff IH BID #1 inhaler 10/18/19 Digoxin [Lanoxin 0.125 mg Tablet] 0.125 mg PO DAILY #14 tablet 10/18/19 Famotidine [Pepcid 20 mg Tablet] 20 mg PO Q12 tablet 10/18/19 Gabapentin [Neurontin 400 mg Capsule] 400 mg PO Q8 capsule 10/18/19 Midodrine HCl [Proamatine 5 mg Tablet] 5 mg PO TID #42 tablet 10/18/19 Insulin Glargine,Hum.rec.anlog [Lantus Insulin 100 Unit/1 ml 10 ml] 50 unit SUBCUT Q12 unit 10/24/19 Prednisone [Deltasone 20 mg Tablet] 40 mg PO DAILY #10 tablet 10/24/19 History of Present Illiness History of Present Illness: KIRSTIE GARCIA is a 84 year old female discharged yesterday in stable condition return to [facility]. She was having difficulty breathing with low oxygen saturation was poorly responsive. EMS was called. She was found to have a PCO2 of 100. When she went home she took her normal dose of pain medication however she took 1600 mg of Neurontin at once. This was likely the sedating agent that caused the respiratory depression which led to the markedly elevated PCO2. In addition chest x-ray suggested pneumonia. Initially the patient appropriate for the intensive care unit. BiPAP therapy in the emergency department as well as nebulizer treatments the patient improved enough to be admitted to [facility] Hospital Course Hospital Course: This is a lady who has smoked handrolled cigarettes for decades and has no desire to quit whatsoever. She was put on BiPAP and her CO2 came down to a level that allow her mental status to return to baseline. She was treated with a course of antibiotics while she was here but she does not really have a need for them after she leaves the hospital. Her atrial fibrillation was difficult to control, with her heart rate being very labile. We put her on the medication she was on at home and her heart rate would range from the low 50s to the upper 120s and she was consistently in this range and asymptomatic. Her blood pressure was low but steady, so we did not think that increasing her medication dosages would be good for her blood pressure, and because she was consistently below 110 we left her there. She is anticoagulated with Eliquis. Her blood sugars were difficult to control while she was on steroids and we had to adjust her insulin regimen to reflect this. It improved somewhat after we switch her to prednisone but she still required an increased dose of long-acting insulin. She was seen in consultation by pulmonology who recommended a trilogy device for home. The patient cannot hear a thing, and we had to communicate with her through the use of a dry erase board. The [employer] was planning to educate the patient's daughter on the use of the device, and the patient was okay with this. Once the device was delivered we could send the patient home, because it was felt that if she was at home without the device for her to use that she would wind up retaining carbon dioxide again. She is also is on a couple of different kinds of pain medicine and we have recommended that she decrease the dosages. Her labs and examination were reassuring and she was dis charged in stable condition. Physical Exam Vital Signs: Temp Pulse Resp BP Pulse Ox 97.3 F 119 H 14 149/83 H 95 10/24/19 07:52 10/24/19 09:45 10/24/19 11:23 10/24/19 07:52 10/24/19 11:23 Intake & Output 10/23/19 10/24/19 10/25/19 06:59 06:59 06:59 Intake Total 2410 2370 660 Output Total 5 2750 1050 Balance 385 -380 -390 Weight 98.5 kg 97.3 kg General appearance: PRESENT: no acute distress, cooperative, disheveled, morbidly obese Respiratory exam: PRESENT: decreased breath sounds, symmetrical, unlabored, wheezes - Faint end expiratory. ABSENT: accessory muscle use, chest wall tenderness, crackles, prolonged expiratory phas, rhonchi Cardiovascular exam: PRESENT: irregular rhythm, tachycardia Pulses: PRESENT: normal carotid pulses Vascular exam: PRESENT: normal capillary refill GI/Abdominal exam: PRESENT: normal bowel sounds, soft. ABSENT: distended, guarding, rebound, tenderness Extremities exam: ABSENT: clubbing, pedal edema Musculoskeletal exam: PRESENT: normal inspection. ABSENT: deformity Neurological exam: PRESENT: awake, oriented to person, oriented to place, oriented to situation Psychiatric exam: PRESENT: appropriate affect, normal mood Skin exam: PRESENT: dry, warm Results Laboratory Results: WBC 4.2 10^3/uL (4.0-10.5) 10/20/19 05:27 RBC 4.10 10^6/uL (3.72-5.28) 10/20/19 05:27 Hgb 13.3 g/dL (12.0-15.5) 10/20/19 05:27 Hct 40.0 % (36.0-47.0) 10/20/19 05:27 MCV 98 fl (80-97) H 10/20/19 05:27 MCH 32.4 pg (27.0-33.4) 10/20/19 05:27 MCHC 33.2 g/dL (32.0-36.0) 10/20/19 05:27 RDW 13.8 % (11.5-14.0) 10/20/19 05:27 Plt Count 125 10^3/uL (150-450) L 10/20/19 05:27 Lymph % (Auto) 10.3 % (13-45) L 10/20/19 05:27 Davidson % (Auto) 1.3 % (3-13) L 10/20/19 05:27 Eos % (Auto) 0.2 % (0-6) 10/20/19 05:27 Baso % (Auto) 0.4 % (0-2) 10/20/19 05:27 Absolute Neuts (auto) 3.7 10^3/uL (1.7-8.2) 10/20/19 05:27 Absolute Lymphs (auto) 0.4 10^3/uL (0.5-4.7) L 10/20/19 05:27 Absolute Monos (auto) 0.1 10^3/uL (0.1-1.4) 10/20/19 05:27 Absolute Eos (auto) 0.0 10^3/uL (0.0-0.6) 10/20/19 05:27 Absolute Basos (auto) 0.0 10^3/uL (0.0-0.2) 10/20/19 05:27 Seg Neutrophils % 87.8 % (42-78) H 10/20/19 05:27 Carbonic Acid 1.85 mmol/L (1.05-1.35) H 10/20/19 06:35 HCO3/H2CO3 Ratio 20:1 10/20/19 06:35 ABG pH 7.42 (7.35-7.45) 10/20/19 06:35 ABG pCO2 61.3 mmHg (35-45) H 10/20/19 06:35 ABG pO2 51.8 mmHg (80-100) L 10/20/19 06:35 ABG HCO3 38.6 mmol/L (20-24) H 10/20/19 06:35 ABG Total CO2 40.5 mmol/L (21-25) H 10/20/19 06:35 ABG O2 Saturation 86.2 % (94-98) L 10/20/19 06:35 ABG Base Excess 11.5 mmol/L 10/20/19 06:35 VBG pH 7.20 (7.30-7.42) L 10/19/19 01:20 VBG pCO2 92.8 mmHg (35-63) H* 10/19/19 01:20 VBG HCO3 35.1 mmol/L (20-32) H 10/19/19 01:20 VBG Base Excess 3.2 mmol/L 10/19/19 01:20 FiO2 35% 10/20/19 06:35 Sodium 135.2 mmol/L (137-145) L 10/21/19 05:04 Potassium 4.3 mmol/L (3.6-5.0) 10/21/19 05:04 Chloride 91 mmol/L (98-107) L 10/21/19 05:04 Carbon Dioxide 39 mmol/L (22-30) H 10/21/19 05:04 Anion Gap 5 (5-19) 10/21/19 05:04 BUN 33 mg/dL (7-20) H 10/21/19 05:04 Creatinine 0.61 mg/dL (0.52-1.25) 10/24/19 09:05 Est GFR ( Amer) > 60 (>60) 10/24/19 09:05 Est GFR (MDRD) Non-Af > 60 (>60) 10/24/19 09:05 Glucose 327 mg/dL (75-110) H 10/21/19 05:04 POC Glucose 177 mg/dL (70-110) H 10/24/19 11:21 Calcium 9.3 mg/dL (8.4-10.2) 10/21/19 05:04 Phosphorus 3.1 mg/dL (2.5-4.5) 10/20/19 05:27 Magnesium 1.9 mg/dL (1.6-2.3) 10/21/19 05:04 Total Bilirubin 0.5 mg/dL (0.2-1.3) 10/19/19 01:20 Direct Bilirubin 0.1 mg/dL (0.0-0.4) 10/19/19 01:20 Neonat Total Bilirubin Not Reportable 10/19/19 01:20 Neonat Direct Bilirubin Not Reportable 10/19/19 01:20 Neonat Indirect Bili Not Reportable 10/19/19 01:20 AST 24 U/L (14-36) 10/19/19 01:20 ALT 16 U/L (<35) 10/19/19 01:20 Alkaline Phosphatase 69 U/L (38-126) 10/19/19 01:20 Troponin I < 0.012 ng/mL 10/19/19 16:06 NT-Pro-B Natriuret Pep 3000 pg/mL (<450) H 10/19/19 01:20 Total Protein 7.2 g/dL (6.3-8.2) 10/19/19 01:20 Albumin 4.0 g/dL (3.5-5.0) 10/19/19 01:20 TSH 0.62 uIU/mL (0.47-4.68) 10/19/19 01:02 Urine Color STRAW 10/20/19 01:50 Urine Appearance CLEAR 10/20/19 01:50 Urine pH 5.0 (5.0-9.0) 10/20/19 01:50 Ur Specific Hodgen 1.006 10/20/19 01:50 Urine Protein NEGATIVE mg/dL (NEGATIVE) 10/20/19 01:50 Urine Glucose (UA) NEGATIVE mg/dL (NEGATIVE) 10/20/19 01:50 Urine Ketones NEGATIVE mg/dL (NEGATIVE) 10/20/19 01:50 Urine Blood NEGATIVE (NEGATIVE) 10/20/19 01:50 Urine Nitrite NEGATIVE (NEGATIVE) 10/19/19 04:57 Urine Nitrite (Reflex) NEGATIVE (NEGATIVE) 10/20/19 01:50 Urine Bilirubin NEGATIVE (NEGATIVE) 10/20/19 01:50 Urine Urobilinogen NEGATIVE mg/dL (<2.0) 10/20/19 01:50 Ur Leukocyte Esterase NEGATIVE (NEGATIVE) 10/19/19 04:57 Leukocyte Esterase Rfl NEGATIVE (NEGATIVE) 10/20/19 01:50 Urine WBC (Auto) 3 /HPF 10/19/19 04:57 Urine RBC (Auto) 1 /HPF 10/19/19 04:57 U Hyaline Cast (Auto) 4 /LPF 10/20/19 01:50 Urine WBC (Reflex) < 1 /HPF 10/20/19 01:50 Squamous Epi Cells Auto <1 /HPF 10/19/19 04:57 Urine Mucus (Auto) RARE /LPF 10/20/19 01:50 Urine Ascorbic Acid NEGATIVE (NEGATIVE) 10/20/19 01:50 Time Trough Drawn 0916 10/21/19 09:16 Vancomycin Trough 12.4 ug/mL (5.0-20.0) 10/21/19 09:16 SARS-CoV-2 (PCR) NEGATIVE (NEGATIVE) 10/19/19 03:29 10/19/19 10/19/19 10/19/19 01:20 06:37 10:23 Troponin I < 0.012 < 0.012 < 0.012 NT-Pro-B Natriuret Pep 3000 H 10/19/19 16:06 Troponin I < 0.012 NT-Pro-B Natriuret Pep Impressions: Chest X-Ray 10/19/19 01:23 IMPRESSION: Right lower lobe consolidation/atelectasis, suspicious for pneumonia. Small right pleural effusion. Cardiomegaly. copyright 2010 [employer]- All Rights Reserved Plan Time Spent: Greater than 30 Minutes Stroke Is this a Stroke Patient?: No Acute Heart Failure - Is this a Heart Failure Patient?: No
== END 2019-10-25 09:31 | disposition home health service (06) | DRG 917 ==
LOC: ER 00:39 → EH 04:08 → 3W 09:35
PROVIDERS: ADMIT Internal Medicine; ATTEND Family Medicine
PROC: 5A09557 Assistance with Respiratory Ventilation, Greater than 96 Consecutive Hours, Continuous Positive Airway Pressure (ICD-10-PCS; principal; 2019-10-19)
DX: T42.6X1A Poisoning by other antiepileptic and sedative-hypnotic drugs, accidental (unintentional), initial encounter (principal); J18.9 Pneumonia, unspecified organism; J96.22 Acute and chronic respiratory failure with hypercapnia; G93.41 Metabolic encephalopathy; J96.21 Acute and chronic respiratory failure with hypoxia; C34.90 Malignant neoplasm of unspecified part of unspecified bronchus or lung; J44.0 Chronic obstructive pulmonary disease with (acute) lower respiratory infection; F11.288 Opioid dependence with other opioid-induced disorder; J44.1 Chronic obstructive pulmonary disease with (acute) exacerbation; I48.20 Chronic atrial fibrillation, unspecified; I11.0 Hypertensive heart disease with heart failure; I50.9 Heart failure, unspecified; E78.00 Pure hypercholesterolemia, unspecified; F17.210 Nicotine dependence, cigarettes, uncomplicated; G89.29 Other chronic pain; M54.9 Dorsalgia, unspecified; H91.90 Unspecified hearing loss, unspecified ear; Z20.828 Contact with and (suspected) exposure to other viral communicable diseases; I25.10 Atherosclerotic heart disease of native coronary artery without angina pectoris; E11.649 Type 2 diabetes mellitus with hypoglycemia without coma; Z91.11 Patient's noncompliance with dietary regimen; E78.5 Hyperlipidemia, unspecified; E66.01 Morbid (severe) obesity due to excess calories; Z79.01 Long term (current) use of anticoagulants; I25.2 Old myocardial infarction; Z86.718 Personal history of other venous thrombosis and embolism; Z79.899 Other long term (current) drug therapy; Z99.81 Dependence on supplemental oxygen; Z79.4 Long term (current) use of insulin; Z88.8 Allergy status to other drugs, medicaments and biological substances; Y92.009 Unspecified place in unspecified non-institutional (private) residence as the place of occurrence of the external cause
CPT/HCPCS: 36415; 36600; 71045; 80048; 80053; 80202; 81001; 82565; 82803; 82962; 83735; 83880; 84100; 84443; 84484; 85025; 87040; 87635; 93005; 93010; 94660; 96365; 99291; C9803; J0692; J1815; J1940; J2270; J2310; J2930; J3370; J3490; J7060; J7512; J7620